=== PATIENT | female | born 1935 | race Caucasian/White ===

== ENCOUNTER 2018-05-08 10:27 | Emergency (ER) | payer MEDICARE ==
[2018-05-08] MEDS: oxyCODONE 5MG TAB PO (12:18)
== END 2018-05-08 14:09 | disposition home or self-care (01) ==
LOC: M ED 10:27
DX: G89.29 Other chronic pain (principal); M25.561 Pain in right knee; N18.3 Chronic kidney disease, stage 3 (moderate); I10 Essential (primary) hypertension; E78.5 Hyperlipidemia, unspecified; E66.9 Obesity, unspecified; E11.9 Type 2 diabetes mellitus without complications; Z86.718 Personal history of other venous thrombosis and embolism; Z79.82 Long term (current) use of aspirin; Z79.01 Long term (current) use of anticoagulants; Z79.899 Other long term (current) drug therapy; Z91.89 Other specified personal risk factors, not elsewhere classified; Z88.8 Allergy status to other drugs, medicaments and biological substances
CPT/HCPCS: 93971

== ENCOUNTER 2019-03-19 09:01 | Emergency (ER) | payer MEDICARE, OTHER ==
[~2019-03-19] VITALS: Ht 152.4 cm; Wt 90.0 kg
[~2019-03-19 09:01] MED LIST: /AUGM875TA OR; /LOR25TA OR; /LOR25TA PO; /RISE35TA; ALLO300T; ALLO300T OR; ASPI81TA26 PO; ASPI81TA3; ASPI81TA83 OR; AXID150C; CALCCHW12; CALCCHW12 OR; CALCTAB22 OR; CALCTAB41 PO; COLA100C2 OR; COUM1TAB14 PO; COUM1TAB19 PO; COUM6TAB PO; CYMB1CAP5 OR; CYMBALTA; DIABETIC MED PO; DULO1CAP6 PO; DURA75DI2 TD; ENAL10TA2; ENAL10TA2 OR; ENAL10TA2 PO; FENT10PA TD; FENT1DIS15 TD; FERR325T; FERR325T OR; FERR83TA OR; FERROUS SULFATE OR; FURO40TA2; FURO40TA2 OR; FURO80TA2 OR; HYDR-3716 PO; IMDU60TA; IMDU60TA OR; ISOS30BRAN OR; KLOR10TA; KLOR10TA OR; LACT10SO8 OR; LACT15SO PO; LEVA250T13 PO; LEVO25TA5 PO; LEVO25TABR; LEVO25TABR OR; LEVO500T PO; LIDO5DIS EX; LYRI75CA PO; METO-743 OR; METO-745; METO-745 OR; MILKSUS OR; MIRA3350 PO; MIRALEX PO; MOM30SS PO; MYCOSTATIN TOP; NATE120T4 PO; NATEGLINIDE PO; NEXI40CA PO; NITR0.4S; NITR4TASL SL; OMEP20TA7 OR; PENN1.5S2 TD; PLAV75TA2; POLY150C4 PO; POLY1POW4 PO; POLYIRON PO; POTA10CA2 OR; PRAV40TA; PRAV40TA OR; PRAV40TA2 PO; PRED10PA PO; PRED5TAB; PRED5TAB OR; PROT1TAB2; STARLIX; STARLIX PO; TOPR25TA PO; TORS100T PO; TYLE325T5 PO; VIC; VICO5TAB; VICO5TAB OR; VICO5TAB PO; VIT D 2000 PO; VITA-113 OR; VITA100018 PO; VITA100027; ZETI10TA; ZETI10TA OR; ZYLO300T6 PO; [UNRECOGNIZED DRUG - OTHER]; fentanyl EXT; nateglinide OR; nitroquick SL; vicodin PO
--- NOTE | 2019-03-19 10:04 | REP ---
REASON: Trauma. History of failed arthroplasty. AP and lateral views were obtained. There is a posterior tibiofibular dislocation with lucency seen subjacent to the femoral component of the arthroplasty. In addition, there is an abnormal lucency seen involving the distal femoral medial metaphysis. This limited two view examination cannot rule out additional abnormal lucencies. IMPRESSION: 1. Dislocated arthroplasty as described above. 2. Abnormal periprosthetic lucency suggesting loosening with possible medial fracture as described above and seen in a limited fashion on this two view exam. Electronically Signed by Sung Gore DO 03/19/2019 12:26 P
[2019-03-19] MEDS ORDERED: ACETAMINOPHEN TAB 650MG DOSE (2X325MG) PO ONE (10:45)
[2019-03-19] MEDS ORDERED: GLYC3350 PO (11:32)
[2019-03-19] MEDS ORDERED: IFERCAP PO (11:32)
[2019-03-19] MEDS ORDERED: DULC5TAB PO (11:32)
[2019-03-19 12:43] VITALS: BP 210/90
--- NOTE | 2019-03-25 06:40 | ED PDOC ---
Post-Departure Follow-Up DR DENNIS FAXED FORMAL REPORT OF KNEE FILM FOR FU Virgil Hull MD Mar 25, 2019 06:40
== END 2019-03-19 13:07 | disposition home or self-care (01) ==
LOC: M ED 09:01 → EDBD 09:01 → M ED 13:07
DX: S80.02XA Contusion of left knee, initial encounter (principal); T84.093A Other mechanical complication of internal left knee prosthesis, initial encounter; X50.9XXA Other and unspecified overexertion or strenuous movements or postures, initial encounter; Y92.89 Other specified places as the place of occurrence of the external cause; E11.9 Type 2 diabetes mellitus without complications; I10 Essential (primary) hypertension; E07.9 Disorder of thyroid, unspecified; E78.5 Hyperlipidemia, unspecified; K21.9 Gastro-esophageal reflux disease without esophagitis; Z79.899 Other long term (current) drug therapy; Z79.82 Long term (current) use of aspirin; Z88.8 Allergy status to other drugs, medicaments and biological substances; Z91.048 Other nonmedicinal substance allergy status

== ENCOUNTER → 2020-04-28 | Outpatient (CLI) | payer MEDICARE, OTHER ==
[~2020-04-28] MED LIST changes: -COUM1TAB14 PO; +COUM4TAB8 PO; -COUM6TAB PO; +COUM6TAB10 PO; +DULC5TAB PO; +ENAL-36 PO; -ENAL10TA2 PO; +GLYC3350 PO; +IFERCAP PO
--- NOTE | 2020-04-28 17:32 | REPVR ---
PROCEDURE INFORMATION: Exam: US Duplex Left Lower Extremity Veins, Limited Exam date and time: 04/28/2020 5:00 PM Age: 85 years old Clinical indication: Pain; Leg, lower; Left; Additional info: Pain lt lower leg, R/O dvt TECHNIQUE: Imaging protocol: Real-time Duplex ultrasound of the Left Lower Extremity with 2-D marks scale, color Doppler flow and spectral waveform analysis with image documentation. Limited exam focused on the left lower extremity veins. COMPARISON: US Duplex, Ext,LOWER veins,unilat 05/08/2018 11:16 AM FINDINGS: Left deep veins: Unremarkable. The common femoral, duplicated femoral, popliteal and posterior tibial veins are patent without thrombus. Normal Doppler waveforms. Normal compressibility and/or augmentation response. Left superficial veins: Unremarkable. Saphenofemoral junction is patent without thrombus. Soft tissues: Unremarkable. IMPRESSION: No evidence of deep vein thrombosis in the left lower extremity. Electronically signed by: Rodri Moreno On 04/28/2020 17:32:13 PM
== END ==
LOC: M RAD 16:22
PROVIDERS: ATTEND Physician Assistant Surgical
DX: M79.662 Pain in left lower leg (principal)

== ENCOUNTER 2021-05-07 02:38 | Inpatient (IN) | payer MEDICARE, OTHER ==
[2021-05-07] VITALS (7 sets, daily range): BP systolic 148–213; BP diastolic 80–100
[~2021-05-07] VITALS: Ht 162.6 cm; Wt 86.5 kg
[2021-05-07] MEDS ORDERED: METOCLOPRAMIDE INJ 10MG/2ML VIAL (J2765 PER 1) IV ONE (03:30)
[2021-05-07] MEDS: MORPHINE 2 MG/ML 1ML VIAL (J2270) IV PRN ×2 (03:36→04:00)
[2021-05-07 03:38] LABS: BASO # 0.1 10^3/uL (0.0-0.2); BASO % 0.5 % (0.0-1.0); HEMATOCRIT 45.8 % (36.0-47.0); HEMOGLOBIN 15.4 g/dl (12.0-15.5); LYMPH # 0.9 10^3/uL (1.5-5.0); LYMPH % 7.4 % (24.0-44.0); MEAN CORPUSCULAR HGB CONC 33.6 g/dl (32.0-36.5); MEAN CORPUSCULAR VOLUME 101.1 fl (80.0-96.0); MONO # 0.5 10^3/uL (0.0-0.8); MONO % 3.7 % (2.0-8.0); NEUTROPHILS # 10.9 10^3/uL (1.5-8.5); NEUTROPHILS % 87.9 % (36.0-66.0); PLATELET COUNT, AUTOMATED 314 10^3/uL (150-450); RED BLOOD COUNT 4.53 10^6/uL (4.00-5.40); WHITE BLOOD COUNT 12.4 10^3/uL (4.0-10.0)
[2021-05-07 03:59] LABS: ALBUMIN 4.2 GM/DL (3.2-5.2); BILIRUBIN,DIRECT 0.2 MG/DL (0.0-0.2); BILIRUBIN,TOTAL 0.5 MG/DL (0.2-1.0); CALCIUM LEVEL 9.8 MG/DL (8.8-10.2); CREATININE FOR GFR 0.99 MG/DL (0.55-1.30); GLOMERULAR FILTRATION RATE 56.4 (>32); POTASSIUM SERUM 3.7 MEQ/L (3.5-5.1); TOTAL PROTEIN 8.4 GM/DL (6.4-8.2)
[2021-05-07] MEDS: HYDROMORPHONE HCL 0.5 MG/ 0.5 ML SYRINGE (J1170 PER 1) IV PRN ×2 (05:13→06:26)
[2021-05-07] MEDS ORDERED: PROMETHAZINE INJ 25 MG/ML VIAL (J2550) IV ONE (05:15)
--- NOTE | 2021-05-07 05:38 | REPVR ---
PROCEDURE INFORMATION: Exam: CTA Chest With Contrast Exam date and time: 05/07/2021 4:42 AM Age: 86 years old Clinical indication: Pain; Other: Burning; Additional info: Abdominal pain, burning chest pain TECHNIQUE: Imaging protocol: Computed tomographic angiography of the chest with contrast. 3D rendering (Not supervised by radiologist): MIP and/or 3D reconstructed images were created by the technologist. Radiation optimization: All CT scans at this facility use at least one of these dose optimization techniques: automated exposure control; mA and/or kV adjustment per patient size (includes targeted exams where dose is matched to clinical indication); or iterative reconstruction. Contrast material: ISO; Contrast volume: 100 ml; Contrast route: INTRAVENOUS (IV); COMPARISON: CR Chest, 1 view 09/11/2015 5:03 PM FINDINGS: PULMONARY ARTERIES: The main pulmonary trunk measures 3.3 cm in diameter. This could be correlated for mild pulmonary arterial hypertension. Enhancement within the pulmonary arteries is preserved bilaterally through the distal segmental levels, without evidence of acute appearing occlusive pulmonary emboli. HEART AND AORTA: There is [id number] cardiac enlargement. There is compression of the heart between a large distended hiatal hernia discussed below and the sternum down to a nominal diameter of 3.1 cm. This may affect cardiac function. No pericardial effusion is seen. There is calcification at the mitral valve. Coronary arterial calcifications are noted. The thoracic aorta is not aneurysmal. There is thoracic aortic atherosclerosis and visualized upper abdominal atherosclerosis. No thoracic aortic dissection is seen. There is uncoiling of the aortic arch and tortuous appearance of the visualized proximal great vessels, findings which may be seen with longstanding systemic arterial hypertension. MEDIASTINUM: No mediastinal soft tissue gas. The visualized thyroid gland is within normal limits. No mediastinal hematoma is seen. Small amount of fluid noted within the pericardial recesses. The esophagus is distended with fluid and air-fluid level to 4.6 cm at the level of the parrish and 4.3 cm at the level of the aortic arch. This is consistent with distal obstruction but may also be seen with severe achalasia or reflux. This is likely a significant elevated risk for aspiration. There is a large fluid-filled distended herniation of the stomach into the chest measuring 20 cm transversely. This herniation involves nearly the entire stomach, however a portion of the fundus remains below the diaphragm however is distended up to 10 cm with fluid and is also likely obstructed, the antrum is located within the chest above the level of the fundus, consistent with gastric volvulus with narrowing of the pyloric segment as it crosses below the esophageal hiatus, likely site of obstruction. The gastroesophageal junction appears to be above the level of the esophageal hiatus. No conclusive gastric pneumatosis is seen. No obvious mediastinal lymphadenopathy by size criteria. LUNGS: Trace amount of pleural fluid is seen on the left. There is no pneumothorax. Confluent pulmonary opacities seen within the posterior lingula and the left lower lobe with air bronchograms which may be secondary to atelectasis, however aspiration/pneumonia cannot be excluded. There are mildly elevated ground-glass opacities bilaterally which may be secondary to volume loss/atelectasis, mild interstitial pneumonitis or edema. Clinical correlation and radiographic follow-up for these findings is advised. UPPER ABDOMEN: Please refer to same-day CT abdomen report for complete findings. MSK AND BODY WALL: The entire body wall is not included in the field of view. There is scoliosis extending above and below the level of imaging. Degenerative changes of the thoracic spine and bony thorax are noted. There is severe compression fracture deformity at T12 which was present on a prior abdominal CT of September 2015, consistent with a chronic injury. There is moderate central compression fracture deformity at T8 and mild central compression at T10 which are of indeterminate acuity. There is protrusio with deformity of the glenoid fossa bilaterally, the humeral heads protruding into the axillary regions bilaterally. This could be correlated for underlying bone abnormality such as rheumatoid arthritis or chronic dislocations. Multiple bilateral old rib fracture deformities are noted. IMPRESSION: No evidence for acute pulmonary embolus. There is a large fluid-filled distended hiatal hernia containing nearly the entire stomach. 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 The esophagus is dilated with fluid and air-fluid level over 4 cm in diameter. This would be elevated risk for aspiration. Cardiac enlargement. There is compression of the heart between the sternum and the distended herniated stomach, which likely impacts cardiac function. Pulmonary opacities noted which may be due to atelectasis, edema and/or pneumonia as discussed above. Other findings discussed above. Electronically signed by: Steve Ocampo On 05/07/2021 05:38:04 AM
--- NOTE | 2021-05-07 05:51 | REPVR ---
PROCEDURE INFORMATION: Exam: CT Abdomen With Contrast Exam date and time: 05/07/2021 4:42 AM Age: 86 years old Clinical indication: Abdominal pain; Generalized; Additional info: Abdominal pain, burning chest pain TECHNIQUE: Imaging protocol: Computed tomography images of the abdomen with intravenous contrast. Radiation optimization: All CT scans at this facility use at least one of these dose optimization techniques: automated exposure control; mA and/or kV adjustment per patient size (includes targeted exams where dose is matched to clinical indication); or iterative reconstruction. Contrast material: ISO; Contrast volume: 100 ml; Contrast route: INTRAVENOUS (IV); COMPARISON: CT ABD PELVIS WITH CONTRAST 09/11/2015 8:44 PM Study limitations: Diagnostic evaluation is slightly compromised by body habitus and positioning of the patient's arms alongside the body wall resulting in beam hardening artifacts. Diagnostic evaluation of viscera is slightly compromised as imaging is only obtained in arterial phase. FINDINGS: LUNG BASES: Please refer to same-day chest CT report for complete findings. 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 This is more dilated than on the prior study. No abdominoaortic dissection or retroperitoneal hematoma. There is aortoiliac and visceral arterial atherosclerosis seen. PERITONEAL : No free air or free fluid. GI: There is a large distended hiatal hernia. Please refer to same-day chest CT report for details. Nonspecific fluid containing small bowel loops are seen. No appearance of a small-bowel obstruction. No focal mesenteric inflammation is seen. Small nonspecific mesenteric lymph nodes are noted. Scattered fecal material and gas within portions of the colon and rectum. The rectum is distended to 7 cm with fecal material. There is perianal soft tissue thickening. Inflammation or mass cannot be excluded by this study. Correlation with clinical exam is advised. There is diverticulosis but no focal inflammation to suggest acute diverticulitis. Some portions of the colon appear slightly thick-walled. This could be artifactual secondary to insufficient distention. Mild colitis would be difficult to exclude. The appendix is not identified. HEPATOBILIARY, PANCREAS, SPLEEN: Hepatic length is 13.9 cm. Evaluation of the liver is slightly compromised by artifact and lack of homogeneous portal phase imaging. The gallbladder is hydropic, distended up to 13 cm in length by 5 cm transversely. There is slight prominence of the gallbladder wall for degree of distention. Mild cholecystitis cannot be excluded with this appearance. If indicated, consider ultrasound or HIDA scan for further evaluation. No calcified gallstones or biliary dilation seen. No pancreatic inflammation. Spleen not enlarged. ADRENALS, KIDNEYS, BLADDER, RETROPERITONEAL: Adrenals within normal limits. Symmetric renal enhancement.. Extrarenal pelves noted bilaterally. There is mild proximal pyelocaliectasis. This may be positional or related to distention of the urinary bladder. There are areas of renal cortical thinning. The urinary bladder is distended. No perivesical stranding is seen. No bladder wall thickening. PELVIC: No dominant cystic pelvic mass seen. The uterus is not identified. MUSCULOSKELETAL: Scoliosis and severe degenerative change of the spine. IMPRESSION: No free-air, free-fluid or focal mesenteric inflammation. Nonspecific gastrointestinal findings to be correlated clinically as discussed above. Hydropic distended gallbladder to be correlated for acute or chronic cholecystitis. Other nonemergent findings discussed above. Electronically signed by: Steve Ocampo On 05/07/2021 05:51:33 AM
[2021-05-07] MEDS ORDERED: NS 1,000 ML IV ONE (06:40)
[2021-05-07] MEDS ORDERED: PANTOPRAZOLE 40MG VIAL (C9113 PER 1) IV ONE (08:30)
--- NOTE | 2021-05-07 08:49 | REP ---
INDICATION: Low CXR to check NG placement. COMPARISON: 08/23/2015 the latest prior also portable TECHNIQUE: Portable FINDINGS: The technique utilized in obtaining the radiograph has magnified the cardiac silhouette and accentuated the interstitial markings. Since the last examination a nasogastric tube is been placed, however, it is doubled back upon itself inferior to the aortic knob. Without a lateral view its exact placement cannot be determined. It appears to be within the esophagus. There is global cardiomegaly status quo. There is chronic interstitial fibrotic change accentuated by technique status quo. No definite new abnormal lung opacities seem to have developed. There is no significant change in appearance of the osseous structures. IMPRESSION: Nasogastric tube as described above. It needs repositioning. Other findings as described above. <Electronically signed by Sung Gore > 05/07/21 [id number]
[2021-05-07] MEDS ORDERED: METOCLOPRAMIDE INJ 10MG/2ML VIAL (J2765 PER 1) IV PRN (08:55)
[2021-05-07] MEDS ORDERED: ONDANSETRON 4MG/2ML VIAL IV PRN ×2 (08:55→12:15)
[2021-05-07 09:34] LABS: BASO % 0.2 % (0.0-1.0); HEMATOCRIT 48.6 % (36.0-47.0); HEMOGLOBIN 15.9 g/dl (12.0-15.5); LYMPH # 0.8 10^3/uL (1.5-5.0); LYMPH % 6.5 % (24.0-44.0); MEAN CORPUSCULAR HEMOGLOBIN 33.1 pg (27.0-33.0); MEAN CORPUSCULAR HGB CONC 32.7 g/dl (32.0-36.5); MEAN CORPUSCULAR VOLUME 101.3 fl (80.0-96.0); MONO # 0.4 10^3/uL (0.0-0.8); NEUTROPHILS # 11.5 10^3/uL (1.5-8.5); NEUTROPHILS % 89.7 % (36.0-66.0); WHITE BLOOD COUNT 12.9 10^3/uL (4.0-10.0)
[2021-05-07 10:18] LABS: PLATELET COUNT, AUTOMATED 282 10^3/uL (150-450)
[2021-05-07 10:25] LABS: RSV AMPLIFICATION NEGATIVE (NEGATIVE)
[2021-05-07 10:32] LABS: INR 1.02; PROTHROMBIN TIME 13.8 SECONDS (12.7-14.5)
[2021-05-07] MEDS ORDERED: fentaNYL 100 MCG/2 ML INJECTION (J3010) As Ordered ONE (10:44)
[2021-05-07] MEDS ORDERED: ONDANSETRON 4MG/2ML VIAL As Ordered ONE (10:44)
[2021-05-07] MEDS ORDERED: LIDOCAINE 2% 100MG/5ML SDV (FOR ANES.) As Ordered ONE (10:44)
[2021-05-07] MEDS ORDERED: SUCCINYLCHOLINE 100 MG/5 ML SYRINGE (J0330) As Ordered ONE (10:44)
[2021-05-07] MEDS ORDERED: propofoL 200 MG/20 ML VIAL As Ordered ONE (10:44)
[2021-05-07] MEDS ORDERED: FENT75DI5 TD (10:44)
[2021-05-07] MEDS ORDERED: ESMOLOL INJ 100MG/10ML VIAL As Ordered ONE (10:44)
[2021-05-07] MEDS ORDERED: MIRT1TAB PO (10:45)
[2021-05-07] MEDS ORDERED: HOME MED LIST COMPLETE! XX SCH (10:50)
[2021-05-07] MEDS ORDERED: ROCURONIUM BROMIDE 50 MG/5 ML VIAL As Ordered ONE (10:59)
[2021-05-07] MEDS ORDERED: NS 500 ML IV ONE (12:00)
[2021-05-07] MEDS ORDERED: oxyCODONE 5MG TAB PO PRN (12:15)
[2021-05-07] MEDS ORDERED: fentaNYL 100 MCG/2 ML INJECTION (J3010) IV PRN (12:15)
[2021-05-07] MEDS ORDERED: LR 1,000 ML IV SCH (12:15)
--- NOTE | 2021-05-07 12:19 | REP ---
INDICATION: POST OP IN PACU. COMPARISON: Today at 8:41 a.m. TECHNIQUE: Portable FINDINGS: The technique utilized in obtaining the radiograph has magnified the cardiac silhouette and accentuated the interstitial markings. The nasogastric tube has been repositioned. The proximal port is at the level of the gastroesophageal junction. There is a large hiatal hernia, however. The cardiomediastinal silhouette is stable. There is no significant change in appearance of the lung jorge or imaged osseous structures. IMPRESSION: Repositioning of the nasogastric tube as described above. The examination is otherwise unchanged. <Electronically signed by Sung Gore > 05/07/21 [id number]
[2021-05-07] MEDS ORDERED: LABETALOL 100MG/20ML VIAL IV PRN (12:40)
[2021-05-07] MEDS: NS 1,000 ML IV SCH ×2 (12:41→17:54)
[2021-05-07] MEDS: hydrALAZINE 20MG/ML 1ML VIAL (J0360 PER 20MG) IV SCH ×2 (15:16→21:58)
[2021-05-07 15:37] LABS: THYROID STIMULATING HORMONE 2.17 uIU/ML (0.358-3.740)
[2021-05-07] MEDS: PANTOPRAZOLE 40MG VIAL (C9113 PER 1) IV SCH (17:54)
--- NOTE | 2021-05-07 19:04 | CR.PDOC ---
General Date of Consultation: May 07, 2021 Referring Provider: Lucio Young Primary Care Physician: Jr Smith Collins Attending Physician: BRANDI SERNA MD Consultation REASON FOR CONSULTATION/CHIEF COMPLAINT: Pre-operative medical management HISTORY OF PRESENT ILLNESS: Ms. Fermin is an 86-year-old female who presented to the ED due to dark/black diarrhea that woke her up from sleep last night. She denied bowel incontinence as she was able to use her bedpan for her diarrhea. She noted blood on the tissue paper, but no obvious blood in the stool. She also felt warm and had nausea, vomiting, and chest/abdominal pain along her bilateral anterior costal margins. She denied headache, fall, head injury, syncope, SOB, hemoptysis, hematemesis, urinary incontinence, dysuria, pyuria, and chills. In the ED, labs showed WBC 12.4 and lactic acid 2.9. CTA chest showed a large fluid-filled distended hiatal hernia containing nearly the entire stomach, gastr ic volvulus with obstruction of the pylorus at the level of the esophageal hiatus, and compression of the heart between the sternum and distended herniated stomach. She was taken to the OR this morning by general surgery for EGD decompression of the stomach with NG tube placement. After the procedure, the hospitalist service was consulted for pre-operative management of the patient's medical co-morbidities. Per general surgery, the patient is most likely a candidate for hiatal hernia repair. The patient was seen lying comfortably in the bed. NG tube was placed in right nostril. She reports improved pain but feels weak and fatigue. At the time of presentation, patient's blood pressure was measured as 210/100. She denies headache, chest pain, SOB, nausea, and diarrhea. ALLERGIES: Please see below. HOME MEDICATIONS: Please see below. 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 16-17 years ago - Denies history of stroke, seizures, or PE PAST SURGICAL HISTORY: - Appendectomy - Hysterectomy - Multiple abdominal hernia repairs - 1 cardiac stent placement - Bilateral knee replacement 25 years ago - Cataract extraction - Vertebral fracture surgery - Colonoscopy FAMILY HISTORY: Father: from [place] Mother: from [place] Siblings: 1 brother with h/o [place] Children: 5 children SOCIAL HISTORY: Marital status and/or living arrangements: Living with Tobacco use: Denies ETOH: Occasional on the weekends Illicit drug use: Denies IV drug use: Denies REVIEW OF SYSTEMS: CONSTITUTIONAL: Denies current fever, chills. HEENT: Dry throat, feels dehydrated. Denies headache, dysphagia. CARDIOVASCULAR: Denies current chest pain. RESPIRATORY: Denies current SOB. GENITOURINARY: Denies current urinary or bowel incontinence, dysuria, pyuria, hematuria, hematochezia. MUSCULOSKELETAL: Weakness and fatigue. Denies pain in extremities. GASTROINTESTINAL: Denies current nausea, vomiting, abdominal pain, diarrhea, constipation. NEUROLOGICAL: Denies syncope, LOC. PHYSICAL EXAMINATION: VITAL SIGNS: Please see below. GENERAL APPEARANCE: Patient is an elderly, obese female. She is lying comfortable in the bed in no acute distress. HEENT: NC, AT. EOMI. PERRLA. Dry mucus membranes. NG tube placed in right nostril. Neck circumference <41cm. Mallampati Class III. RESPIRATORY: Clear to auscultation bilaterally. No wheezing, rales, or rhonchi appreciated. CARDIOVASCULAR: RRR. No murmurs, rubs, or gallops appreciated. ABDOMEN: Soft, obese abdomen. Mild tenderness along bilateral anterior costal margins. Nontender to palpation in all 4 quadrants. Positive bowel sounds. EXTREMITIES: Bilateral radial, dorsalis pedis, and posterior tibialis appreciated. Non-pitting edema in bilateral LLE. Bilateral flat feet, arches are not present. Bilateral hallux valgus. Bilateral pedal deformities noted; severe out-toeing bilaterally. NEUROLOGICAL: A&O X3. No focal deficits noted. PSYCHIATRIC: Mood appears stable. LABORATORY DATA: Please see below. IMAGIN05/07/2021 CT Abdomen Findings: LUNG BASES: Please refer to same-day chest CT report for complete findings. 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 This is more dilated than on the prior study. No abdominoaortic dissection or retroperitoneal hematoma. There is aortoiliac and visceral arterial atherosclerosis seen. PERITONEAL: No free air or free fluid. GI: There is a large distended hiatal hernia. Please refer to same-day chest CT report for details. Nonspecific fluid containing small bowel loops are seen. No appearance of a small-bowel obstruction. No focal mesenteric inflammation is seen. Small nonspecific mesenteric lymph nodes are noted. Scattered fecal material and gas within portions of the colon and rectum. The rectum is dis tended to 7 cm with fecal material. There is perianal soft tissue thickening. Inflammation or mass cannot be excluded by this study. Correlation with clinical exam is advised. There is diverticulosis but no focal inflammation to suggest acute diverticulitis. Some portions of the colon appear slightly thick-walled. This could be artifactual secondary to insufficient distention. Mild colitis would be difficult to exclude. The appendix is not identified. HEPATOBILIARY, PANCREAS, SPLEEN: Hepatic length is 13.9 cm. Evaluation of the liver is slightly compromised by artifact and lack of homogeneous portal phase imaging. The gallbladder is hydropic, distended up to 13 cm in length by 5 cm transversely. There is slight prominence of the gallbladder wall for degree of distention. Mild cholecystitis cannot be excluded with this appearance. If indicated, consider ultrasound or HIDA scan for further evaluation. No calcified gallstones or biliary dilation seen. No pancreatic inflammation. Spleen not enlarged. ADRENALS, KIDNEYS, BLADDER, RETROPERITONEAL: Adrenals within normal limits. Symmetric renal enhancement. Extrarenal pelves noted bilaterally. There is mild proximal pyelocaliectasis. This may be positional or related to distention of the urinary bladder. There are areas of renal cortical thinning. The urinary bladder is distended. No perivesical stranding is seen. No bladder wall t hickening. PELVIC: No dominant cystic pelvic mass seen. The uterus is not identified. MUSCULOSKELETAL: Scoliosis and severe degenerative change of the spine." 05/07/2021 CTA Chest w/ Contrast Impression: "No evidence for acute pulmonary embolus. There is a large fluid-filled distended hiatal hernia containing nearly the entire stomach. 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 The esophagus is dilated with fluid and air-fluid level over 4 cm in diameter. This would be elevated risk for aspiration. Cardiac enlargement. There is compression of the heart between the sternum and the distended herniated stomach, which likely impacts cardiac function. Pulmonary opacities noted which may be due to atelectasis, edema and/or pneumonia as discussed above. Other findings discussed above." 05/07/2021 Chest X-ray Impression: "Nasogastric tube as described above. It needs repositioning. Other findings as described above." 05/07/2021 Chest X-ray Impression: "Repositioning of the nasogastric tube as described above. The examination is otherwise unchanged." ASSESSMENT/PLAN: Ms. Fermin is an 86-year-old female with a h/o HTN (managed w/o medication), hypercholesterolemia, CKD stage 3a, DM type II (managed w/o medication), alla yneuropathy 2/2 DM, DVT in 2014 (completed course of Coumadin), and gout who was admitted by general surgery and hospital service was consulted for pre-operative management of medical co-morbidities as well hypertensive urgency on presentation. 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 - S/p EGD decompression of the stomach with NG tube placement. - The hospitalist service was consulted for pre-operative management of medical co-morbidities. General surgery plans to likely perform a hiatal hernia repair due to gastric volvulus. - Records from patient's PCP (Dr. Charles Smith) were requested on 05/07/21. - Revised Cardiac Risk Index Score of 1 correlating w/ Class II Risk; 6% 30-day risk of , ND, or cardiac arrest. - Pro-BNP 4339; lactic acid 3.4 - Echocardiogram (to assess IVC/CVP in setting of elev BNP w/ current fluids while patient NPO); EKG ordered. - STOPBANG risk assessment for sleep apnea resulted in low risk - Mallampati score III; neck circumference <41cm. - Patient denies any previous issues with anesthesia. - Patient denies a history of stroke, PE, CHF; she is a non-smoker and no known respiratory conditions. - Patient is not on any anticoagulants or antiplatelets at home, has not recently taken any NSAIDs. - Rouse catheter in place. - Continue NPO. - Continue IV morphine 2mg Q4H as needed for pain. - Continue IV metoclopramide 10mg, IV ondansetron 4mg, IV pantoprazole 40mg as needed for nausea/vomiting. - Continue IV NS 150mls/hr for fluids until results of stat echo return - Will hold all PO home medications in preparation for surgical procedure. At this time, medical optimization for surgery is pending stat echocardiogram which was ordered in the setting of elevated BNP. Will plan to update general surgery service once results of echo are in. # Hypertensive urgency i/s/o HTN hx - Patient presented to the ED with BP 205/99. After the EGD, the patient's blood pressure remained elevated at 210/100. - The patient does report a history of hypertension but does not take any medications at home for control. Per PCP, the patient was hemodynamically stable at the time of previous visit and did not require medications. - Echocardiogram and EKG ordered. - IV hydralazine 10mg Q6H in the setting of significantly elevated pressure and borderline bradycardia; parameters are to hold if SBP <160. Repeat BP 156/88. - Patient currently NPO; when returning to oral meds, may consider addition of amlodipine in the setting of borderline bradycardia with HTN. - Will continue to monitor vitals. # CKD Stage 3a - Cr 0.99; baseline is approx. 0.8-0.9 DVT prophylaxis: TEDs and sequentials. Disposition: Pending hiatal hernia repair. Vital Signs/I&O Vital Signs Date Time Temp Pulse Resp B/P (MAP) Pulse Ox O2 Delivery O2 Flow Rate FiO2 05/07/21 15:16 213/93 05/07/21 14:27 67 05/07/21 14:01 98.1 16 95 Room Air 05/07/21 07:15 2.0 Laboratory Data Labs 24H Laboratory Tests 2 05/07/21 03:17: Immature Granulocyte % (Auto) 0.5, Neutrophils (%) (Auto) 87.9H, Lymphocytes (%) (Auto) 7.4L, Monocytes (%) (Auto) 3.7, Eosinophils (%) (Auto) 0.0, Basophils (%) (Auto) 0.5, Neutrophils # (Auto) 10.9H, Lymphocytes # (Auto) 0.9L, Monocytes # (Auto) 0.5, Eosinophils # (Auto) 0.0, Basophils # (Auto) 0.1, Nucleated Red Blood Cells % (auto) 0.0, Anion Gap 5L, Glomerular Filtration Rate 56.4, Lactic Acid Level 2.9*H, Calcium Level 9.8, Total Bilirubin 0.5, Direct Bilirubin 0.2, Aspartate Amino Transf (AST/SGOT) 34, Alanine Aminotransferase (ALT/SGPT) 22, Alkaline Phosphatase 102, Total Protein 8.4H, Albumin 4.2, Albumin/Globulin Ratio 1.0L, Lipase 188 05/07/21 09:12: Immature Granulocyte % (Auto) 0.6, Neutrophils (%) (Auto) 89.7H, Lymphocytes (%) (Auto) 6.5L, Monocytes (%) (Auto) 3.0, Eosinophils (%) (Auto) 0.0, Basophils (%) (Auto) 0.2, Neutrophils # (Auto) 11.5H, Lymphocytes # (Auto) 0.8L, Monocytes # (Auto) 0.4, Eosinophils # (Auto) 0.0, Basophils # (Auto) 0.0, Nucleated Red Blood Cells % (auto) 0.0, Coronavirus (COVID-19)(PCR) NEGATIVE, Influenza Type A (RT-PCR) NEGATIVE, Influenza Type B (RT-PCR) NEGATIVE, Respiratory Syncytial Virus (PCR) NEGATIVE 05/07/21 10:00: Thyroid Stimulating Hormone (TSH) 2.170 05/07/21 10:05: Prothrombin Time 13.8, Prothromb Time International Ratio 1.02, Activated Partial Thromboplast Time 21.0L 05/07/21 10:07: Lactic Acid Level 3.8*H 05/07/21 14:37: Lactic Acid Followup at 4 Hours 3.4*H CBC/BMP Laboratory Tests 05/07/21 03:17 05/07/21 09:12 Allergies Coded Allergies: TAPE (Verified Allergy, Intermediate, RASH, 05/21/10) meloxicam (Verified Adverse Reaction, Mild, "I think it made me sick", 03/19/19) pioglitazone (Verified Adverse Reaction, Mild, bruising, 03/19/19) pregabalin (Verified Adverse Reaction, Mild, affects vision, 03/19/19) Home Medications Scheduled Bisacodyl (Dulcolax) 5 Mg Tablet.dr, 10 MG PO ASDIRECTED for constipation, (Reported) Cyanocobalamin (Vitamin B-12) (Vitamin B-12) 1,000 Mcg Tab, 1,000 MCG PO DAILY, (Reported) Duloxetine Hcl (Duloxetine HCl) 60 Mg Cap, 60 MG PO DAILY, (Reported) Iron Ps Complex/B12/Folic Acid (Iferex 150 Forte Capsule) 1 Each Capsule, 1 CAP PO DAILY, (Reported) Levothyroxine Sodium (Levothyroxine Sodium) 25 Mcg Tab, 37.5 MCG PO DAILY, (Reported) Mirtazapine (Mirtazapine) 7.5 Mg Tablet, 7.5 MG PO QHS, (Reported) Pravastatin Sodium (Pravastatin Sodium) 40 Mg Tab, 40 MG PO QHS, (Reported) fentaNYL (fentaNYL) 75 Mcg Patch.td72, 75 MCG TD Q3D, (Reported) Scheduled PRN Hydrocodone/Acetaminophen (Hydrocodone-Acetamin 7.5-325) 1 Tab Tab, 1 TAB PO Q6H PRN for PAIN, (Reported) Nitroglycerin (Nitrostat) 0.4 Mg Subl, 0.4 MG SL Q5MP PRN for ANGINA, (Reported) GME ATTESTATION GME ATTESTATION My faculty preceptor for this patient encounter was physically present during the encounter and was fully available. All aspects of the patient interview, examination, medical decision making process, and medical care plan development were reviewed and approved by the faculty preceptor. The faculty preceptor is aware and concurs with the plan as stated in the body of this note and will attest to such by his/her cosignature. ATTENDING NOTE I personally examined the patient together with the resident and medical students and we obtained the presenting history together, discussed her findings, investigative results and I agree with the above noted findings, assessment and plan. Ms. Fermin has a large hietal hernia that will require repair and at this time, we will seek a TTE to complete medical assessment for optimization for surgery. She otherwise appears euvolemic, without evidence of acute cardiovascular vascular supply or pulmonary pathology thus far. She was however hypertensive and we are treating her with IV hydralazine. ROSEANNA TREVIZO OMS-3 May 07, 2021 19:03 BRANDI SERNA MD May 08, 2021 08:53
--- NOTE | 2021-05-07 20:58 | ECHO ---
ECHOCARDIOGRAM DATE OF PROCEDURE: 05/07/2021 Age: Gender: Female Height: 163 cm Weight: 86 kg REFERRING PHYSICIAN: Lucio Young M.D. INDICATION: Preoperative evaluation; elevated BNP. MEASUREMENTS: IVS 1.5 cm LV 2.6 cm LVPW 1.5 cm LA 3.1 cm Aorta 3.0 cm IVC 1.5 cm Mitral E wave velocity 60 A wave 139 E prime septal 3.7 E prime lateral 5.0 FINDINGS: This study is of good technical quality. Patient is in sinus rhythm. Left ventricle is normal size. Moderate left ventricular hypertrophy is noted. Overall hyperdynamic left ventricular (LV) systolic function with estimated left ventricular ejection fraction (LVEF) 70-75%. No segmental wall motion abnormalities noted. Normal right ventricular (RV) size and systolic function. Normal size of both atria. Sclerotic aortic valve with no significant restriction of mobility. Degenerative abnormality of mitral valve with mitral annular calcifications, but preserved motion of both leaflets. Tricuspid and pulmonic valves appear normal. No pericardial effusion is noted. Inferior vena cava is normal size. Aortic root is normal. Aortic arch and abdominal aorta were not well seen. Doppler interrogation reveals trace aortic insufficiency and trivial stenosis with mean gradient 8 mmHg. There is competent mitral valve. Mild tricuspid insufficiency. Calculated pulmonary artery pressure around 40 mmHg. Pulmonic valve is functionally competent. Mitral inflow pattern and tissue Doppler imaging of mitral annulus reveal grade 1 diastolic dysfunction. CONCLUSIONS: 1. Study is of acceptable technical quality. Underlying sinus rhythm. 2. Normal left ventricular (LV) size with moderate left ventricular hypertrophy (LVH), hyperdynamic LV systolic function. Estimated left ventricular ejection fraction (LVEF) 70-75%. Grade 1 diastolic dysfunction. 3. Normal right ventricular (RV) size and systolic function. 4. Aortic sclerosis with trace insufficiency and trivial stenosis. 5. Competent mitral valve. 6. Likely normal central venous pressure and approximately moderate pulmonary hypertension. MTDD
[2021-05-08] VITALS (8 sets, daily range): BP systolic 145–190; BP diastolic 65–95
[2021-05-08] MEDS: NS 1,000 ML IV SCH ×3 (00:30→18:17)
[2021-05-08] MEDS: hydrALAZINE 20MG/ML 1ML VIAL (J0360 PER 20MG) IV SCH ×4 (03:53→21:00)
[2021-05-08] MEDS: MORPHINE 2 MG/ML 1ML VIAL (J2270) IV PRN (05:29)
[2021-05-08 05:37] LABS: BASO # 0.1 10^3/uL (0.0-0.2); BASO % 0.5 % (0.0-1.0); EOS % 0.1 % (0.0-3.0); HEMATOCRIT 42.5 % (36.0-47.0); HEMOGLOBIN 14.1 g/dl (12.0-15.5); LYMPH # 1.6 10^3/uL (1.5-5.0); LYMPH % 13.4 % (24.0-44.0); MEAN CORPUSCULAR HEMOGLOBIN 34.1 pg (27.0-33.0); MEAN CORPUSCULAR HGB CONC 33.2 g/dl (32.0-36.5); MEAN CORPUSCULAR VOLUME 102.9 fl (80.0-96.0); MONO # 0.8 10^3/uL (0.0-0.8); MONO % 6.8 % (2.0-8.0); NEUTROPHILS # 9.4 10^3/uL (1.5-8.5); NEUTROPHILS % 78.7 % (36.0-66.0); PLATELET COUNT, AUTOMATED 251 10^3/uL (150-450); RED BLOOD COUNT 4.13 10^6/uL (4.00-5.40)
[2021-05-08] MEDS ORDERED: PANTOPRAZOLE 40MG VIAL (C9113 PER 1) IV SCH (09:00)
[2021-05-08] MEDS ORDERED: FLUBLOK(EGG FREE)(QUAD)INFLUENZA VACC 0.5ML SYRINGE 18YRS & OLDER IM ONE (09:00)
[2021-05-08 09:20] LABS: ALT/SGPT 19 U/L (12-78); BILIRUBIN,TOTAL 0.5 MG/DL (0.2-1.0); BLOOD UREA NITROGEN 18 MG/DL (7-18); CALCIUM LEVEL 9.1 MG/DL (8.8-10.2); CARBON DIOXIDE LEVEL 31 MEQ/L (21-32); CHLORIDE LEVEL 111 MEQ/L (98-107); CREATININE FOR GFR 0.83 MG/DL (0.55-1.30); GLOMERULAR FILTRATION RATE > 60.0 (>32); GLUCOSE, FASTING 113 MG/DL (70-100); MAGNESIUM LEVEL 2.1 MG/DL (1.8-2.4); POTASSIUM SERUM 3.9 MEQ/L (3.5-5.1); SODIUM LEVEL 146 MEQ/L (136-145); TOTAL PROTEIN 6.5 GM/DL (6.4-8.2)
--- NOTE | 2021-05-08 09:33 | IPNPDOC ---
Text Note Date of Service The patient was seen on 05/08/21. NOTE SUBJECTIVE: Ms. Fermin was seen by the hospitalist service this morning. She is lying comfortably in bed. She reports a slight headache, but no significant changes overnight. She did have 2 episodes of elevated SBP > 160 for which she was given hydralazine. She has not had a bowel movement since admission and denies any flatus. She notes being very dry, but the patient is NPO at this time for possible surgical intervention. She denies fever, chills, chest pain, palpitati ons, nausea, abdominal pain, vomiting, dysuria, pyuria, hematuria, pain/numbness/tingling in all 4 extremities. OBJECTIVE: PHYSICAL EXAMINATION: VITAL SIGNS: Please see below. GENERAL APPEARANCE: Patient is an elderly, obese female. She is lying comfortable in the bed in no acute distress. HEENT: NC, AT. EOMI. PERRLA. Sclera non-icteric. Dry mucus membranes. NG tube placed in right nostril (scant amount of drainage present < 100cc). Neck circumference <41cm. Mallampati Class III. NECK: No cervical adenopathy noted. RESPIRATORY: Clear to auscultation bilaterally. No wheezing, rales, or rhonchi appreciated. CARDIOVASCULAR: RRR. No murmurs, rubs, or gallops appreciated. ABDOMEN: Soft, obese abdomen. Nontender to palpation along costal margins and in all 4 quadrants. Positive bowel sounds. GENITOURINARY: Rouse catheter in place with approx 200cc of dark, yellow-colored urine. EXTREMITIES: Tenderness to palpation noted below left popliteal fossa. Bilateral radial, dorsalis pedis, and posterior tibialis appreciated. Non-pitting edema in bilateral LLE. Bilateral flat feet, arches are not present. Bilateral hallux valgus. Bilateral pedal deformities noted; severe out-toeing bilaterally. SKIN: Rash noted under pannus, worse on right than left. NEUROLOGICAL: A&O X3. No focal deficits noted. PSYCHIATRIC: Mood appears stable. IMAGIN05/07/2021 Echocardiogram Conclusions: "1. Study is of acceptable technical quality. Underlying sinus rhythm. 2. Normal left ventricular (LV) size with moderate left ventricular hypertrophy (LVH), hyperdynamic LV systolic function. Estimated left ventricular ejection fraction (LVEF) 70-75%. Grade 1 diastolic dysfunction. 3. Normal right ventricular (RV) size and systolic function. 4. Aortic sclerosis with trace insufficiency and trivial stenosis. 5. Competent mitral valve. 6. Likely normal central venous pressure and approximately moderate pulmonary hypertension." 05/07/2021 CT Abdomen Findings: LUNG BASES: Please refer to same-day chest CT report for complete findings. 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 This is more dilated than on the prior study. No abdominoaortic dissection or retroperitoneal hematoma. There is aortoiliac and visceral arterial atherosclerosis seen. PERITONEAL: No free air or free fluid. GI: There is a large distended hiatal hernia. Please refer to same-day chest CT report for details. Nonspecific fluid containing small bowel loops are seen. No appearance of a small-bowel obstruction. No focal mesenteric inflammation is seen. Small nonspecific mesenteric lymph nodes are noted. Scattered fecal material and gas within portions of the colon and rectum. The rectum is distended to 7 cm with fecal material. There is perianal soft tissue thickening. Inflammation or mass cannot be excluded by this study. Correlation with clinical exam is advised. There is diverticulosis but no focal inflammation to suggest acute diverticulitis. Some portions of the colon appear slightly thick-walled. This could be artifactual secondary to insufficient distention. Mild colitis would be difficult to exclude. The appendix is not identified. HEPATOBILIARY, PANCREAS, SPLEEN: Hepatic length is 13.9 cm. Evaluation of the liver is slightly compromised by artifact and lack of homogeneous portal phase imaging. The gallbladder is hydropic, distended up to 13 cm in length by 5 cm transversely. There is slight prominence of the gallbladder wall for degree of distention. Mild cholecystitis cannot be excluded with this appearance. If indicated, consider ultrasound or HIDA scan for further evaluation. No calcified gallstones or biliary dilation seen. No pancreatic inflammation. Spleen not enlarged. ADRENALS, KIDNEYS, BLADDER, RETROPERITONEAL: Adrenals within normal limits. Symmetric renal enhancement. Extrarenal pelves noted bilaterally. There is mild proximal pyelocaliectasis. This may be positional or related to distention of the urinary bladder. There are areas of renal cortical thinning. The urinary bladder is distended. No perivesical stranding is seen. No bladder wall thickening. PELVIC: No dominant cystic pelvic mass seen. The uterus is not identified. MUSCULOSKELETAL: Scoliosis and severe degenerative change of the spine." 05/07/2021 CTA Chest w/ Contrast Impression: "No evidence for acute pulmonary embolus. There is a large fluid-filled distended hiatal hernia containing nearly the entire stomach. 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 The esophagus is dilated with fluid and air-fluid level over 4 cm in diameter. This would be elevated risk for aspiration. Cardiac enlargement. There is compression of the heart between the sternum and the distended herniated stomach, which likely impacts cardiac function. Pulmonary opacities noted which may be due to atelectasis, edema and/or pneumonia as discussed above. Other findings discussed above." 05/07/2021 Chest X-ray Impression: "Nasogastric tube as described above. It needs repositioning. Other findings as described above." 05/07/2021 Chest X-ray Impression: "Repositioning of the nasogastric tube as described above. The examination is otherwise unchanged." ASSESSMENT/PLAN: Ms. 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 - S/p EGD decompression of the stomach with NG tube placement. - The hospitalist service was consulted for pre-operative management of medical co-morbidities. General surgery potentially will perform a laparoscopic hiatal hernia repair due to gastric volvulus. - Recent records from patient's PCP (Dr. Charles Smith) were requested and reviewed. - Revised Cardiac Risk Index Score of 1 correlating w/ Class II Risk; 6% 30-day risk of , [place], or cardiac arrest. - Pro-BNP 4339; lactic acid 3.4 - Echocardiogram shows normal LV size w/ moderate LVH; LVEF 70-75%, Grade 1 diastolic dysfunction; normal RV size and systolic function; moderate pulmonary hypertension (see report above). - EKG ordered. - STOPBAN risk assessment for sleep apnea resulted in low risk - Mallampati score III; neck circumference <41cm. - Patient denies any previous issues with anesthesia. - Patient denies a history of stroke, PE, CHF; she is a non-smoker and no known respiratory conditions. - Patient is not on any anticoagulants or antiplatelets at home, has not recently taken any NSAIDs. - Rouse catheter in place. - Continue IV morphine 2mg Q4H as needed for pain. - Continue IV metoclopramide 10mg, IV ondansetron 4mg, IV pantoprazole 40mg as needed for nausea/vomiting. - Continue IV NS 150mls/hr for fluids. - Per general surgery, the NG tube will be clamped and the patient will be given a very small amount of clear liquids. At this time, the patient is medically optimized for surgery. # Hypertensive urgency i/s/o HTN hx - Patient presented to the ED with BP 205/99. After the EGD, the patient's blood pressure remained elevated at 210/100. - The patient does report a history of hypertension but does not take any medications at home for control. Per PCP, the patient was hemodynamically stable at the time of previous visit and did not require medications. - Patient reports slight headache which may be due to hypertension or possible caffeine withdrawal (drinks 2 cups of coffee days). - IV hydralazine 10mg Q6H in the setting of significantly elevated pressure and borderline bradycardia; parameters are to hold if SBP <160. Repeat BP 156/88. - Patient will be introduced to a very small amount of clear liquids this morning; will defer PO medications and assess how she tolerates clear liquids. - Overnight, the patient was given 2 doses of IV hydralazine; SBP at 188 and 168. BP is now 148/80. - Will continue to monitor vitals. # CKD Stage 3a - Cr 0.99; baseline is approx. 0.8-0.9 DVT prophylaxis: TEDs and sequentials. Disposition: Patient is medically optimized for surgery. VS,Fishbone, I+O VS, Fishbone, I+O Laboratory Tests 05/07/21 09:12 05/08/21 05:28 Vital Signs Date Time Temp Pulse Resp B/P (MAP) Pulse Ox O2 Delivery O2 Flow Rate FiO2 05/08/21 05:39 18 Room Air 05/08/21 04:00 98.4 90 148/80 (102) 92 05/07/21 07:15 2.0 I&O- Last 24 Hours up to 6 AM 05/08/21 06:00 Intake Total 2700 ml Output Total 1000 ml Balance 1700 ml GME ATTESTATION GME ATTESTATION My faculty preceptor for this patient encounter was physically present during the encounter and was fully available. All aspects of the patient interview, examination, medical decision making process, and medical care plan development were reviewed and approved by the faculty preceptor. The faculty preceptor is aware and concurs with the plan as stated in the body of this note and will attest to such by his/her cosignature. ATTENDING NOTE I personally examined the patient with the medical student and perfomed the examination, obtained interim history and discussed the medical plan going forw jadyn, and I agree with the above assessment and plan. At this time as the medical team given her normal EF and normal CVP with euvolemic examination, she is medically optimized for surgery if indicated. We will continue to aggressively treat her hypertensive urgency. ROSEANNA TREVIZO OMS-3 May 08, 2021 09:33 BRANDI SERNA MD May 09, 2021 08:20
[2021-05-08] MEDS: ACETAMINOPHEN 325 MG/10.15 ML UDC GT PRN (13:01)
[2021-05-08] MEDS: PANTOPRAZOLE 40MG VIAL (C9113 PER 1) IV SCH (18:17)
[2021-05-08] MEDS ORDERED: LABETALOL 100MG/20ML VIAL IV STA (18:17)
[2021-05-08] MEDS ORDERED: LABETALOL 100MG/20ML VIAL IV ONE (18:35)
[2021-05-09] VITALS (17 sets, daily range): BP systolic 137–190; BP diastolic 63–77
[2021-05-09] MEDS: hydrALAZINE 20MG/ML 1ML VIAL (J0360 PER 20MG) IV SCH ×2 (05:07→08:30)
[2021-05-09] MEDS: MORPHINE 2 MG/ML 1ML VIAL (J2270) IV PRN ×2 (05:12→09:56)
[2021-05-09] MEDS: ACETAMINOPHEN 325 MG/10.15 ML UDC GT PRN (08:31)
--- NOTE | 2021-05-09 10:57 | ECGEPIP ---
[facility] Test Date: 2021-05-07 Pat Name: SHIRA ABEL Department: Room: [place] [address] Gender: Female Rv Detailer: SUYAPA : 1935 Requested By: BRANDI Hyde Order Number: [id number] Reading MD: Ajay Gooden Measurements Intervals [place] Rate: 67 P: -7 UT: 196 QRS: -24 QRSD: 98 T: 126 QT: 460 QTc: 486 Interpretive Statements Normal sinus rhythm Moderate voltage criteria for LEFT VENTRICULAR HYPERTROPHY (R aVL , [place]) Nonspecific T wave abnormality More pronounced repolarization abnormalities, Increased heart rate, and increased v voltages compared with 09/11/2015. Electronically Signed on 05-09-2021 10:57:03 EDT by Ajay Gooden
[2021-05-09] MEDS ORDERED: NITROGLYCERIN 0.4 MG SUBL TABLET SL PRN (11:25)
[2021-05-09] MEDS: DULoxetine 30MG CAPSULE (CYMBALTA) PO SCH (12:00)
--- NOTE | 2021-05-09 12:01 | IPN ---
PROGRESS NOTE DATE: 05/09/2021 Patient is status post upper endoscopy with esophagogastroduodenoscopy (EGD) and decompression of a gastric volvulus. She has a nasogastric (NG) tube in place, and the NG tube has been clamped, and she has been on a clear liquid diet. 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 She has numerous other complaints and problems, and she is a very frail lady at this time and is not complaining of any abdominal pain. Her abdomen is soft, nontender, nondistended. IMPRESSION AND PLAN: Patient had a gastric volvulus and unfortunately multiple issues are present, one of which is that she had some clear fluid in her NG tube residuals, and it implies that the stomach is really not emptying very well; thus, I would like to see if we can decompress her stomach over the weekend and then on Tuesday perform an upper gastrointestinal (GI), and we will see how her stomach empties at that time. If it does empty well, we will discontinue the NG tube, get her on a clear liquid diet, and advance her to mechanical soft/pureed diet. If, however, it does not empty, then obviously the discussion whether operative intervention is warranted. Unfortunately, she seems to be quite a poor operative candidate, and, more importantly, my concern at this time is not just the difficulty in reducing this longstanding huge hiatal hernia, it is more that she may not tolerate operative intervention and have a poor postoperative course leading to prolonged rehabilitation to her already marginal status. In any case, I do feel that for right now we will see how she does with the NG tube, nothing by mouth except some ice chips, and we will see how she does over the weekend.
[2021-05-09] MEDS: CYANOCOBALAMIN 500 MCG TAB PO SCH (12:26)
[2021-05-09] MEDS: NYSTATIN 100,000 UNITS/GM TOPICAL PWD 15 GM TOP PRN (12:43)
[2021-05-09 12:49] LABS: HEMATOCRIT 34.5 % (36.0-47.0); HEMOGLOBIN 11.2 g/dl (12.0-15.5); MEAN CORPUSCULAR HEMOGLOBIN 33.2 pg (27.0-33.0); MEAN CORPUSCULAR HGB CONC 32.5 g/dl (32.0-36.5); MEAN CORPUSCULAR VOLUME 102.4 fl (80.0-96.0); PLATELET COUNT, AUTOMATED 220 10^3/uL (150-450); RED BLOOD COUNT 3.37 10^6/uL (4.00-5.40); WHITE BLOOD COUNT 10.2 10^3/uL (4.0-10.0)
[2021-05-09 12:58] LABS: BLOOD UREA NITROGEN 16 MG/DL (7-18); CALCIUM LEVEL 8.5 MG/DL (8.8-10.2); CARBON DIOXIDE LEVEL 27 MEQ/L (21-32); CHLORIDE LEVEL 110 MEQ/L (98-107); CREATININE FOR GFR 0.67 MG/DL (0.55-1.30); GLOMERULAR FILTRATION RATE > 60.0 (>32); GLUCOSE, FASTING 93 MG/DL (70-100); POTASSIUM SERUM 3.4 MEQ/L (3.5-5.1); SODIUM LEVEL 144 MEQ/L (136-145)
[2021-05-09] MEDS: NS 1,000 ML IV SCH (13:26)
[2021-05-09] MEDS: fentaNYL 75 MCG/HR PATCH TD SCH (13:34)
--- NOTE | 2021-05-09 14:45 | IPNPDOC ---
Text Note Date of Service The patient was seen on 05/09/21. NOTE SUBJECTIVE: -has ongoing headache and knee pain -On clears -Continues to be hypertensive -Otherwise denies fever, chills, chest pain, palpitations, nausea, abdominal pain, vomiting, dysuria, pyuria, hematuria, pain/numbness/tingling in all 4 extremities. OBJECTIVE: VITAL SIGNS: Please see below. Hypertensive to SBP 170s GENERAL APPEARANCE: Elderly, obese, lying comfortable in the bed in no acute distress. HEENT: NC, AT. EOMI. PERRLA. Sclera non-icteric. MMM. NG tube placed in right nostril RESPIRATORY: Clear to auscultation bilaterally. No wheezing, rales, or rhonchi appreciated. breathing comfortably on room air CARDIOVASCULAR: RRR. No murmurs, rubs, or gallops appreciated. ABDOMEN: Soft, obese abdomen. Nontender to palpation along costal margins and in all 4 quadrants. Positive bowel sounds. GENITOURINARY: Rouse catheter in place with clear urine in drainage bag EXTREMITIES: Non-pitting edema in bilateral LLE. Bilateral flat feet, arches are not present. Bilateral hallux valgus. Bilateral pedal deformities noted; severe out-toeing bilaterally. SKIN: Intertriginous rash noted under pannus, worse on right than left. NEUROLOGICAL: A&O X3. No focal deficits noted. LABS: Reviewed, pending AM labs IMAGIN05/07/2021 Echocardiogram Conclusions: "1. Study is of acceptable technical quality. Underlying sinus rhythm. 2. Normal left ventricular (LV) size with moderate left ventricular hypertrophy (LVH), hyperdynamic LV systolic function. Estimated left ventricular ejection fraction (LVEF) 70-75%. Grade 1 diastolic dysfunction. 3. Normal right ventricular (RV) size and systolic function. 4. Aortic sclerosis with trace insufficiency and trivial stenosis. 5. Competent mitral valve. 6. Likely normal central venous pressure and approximately moderate pulmonary hypertension." 05/07/2021 CT Abdomen Findings: LUNG BASES: Please refer to same-day chest CT report for complete findings. 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 This is more dilated than on the prior study. No abdominoaortic dissection or retroperitoneal hematoma. There is aortoiliac and visceral arterial atherosclerosis seen. PERITONEAL: No free air or free fluid. GI: There is a large distended hiatal hernia. Please refer to same-day chest CT report for details. Nonspecific fluid containing small bowel loops are seen. No appearance of a small-bowel obstruction. No focal mesenteric inflammation is seen. Small nonspecific mesenteric lymph nodes are noted. Scattered fecal material and gas within portions of the colon and rectum. The rectum is distended to 7 cm with fecal material. There is perianal soft tissue thickening. Inflammation or mass cannot be excluded by this study. Correlation with clinical exam is advised. There is diverticulosis but no focal inflammation to suggest acute diverticulitis. Some portions of the colon appear slightly thick-walled. This could be artifactual secondary to insufficient distention. Mild colitis would be difficult to exclude. The appendix is not identified. HEPATOBILIARY, PANCREAS, SPLEEN: Hepatic length is 13.9 cm. Evaluation of the liver is slightly compromised by artifact and lack of homogeneous portal phase imaging. The gallbladder is hydropic, distended up to 13 cm in length by 5 cm transversely. There is slight prominence of the gallbladder wall for degree of distention. Mild cholecystitis cannot be excluded with this appearance. If indicated, consider ultrasound or HIDA scan for further evaluation. No calcified gallstones or biliary dilation seen. No pancreatic inflammation. Spleen not enlarged. ADRENALS, KIDNEYS, BLADDER, RETROPERITONEAL: Adrenals within normal limits. Symmetric renal enhancement. Extrarenal pelves noted bilaterally. There is mild proximal pyelocaliectasis. This may be positional or related to distention of the urinary bladder. There are areas of renal cortical thinning. The urinary bladder is distended. No perivesical stranding is seen. No bladder wall thickening. PELVIC: No dominant cystic pelvic mass seen. The uterus is not identified. MUSCULOSKELETAL: Scoliosis and severe degenerative change of the spine." 05/07/2021 CTA Chest w/ Contrast Impression: "No evidence for acute pulmonary embolus. There is a large fluid-filled distended hiatal hernia containing nearly the entire stomach. 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 The esophagus is dilated with fluid and air-fluid level over 4 cm in diameter. This would be elevated risk for aspiration. Cardiac enlargement. There is compression of the heart between the sternum and the distended herniated stomach, which likely impacts cardiac function. Pulmonary opacities noted which may be due to atelectasis, edema and/or pneumonia as discussed above. Other findings discussed above." 05/07/2021 Chest X-ray Impression: "Nasogastric tube as described above. It needs repositioning. Other findings as described above." 05/07/2021 Chest X-ray Impression: "Repositioning of the nasogastric tube as described above. The examination is otherwise unchanged." ASSESSMENT/PLAN: Ms. 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 - S/p EGD decompression of the stomach with NG tube placement by surgery - The hospitalist service was consulted for pre-operative management of medical co-morbidities / general surgery considering a laparoscopic hiatal hernia repair due to gastric volvulus. - Recent records from patient's PCP (Dr. Charles Smith) were requested and reviewed. - Revised Cardiac Risk Index Score of 1 correlating w/ Class II Risk; 6% 30-day risk of , [place], or cardiac arrest. - Pro-BNP 4339; lactic acid 3.4 - Echocardiogram shows normal LV size w/ moderate LVH; LVEF 70-75%, Grade 1 diastolic dysfunction; normal RV size and systolic function; moderate pulmonary hypertension (see report above). - EKG was stable from prior without ischemic signs - STOPBANG risk assessment for sleep apnea resulted in low risk - Mallampati score III; neck circumference <41cm. - Patient denies any previous issues with anesthesia. - Patient denies a history of stroke, PE, CHF; she is a non-smoker and no known respiratory conditions. - Patient is not on any anticoagulants or antiplatelets at home, has not recently taken any NSAIDs. - Rouse catheter in place. -At present surgery trying to medically manage her abdominal pathology, but from a medical perspective, she is medically optimized for surgery if it becomes indicated. - Continue IV metoclopramide 10mg, IV ondansetron 4mg, IV pantoprazole 40mg as needed for nausea/vomiting. - Continue IV NS 50mls/hr for fluids. - Per general surgery, s/p NGT, on clear liquids. # Hypertensive urgency i/s/o HTN hx - Patient presented to the ED with BP 205/99. After the EGD, the patient's blood pressure remained elevated at 210/100. - The patient does report a history of hypertension but does not take any medi cations at home for control. Per PCP, the patient was hemodynamically stable at the time of previous visit and did not require medications. - Patient reports slight headache which may be due to hypertension or possible caffeine withdrawal (drinks 2 cups of coffee days). - has been on IV hydralazine 10mg Q6H in the setting of significantly elevated pressure and borderline bradycardia. Will now start on amlodipine 10mg daily and adjust PO meds # CKD Stage 3a: stable - Cr 0.99; baseline is approx. 0.8-0.9 # Chronic pain - resume her home PRN norco DVT prophylaxis: TEDs and sequentials. VS,Fishbone, I+O VS, Fishbone, I+O Vital Signs Date Time Temp Pulse Resp B/P (MAP) Pulse Ox O2 Delivery O2 Flow Rate FiO2 05/09/21 10:06 18 Room Air 05/09/21 08:30 170/73 05/09/21 08:00 98.8 70 94 05/07/21 07:15 2.0 I&O- Last 24 Hours up to 6 AM 05/09/21 06:00 Intake Total 3100 ml Output Total 950 ml Balance 2150 ml BRANDI SERNA MD May 09, 2021 11:36
[2021-05-09] MEDS ORDERED: niCARdipine IV 40 MG in IV 1 EA IV SCH (16:15)
--- NOTE | 2021-05-09 16:21 | IPNPDOC ---
Text Note Date of Service The patient was seen on 05/09/21. NOTE PROGRESS NOTE: Due to Ms. Fermin having persistent severe HTN w/ urgency for days, c/b bradycardia on giving beta sanam therapy, and massive headaches from hydralazine, and NPO due to recent volvulus s/p decompression with NGT in place for large hiatal hernia, I have decided to transfer her to the ICU for a titratable nicardipine drip with a goal SBP of 150-160 in the next 12h. I will have to discuss with surgery what the plan is for the hernia as this will determine my choice of antihypertensive as she comes off the drip. VS,Fishbone, I+O VS, Fishbone, I+O Laboratory Tests 05/09/21 12:18 Vital Signs Date Time Temp Pulse Resp B/P (MAP) Pulse Ox O2 Delivery O2 Flow Rate FiO2 05/09/21 16:00 100.3 78 16 190/73 (112) 94 Room Air 05/07/21 07:15 2.0 I&O- Last 24 Hours up to 6 AM 05/09/21 05:59 Intake Total 3100 ml Output Total 1000 ml Balance 2100 ml BRANDI SERNA MD May 09, 2021 16:21
[2021-05-09] MEDS: PANTOPRAZOLE 40MG VIAL (C9113 PER 1) IV SCH (17:09)
[2021-05-09] MEDS ORDERED: FAT EMULSION IV 250 ML IV SCH (18:00)
[2021-05-09] MEDS: AMINO AC/ELECTROLYTE/DEX/CALC 1,000 ML IV SCH (18:05)
[2021-05-09] MEDS: MIRTAZAPINE 7.5MG PER 1/2 TABLET PO SCH (20:09)
[2021-05-09] MEDS: PRAVASTATIN 20 MG TAB PO SCH (20:10)
[2021-05-10] VITALS (33 sets, daily range): BP systolic 125–181; BP diastolic 61–118
[2021-05-10] MEDS: niCARdipine IV 40 MG in IV 1 EA IV SCH ×2 (00:31→06:16)
[2021-05-10] MEDS: ACETAMINOPHEN 325 MG/10.15 ML UDC GT PRN ×2 (02:35→17:00)
[2021-05-10 03:59] LABS: HEMATOCRIT 34.8 % (36.0-47.0); HEMOGLOBIN 11.6 g/dl (12.0-15.5); MEAN CORPUSCULAR HEMOGLOBIN 33.4 pg (27.0-33.0); MEAN CORPUSCULAR HGB CONC 33.3 g/dl (32.0-36.5); MEAN CORPUSCULAR VOLUME 100.3 fl (80.0-96.0); PLATELET COUNT, AUTOMATED 217 10^3/uL (150-450); RED BLOOD COUNT 3.47 10^6/uL (4.00-5.40); WHITE BLOOD COUNT 9.4 10^3/uL (4.0-10.0)
[2021-05-10 04:12] LABS: BLOOD UREA NITROGEN 14 MG/DL (7-18); CARBON DIOXIDE LEVEL 27 MEQ/L (21-32); CHLORIDE LEVEL 107 MEQ/L (98-107); CREATININE FOR GFR 0.62 MG/DL (0.55-1.30); GLOMERULAR FILTRATION RATE > 60.0 (>32); GLUCOSE, FASTING 151 MG/DL (70-100); POTASSIUM SERUM 2.9 MEQ/L (3.5-5.1); SODIUM LEVEL 141 MEQ/L (136-145)
[2021-05-10] MEDS ORDERED: POTASSIUM CHLORIDE 10MEQ SR TABLET PO ONE (04:20)
[2021-05-10] MEDS: LEVOTHYROXINE 37.5MCG PER 1/2TAB (0.0375MG) PO SCH (04:51)
[2021-05-10] MEDS: KCL 10MEQ/100ML SWI (KRUN) 10 MEQ in IV 1 EA IV SCH ×4 (04:51→08:34)
[2021-05-10] MEDS: AMINO AC/ELECTROLYTE/DEX/CALC 1,000 ML IV SCH ×2 (07:44→20:32)
[2021-05-10] MEDS: CYANOCOBALAMIN 500 MCG TAB PO SCH (08:32)
[2021-05-10] MEDS: DULoxetine 30MG CAPSULE (CYMBALTA) PO SCH (08:32)
[2021-05-10 12:45] LABS: BLOOD UREA NITROGEN 15 MG/DL (7-18); CALCIUM LEVEL 8.6 MG/DL (8.8-10.2); CARBON DIOXIDE LEVEL 27 MEQ/L (21-32); CHLORIDE LEVEL 105 MEQ/L (98-107); CREATININE FOR GFR 0.68 MG/DL (0.55-1.30); GLOMERULAR FILTRATION RATE > 60.0 (>32); GLUCOSE, FASTING 131 MG/DL (70-100); POTASSIUM SERUM 4.1 MEQ/L (3.5-5.1); SODIUM LEVEL 138 MEQ/L (136-145)
--- NOTE | 2021-05-10 13:38 | IPNPDOC ---
Text Note Date of Service The patient was seen on 05/10/21. NOTE SUBJECTIVE: -I transferred to the ICU for hypertensive urgency for a nicardipine gtt -Otherwise denies fever, chills, chest pain, palpitations, nausea, abdominal pain, vomiting, dysuria, pyuria, hematuria, pain/numbness/tingling in all 4 extremities. -headache has resolved OBJECTIVE: VITAL SIGNS: Please see below. GENERAL APPEARANCE: Elderly, obese, lying comfortable in the bed in no acute distress. HEENT: NC, AT. EOMI. PERRLA. Sclera non-icteric. MMM. NG tube placed in right nostril RESPIRATORY: Clear to auscultation bilaterally. No wheezing, rales, or rhonchi appreciated. breathing comfortably on room air CARDIOVASCULAR: RRR. No murmurs, rubs, or gallops appreciated. ABDOMEN: Soft, obese abdomen. Nontender to palpation along costal margins and in all 4 quadrants. Positive bowel sounds. GENITOURINARY: Rouse catheter in place with clear urine in drainage bag EXTREMITIES: Non-pitting edema in bilateral LLE. Bilateral flat feet, arches are not present. Bilateral hallux valgus. Bilateral pedal deformities noted; severe out-toeing bilaterally. SKIN: Intertriginous rash noted under pannus, worse on right than left. NEUROLOGICAL: A&O X3. No focal deficits noted. LABS: Reviewed: WBC 9.4 Hgb 11.6 Platelets 217 na 141 K 2.9 (repleted) Cr 0.62 IMAGIN05/07/2021 Echocardiogram Conclusions: "1. Study is of acceptable technical quality. Underlying sinus rhythm. 2. Normal left ventricular (LV) size with moderate left ventricular hypertrophy (LVH), hyperdynamic LV systolic function. Estimated left ventricular ejection fraction (LVEF) 70-75%. Grade 1 diastolic dysfunction. 3. Normal right ventricular (RV) size and systolic function. 4. Aortic sclerosis with trace insufficiency and trivial stenosis. 5. Competent mitral valve. 6. Likely normal central venous pressure and approximately moderate pulmonary hypertension." 05/07/2021 CT Abdomen Findings: LUNG BASES: Please refer to same-day chest CT report for complete findings. 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 This is more dilated than on the prior study. No abdominoaortic dissection or retroperitoneal hematoma. There is aortoiliac and visceral arterial atherosclerosis seen. PERITONEAL: No free air or free fluid. GI: There is a large distended hiatal hernia. Please refer to same-day chest CT report for details. Nonspecific fluid containing small bowel loops are seen. No appearance of a small-bowel obstruction. No focal mesenteric inflammation is seen. Small nonspecific mesenteric lymph nodes are noted. Scattered fecal material and gas within portions of the colon and rectum. The rectum is distended to 7 cm with fecal material. There is perianal soft tissue thickening. Inflammation or mass cannot be excluded by this study. Correlation with clinical exam is advised. There is diverticulosis but no focal inflammation to suggest acute diverticulitis. Some portions of the colon appear slightly thick-walled. This could be artifactual secondary to insufficient distention. Mild colitis would be difficult to exclude. The appendix is not identified. HEPATOBILIARY, PANCREAS, SPLEEN: Hepatic length is 13.9 cm. Evaluation of the liver is slightly compromised by artifact and lack of homogeneous portal phase imaging. The gallbladder is hydropic, distended up to 13 cm in length by 5 cm transversely. There is slight prominence of the gallbladder wall for degree of distention. Mild cholecystitis cannot be excluded with this appearance. If indicated, consider ultrasound or HIDA scan for further evaluation. No calcified gallstones or biliary dilation seen. No pancreatic inflammation. Spleen not enlarged. ADRENALS, KIDNEYS, BLADDER, RETROPERITONEAL: Adrenals within normal limits. Symmetric renal enhancement. Extrarenal pelves noted bilaterally. There is mild proximal pyelocaliectasis. This may be positional or related to distention of the urinary bladder. There are areas of renal cortical thinning. The urinary bladder is distended. No perivesical stranding is seen. No bladder wall thickening. PELVIC: No dominant cystic pelvic mass seen. The uterus is not identified. MUSCULOSKELETAL: Scoliosis and severe degenerative change of the spine." 05/07/2021 CTA Chest w/ Contrast Impression: "No evidence for acute pulmonary embolus. There is a large fluid-filled distended hiatal hernia containing nearly the entire stomach. 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 The esophagus is dilated with fluid and air-fluid level over 4 cm in diameter. This would be elevated risk for aspiration. Cardiac enlargement. There is compression of the heart between the sternum and the distended herniated stomach, which likely impacts cardiac function. Pulmonary opacities noted which may be due to atelectasis, edema and/or pneumonia as discussed above. Other findings discussed above." 05/07/2021 Chest X-ray Impression: "Nasogastric tube as described above. It needs repositioning. Other findings as described above." 05/07/2021 Chest X-ray Impression: "Repositioning of the nasogastric tube as described above. The examination is otherwise unchanged." ASSESSMENT/PLAN: Ms. 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 # Hypertensive urgency - Patient presented to the ED with BP 205/99. After the EGD, the patient's blood pressure remained elevated at 210/100. Unfortunately had bradycardia with BB therapy and had severe headaches when given hydralazine. She was NPO and thus i had to transfer her to the ICU for nicardipine gtt. She has done well on it and BP now 140s and given that she is being given PO meds with NGT clamping, will give amlodipine 10mg this AM with plan for daily and hold the nicardipine gtt. 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 - S/p EGD decompression of the stomach with NG tube placement by surgery - The hospitalist service was consulted for pre-operative management of medical co-morbidities / general surgery considering a laparoscopic hiatal hernia repair due to gastric volvulus. - Recent records from patient's PCP (Dr. Charles Smith) were requested and reviewed. - Revised Cardiac Risk Index Score of 1 correlating w/ Class II Risk; 6% 30-day risk of , [place], or cardiac arrest. - Pro-BNP 4339; lactic acid 3.4 - Echocardiogram shows normal LV size w/ moderate LVH; LVEF 70-75%, Grade 1 diastolic dysfunction; normal RV size and systolic function; moderate pulmonary hypertension (see report above). - EKG was stable from prior without ischemic signs - [facility] risk assessment for sleep apnea resulted in low risk - Mallampati score III; neck circumference <41cm. - Patient denies any previous issues with anesthesia. - Patient denies a history of stroke, PE, CHF; she is a non-smoker and no known respiratory conditions. - Patient is not on any anticoagulants or antiplatelets at home, has not recently taken any NSAIDs. - Rouse catheter in place. -At present surgery trying to medically manage her abdominal pathology, but from a medical perspective, she is medically optimized for surgery if it becomes indicated. - Continue IV metoclopramide 10mg, IV ondansetron 4mg, IV pantoprazole 40mg as needed for nausea/vomiting. - Continue IV NS 50mls/hr for fluids. - Per general surgery, s/p NGT, with surgery managing PO status # CKD Stage 3a: stable - Cr 0.99; baseline is approx. 0.8-0.9 # Chronic pain - resume her home PRN norco DVT prophylaxis: TEDs and sequentials. VS,Fishbone, I+O VS, Fishbone, I+O Laboratory Tests 05/09/21 12:18 05/10/21 03:32 Vital Signs Date Time Temp Pulse Resp B/P (MAP) Pulse Ox O2 Delivery O2 Flow Rate FiO2 05/10/21 06:00 61 153/70 (97) 95 Room Air 05/10/21 04:00 100.0 16 05/07/21 07:15 2.0 I&O- Last 24 Hours up to 6 AM 05/10/21 06:00 Intake Total 3710.7 ml Output Total 3125 ml Balance 585.7 ml BRANDI SERNA MD May 10, 2021 09:09
[2021-05-10] MEDS: NS 1,000 ML IV SCH (14:02)
[2021-05-10] MEDS: PANTOPRAZOLE 40MG VIAL (C9113 PER 1) IV SCH (16:59)
[2021-05-10] MEDS ORDERED: FAT EMULSION IV 250 ML IV SCH (18:00)
[2021-05-10] MEDS: MIRTAZAPINE 7.5MG PER 1/2 TABLET PO SCH (20:32)
[2021-05-10] MEDS: PRAVASTATIN 20 MG TAB PO SCH (20:32)
--- NOTE | 2021-05-10 22:40 | IPN ---
PROGRESS NOTE DATE: 05/10/2021 SUBJECTIVE: The patient is status post upper endoscopy with gastric decompression, NG tube placement, and at this point has had some issues with hypertension and was brought to the ICU for additional recommendations. She has an NG tube in place and she has been n.p.o. and overall the amount of NG tube output has been very minimal. No bilious output is appreciated. Her abdomen is soft, nontender, nondistended. IMPRESSION AND PLAN: The patient has evidence of a large paraesophageal hernia and unfortunately her options are relatively limited. I do feel that we can proceed with an upper GI via the NG tube tomorrow, and if this shows adequate drainage from her stomach, having her on a clear liquid/full liquid diet is reasonable. Obviously, if she can be improved for an overall medical standpoint, then the question is whether proceeding with some sort of robotic assisted laparoscopic paraesophageal hernia is possible with her. In general, I am very concerned that she would not fare well with any operative intervention, but at this point we will see what the next step is before making that leap to either operative intervention, etc. Obviously, if she had more stomach below the diaphragm, we could attempt to perform a gastropexy with a gastrostomy tube, however at this point that seems unlikely, given the duration of this hiatal hernia in the chest and the amount of stomach within the chest itself.
[2021-05-11] VITALS (10 sets, daily range): BP systolic 135–185; BP diastolic 62–80
[2021-05-11] MEDS: MORPHINE 2 MG/ML 1ML VIAL (J2270) IV PRN ×2 (04:48→19:41)
[2021-05-11 05:10] LABS: HEMATOCRIT 35.9 % (36.0-47.0); HEMOGLOBIN 11.9 g/dl (12.0-15.5); MEAN CORPUSCULAR HEMOGLOBIN 33.1 pg (27.0-33.0); MEAN CORPUSCULAR HGB CONC 33.1 g/dl (32.0-36.5); MEAN CORPUSCULAR VOLUME 99.7 fl (80.0-96.0); PLATELET COUNT, AUTOMATED 218 10^3/uL (150-450); WHITE BLOOD COUNT 8.1 10^3/uL (4.0-10.0)
[2021-05-11] MEDS: LEVOTHYROXINE 37.5MCG PER 1/2TAB (0.0375MG) PO SCH (05:20)
[2021-05-11 05:29] LABS: BLOOD UREA NITROGEN 15 MG/DL (7-18); CALCIUM LEVEL 8.6 MG/DL (8.8-10.2); CARBON DIOXIDE LEVEL 27 MEQ/L (21-32); CHLORIDE LEVEL 109 MEQ/L (98-107); GLOMERULAR FILTRATION RATE > 60.0 (>32); GLUCOSE, FASTING 133 MG/DL (70-100); POTASSIUM SERUM 3.5 MEQ/L (3.5-5.1); SODIUM LEVEL 142 MEQ/L (136-145)
[2021-05-11] MEDS ORDERED: lisinopriL 5 MG TAB PO SCH (09:00)
[2021-05-11] MEDS ORDERED: E-Z-PAQUE 96% w/w SUSP 176GM BTL As Ordered ONE (09:01)
[2021-05-11] MEDS: AMINO AC/ELECTROLYTE/DEX/CALC 1,000 ML IV SCH ×2 (09:59→23:35)
[2021-05-11] MEDS: CYANOCOBALAMIN 500 MCG TAB PO SCH (09:59)
[2021-05-11] MEDS: NS 1,000 ML IV SCH (09:59)
[2021-05-11] MEDS: DULoxetine 30MG CAPSULE (CYMBALTA) PO SCH (09:59)
--- NOTE | 2021-05-11 11:06 | REP ---
INDICATION: use ng tube, ? gastric emptying. COMPARISON: None. TECHNIQUE: The procedure was performed under the direct supervision of . The images were reviewed with Dr. Gonzalez. Liquid barium was administered in the right lateral recumbent position through the NG tube. 0.6 minutes of fluoro time was utilized for this procedure. FINDINGS: The stomach is grossly normal. The rugal folds are smooth and regular. There is no evidence of gastritis neoplasm or ulcer disease. .There is a hiatal hernia which encompasses the whole stomach. The stomach and GE junction are above the diaphragm. The stomach is horizontally rotated. There is free flow of contrast through the pylorus and through the duodenum. The duodenum is grossly normal. There is no evidence of duodenitis pancreatitis peptic ulcer disease or neoplasm IMPRESSION: There is a hiatal hernia which encompasses the whole stomach. The stomach and GE junction are above the diaphragm. The stomach is horizontally rotated. There is free flow of contrast through the pylorus and through the duodenum. The duodenum is grossly normal. There is no evidence of duodenitis pancreatitis peptic ulcer disease or neoplasm <Electronically signed by Ross Frausto > 05/11/21 1050 <Electronically signed by Andreas Gonzalez > 05/11/21 110
--- NOTE | 2021-05-11 13:42 | IPNPDOC ---
Text Note Date of Service The patient was seen on 05/11/21. NOTE General surgery. Dr Miranda. The patient is an 86-year-old female with history of longstanding large hiatal hernia, status post EGD with placement of NG tube, decompression of gastric volvulus. NG tube currently in place. Has had ice chips. This morning denies abdominal pain or flatus. Plan is for upper GI to further evaluate. Afebrile. Heart rate 64, respiratory rate 29, blood pressure 169/75, 93% room air. Awake and alert, resting in bed NG tube in place Abdomen is soft, nontender, nondistended. Upper GI this morning IMPRESSION: There is a hiatal hernia which encompasses the whole stomach. The stomach and GE junction are above the diaphragm. The stomach is horizontally rotated. There is free flow of contrast through the pylorus and through the duodenum. The duodenum is grossly normal. There is no evidence of duodenitis pancreatitis peptic ulcer disease or neoplasm Assessment/plan Status post EGD with placement of NG tube, decompression of gastric volvulus. The patient is reviewed and examined as per Dr Miranda. Upper GI indicating hiatal hernia encompassing the whole stomach with stomach and GE junction above the diaphragm. There was free flow of contrast through the pylorus and through the duodenum. Status post PICC line placement, TPN. Imaging is reviewed as per Dr Miranda, plan to discontinue NG tube and trial of clear liquids. Continue to closely monitor VS,Fishbone, I+O VS, Fishbone, I+O Laboratory Tests 05/11/21 04:44 Vital Signs Date Time Temp Pulse Resp B/P (MAP) Pulse Ox O2 Delivery O2 Flow Rate FiO2 05/11/21 10:03 165/71 05/11/21 10:03 56 05/11/21 04:58 28 05/11/21 04:48 93 05/11/21 04:00 98.8 Room Air 05/07/21 07:15 2.0 I&O- Last 24 Hours up to 6 AM 05/11/21 06:00 Intake Total 1975 ml Output Total 4500 ml Balance -2525 ml Sil Duff May 11, 2021 13:41
--- NOTE | 2021-05-11 15:12 | IPNPDOC ---
Text Note Date of Service The patient was seen on 05/11/21. NOTE SUBJECTIVE: Ms. Fermin, is an 86-year-old female who was seen by the hospitalist service in the ICU this morning. The patient had just returned from UGI series. The patient was tired and complained of a mild headache with diffuse abdominal heaviness. The patient's IV nicardipine drip was discontinued. She is currently on IV clinimix and IV liposyn. The patient denies fever, chills, chest pain, palpitations, nausea, vomiting, and diarrhea. This afternoon, the patient's NG tube was removed and she was placed on a clear liquid diet per general surgery. OBJECTIVE: PHYSICAL EXAMINATION: VITAL SIGNS: Please see below. GENERAL APPEARANCE: Patient is an elderly, obese female. She had just returned from UGI series and appeared fatigued. HEENT: NC, AT. Sclera non-icteric. Mucus membranes moist. RESPIRATORY: Clear to auscultation bilaterally. No wheezing, rales, or rhonchi appreciated. CARDIOVASCULAR: RRR. No murmurs, rubs, or gallops appreciated. ABDOMEN: Soft, obese abdomen. Nontender to palpation in all 4 quadrants. Positive bowel sounds. GENITOURINARY: Rouse catheter in place with clear, yellow-colored urine. EXTREMITIES: Bilateral radial, dorsalis pedis, and posterior tibialis appreciated. Non-pitting edema in bilateral LLE. Bilateral flat feet, arches are not present. Bilateral hallux valgus. Bilateral pedal deformities noted; severe out-toeing bilaterally. PSYCHIATRIC: Mood appears stable. IMAGIN05/11/2021 UGI w/o KUB Impression: "There is a hiatal hernia which encompasses the whole stomach. The stomach and GE junction are above the diaphragm. The stomach is horizontally rotated. There is free flow of contrast through the pylorus and through the duodenum. The duodenum is grossly normal. There is no evidence of duodenitis pancreatitis peptic ulcer disease or neoplasm." 05/07/2021 Echocardiogram Conclusions: "1. Study is of acceptable technical quality. Underlying sinus rhythm. 2. Normal left ventricular (LV) size with moderate left ventricular hypertrophy (LVH), hyperdynamic LV systolic function. Estimated left ventricular ejection fraction (LVEF) 70-75%. Grade 1 diastolic dysfunction. 3. Normal right ventricular (RV) size and systolic function. 4. Aortic sclerosis with trace insufficiency and trivial stenosis. 5. Competent mitral valve. 6. Likely normal central venous pressure and approximately moderate pulmonary hypertension." 05/07/2021 CT Abdomen Findings: LUNG BASES: Please refer to same-day chest CT report for complete findings. 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 This is more dilated than on the prior study. No abdominoaortic dissection or retroperitoneal hematoma. There is aortoiliac and visceral arterial atherosclerosis seen. PERITONEAL: No free air or free fluid. GI: There is a large distended hiatal hernia. Please refer to same-day chest CT report for details. Nonspecific fluid containing small bowel loops are seen. No appearance of a small-bowel obstruction. No focal mesenteric inflammation is seen. Small nonspecific mesenteric lymph nodes are noted. Scattered fecal material and gas within portions of the colon and rectum. The rectum is distended to 7 cm with fecal material. There is perianal soft tissue thickening. Inflammation or mass cannot be excluded by this study. Correlation with clinical exam is advised. There is diverticulosis but no focal inflammation to suggest acute diverticulitis. Some portions of the colon appear slightly thick-walled. This could be artifactual secondary to insufficient distention. Mild colitis would be difficult to exclude. The appendix is not identified. HEPATOBILIARY, PANCREAS, SPLEEN: Hepatic length is 13.9 cm. Evaluation of the liver is slightly compromised by artifact and lack of homogeneous portal phase imaging. The gallbladder is hydropic, distended up to 13 cm in length by 5 cm transversely. There is slight prominence of the gallbladder wall for degree of distention. Mild cholecystitis cannot be excluded with this appearance. If indicated, consider ultrasound or HIDA scan for further evaluation. No calcified gallstones or biliary dilation seen. No pancreatic inflammation. Spleen not enlarged. ADRENALS, KIDNEYS, BLADDER, RETROPERITONEAL: Adrenals within normal limits. Symmetric renal enhancement. Extrarenal pelves noted bilaterally. There is mild proximal pyelocaliectasis. This may be positional or related to distention of the urinary bladder. There are areas of renal cortical thinning. The urinary bladder is distended. No perivesical stranding is seen. No bladder wall thickening. PELVIC: No dominant cystic pelvic mass seen. The uterus is not identified. MUSCULOSKELETAL: Scoliosis and severe degenerative change of the spine." 05/07/2021 CTA Chest w/ Contrast Impression: "No evidence for acute pulmonary embolus. There is a large fluid-filled distended hiatal hernia containing nearly the entire stomach. 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 The esophagus is dilated with fluid and air-fluid level over 4 cm in diameter. This would be elevated risk for aspiration. Cardiac enlargement. There is compression of the heart between the sternum and the distended herniated stomach, which likely impacts cardiac function. Pulmonary opacities noted which may be due to atelectasis, edema and/or pneumonia as discussed above. Other findings discussed above." 05/07/2021 Chest X-ray Impression: "Nasogastric tube as described above. It needs repositioning. Other findings as described above." 05/07/2021 Chest X-ray Impression: "Repositioning of the nasogastric tube as described above. The examination is otherwise unchanged." ASSESSMENT/PLAN: Ms. 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 # Hypertensive urgency i/s/o HTN hx; improving - Patient presented to the ED with BP 205/99. After the EGD, the patient's blood pressure remained elevated at 210/100. - The patient does report a history of hypertension but does not take any medications at home for control. Per PCP, the patient was hemodynamically stable at the time of previous visit and did not require medications. - Hydralazine discontinued because it gave the patient headaches. - Patient was placed on IV nicardipine ggt due to persistent elevated BPs; currently held. - BP 169/74, HR78; given amlodipine 10mg PO daily and lisinopril 10mg PO daily for hypertension control. - Cr 0.60 - Transferred to PCU as hypertensive urgency is improving. - Will continue to monitor with repeat vitals and BMP. # Fever; resolving - Patient reached a peak fever of 101.2F overnight; patient does not complain of fever, chills, or pain. - Blood cultures X2 ordered. 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 - S/p EGD decompression of the stomach - The hospitalist service was consulted for pre-operative management of medical co-morbidities - Recent records from patient's PCP (Dr. Charles Smith) were requested and reviewed. - Revised Cardiac Risk Index Score of 1 correlating w/ Class II Risk; 6% 30-day risk of , MS, or cardiac arrest. - 05/07/21 Pro-BNP 4339; lactic acid 3.4 - Echo showed normal LV size w/ moderate LVH; LVEF 70-75%, Grade 1 diastolic dysfunction; normal RV size and systolic function; moderate pulmonary hypertension (see report above). - EKG showed normal sinus rhythm. - STOPBANG risk assessment for sleep apnea resulted in low risk. - Mallampati score III; neck circumference <41cm. - Patient denies any previous issues with anesthesia. - Patient denies a history of stroke, PE, CHF; she is a non-smoker and no known respiratory conditions. - Patient is not on any anticoagulants or antiplatelets at home, has not recently taken any NSAIDs. - Rouse catheter in place. - IV NS discontinued. - Continue IV morphine 2mg Q4H as needed for pain. - Continue IV metoclopramide 10mg, IV ondansetron 4mg, IV pantoprazole 40mg as needed for nausea/vomiting. - Per general surgery, IV clinimix and IV liposyn given, NG tube removed, clear liquid diet. At this time, the patient is medically optimized for surgery. # CKD Stage 3a - Cr 0.60; baseline is approx. 0.8-0.9 # Chronic pain - Continue home norco. DVT prophylaxis: TEDs and sequentials. Disposition: Patient is medically optimized for surgery. VS,Fishbone, I+O VS, Fishbone, I+O Laboratory Tests 05/11/21 04:44 Vital Signs Date Time Temp Pulse Resp B/P (MAP) Pulse Ox O2 Delivery O2 Flow Rate FiO2 05/11/21 10:03 165/71 05/11/21 10:03 56 05/11/21 04:58 28 05/11/21 04:48 93 05/11/21 04:00 98.8 Room Air 05/07/21 07:15 2.0 I&O- Last 24 Hours up to 6 AM 05/11/21 06:00 Intake Total 1975 ml Output Total 4500 ml Balance -2525 ml GME ATTESTATION GME ATTESTATION My faculty preceptor for this patient encounter was physically present during t he encounter and was fully available. All aspects of the patient interview, examination, medical decision making process, and medical care plan development were reviewed and approved by the faculty preceptor. The faculty preceptor is aware and concurs with the plan as stated in the body of this note and will attest to such by his/her cosignature. ATTENDING NOTE I personally examined the patient with the medical student and resident team, and discussed the interim improvement in her BP and discussed the medical plan going forward, and I agree with the above assessment and plan. In brief, Ms. 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 We had to briefly transfer her to the ICU for hypertensive urgency that improved after placing her on a nicardipine gtt and she has now been transitioned to amlodipine 10 and lisinopril 10 thus far. ROSEANNA TREVIZO OMS-3 May 11, 2021 15:12 BRANDI SERNA MD May 11, 2021 18:28
[2021-05-11] MEDS: PANTOPRAZOLE 40MG VIAL (C9113 PER 1) IV SCH (16:32)
[2021-05-11] MEDS ORDERED: lisinopriL 5 MG TAB PO ONE (17:00)
[2021-05-11] MEDS ORDERED: AMINO AC/ELECTROLYTE/DEX/CALC 1,000 ML IV SCH (18:00)
[2021-05-11] MEDS ORDERED: FAT EMULSION IV 250 ML IV SCH (18:00)
[2021-05-11] MEDS: ANEXSIA, NORCO 7.5MG/325MG TABLET(HYDROCODONE/APAP) PO PRN (18:49)
[2021-05-11] MEDS: MIRTAZAPINE 7.5MG PER 1/2 TABLET PO SCH (20:20)
[2021-05-11] MEDS: PRAVASTATIN 20 MG TAB PO SCH (20:20)
[2021-05-12] VITALS: BP 163/72
[2021-05-12] MEDS: MORPHINE 2 MG/ML 1ML VIAL (J2270) IV PRN (00:04)
[2021-05-12] MEDS ORDERED: LIDOCAINE 5% (LIDODERM) PATCH TD ONE (02:05)
[2021-05-12 04:00] VITALS: BP 134/62
[2021-05-12] MEDS: ACETAMINOPHEN TAB 650MG DOSE (2X325MG) PO PRN (04:04)
[2021-05-12 05:40] LABS: HEMATOCRIT 34.9 % (36.0-47.0); HEMOGLOBIN 11.8 g/dl (12.0-15.5); MEAN CORPUSCULAR HEMOGLOBIN 33.3 pg (27.0-33.0); MEAN CORPUSCULAR HGB CONC 33.8 g/dl (32.0-36.5); MEAN CORPUSCULAR VOLUME 98.6 fl (80.0-96.0); PLATELET COUNT, AUTOMATED 211 10^3/uL (150-450); RED BLOOD COUNT 3.54 10^6/uL (4.00-5.40); WHITE BLOOD COUNT 11.3 10^3/uL (4.0-10.0)
[2021-05-12 06:15] LABS: BLOOD UREA NITROGEN 14 MG/DL (7-18); CALCIUM LEVEL 8.2 MG/DL (8.8-10.2); CARBON DIOXIDE LEVEL 23 MEQ/L (21-32); CHLORIDE LEVEL 103 MEQ/L (98-107); CREATININE FOR GFR 0.54 MG/DL (0.55-1.30); GLOMERULAR FILTRATION RATE > 60.0 (>32); GLUCOSE, FASTING 139 MG/DL (70-100); SODIUM LEVEL 134 MEQ/L (136-145)
[2021-05-12] MEDS: LEVOTHYROXINE 37.5MCG PER 1/2TAB (0.0375MG) PO SCH (06:28)
[2021-05-12 08:00] VITALS: BP 159/67
[2021-05-12] MEDS ORDERED: LIDOCAINE 1% MDV 20ML VIAL As Ordered ONE (08:22)
--- NOTE | 2021-05-12 08:38 | IPNPDOC ---
Text Note Date of Service The patient was seen on 05/12/21. NOTE General surgery. Dr Miranda. The patient is an 86-year-old female with history of longstanding large hiatal hernia, status post EGD with placement of NG tube, decompression of gastric volvulus. This morning, the patient denies abdominal pain. States she is tolerating clear liquids. Denies nausea or vomiting. Reports a small amount of flatus. T-max 100.5, 100.1 at 4 AM this morning. Awake and alert, resting in bed MMM Lungs are clear to auscultation S1-S2 regular rate rhythm. Abdomen is soft, nontender, nondistended. Upper GI 05/11/2021 IMPRESSION: There is a hiatal hernia which encompasses the whole stomach. The stomach and GE junction are above the diaphragm. The stomach is horizontally rotated. There is free flow of contrast through the pylorus and through the duodenum. The duodenum is grossly normal. There is no evidence of duodenitis pancreatitis peptic ulcer disease or neoplasm Assessment/plan Status post EGD with placement of NG tube, decompression of gastric volvulus. The patient is reviewed as per Dr Miranda. Upper GI indicating hiatal hernia encompassing the whole stomach with stomach and GE junction above the diaphragm. There was free flow of contrast through the pylorus and through the duodenum. The patient is currently tolerating clear liquids. Denies nausea or vomiting. Reports a small amount of flatus, no BM Continue to closely monitor VS,Fishbone, I+O VS, Fishbone, I+O Laboratory Tests 05/12/21 05:25 Vital Signs Date Time Temp Pulse Resp B/P (MAP) Pulse Ox O2 Delivery O2 Flow Rate FiO2 05/12/21 04:00 100.1 62 22 134/62 (86) 92 Room Air 05/07/21 07:15 2.0 I&O- Last 24 Hours up to 6 AM 05/12/21 06:00 Intake Total 1790 ml Output Total 1150 ml Balance 640 ml Sil Duff May 12, 2021 08:38
[2021-05-12] MEDS ORDERED: ISOVUE-300 61% 50ML VIAL As Ordered ONE (09:16)
--- NOTE | 2021-05-12 09:21 | IPNPDOC ---
Text Note Date of Service The patient was seen on 05/12/21. NOTE SUBJECTIVE: Ms. Fermin is an 86-year-old female who was seen by the hospitalist service this morning. She reports right foot pain that began overnight, for which a lidocaine patch is placed over her right medial malleolus and ankle. She also reports mild lower abdominal tenderness and mild burning with urination. She denies fevers, chills, headache, chest pain, palpitations, nausea, vomiting, diarrhea, dysuria, and hematuria. OBJECTIVE: PHYSICAL EXAMINATION: VITAL SIGNS: Please see below. GENERAL APPEARANCE: Patient is a pleasant, elderly, obese female who appears you nger than stated age in no acute distress. HEENT: NC, AT. PERRLA, EOMI; pupils are constricted. Sclera non-icteric. Mucus membranes moist. RESPIRATORY: Clear to auscultation bilaterally. No wheezing, rales, or rhonchi appreciated. Breathing comfortably on room air. CARDIOVASCULAR: RRR. No murmurs, rubs, or gallops appreciated. ABDOMEN: Soft, obese abdomen. Tenderness to palpation in bilateral lower quadrants. Hyperactive bowel sounds, most prominent in RLQ. GENITOURINARY: Urinary catheter removed. EXTREMITIES: Tenderness to palpation over right ankle; lidocaine patch placed over right medial malleolus and ankle. Bilateral radial and dorsalis pedis, and left posterior tibialis pulses appreciated; unable to palpation right posterior tibialis due to pain. Non-pitting edema in bilateral LE. Bilateral flat feet, arches are not present. Bilateral hallux valgus. Bilateral pedal deformities noted; severe out-toeing bilaterally. PSYCHIATRIC: Mood appears stable. IMAGIN05/11/2021 UGI w/o KUB Impression: "There is a hiatal hernia which encompasses the whole stomach. The stomach and GE junction are above the diaphragm. The stomach is horizontally rotated. There is free flow of contrast through the pylorus and through the duodenum. The duodenum is grossly normal. There is no evidence of duodenitis pancreatitis peptic ulcer disease or neoplasm." 05/07/2021 Echocardiogram Conclusions: "1. Study is of acceptable technical quality. Underlying sinus rhythm. 2. Normal left ventricular (LV) size with moderate left ventricular hypertrophy (LVH), hyperdynamic LV systolic function. Estimated left ventricular ejection fraction (LVEF) 70-75%. Grade 1 diastolic dysfunction. 3. Normal right ventricular (RV) size and systolic function. 4. Aortic sclerosis with trace insufficiency and trivial stenosis. 5. Competent mitral valve. 6. Likely normal central venous pressure and approximately moderate pulmonary hypertension." 05/07/2021 CT Abdomen Findings: LUNG BASES: Please refer to same-day chest CT report for complete findings. 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 This is more dilated than on the prior study. No abdominoaortic dissection or retroperitoneal hematoma. There is aortoiliac and visceral arterial atherosclerosis seen. PERITONEAL: No free air or free fluid. GI: There is a large distended hiatal hernia. Please refer to same-day chest CT report for details. Nonspecific fluid containing small bowel loops are seen. No appearance of a small-bowel obstruction. No focal mesenteric inflammation is se en. Small nonspecific mesenteric lymph nodes are noted. Scattered fecal material and gas within portions of the colon and rectum. The rectum is distended to 7 cm with fecal material. There is perianal soft tissue thickening. Inflammation or mass cannot be excluded by this study. Correlation with clinical exam is advised. There is diverticulosis but no focal inflammation to suggest acute diverticulitis. Some portions of the colon appear slightly thick-walled. This could be artifactual secondary to insufficient distention. Mild colitis would be difficult to exclude. The appendix is not identified. HEPATOBILIARY, PANCREAS, SPLEEN: Hepatic length is 13.9 cm. Evaluation of the liver is slightly compromised by artifact and lack of homogeneous portal phase imaging. The gallbladder is hydropic, distended up to 13 cm in length by 5 cm transversely. There is slight prominence of the gallbladder wall for degree of distention. Mild cholecystitis cannot be excluded with this appearance. If indicated, consider ultrasound or HIDA scan for further evaluation. No calcified gallstones or biliary dilation seen. No pancreatic inflammation. Spleen not enlarged. ADRENALS, KIDNEYS, BLADDER, RETROPERITONEAL: Adrenals within normal limits. Symmetric renal enhancement. Extrarenal pelves noted bilaterally. There is mild proximal pyelocaliectasis. This may be positional or related to distention of the urinary bladder. There are areas of renal cortical thinning. The urinary bladder is distended. No perivesical stranding is seen. No bladder wall thickening. PELVIC: No dominant cystic pelvic mass seen. The uterus is not identified. MUSCULOSKELETAL: Scoliosis and severe degenerative change of the spine." 05/07/2021 CTA Chest w/ Contrast Impression: "No evidence for acute pulmonary embolus. There is a large fluid-filled distended hiatal hernia containing nearly the entire stomach. 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 The esophagus is dilated with fluid and air-fluid level over 4 cm in diameter. This would be elevated risk for aspiration. Cardiac enlargement. There is compression of the heart between the sternum and the distended herniated stomach, which likely impacts cardiac function. Pulmonary opacities noted which may be due to atelectasis, edema and/or pneumonia as discussed above. Other findings discussed above." 05/07/2021 Chest X-ray Impression: "Nasogastric tube as described above. It needs repositioning. Other findings as described above." 05/07/2021 Chest X-ray Impression: "Repositioning of the nasogastric tube as described above. The examination is otherwise unchanged." ASSESSMENT/PLAN: Ms. 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 # Hypertensive urgency i/s/o HTN hx; improving - Patient presented to the ED with BP 205/99. After the EGD, the patient's blood pressure remained elevated at 210/100. Patient reported a history of HTN but did not take medications at home. Per PCP, the patient was hemodynamically stable at the time of previous visit and did not require medications. - Today, BP 136/62, P 64 - Continue amlodipine 10mg PO daily and lisinopril 10mg PO daily for hypertension control - Cr. 0.54. - Will continue to monitor with repeat vitals and BMP. # Fever; asymptomatic - Patient had another recorded fever of 100.1 overnight, but the patient does not complain of fever, chills, or pain. She does note some burning with urination. - WBC 11.3; baseline around 8. - Blood cultures negative. - Lactic acid 1.5. - UA negative. - Will continue to monitor vitals and repeat CBC, BMP. # Right foot pain - Patient complains of right foot pain overnight. - Patient has a history of not walking on her feet for the past couple of years and uses a wheelchair for ambulation. She has severe pedal deformities. - Lidocaine patch placed over right medial malleolus and ankle. 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 - S/p EGD decompression of the stomach - c/w Morphine, Reglan, Zofran, Protonix - PICC line and TPN as per surgery - Per general surgery, IV clinimix and clear liquid diet. - Management as per primary surgical team # CKD Stage 3a - Cr 0.54; baseline is approx. 0.8-0.9 # Chronic pain - Continue home norco. DVT prophylaxis: TEDs and sequentials. Disposition: Patient is medically optimized for surgery; pending general surgery recommendations. VS,Fishbone, I+O VS, Fishbone, I+O Laboratory Tests 05/12/21 05:25 Vital Signs Date Time Temp Pulse Resp B/P (MAP) Pulse Ox O2 Delivery O2 Flow Rate FiO2 05/12/21 08:36 98.0 63 18 92 Room Air 05/12/21 04:00 134/62 (86) 05/07/21 07:15 2.0 I&O- Last 24 Hours up to 6 AM0 05/12/21 06:00 Intake Total 1790 ml Output Total 1150 ml Balance 640 ml GME ATTESTATION GME ATTESTATION My faculty preceptor for this patient encounter was physically present during the encounter and was fully available. All aspects of the patient interview, examination, medical decision making process, and medical care plan development were reviewed and approved by the faculty preceptor. The faculty preceptor is aware and concurs with the plan as stated in the body of this note and will attest to such by his/her cosignature. ATTENDING NOTE I, Laron Shirley, have independently examined this patient and performed my own physical exam, as well as reviewed the documentation and edited where necessary with the resident. For medical students we have performed the physical exam together and discussed medical decision making and I have verified the history. I have discussed in detail with the resident / student the findings and plan of treatment as documented by the resident / student and edited their note. I agree with their findings and treatment plan and have edited their documentation. I will continue to follow the patient during this hospital stay. ROSEANNA TREVIZO OMS-3 May 12, 2021 09:21 LARON SHIRLEY MD May 12, 2021 14:52
[2021-05-12] MEDS: CYANOCOBALAMIN 500 MCG TAB PO SCH (10:39)
[2021-05-12] MEDS: DULoxetine 30MG CAPSULE (CYMBALTA) PO SCH (10:40)
[2021-05-12 12:00] VITALS: BP 154/67
[2021-05-12] MEDS: AMINO AC/ELECTROLYTE/DEX/CALC 1,000 ML IV SCH (12:56)
--- NOTE | 2021-05-12 13:49 | REP ---
PROCEDURE NAME: PICC LINE INSERTION W/SITERITE CLINICAL INFORMATION: TPN access. COMPARISON: None. PROCEDURE DESCRIPTION: The procedure was performed by CESARIO Ku, under the direct supervision of Dr. Gonzalez. The risks and benefits of the procedure were explained to the patient and an informed consent was obtained both verbally and written. Directly prior to the start of the procedure a formal time-out was completed in the procedure room. The right basilic vein was localized using ultrasound guidance. The skin was prepped and draped in sterile fashion. Four mL of 1% lidocaine 10 mg/mL was used as a local anesthetic. Using ultrasound guidance the right basilic vein was cannulated, and a 0.018 guidewire was inserted and advanced to the level of SVC using fluoroscopic guidance. The needle was removed and a 5.5 Bhutanese dilator and peel-away sheath was inserted over the guidewire. A 5.5 [place] dual lumen catheter was cut to a length of 40 cm. The dilator was removed and the catheter was inserted over the guidewire when trying to reinsert the PICC line it was unable to reach the SVC. 5 mL of contrast was injected to evaluate for stenosis, no stenosis was seen but the PICC line was still unable to reach the SVC. The PICC line was removed and cut down to 25 cm in length ending in the distal subclavian vein. The peel-away sheath was removed and the catheter was flushed with heparinized saline as per hospital protocol. The catheter was affixed to the skin and a sterile dressing was applied. The patient tolerated the procedure well and there were no immediate complications. CONCLUSION: PICC line insertion into the right basilic vein. 1.6 minutes of fluoroscopy time was utilized for this procedure. Some fluoroscopic images are performed with last image hold technology. These images require no additional radiation. <Electronically signed by Zulema Guy > 05/12/21 [id number] <Electronically signed by Andreas Gonzalez > 05/12/21 [id number]
[2021-05-12] MEDS ORDERED: **NOTE PATIENT COMMENT** MISC XX ONE (14:04)
[2021-05-12 16:00] VITALS: BP 137/63
[2021-05-12] MEDS: PANTOPRAZOLE 40MG VIAL (C9113 PER 1) IV SCH (17:36)
[2021-05-12] MEDS: fentaNYL 75 MCG/HR PATCH TD SCH (17:37)
[2021-05-12] MEDS: SODIUM CHLORIDE 0.9% INJ 10 ML SYR IV SCH (17:38)
[2021-05-12] MEDS ORDERED: FAT EMULSION IV 250 ML IV SCH (18:00)
[2021-05-12] MEDS ORDERED: AMINO AC/ELECTROLYTE/DEX/CALC 2,000 ML IV SCH (18:00)
[2021-05-12 20:00] VITALS: BP 134/62
[2021-05-12] MEDS: MIRTAZAPINE 7.5MG PER 1/2 TABLET PO SCH (20:31)
[2021-05-12] MEDS: PRAVASTATIN 20 MG TAB PO SCH (20:31)
[2021-05-13] VITALS: BP 146/67
[2021-05-13 04:22] VITALS: BP 128/62
[2021-05-13] MEDS: SODIUM CHLORIDE 0.9% INJ 10 ML SYR IV SCH ×2 (06:01→18:15)
[2021-05-13] MEDS: LEVOTHYROXINE 37.5MCG PER 1/2TAB (0.0375MG) PO SCH (06:01)
[2021-05-13 06:40] LABS: BLOOD UREA NITROGEN 17 MG/DL (7-18); CALCIUM LEVEL 8.4 MG/DL (8.8-10.2); CARBON DIOXIDE LEVEL 23 MEQ/L (21-32); CHLORIDE LEVEL 107 MEQ/L (98-107); GLOMERULAR FILTRATION RATE > 60.0 (>32); GLUCOSE, FASTING 125 MG/DL (70-100); POTASSIUM SERUM 4.4 MEQ/L (3.5-5.1); SODIUM LEVEL 134 MEQ/L (136-145)
[2021-05-13 07:44] LABS: HEMATOCRIT 32.6 % (36.0-47.0); HEMOGLOBIN 10.9 g/dl (12.0-15.5); MEAN CORPUSCULAR HEMOGLOBIN 33.5 pg (27.0-33.0); MEAN CORPUSCULAR HGB CONC 33.4 g/dl (32.0-36.5); MEAN CORPUSCULAR VOLUME 100.3 fl (80.0-96.0); PLATELET COUNT, AUTOMATED 228 10^3/uL (150-450); RED BLOOD COUNT 3.25 10^6/uL (4.00-5.40); WHITE BLOOD COUNT 9.3 10^3/uL (4.0-10.0)
[2021-05-13 08:00] VITALS: BP 104/58
[2021-05-13] MEDS: DULoxetine 30MG CAPSULE (CYMBALTA) PO SCH (08:48)
[2021-05-13] MEDS: CYANOCOBALAMIN 500 MCG TAB PO SCH (08:48)
[2021-05-13] MEDS: ACETAMINOPHEN TAB 650MG DOSE (2X325MG) PO PRN ×2 (09:04→15:21)
--- NOTE | 2021-05-13 09:05 | IPNPDOC ---
Text Note Date of Service The patient was seen on 05/13/21. NOTE General surgery. Dr Miranda. The patient is an 86-year-old female with history of longstanding large hiatal hernia, status post EGD with placement of NG tube, decompression of gastric volvulus. This morning, the patient denies abdominal pain. States she is tolerating clear liquids. Denies nausea or vomiting. No BM yet. Afebrile VSS Awake and alert, resting in bed MMM Lungs are clear to auscultation S1-S2 regular rate rhythm. Abdomen is soft, nontender, nondistended. Upper GI 05/11/2021 IMPRESSION: There is a hiatal hernia which encompasses the whole stomach. The stomach and GE junction are above the diaphragm. The stomach is horizontally rotated. There is free flow of contrast through the pylorus and through the duodenum. The duodenum is grossly normal. There is no evidence of duodenitis pancreatitis peptic ulcer disease or neoplasm Assessment/plan Status post EGD with placement of NG tube, decompression of gastric volvulus. The patient is reviewed as per Dr Miranda. Upper GI indicating hiatal hernia encompassing the whole stomach with stomach and GE junction above the diaphragm. There was free flow of contrast through the pylorus and through the duodenum. The patient is currently tolerating clear liquids, will advance to full liquid. Denies nausea or vomiting. Currently PICC/TPN Reports a small amount of flatus, no BM yet. PT/OT/ARU consult VS,Sony, I+O VS, Sony, I+O Laboratory Tests 05/13/21 05:57 05/13/21 07:25 Vital Signs Date Time Temp Pulse Resp B/P (MAP) Pulse Ox O2 Delivery O2 Flow Rate FiO2 05/13/21 08:48 70 158/67 05/13/21 04:22 98.9 16 92 Room Air 05/07/21 07:15 2.0 I&O- Last 24 Hours up to 6 AM 05/13/21 05:59 Intake Total 2295 ml Output Total 650 ml Balance 1645 ml Sil Duff May 13, 2021 09:05
--- NOTE | 2021-05-13 10:59 | IPNPDOC ---
Text Note Date of Service The patient was seen on 05/13/21. NOTE SUBJECTIVE: Ms. Fermin is an 86-year-old female who was seen by the hospitalist service this morning. She denies any acute changes overnight. She has left knee pain but she does have a h/o bilateral knee replacement and chronic bilateral knee pain. She has not had a bowel movement since admission, but had some flatulence. She denies fever, chills, headaches, cough, palpitations, CP, SOB, N/V/D, abdominal pain, dysuria, or pyuria. OBJECTIVE: PHYSICAL EXAMINATION: VITAL SIGNS: Please see below. GENERAL APPEARANCE: Patient is a pleasant, elderly, obese female who appears younger than stated age in no acute distress. HEENT: NC, AT. PERRLA, EOMI; pupils are constricted. Sclera non-icteric. Mucus membranes moist. Mallampati class IV. RESPIRATORY: Clear to auscultation bilaterally. No wheezing, rales, or rhonchi appreciated. Breathing comfortably on room air. CARDIOVASCULAR: RRR. No murmurs, rubs, or gallops appreciated. ABDOMEN: Soft, obese abdomen. Nontender to palpation. Positive bowel sounds. EXTREMITIES: Bilateral radial, dorsalis pedis, and posterior tibialis pulses appreciated. Tender to palpation around left knee. Non-pitting edema in bilateral LE. Bilateral flat feet, arches are not present. Bilateral hallux valgus. Bilateral pedal deformities noted; severe out-toeing bilaterally. PSYCHIATRIC: Mood appears stable. IMAGIN05/11/2021 UGI w/o KUB Impression: "There is a hiatal hernia which encompasses the whole stomach. The stomach and GE junction are above the diaphragm. The stomach is horizontally rotated. There is free flow of contrast through the pylorus and through the duodenum. The duodenum is grossly normal. There is no evidence of duodenitis pancreatitis peptic ulcer disease or neoplasm." 05/07/2021 Echocardiogram Conclusions: "1. Study is of acceptable technical quality. Underlying sinus rhythm. 2. Normal left ventricular (LV) size with moderate left ventricular hypertrophy (LVH), hyperdynamic LV systolic function. Estimated left ventricular ejection fraction (LVEF) 70-75%. Grade 1 diastolic dysfunction. 3. Normal right ventricular (RV) size and systolic function. 4. Aortic sclerosis with trace insufficiency and trivial stenosis. 5. Competent mitral valve. 6. Likely normal central venous pressure and approximately moderate pulmonary hypertension." 05/07/2021 CT Abdomen Findings: LUNG BASES: Please refer to same-day chest CT report for complete findings. 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 This is more dilated than on the prior study. No ab dominoaortic dissection or retroperitoneal hematoma. There is aortoiliac and visceral arterial atherosclerosis seen. PERITONEAL: No free air or free fluid. GI: There is a large distended hiatal hernia. Please refer to same-day chest CT report for details. Nonspecific fluid containing small bowel loops are seen. No appearance of a small-bowel obstruction. No focal mesenteric inflammation is seen. Small nonspecific mesenteric lymph nodes are noted. Scattered fecal material and gas within portions of the colon and rectum. The rectum is distended to 7 cm with fecal material. There is perianal soft tissue thickening. Inflammation or mass cannot be excluded by this study. Correlation with clinical exam is advised. There is diverticulosis but no focal inflammation to suggest acute diverticulitis. Some portions of the colon appear slightly thick-walled. This could be artifactual secondary to insufficient distention. Mild colitis would be difficult to exclude. The appendix is not identified. HEPATOBILIARY, PANCREAS, SPLEEN: Hepatic length is 13.9 cm. Evaluation of the liver is slightly compromised by artifact and lack of homogeneous portal phase imaging. The gallbladder is hydropic, distended up to 13 cm in length by 5 cm transversely. There is slight prominence of the gallbladder wall for degree of distention. Mild cholecystitis cannot be excluded with this appearance. If indicated, consider ultrasound or HIDA scan for further evaluation. No calcified gallstones or biliary dilation seen. No pancreatic inflammation. Spleen not enlarged. ADRENALS, KIDNEYS, BLADDER, RETROPERITONEAL: Adrenals within normal limits. Symmetric renal enhancement. Extrarenal pelves noted bilaterally. There is mild proximal pyelocaliectasis. This may be positional or related to distention of the urinary bladder. There are areas of renal cortical thinning. The urinary bladder is distended. No perivesical stranding is seen. No bladder wall thickening. PELVIC: No dominant cystic pelvic mass seen. The uterus is not identified. MUSCULOSKELETAL: Scoliosis and severe degenerative change of the spine." 05/07/2021 CTA Chest w/ Contrast Impression: "No evidence for acute pulmonary embolus. There is a large fluid-filled distended hiatal hernia containing nearly the entire stomach. 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 The esophagus is dilated with fluid and air-fluid level over 4 cm in diameter. This would be elevated risk for aspiration. Cardiac enlargement. There is compression of the heart between the sternum and the distended herniated stomach, which likely impacts cardiac function. Pulmonary opacities noted which may be due to atelectasis, edema and/or pneumonia as discussed above. Other findings discussed above." 05/07/2021 Chest X-ray Impression: "Nasogastric tube as described above. It needs repositioning. Other findings as described above." 05/07/2021 Chest X-ray Impression: "Repositioning of the nasogastric tube as described above. The examination is otherwise unchanged." ASSESSMENT/PLAN: Ms. 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 # Hypertensive urgency i/s/o HTN hx; improving - Patient presented to the ED with BP 205/99. After the EGD, the patient's blood pressure remained elevated at 210/100. Patient reported a history of HTN but did not take medications at home. Per PCP, the patient was hemodynamically stable at the time of previous visit and did not require medications. - Today, BP 158/67, P 70; stabilizing - Continue amlodipine 10mg PO daily and lisinopril 10mg PO daily for hypertension control - Will continue to monitor with repeat vitals and BMP. # Chronic LE pain - Right foot pain has resolved; lidocaine patch removed. - She reports mild left knee pain; h/o bilateral knee replacement - Left knee elevated w/ pillow and given acetaminophen for pain. # Fever; asymptomatic; resolved - Patient did not have a recorded fever overnight, and patient does not c/o fever, chills, or pain. - WBC 9.3; returning to baseline; blood cultures negative; UA negative; lactic acid 1.5. - Will continue to monitor vitals and repeat CBC, BMP. 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 - S/p EGD decompression of the stomach - C/w Morphine, Reglan, Zofran, Protonix - PICC line, TPN, full liquid diet as per surgery - PT/OT/ARU consulted and management as per primary surgical team # CKD Stage 3a - Cr 0.50; baseline is approx. 0.8-0.9 # Chronic pain - Continue home norco. DVT prophylaxis: Heparin flushes Disposition: - Patient is medically optimized by hospitalist service; ARU status per general surgery recommendations. - Hospitalist service will sign off VS,[place], I+O VS, Fishbone, I+O Laboratory Tests 05/13/21 05:57 05/13/21 07:25 Vital Signs Date Time Temp Pulse Resp B/P (MAP) Pulse Ox O2 Delivery O2 Flow Rate FiO2 05/13/21 08:48 70 158/67 05/13/21 04:22 98.9 16 92 Room Air 05/07/21 07:15 2.0 I&O- Last 24 Hours up to 6 AM 05/13/21 05:59 Intake Total 2295 ml Output Total 650 ml Balance 1645 ml GME ATTESTATION GME ATTESTATION My faculty preceptor for this patient encounter was physically present during the encounter and was fully available. All aspects of the patient interview, examination, medical decision making process, and medical care plan development were reviewed and approved by the faculty preceptor. The faculty preceptor is aware and concurs with the plan as stated in the body of this note and will attest to such by his/her cosignature. ATTENDING NOTE I, Laron Shirley, have independently examined this patient and performed my own physical exam, as well as reviewed the documentation and edited where necessary with the resident. For medical students we have performed the physical exam together and discussed medical decision making and I have verified the history. I have discussed in detail with the resident / student the findings and plan of treatment as documented by the resident / student and edited their note. I agree with their findings and treatment plan and have edited their documentation. I will continue to follow the patient during this hospital stay. Hospitalist service will now sign off; please re-consult as needed ROSEANNA TREVIZO OMS-3 May 13, 2021 10:59 LARON SHIRLEY MD May 13, 2021 13:22
[2021-05-13 12:00] VITALS: BP 128/60
--- NOTE | 2021-05-13 14:57 | REP ---
INDICATION: swollen wrist w/o trauma COMPARISON: None. TECHNIQUE: Burkett scale and color Doppler evaluation using linear high frequency transducer. FINDINGS: Evaluation is limited due to body habitus and underlying bandage material limiting the distal brachial and basilic veins. Ultrasound examination of the right upper extremity demonstrates no obvious deep venous thrombosis. PICC line is identified within the basilic vein. IMPRESSION: No evidence for deep venous thrombosis. <Electronically signed by Prosper Perdue > 05/13/21 [id number]
[2021-05-13 16:00] VITALS: BP 128/60
[2021-05-13] MEDS: PANTOPRAZOLE 40MG VIAL (C9113 PER 1) IV SCH (18:14)
[2021-05-13 20:00] VITALS: BP 119/58
[2021-05-13] MEDS: PRAVASTATIN 20 MG TAB PO SCH (20:04)
[2021-05-13] MEDS: MIRTAZAPINE 7.5MG PER 1/2 TABLET PO SCH (20:04)
[2021-05-13] MEDS: ANEXSIA, NORCO 7.5MG/325MG TABLET(HYDROCODONE/APAP) PO PRN (23:59)
[2021-05-14] VITALS: BP 127/58
[2021-05-14 04:00] VITALS: BP 122/57
[2021-05-14] MEDS: LEVOTHYROXINE 37.5MCG PER 1/2TAB (0.0375MG) PO SCH (05:07)
[2021-05-14] MEDS: SODIUM CHLORIDE 0.9% INJ 10 ML SYR IV SCH ×2 (05:07→17:21)
[2021-05-14 06:30] LABS: HEMATOCRIT 33.4 % (36.0-47.0); HEMOGLOBIN 11.1 g/dl (12.0-15.5); MEAN CORPUSCULAR HEMOGLOBIN 33.6 pg (27.0-33.0); MEAN CORPUSCULAR HGB CONC 33.2 g/dl (32.0-36.5); MEAN CORPUSCULAR VOLUME 101.2 fl (80.0-96.0); PLATELET COUNT, AUTOMATED 240 10^3/uL (150-450); WHITE BLOOD COUNT 8.1 10^3/uL (4.0-10.0)
[2021-05-14 06:50] LABS: BLOOD UREA NITROGEN 20 MG/DL (7-18); CALCIUM LEVEL 8.8 MG/DL (8.8-10.2); CARBON DIOXIDE LEVEL 27 MEQ/L (21-32); CHLORIDE LEVEL 103 MEQ/L (98-107); CREATININE FOR GFR 0.56 MG/DL (0.55-1.30); GLOMERULAR FILTRATION RATE > 60.0 (>32); GLUCOSE, FASTING 100 MG/DL (70-100); POTASSIUM SERUM 4.4 MEQ/L (3.5-5.1); SODIUM LEVEL 134 MEQ/L (136-145)
[2021-05-14 08:01] VITALS: BP 120/51
[2021-05-14] MEDS: ANEXSIA, NORCO 7.5MG/325MG TABLET(HYDROCODONE/APAP) PO PRN ×2 (09:29→17:22)
[2021-05-14] MEDS: DULoxetine 30MG CAPSULE (CYMBALTA) PO SCH (09:31)
[2021-05-14] MEDS: CYANOCOBALAMIN 500 MCG TAB PO SCH (09:31)
--- NOTE | 2021-05-14 09:48 | IPNPDOC ---
Text Note Date of Service The patient was seen on 05/14/21. NOTE General surgery. Dr Miranda. The patient is an 86-year-old female with history of longstanding large hiatal hernia, status post EGD with placement of NG tube, decompression of gastric volvulus. This morning, the patient denies abdominal pain. States she is tolerating full liquids. Denies nausea or vomiting. No BM yet. States a small amount of flatus. Afebrile VSS Awake and alert, resting in bed MMM Lungs are clear to auscultation S1-S2 regular rate rhythm. Abdomen is soft, nontender, nondistended. Upper GI 05/11/2021 IMPRESSION: There is a hiatal hernia which encompasses the whole stomach. The stomach and GE junction are above the diaphragm. The stomach is horizontally rotated. There is free flow of contrast through the pylorus and through the duodenum. The duodenum is grossly normal. There is no evidence of duodenitis pancreatitis peptic ulcer disease or neoplasm Assessment/plan Status post EGD with placement of NG tube, decompression of gastric volvulus. The patient is reviewed as per Dr Miranda. Upper GI indicating hiatal hernia encompassing the whole stomach with stomach and GE junction above the diaphragm. There was free flow of contrast through the pylorus and through the duodenum. The patient is currently tolerating full liquids. Denies nausea or vomiting. Reports a small amount of flatus, no BM yet. PT/OT/ ARU consult pending VS,Fishbone, I+O VS, Fishbone, I+O Laboratory Tests 05/14/21 05:59 Vital Signs Date Time Temp Pulse Resp B/P (MAP) Pulse Ox O2 Delivery O2 Flow Rate FiO2 05/14/21 08:01 97.7 58 18 120/51 (74) 97 Room Air I&O- Last 24 Hours up to 6 AM 05/14/21 05:59 Intake Total 4010 ml Output Total 900 ml Balance 3110 ml Sil Duff May 14, 2021 09:48
--- NOTE | 2021-05-14 10:00 | IPNPDOC ---
Subjective General Date/Time Seen The patient was seen on 05/14/21 at 09:47. Subject Chief Complaint/History The patient is a 86-year-old female admitted with a reason for visit of Gastric Volvulus. Today, she tells me she is doing well and has tolerated full liquids diet this AM. Denies n/v, abd pain, BM. Reports flatus, adequate urine output. She tells me she has not been OOB with PT. Denies chest pain, SOB. She tells me she is having significant right wrist/hand pain and swelling. Pain is located on dorsal hand/wrist and radiates across without extending to palm or fingers. Describes pain as sharp, constant, 6/10. Pain is worse with light pressure and movement of digits. She tells me she has hx arthritis, however, current wrist pain is worse than her baseline arthritic pain. Denies recent trauma to site. Current Medications Current Medications Current Medications Medications (Trade) Dose Ordered Sig/Alice Route PRN Reason Start Time Stop Time Status Last Admin Dose Admin Acetaminophen (Tylenol Suspension) 650 mg Q6HP PRN GT MILD PAIN or TEMP > 101 05/08/21 10:25 05/12/21 03:58 DC 05/10/21 17:00 Acetaminophen (Tylenol Tab) 650 mg Q6HP PRN PO MILD PAIN or TEMP > 101 05/12/21 04:00 05/13/21 15:21 Acetaminophen/ Hydrocodone Bitart (Anexsia, [place] 7.5mg/325mg) 1 tab Q6H PRN PO MODERATE PAIN (PS 5-7) 05/09/21 11:25 05/14/21 09:29 Amino Ac/Electrol/ Dextrose/Calcium 1,000 ml @ 75 mls/hr [id number] IV 05/09/21 18:00 05/12/21 17:01 DC 05/12/21 12:56 Amino Ac/Electrol/ Dextrose/Calcium 1,000 ml @ 75 mls/hr [id number] IV 05/11/21 18:00 Cancel Amino Ac/Electrol/ Dextrose/Calcium 2,000 ml @ 60 mls/hr ONCE@1800 IV 05/12/21 18:00 05/13/21 17:59 DC 05/12/21 18:27 Amlodipine Besylate (Norvasc) 10 mg DAILY PO 05/09/21 12:00 05/09/21 16:24 DC 05/09/21 12:27 Amlodipine Besylate (Norvasc) 10 mg DAILY PO 05/10/21 09:00 05/14/21 09:31 Cyanocobalamin (Vitamin B12) 1,000 mcg DAILY PO 05/09/21 12:00 05/14/21 09:31 Duloxetine HCl (Cymbalta) 60 mg DAILY PO 05/09/21 12:00 05/14/21 09:31 Fat Emulsion Intravenous 250 ml @ 20 mls/hr ONCE@1800 IV 05/09/21 18:00 05/10/21 06:29 DC 05/09/21 18:05 Fat Emulsion Intravenous 250 ml @ 20 mls/hr ONCE@1800 IV 05/10/21 18:00 05/11/21 06:29 DC 05/10/21 17:09 Fat Emulsion Intravenous 250 ml @ 20 mls/hr ONCE@1800 IV 05/11/21 18:00 05/12/21 06:29 DC 05/11/21 17:54 Fat Emulsion Intravenous 250 ml @ 20 mls/hr ONCE@1800 IV 05/12/21 18:00 05/13/21 06:29 DC 05/12/21 18:26 Fentanyl (Duragesic) 75 mcg Q3D TD 05/09/21 12:00 05/12/21 17:37 Fentanyl Citrate (Sublimaze) 25 mcg Q5MP PRN IV PAIN LEVEL 8-10 05/07/21 12:15 05/07/21 14:15 DC Heparin Sodium (Heparin (Flush)) 200 units ASDIRECTED PRN IV SEE LABEL COMMENTS 05/12/21 10:20 Heparin Sodium (Heparin (Flush)) 200 units PICC IV 05/12/21 18:00 05/14/21 05:07 Home Med (Home Med List Complete!) ASDIRECTED XX 05/07/21 10:50 05/07/21 10:55 DC Hydralazine HCl (Apresoline) 10 mg Q6H IV 05/07/21 15:00 05/09/21 11:23 DC 05/09/21 08:30 Hydromorphone HCl (Dilaudid) 0.5 mg Q30M PRN IV MODERATE PAIN (PS 5-7) 05/07/21 04:05 05/07/21 06:27 DC 05/07/21 06:26 Labetalol HCl (Normodyne, Trandate) 5 mg Q5MP PRN IV SEE LABEL COMMENTS 05/07/21 12:40 05/07/21 14:40 DC 05/07/21 12:37 Labetalol HCl (Normodyne, Trandate) 20 mg STAT STAT IV 05/08/21 18:17 05/08/21 18:34 DC Lactated Ringer's 1,000 ml @ 100 mls/hr Q10H IV 05/07/21 12:15 05/07/21 14:15 DC Levothyroxine Sodium (Synthroid) 37.5 mcg DAILY@0600 PO 05/10/21 06:00 05/14/21 05:07 Lisinopril (Prinivil) 5 mg DAILY PO 05/11/21 09:00 05/11/21 16:14 DC 05/11/21 10:03 Lisinopril (Prinivil) 10 mg DAILY PO 05/12/21 09:00 05/14/21 09:31 Metoclopramide HCl (REGLAN INJection) 10 mg Q6HP PRN IV NAUSEA OR VOMITING 05/07/21 08:55 Mirtazapine (Remeron) 7.5 mg QHS PO 05/09/21 21:00 05/13/21 20:04 Morphine Sulfate (Morphine Sulfate Inj) 2 mg Q30M PRN IV MODERATE PAIN (PS 5-7) 05/07/21 03:30 05/07/21 04:07 DC 05/07/21 04:00 Morphine Sulfate (Morphine Sulfate Inj) 2 mg Q4H PRN IV SEVERE PAIN (PS 8-10) 05/07/21 08:55 05/12/21 00:04 Nicardipine HCl 40 mg/IV Miscellaneous Supplies 200 ml @ 25 mls/hr Q8H IV 05/09/21 16:15 05/09/21 18:48 DC 05/09/21 17:09 Nicardipine HCl 40 mg/IV Miscellaneous Supplies 200 ml @ 25 mls/hr Q8H IV 05/09/21 18:46 05/11/21 17:53 DC 05/10/21 06:16 Nitroglycerin (Nitrostat (1/ 150)) 0.4 mg Q5MP PRN SL ANGINA 05/09/21 11:25 Non-Formulary Medication ( See Comment Field Below ) SEE COMMENTS SECTION ASDIRECTED XX 05/09/21 12:00 Nystatin (Mycostatin Powder, Nystop) Please apply to redde... BIDP PRN TOP RASH 05/08/21 10:00 05/09/21 12:43 Ondansetron HCl (ZOFRAN INJection) 4 mg Q4HP PRN IV NAUSEA OR VOMITING 05/07/21 12:15 05/07/21 14:15 DC Ondansetron HCl (ZOFRAN INJection) 4 mg Q6HP PRN IV NAUSEA OR VOMITING 05/07/21 08:55 Oxycodone HCl (Roxicodone, Oxyir) 5 mg ASDIRECTED PRN PO PAIN LEVEL 1-4 05/07/21 12:15 05/07/21 14:15 DC Pantoprazole Sodium (Protonix) 40 mg DAILY IV 05/08/21 09:00 05/07/21 16:18 DC Pantoprazole Sodium (Protonix) 40 mg DAILY@1700 IV 05/07/21 17:00 05/13/21 18:14 Potassium Chloride 10 meq/ IV Miscellaneous Supplies 100 ml @ 100 mls/hr 0500,0600,0700,0800 IV 05/10/21 05:00 05/10/21 12:00 DC 05/10/21 08:34 Pravastatin Sodium (Pravachol) 40 mg QHS PO 05/09/21 21:00 05/13/21 20:04 Sodium Chloride 1,000 ml @ 50 mls/hr Q20H IV 05/07/21 08:55 05/11/21 12:49 DC 05/11/21 09:59 Sodium Chloride (Saline Lock Flush) 10 ml ASDIRECTED PRN IV SEE LABEL COMMENTS 05/12/21 10:20 Sodium Chloride (Saline Lock Flush) 10 ml PICC IV 05/12/21 18:00 05/14/21 05:07 Allergies Coded Allergies: TAPE (Verified Allergy, Intermediate, RASH, 05/21/10) meloxicam (Verified Adverse Reaction, Mild, "I think it made me sick", 03/19/19) pioglitazone (Verified Adverse Reaction, Mild, bruising, 03/19/19) pregabalin (Verified Adverse Reaction, Mild, affects vision, 03/19/19) Objective Physical Examination Examination GENERAL APPEARANCE:Patient seen, laying in bed eating breakfast, awake, alert, and oriented. Comfortable, in no acute distress SKIN: Warm and moist, mild erythema overlying dorsum of right hand/wrist HEENT: Normocephalic, atraumatic. [place] palpebral conjunctiva, anicteric sclerae. Lips and mucosa appear moist. No dentition. NECK: Supple, no thyromegaly. LUNGS: Clear to auscultation bilaterally. Diminished breath sounds on left. HEART: No chest wall abnormalities. Regular rate and rhythm with no murmurs appreciated ABDOMEN: Abdomen is nontender, soft, nondistended. No noticeable rebound or guarding. No grimacing with palpation. No rebound tenderness. No masses appreciated. EXTREMITIES: Significant out-toeing b/l feet. 4+ pittin edema LE. Swelling right wrist/hand. Arthritic changes of b/l fingers. Vital Signs Vital Signs Date Time Temp Pulse Resp B/P (MAP) Pulse Ox O2 Delivery O2 Flow Rate FiO2 05/14/21 09:31 137/67 05/14/21 09:29 18 Room Air 05/14/21 08:01 97.7 58 97 I&Os I&O- Last 24 Hours up to 6 AM 05/14/21 06:00 Intake Total 4010 ml Output Total 900 ml Balance 3110 ml Laboratory Data Labs 24H Laboratory Tests 2 05/14/21 05:59: Nucleated Red Blood Cells % (auto) 0.0, Anion Gap 4L, Glomerular Filtration Rate > 60.0, Calcium Level 8.8 CBC/BMP Laboratory Tests 05/14/21 05:59 Microbiology Microbiology 05/11/21 Blood Culture - Preliminary, Resulted No Growth after 72 hours. All specime... 05/11/21 Blood Culture - Preliminary, Resulted No Growth after 72 hours. All specime... Impression 86F with gastric volvulus found to have significant hiatal hernia on EGD, with improved bowel function and new onset right wrist/hand pain. Continue full liquids diet. Monitor I&Os Transfer Med/Surg Right wrist/hand u/s 05/13 neg for DVT. Order Uric acid to w/u possible acute gout flare Encourage OOB. Continue PT/OT. ARU Screening for rehab upon d/c Plan / VTE VTE Prophylaxis Ordered?: Yes Angie Snider DO May 14, 2021 09:59
[2021-05-14 11:20] LABS: URIC ACID 1.9 MG/DL (2.6-6.0)
[2021-05-14 11:46] VITALS: BP 112/58
[2021-05-14 13:38] VITALS: BP 120/62
[2021-05-14] MEDS: PANTOPRAZOLE 40MG VIAL (C9113 PER 1) IV SCH (17:21)
[2021-05-14 22:00] VITALS: BP 113/54
[2021-05-14] MEDS: PRAVASTATIN 20 MG TAB PO SCH (22:52)
[2021-05-14] MEDS: MIRTAZAPINE 7.5MG PER 1/2 TABLET PO SCH (22:52)
[2021-05-15 02:20] VITALS: BP 137/60
[2021-05-15] MEDS: LEVOTHYROXINE 37.5MCG PER 1/2TAB (0.0375MG) PO SCH (05:22)
[2021-05-15] MEDS: SODIUM CHLORIDE 0.9% INJ 10 ML SYR IV SCH ×2 (05:23→17:04)
[2021-05-15 06:00] VITALS: BP 116/57
--- NOTE | 2021-05-15 09:02 | IPNPDOC ---
Text Note Date of Service The patient was seen on 05/15/21. NOTE S: Pt seen and evaluated this AM. She tells me she is doing well and denies acute complaints. Pt on full liquids diet and denies n/v, abd pain. She has not had any BM since admission. Reports flatus, adequate urine output. She has been working with PT, who recommends rehab upon d/c. ARU screening pending. Pt continues to complain of right wrist/hand pain which has not improved or worsen ed. PT notes patient's difficulty with use of b/l LE and right UE secondary to pain. Denies chest pain, SOB. O: GEN:laying in bed eating breakfast, awake, alert, and oriented. Comfortable, in no acute distress SKIN: Warm and moist, mild erythema overlying dorsum of right hand/wrist unchanged from 05/14 HEENT: Normocephalic, atraumatic. Sausal palpebral conjunctiva, anicteric sclerae . Lips and mucosa appear moist. No dentition. LUNGS: Clear to auscultation bilaterally. Diminished breath sounds on left. HEART: No chest wall abnormalities. Regular rate and rhythm with no murmurs appreciated ABD: Abdomen is nontender, soft, nondistended. No noticeable rebound or guarding. No grimacing with palpation. No masses appreciated. EXTREMITIES: Significant out-toeing b/l feet. 4+ pitting edema LE. Swelling right wrist/hand unchanged from 05/14. Arthritic changes of b/l fingers. A/P: 86F w/ gastric volvulus found to have chronic large hiatal hernia s/p EGD and decompression, with improved bowel function pending BM. #Chronic hiatal hernia s/p EGD and decompression gastric volvulus Patient is not good surgical candidate for intervention Currently tolerating full liquids diet From general surgery standpoint, patient is optimized D/c pending ARU consult #Constipation Patient has not yet had any BM since admission (05/07) Denies abd pain, n/v. Reports flatus. Colace 200mg BID Senna 2tab BID Monitor I&Os #Right wrist/hand pain, unlikely secondary to gout flare or active infection Right wrist/hand u/s neg DVT (05/13) No leukocytosis Uric acid level 1.98 (05/14) Ca2+ 8.8 (05/15) Encourage continued work with PT Heparin for DVT Prophylaxis DIET: Full liquids ACTIVITY: OOB to chair DISPO: Rehab, possible subacute pending further recommendations VS,Fishbone, I+O VS, Fishbone, I+O Vital Signs Date Time Temp Pulse Resp B/P (MAP) Pulse Ox O2 Delivery O2 Flow Rate FiO2 05/15/21 06:00 98.9 48 15 116/57 (76) 93 Room Air I&O- Last 24 Hours up to 6 AM 05/15/21 06:00 Intake Total 1080 ml Output Total 1100 ml Balance -20 ml Angie Snider DO May 15, 2021 09:02
[2021-05-15] MEDS: DOCUSATE SODIUM 100MG CAPSULE PO SCH ×2 (09:10→20:47)
[2021-05-15] MEDS: CYANOCOBALAMIN 500 MCG TAB PO SCH (09:10)
[2021-05-15] MEDS: SENNA 8.6 MG TAB (SENOKOT) PO SCH ×2 (09:10→20:48)
[2021-05-15] MEDS: DULoxetine 30MG CAPSULE (CYMBALTA) PO SCH (09:10)
[2021-05-15 14:00] VITALS: BP 125/51
[2021-05-15] MEDS: fentaNYL 75 MCG/HR PATCH TD SCH (15:13)
[2021-05-15] MEDS: FENTANYL REMOVAL DOCUMENTATION MISC XX SCH (15:15)
[2021-05-15] MEDS: PANTOPRAZOLE 40MG VIAL (C9113 PER 1) IV SCH (17:04)
[2021-05-15] MEDS: MIRTAZAPINE 7.5MG PER 1/2 TABLET PO SCH (20:48)
[2021-05-15] MEDS: PRAVASTATIN 20 MG TAB PO SCH (20:48)
[2021-05-15] MEDS: ANEXSIA, NORCO 7.5MG/325MG TABLET(HYDROCODONE/APAP) PO PRN (21:04)
[2021-05-15 22:00] VITALS: BP 114/57
[2021-05-16 02:00] VITALS: BP 130/60
[2021-05-16] MEDS: SODIUM CHLORIDE 0.9% INJ 10 ML SYR IV SCH ×2 (05:55→17:29)
[2021-05-16] MEDS: LEVOTHYROXINE 37.5MCG PER 1/2TAB (0.0375MG) PO SCH (05:55)
[2021-05-16 06:00] VITALS: BP 114/59
[2021-05-16] MEDS: MORPHINE 2 MG/ML 1ML VIAL (J2270) IV PRN (09:19)
[2021-05-16] MEDS: SODIUM CHLORIDE 0.9% INJ 10 ML SYR IV PRN ×2 (09:19→17:29)
[2021-05-16] MEDS: CYANOCOBALAMIN 500 MCG TAB PO SCH (09:20)
[2021-05-16] MEDS: DULoxetine 30MG CAPSULE (CYMBALTA) PO SCH (09:20)
[2021-05-16] MEDS: DOCUSATE SODIUM 100MG CAPSULE PO SCH ×2 (09:20→23:19)
[2021-05-16] MEDS: SENNA 8.6 MG TAB (SENOKOT) PO SCH ×2 (09:29→23:18)
[2021-05-16 10:00] VITALS: BP 125/62
[2021-05-16] MEDS ORDERED: MOM 30ML SUSPENSION UDC PO ONE (11:40)
--- NOTE | 2021-05-16 11:42 | IPNPDOC ---
Text Note Date of Service The patient was seen on 05/16/21. NOTE Patient has been in the hospital more than a week ago for acute gastric volvulus secondary to longstanding large paraesophageal hernia status post EGD and decompression of the stomach. She appears to be tolerating full liquids, reporting some mild hunger. Still has not had any documented bowel movements since admission. Otherwise she is working with physical therapy and ARU screen still pending. Vital signs stable Examination Frail-appearing but otherwise comfortable Clear breath sounds auscultation bilaterally Abdomen soft, nondistended no tenderness Impression and plan Large paraesophageal hernia with associated gastric volvulus status post decompression/detorsion of the stomach We will advance to soft diet Continue with PT, await ARU screen, possible rehab placement VS,Fishbone, I+O VS, Fishbone, I+O Vital Signs Date Time Temp Pulse Resp B/P (MAP) Pulse Ox O2 Delivery O2 Flow Rate FiO2 05/16/21 10:00 98.4 73 17 125/62 (83) 92 Room Air I&O- Last 24 Hours up to 6 AM 05/16/21 06:00 Intake Total 1530 ml Output Total 425 ml Balance 1105 ml ELLEN CAMARGO MD May 16, 2021 11:42
[2021-05-16 14:00] VITALS: BP 125/62
[2021-05-16] MEDS: PANTOPRAZOLE 40MG VIAL (C9113 PER 1) IV SCH (17:28)
[2021-05-16 22:00] VITALS: BP 122/68
[2021-05-16] MEDS: MIRTAZAPINE 7.5MG PER 1/2 TABLET PO SCH (23:18)
[2021-05-16] MEDS: PRAVASTATIN 20 MG TAB PO SCH (23:19)
[2021-05-17 02:00] VITALS: BP 118/62
[2021-05-17 06:00] VITALS: BP 130/60
[2021-05-17] MEDS: SODIUM CHLORIDE 0.9% INJ 10 ML SYR IV SCH ×2 (06:08→18:03)
[2021-05-17] MEDS: LEVOTHYROXINE 37.5MCG PER 1/2TAB (0.0375MG) PO SCH (06:08)
[2021-05-17] MEDS: SENNA 8.6 MG TAB (SENOKOT) PO SCH ×2 (10:04→20:19)
[2021-05-17] MEDS: CYANOCOBALAMIN 500 MCG TAB PO SCH (10:04)
[2021-05-17] MEDS: SODIUM CHLORIDE 0.9% INJ 10 ML SYR IV PRN (10:04)
[2021-05-17] MEDS: DULoxetine 30MG CAPSULE (CYMBALTA) PO SCH (10:04)
[2021-05-17] MEDS: DOCUSATE SODIUM 100MG CAPSULE PO SCH ×2 (10:05→20:19)
[2021-05-17] MEDS: NYSTATIN 100,000 UNITS/GM TOPICAL PWD 15 GM TOP PRN (10:05)
[2021-05-17] MEDS ORDERED: MAGNESIUM CITRATE 300 ML BTL PO ONE ×2 (10:15→10:30)
--- NOTE | 2021-05-17 13:31 | IPNPDOC ---
Text Note Date of Service The patient was seen on 05/17/21. NOTE Patient seems to be tolerating a soft diet and I started her yesterday. She denies any nausea though she has had some more burping. Denies any abdominal discomfort. Vital signs stable, afebrile Exam Patient reclined on the bed looks very comfortable. She is awake alert and oriented. Lung sounds are clear bilaterally Abdomen is obese, soft and nontender Moderate lower extremity edema chronic Impression and plan Giant paraesophageal hernia with acute gastric volvulus status post EGD decompression Doing well. We will keep her on the soft diet for now. She has not had a bowel movement for 11 days now despite the milk of magnesia yesterday. I will give her half a bottle of mag citrate and see if this helps. She was ordered for AR U screen midweek last week and they still do not see any notes from rehab. We will have to inquire about her status when the regular people comes back tomorrow. She apparently has Covid exposure (while in the hospital) so this may affect discharge planning specially if she is going summer outside of the institution. VS,Fishbone, I+O VS, Fishbone, I+O Vital Signs Date Time Temp Pulse Resp B/P (MAP) Pulse Ox O2 Delivery O2 Flow Rate FiO2 05/17/21 10:11 60 108/53 05/17/21 06:00 97.6 18 94 Room Air I&O- Last 24 Hours up to 6 AM 05/17/21 06:00 Intake Total 1250 ml Output Total 2350 ml Balance -1100 ml ELLEN CAMARGO MD May 17, 2021 13:31
[2021-05-17 14:00] VITALS: BP 145/72
[2021-05-17 18:00] VITALS: BP 128/70
[2021-05-17] MEDS: PANTOPRAZOLE 40MG VIAL (C9113 PER 1) IV SCH (18:03)
[2021-05-17] MEDS: PRAVASTATIN 20 MG TAB PO SCH (20:19)
[2021-05-17] MEDS: MIRTAZAPINE 7.5MG PER 1/2 TABLET PO SCH (20:19)
[2021-05-17 20:50] VITALS: BP 117/54
[2021-05-18 02:00] VITALS: BP 140/65
[2021-05-18] MEDS: ANEXSIA, NORCO 7.5MG/325MG TABLET(HYDROCODONE/APAP) PO PRN (02:08)
[2021-05-18] MEDS: LEVOTHYROXINE 37.5MCG PER 1/2TAB (0.0375MG) PO SCH (05:20)
[2021-05-18] MEDS: SODIUM CHLORIDE 0.9% INJ 10 ML SYR IV SCH ×2 (05:21→17:01)
[2021-05-18 06:00] VITALS: BP 109/57
[2021-05-18] MEDS: CYANOCOBALAMIN 500 MCG TAB PO SCH (08:10)
[2021-05-18] MEDS: SENNA 8.6 MG TAB (SENOKOT) PO SCH ×2 (08:10→20:15)
[2021-05-18] MEDS: DULoxetine 30MG CAPSULE (CYMBALTA) PO SCH (08:10)
[2021-05-18] MEDS: DOCUSATE SODIUM 100MG CAPSULE PO SCH ×2 (08:10→20:14)
[2021-05-18 10:00] VITALS: BP 114/58
[2021-05-18] MEDS: fentaNYL 75 MCG/HR PATCH TD SCH (11:40)
[2021-05-18] MEDS: FENTANYL REMOVAL DOCUMENTATION MISC XX SCH (11:41)
[2021-05-18 14:00] VITALS: BP 120/59
[2021-05-18] MEDS: PANTOPRAZOLE 40MG VIAL (C9113 PER 1) IV SCH (17:00)
[2021-05-18] MEDS: PRAVASTATIN 20 MG TAB PO SCH (20:14)
--- NOTE | 2021-05-18 20:16 | IPN ---
PROGRESS NOTE DATE: 05/18/2021 HISTORY: The patient was admitted back on the 07 of May. She had presented with severe chest and epigastric discomfort with multiple episodes of vomiting. She was found to have a gastric volvulus of a very large herniation of most of her stomach into the lower chest. An EGD was performed with removal of 1,500 mL of fluid and partially digested food and a nasogastric tube was passed under endoscopic guidance into the stomach. She was kept with the NG tube in place initially, but her diet has been gradually advanced. She had an upper GI series on the 11 of May that showed a large hiatal hernia which was described as encompassing the whole stomach. There was free flow of contrast through the pylorus and duodenum. She was gradually advanced on a diet and is currently on a soft diet which she has been tolerating well. She is a very high risk for any sort of surgery to repair her huge hiatal hernia and no surgery is planned. Apparently she was exposed to a staff member who tested positive for COVID, so is currently on quarantine. Vital signs show that she has been afebrile over the past 24 hours. Her pulse is in the 60's and 70's. Blood pressure is excellent with normal room air pulse oximetry. INTAKE AND OUTPUT: Yesterday's intake and output show 1,400 in with 2,200 recorded out. OBJECTIVE: PHYSICAL EXAMINATION: GENERAL APPEARANCE: The patient is lying quietly on the hospital bed. She was watching TV when I entered. She appears alert and oriented and is appropriately responsive to me. SKIN: Warm and dry. HEART: Regular rhythm. LUNGS: Clear. ABDOMEN: Soft and without any significant tenderness. LABORATORY STUDIES: No new labs since the 14 of May. IMPRESSION: The patient appears to be tolerating her diet well. The initial plan had been for her to be considered for acute inpatient rehabilitation to prepare her for discharge home. We have not yet heard whether she is a candidate for rehab. PLAN: 1. We will pursue the idea of rehab. 2. We will continue with physical therapy in the interim. 3. We will monitor her dietary intake. 4. Hopefully we will be able to effect transfer to rehab or have her adequately strengthened for discharge home in the near future. [facility]
[2021-05-18] MEDS: MIRTAZAPINE 7.5MG PER 1/2 TABLET PO SCH (20:17)
[2021-05-18 22:00] VITALS: BP 116/58
[2021-05-19] MEDS: ANEXSIA, NORCO 7.5MG/325MG TABLET(HYDROCODONE/APAP) PO PRN (00:09)
[2021-05-19 02:00] VITALS: BP 113/56
[2021-05-19] MEDS: SODIUM CHLORIDE 0.9% INJ 10 ML SYR IV SCH (05:49)
[2021-05-19] MEDS: LEVOTHYROXINE 37.5MCG PER 1/2TAB (0.0375MG) PO SCH (05:49)
[2021-05-19 06:00] VITALS: BP 142/67
[2021-05-19] MEDS: SENNA 8.6 MG TAB (SENOKOT) PO SCH (08:17)
[2021-05-19] MEDS: DOCUSATE SODIUM 100MG CAPSULE PO SCH (08:17)
[2021-05-19 08:18] VITALS: BP 136/70
[2021-05-19] MEDS: CYANOCOBALAMIN 500 MCG TAB PO SCH (08:18)
[2021-05-19] MEDS: DULoxetine 30MG CAPSULE (CYMBALTA) PO SCH (08:18)
[2021-05-19 10:00] VITALS: BP 100/70
[2021-05-19] MEDS ORDERED: PROTPAK PO (10:27)
[2021-05-19] MEDS ORDERED: SENN18TA PO (10:27)
[2021-05-19] MEDS ORDERED: METOCLOPRAMIDE INJection IV (10:27)
[2021-05-19] MEDS ORDERED: LISI10TA22 PO (10:27)
[2021-05-19] MEDS ORDERED: HEPA100I9 IV ×2 (10:27)
[2021-05-19] MEDS ORDERED: AMLO1TAB25 PO (10:27)
[2021-05-19] MEDS ORDERED: NYST10006 TOP (10:27)
[2021-05-19] MEDS ORDERED: DOCU100C16 PO (10:27)
--- NOTE | 2021-05-19 15:15 | DS.PDOC ---
Discharge Summary General Date of Admission May 07, 2021 at 08:53 Date of Discharge 05/19/2021 Discharge Summary General surgery. Dr. Young PROCEDURES PERFORMED DURING STAY: EGD with NG tube placement 05/07/2021, Dr. Young. PICC line placement 05/12/2020 ADMITTING DIAGNOSES: Gastric volvulus Hypertension/hypertensive urgency Chronic kidney disease stage III DM 2 Polyneuropathy Hypothyroidism GERD Polymyalgia rheumatica Spinal stenosis/degenerative disc disease DISCHARGE DIAGNOSES: Gastric volvulus status post EGD and decompression Hypertension/hypertensive urgency Chronic kidney disease stage III DM 2 Polyneuropathy Hypothyroidism GERD Polymyalgia rheumatica Spinal stenosis/degenerative disc disease HISTORY OF PRESENT ILLNESS: The patient is an 86-year-old female who presented to the emergency department by EMS complaining of 10/ epigastric pain, sudden onset of nausea, vomiting and mid thoracic pain. The patient's blood pressure was also noted to be elevated. Imaging in the emergency department indicated large fluid-filled distended hiatal hernia containing nearly the entire stomach, gastric volvulus with obstruction of the pylorus at the level of the esophageal hiatus, dilated esophagus. General surgery was consulted, admission was arranged. HOSPITAL COURSE: The patient is known to have history of longstanding large hiatal hernia, status post EGD with placement of NG tube, decompression of gastric volvulus. Admission was arranged as per Dr. Young and the patient was taken for EGD and NG tube placement for decompression. Hospitalist service was consulted for medical management and further treatment of hypertensive urgency. The patient was initially placed on IV hydralazine for blood pressure control but has been transitioned to lisinopril 10 mg daily and Norvasc 10 mg daily. NG tube was left in place until 05/11/2021. The patient was tried on clear liquids. Upper GI was requested with imaging indicated free flow of contrast through the pylorus and through to the duodenum. As previously noted the patient has a very large hiatal hernia which was described as encompassing the whole stomach, the patient is very high risk for any type of surgery to repair her very large hiatal hernia and no surgery is planned at this time. The patient was tried on full liquids 05/13/2021 which she tolerated and the patient was subsequently advanced to soft diet on 05/16/2021. PT/OT evaluations were requested, ARU screening was requested. The patient was also apparently exposed to a staff member who subsequently tested positive for Covid so the patient is currently on quarantine. The patient was discharged to acute rehab on 05/19/2021. DISCHARGE MEDICATIONS: Please see below. ALLERGIES: Please see below. PHYSICAL EXAMINATION ON DISCHARGE: VITAL SIGNS: Please see below. GENERAL: No acute distress, eating breakfast HEENT: MMM CARDIOVASCULAR EXAMINATION: S1-S2 regular rate rhythm RESPIRATORY EXAMINATION: Clear to auscultation ABDOMINAL EXAMINATION: Soft, nontender, nondistended LABORATORY DATA: Please see below. IMAGING: CT abdomen/pelvis IMPRESSION: No free-air, free-fluid or focal mesenteric inflammation. Nonspecific gastrointestinal findings to be correlated clinically as discussed above. Hydropic distended gallbladder to be correlated for acute or chronic cholecystitis. Other nonemergent findings discussed above. Electronically signed by: Steve Ocampo On 05/07/2021 05:51:33 AM CTA chest IMPRESSION: No evidence for acute pulmonary embolus. There is a large fluid-filled distended hiatal hernia containing nearly the entire stomach. 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 The esophagus is dilated with fluid and air-fluid level over 4 cm in diameter. This would be elevated risk for aspiration. Electronically signed by: Steve Ocampo On 05/07/2021 05:38:04 AM UGI IMPRESSION: There is a hiatal hernia which encompasses the whole stomach. The stomach and GE junction are above the diaphragm. The stomach is horizontally rotated. There is free flow of contrast through the pylorus and through the duodenum. The duodenum is grossly normal. There is no evidence of duodenitis pancreatitis peptic ulcer disease or neoplasm <Electronically signed by Ross Frausto > 05/11/21 1050 <Electronically signed by Andreas Gonzalez > 05/11/21 1103 DISCHARGE PLAN: Discharge to ARU Activity as tolerated Continue with soft diet DISCHARGE CONDITION: Stable. TIME SPENT ON DISCHARGE: Greater than 30 minutes. Vital Signs/I&Os Vital Signs Date Time Temp Pulse Resp B/P (MAP) Pulse Ox O2 Delivery O2 Flow Rate FiO2 05/19/21 10:00 98.2 92 16 100/70 (80) 92 Room Air 05/18/21 12:10 18.0 I&O- Last 24 Hours up to 6 AM 05/19/21 06:00 Intake Total 550 ml Output Total 1750 ml Balance -1200 ml Microbiology Microbiology 05/11/21 Blood Culture - Final, Complete NO GROWTH AFTER 5 DAYS 05/11/21 Blood Culture - Final, Complete NO GROWTH AFTER 5 DAYS Discharge Medications Scheduled Amlodipine Besylate (Amlodipine Besylate) 10 Mg Tablet, 10 MG PO DAILY Cyanocobalamin (Vitamin B-12) (Vitamin B-12) 1,000 Mcg Tab, 1,000 MCG PO DAILY, (Reported) Docusate Sodium (Docusate Sodium) 100 Mg Capsule, 200 MG PO BID Duloxetine Hcl (Duloxetine HCl) 60 Mg Cap, 60 MG PO DAILY, (Reported) Heparin Sodium,Porcine/Pf (Heparin 300 Unit/3 ml (100/ml)) 300 Unit/3 Ml Syringe, 200 UNITS IV PICC Levothyroxine Sodium (Levothyroxine Sodium) 25 Mcg Tab, 37.5 MCG PO DAILY, (Reported) Lisinopril (Lisinopril) 10 Mg Tablet, 10 MG PO DAILY Mirtazapine (Mirtazapine) 7.5 Mg Tablet, 7.5 MG PO QHS, (Reported) Pantoprazole Sodium (Protonix) 40 Mg Granpkt.dr, 40 MG PO DAILY Pravastatin Sodium (Pravastatin Sodium) 40 Mg Tab, 40 MG PO QHS, (Reported) Senna (Senna Lax) 8.6 Mg Tablet, 2 TAB PO BID fentaNYL (fentaNYL) 75 Mcg Patch.td72, 75 MCG TD Q3D, (Reported) Scheduled PRN Heparin Sodium,Porcine/Pf (Heparin 300 Unit/3 ml (100/ml)) 300 Unit/3 Ml Syringe, 200 UNITS IV ASDIRECTED PRN for SEE LABEL COMMENTS Hydrocodone/Acetaminophen (Hydrocodone-Acetamin 7.5-325) 1 Tab Tab, 1 TAB PO Q6H PRN for PAIN, (Reported) Nitroglycerin (Nitrostat) 0.4 Mg Subl, 0.4 MG SL Q5MP PRN for ANGINA, (Reported) Nystatin (Nystop) 60 Gm Powder, 0 DOSE TOP BIDP PRN for RASH [METOCLOPRAMIDE INJection] 10 MG/2 ML SOLN, 10 MG IV Q6HP PRN for NAUSEA OR VOMITING Allergies Coded Allergies: TAPE (Verified Allergy, Intermediate, RASH, 05/21/10) meloxicam (Verified Adverse Reaction, Mild, "I think it made me sick", 03/19/19) pioglitazone (Verified Adverse Reaction, Mild, bruising, 03/19/19) pregabalin (Verified Adverse Reaction, Mild, affects vision, 03/19/19) Attending Note Attending Note I agree with summary by DARRYL Duff. Patient has had her large hiatal hernia for at least 5 years. Has had no symptoms until presenting with this episode. Patient is a high risk for post op complications if surgery undertaken. We have discussed this option and decided for now not to pursue repair of her hernia and see how things go. If patient develops recurring problems we will have to re-discuss possible surgery. Sil Duff May 19, 2021 15:15 Lucio Young May 21, 2021 20:20
--- NOTE | 2021-06-15 10:46 | RO ---
OPERATIVE NOTE DATE OF OPERATION: 05/07/2021 PREOPERATIVE DIAGNOSIS: Gastric volvulus. POSTOPERATIVE DIAGNOSIS: Gastric volvulus. PROCEDURE PERFORMED: Esophagogastroduodenoscopy with decompression of the stomach and endoscopic-guided placement of nasogastric tube. SURGEON: Lucio Young MD DIALYSIS EQUIPMENT TECHNICIAN: ANESTHESIA: General. INDICATIONS FOR THE PROCEDURE: The patient is an 86-year-old woman who presented to the emergency department with nausea, vomiting and epigastric pain. She has a known large hiatal hernia which contains most if not all of her stomach. The stomach was noted to be markedly distended. It was impossible to advance a nasogastric tube and she is now for upper endoscopy with decompression of the stomach and placement of a nasogastric tube. DESCRIPTION OF PROCEDURE: The patient was brought to the operating room and placed on the table in the supine position. She was placed under general endotracheal anesthesia. The upper endoscope was inserted into the mouth and advanced down the esophagus. There was a small amount of fluid noted within the distal esophagus. There was some angulation in the area of the esophagogastric junction and it was then possible to advance the endoscope into the stomach. The stomach was filled with a large amount of air and food debris. The stomach was decompressed of a large amount of air and then a large quantity approximately 1500 mL of liquid and partially digested food was suctioned from the stomach. It was surprising actually that the endoscope did not clog with the amount of material that was withdrawn but the material was apparently adequately liquified to be suction from the stomach. Once the stomach was completely cleared of fluid an examination showed no evidence of any necrosis or gangrenous patches of the gastric wall. I was not able to advance the scope through the pylorus because of the marked distention of the stomach. I was able to see the area of the pylorus. With the endoscope still in place a nasogastric tube was advanced alongside the endoscope down into the stomach and positioned into the midbody of the stomach. The endoscope was then slowly withdrawn. There was no significant narrowing at the GE junction. The esophagus was without significant abnormality. The endoscope was removed completely with care not to dislodge the NG tube. The NG was taped securely in place. The patient was awakened in the operating room, extubated and moved to the recovery room in stable condition.
== END 2021-05-19 16:12 | disposition other institution (70) | DRG 327 ==
LOC: M ED 02:38 → M ED INP 08:53 → M PCU 13:07 → M ICU 05-09 16:55 → M PCU 05-11 18:07 → M MSPAV 05-14 11:41 → M PM&R 05-19 14:30 → M MSPAV 05-19 14:30
PROVIDERS: ADMIT Surgery; ATTEND Surgery
PROC: 0D968ZZ Drainage of Stomach, Via Natural or Artificial Opening Endoscopic (ICD-10-PCS; 2021-05-07)
PROC: 05HB33Z Insertion of Infusion Device into Right Basilic Vein, Percutaneous Approach (ICD-10-PCS; principal; 2021-05-12 11:00)
DX: K31.89 Other diseases of stomach and duodenum (principal); K44.0 Diaphragmatic hernia with obstruction, without gangrene; E11.42 Type 2 diabetes mellitus with diabetic polyneuropathy; I12.9 Hypertensive chronic kidney disease with stage 1 through stage 4 chronic kidney disease, or unspecified chronic kidney disease; I16.0 Hypertensive urgency; N18.31 Chronic kidney disease, stage 3a; E11.22 Type 2 diabetes mellitus with diabetic chronic kidney disease; E03.9 Hypothyroidism, unspecified; K21.9 Gastro-esophageal reflux disease without esophagitis; M35.3 Polymyalgia rheumatica; M48.00 Spinal stenosis, site unspecified; E78.00 Pure hypercholesterolemia, unspecified; Z86.718 Personal history of other venous thrombosis and embolism; M10.9 Gout, unspecified; D63.1 Anemia in chronic kidney disease; I25.2 Old myocardial infarction; Z90.49 Acquired absence of other specified parts of digestive tract; Z90.79 Acquired absence of other genital organ(s); Z95.5 Presence of coronary angioplasty implant and graft; Z96.653 Presence of artificial knee joint, bilateral; Z98.49 Cataract extraction status, unspecified eye; Z20.822 Contact with and (suspected) exposure to COVID-19; Z91.040 Latex allergy status; Z88.8 Allergy status to other drugs, medicaments and biological substances; Z79.899 Other long term (current) drug therapy

== ENCOUNTER 2021-05-19 11:44 | Inpatient (IN) | payer MEDICARE, OTHER ==
[~2021-05-19] VITALS: Ht 152.4 cm; Wt 84.1 kg
[~2021-05-19 11:44] MED LIST changes: +AMLO1TAB25 PO; +DOCU100C16 PO; +FENT75DI5 TD; +HEPA100I9 IV; +LISI10TA22 PO; +METOCLOPRAMIDE INJection IV; +MIRT1TAB PO; +NYST10006 TOP; +PROTPAK PO; +SENN18TA PO
[2021-05-19] MEDS ORDERED: ANEXSIA, NORCO 7.5MG/325MG TABLET(HYDROCODONE/APAP) PO PRN (11:50)
[2021-05-19] MEDS ORDERED: NITROGLYCERIN 0.4 MG SUBL TABLET SL PRN (11:50)
[2021-05-19] MEDS ORDERED: NALOXONE INJ 0.4MG/1ML VIAL (J2310 PER 1MG) IV PRN (11:50)
[2021-05-19 14:45] VITALS: BP 141/85
[2021-05-19] MEDS ORDERED: HOME MED LIST COMPLETE! XX SCH (15:45)
[2021-05-19] MEDS: SIMETHICONE 80MG CHEW TAB PO SCH ×2 (16:00→21:41)
[2021-05-19] MEDS: PANTOPRAZOLE 40MG TAB (PROTONIX) PO SCH (16:45)
[2021-05-19] MEDS: ONDANSETRON 4 MG ORAL DISINTEGRATING TAB PO PRN (16:45)
[2021-05-19] MEDS: REMEDY PHYTOPLEX Z-GUARD PASTE 113GM TUBE (FROM STOREROOM PRODUCT) TOP SCH ×2 (17:26→21:06)
[2021-05-19 19:43] VITALS: BP 132/48
[2021-05-19] MEDS: SENNA 8.6 MG TAB (SENOKOT) PO SCH (20:59)
[2021-05-19] MEDS ORDERED: MIRTAZAPINE 7.5MG PER 1/2 TABLET PO SCH (21:00)
[2021-05-19] MEDS ORDERED: PRAVASTATIN 20 MG TAB PO SCH (21:00)
[2021-05-19] MEDS: HEPARIN SOD (PORCINE) 5000UNITS/ML 1ML VIAL/SYRINGE SC SCH (21:01)
[2021-05-19] MEDS: DOCUSATE SODIUM 100MG CAPSULE PO SCH (21:41)
[2021-05-20] MEDS ORDERED: LEVOTHYROXINE 37.5MCG PER 1/2TAB (0.0375MG) PO SCH (06:00)
[2021-05-20 06:31] VITALS: BP 142/60
[2021-05-20] MEDS: ONDANSETRON 4 MG ORAL DISINTEGRATING TAB PO PRN (06:33)
[2021-05-20] MEDS: SODIUM CHLORIDE 0.9% INJ 10 ML SYR IV SCH ×2 (06:34→17:22)
[2021-05-20] MEDS: SIMETHICONE 80MG CHEW TAB PO SCH ×2 (07:59→15:39)
[2021-05-20] MEDS: SENNA 8.6 MG TAB (SENOKOT) PO SCH (07:59)
[2021-05-20] MEDS: HEPARIN SOD (PORCINE) 5000UNITS/ML 1ML VIAL/SYRINGE SC SCH ×2 (07:59→20:53)
[2021-05-20] MEDS: PANTOPRAZOLE 40MG TAB (PROTONIX) PO SCH (08:00)
[2021-05-20] MEDS: DOCUSATE SODIUM 100MG CAPSULE PO SCH (08:00)
[2021-05-20] MEDS: REMEDY PHYTOPLEX Z-GUARD PASTE 113GM TUBE (FROM STOREROOM PRODUCT) TOP SCH ×3 (08:01→20:54)
[2021-05-20 08:33] LABS: BASO % 0.2 % (0.0-1.0); HEMATOCRIT 41.8 % (36.0-47.0); HEMOGLOBIN 13.8 g/dl (12.0-15.5); LYMPH # 0.8 10^3/uL (1.5-5.0); LYMPH % 6.3 % (24.0-44.0); MEAN CORPUSCULAR HEMOGLOBIN 32.7 pg (27.0-33.0); MEAN CORPUSCULAR VOLUME 99.1 fl (80.0-96.0); MONO # 0.2 10^3/uL (0.0-0.8); MONO % 1.8 % (2.0-8.0); PLATELET COUNT, AUTOMATED 557 10^3/uL (150-450); RED BLOOD COUNT 4.22 10^6/uL (4.00-5.40); WHITE BLOOD COUNT 13.2 10^3/uL (4.0-10.0)
[2021-05-20] MEDS ORDERED: DULoxetine 30MG CAPSULE (CYMBALTA) PO SCH (09:00)
[2021-05-20] MEDS ORDERED: CYANOCOBALAMIN 500 MCG TAB PO SCH (09:00)
[2021-05-20 09:03] LABS: ALBUMIN 2.3 GM/DL (3.2-5.2); ALT/SGPT 21 U/L (12-78); BILIRUBIN,TOTAL 0.3 MG/DL (0.2-1.0); BLOOD UREA NITROGEN 24 MG/DL (7-18); CALCIUM LEVEL 9.6 MG/DL (8.8-10.2); CARBON DIOXIDE LEVEL 29 MEQ/L (21-32); CHLORIDE LEVEL 98 MEQ/L (98-107); CREATININE FOR GFR 0.84 MG/DL (0.55-1.30); GLOMERULAR FILTRATION RATE > 60.0 (>32); GLUCOSE, FASTING 173 MG/DL (70-100); POTASSIUM SERUM 4.8 MEQ/L (3.5-5.1); SODIUM LEVEL 136 MEQ/L (136-145); TOTAL PROTEIN 6.9 GM/DL (6.4-8.2)
[2021-05-20] MEDS ORDERED: ONDANSETRON 4 MG ORAL DISINTEGRATING TAB PO ONE (09:45)
[2021-05-20] MEDS ORDERED: ONDANSETRON 4 MG ORAL DISINTEGRATING TAB SL PRN (10:00)
--- NOTE | 2021-05-20 10:17 | REP ---
INDICATION: r/o volvulus COMPARISON: None. TECHNIQUE: Supine view of the abdomen and pelvis. FINDINGS: Contrast material is identified within the large bowel extending to the rectum and outlines multiple sigmoid diverticula. There is no obvious evidence for bowel obstruction. Prominent gastric bubble is nonspecific. Skeletal structures demonstrate age-related osteopenia and degenerative changes along with chronic compression deformities of the visualized thoracolumbar spine. IMPRESSION: No evidence for bowel obstruction. <Electronically signed by Prosper Perdue > 05/20/21 1016
--- NOTE | 2021-05-20 11:04 | HPEPDOC ---
[employer] Developer Note DATE OF ADMISSION: 05-19-21 DATE OF SERVICE: 05-20-21 TIME OF ADMISSION: Please refer to physician's admission order. SOURCE OF ADMISSION INFORMATION: [facility] records and patient CHIEF COMPLAINT: weakness in setting of recent gastric volvulus with decompression HISTORY OF PRESENT ILLNESS: 86F pmh DM with peripheral polyneuropathy, HLD, CKD, DVT s/p course of Coumadin, gout, polymyalgia rheumatic, spinal stenosis, GERD who presented to [facility] ED on 05-07-21 with nausea, vomiting, and diarrhea diagnosed with a large hiatal hernia with gastric volvulus for which she underwent an EGD decompression in the OR. Following this procedure she was continued on NPO with NGT in placed, then transferred to the ICU for hypertensive urgency and fever on 05-11-21 following an Upper GI series. Infectious work-up was negative, her blood pressures improved, her diet was advanced gradually, and she was found to have significant deconditioning with mobility and ADL impairments, deemed medically appropriate for discharge to ARU on 05-19-21. On initial eval patient was noted to be vomiting up brown liquid and complaining of abdominal pain. She reports she is having flatus and bowel movements. REVIEW OF SYSTEMS: The following is a completed review of systems and has been reviewed. Review of systems otherwise unremarkable. PAIN: Patient self reports abdominal pain EYES: No recent vision changes EARS, NOSE, & THROAT: No throat pain, or dysphagia, or rhinorrhea CARDIOVASCULAR: Denies chest pain or palpitations PULMONARY: Denies shortness of breath GASTROINTESTINAL: +nausea/vomiting GENITOURINARY: denies dysuria MUSCULOSKELETAL: generalized weakness NEUROLOGICAL:+peripheral polyneuropathy HEMATOLOGICAL: denies easy bruising SKIN: denies rash PSYCHIATRIC: +depressed All other review of systems found to be negative. PAST MEDICAL HISTORY: as per HPI PAST SURGICAL HISTORY: Appendectomy, hysterectomy, multiple hernia repairs, 1 cardiac stent, bilat TKR, vertebral fracture surgery, colonoscopy ALLERGIES: Please see below. MEDICATIONS: Please see below. FAMILY HISTORY: cardiac SOCIAL HISTORY: No etoh/illicit drugs/smoking DIET: soft diet PHYSICAL EXAMINATION: VITAL SIGNS: Please see below. GENERAL: Pleasant and cooperative. No acute distress. HEENT: PERRL. Extraocular movements intact. Clear conjunctiva. +dentures CARDIOVASCULAR: Regular rate and rhythm. No murmurs, rubs, or gallops LUNGS: Clear to auscultation bilaterally. No wheezes. No rhonchi ABDOMEN: Soft, nontender, nondistended, no guarding, no rebound tenderness. Positive bowel sounds. NEUROLOGICAL: Alert and oriented to self and place, Cranial nerves II through XII grossly intact. Sensation diminished to light touch bilat LE in stocking pattern EXTREMITIES: 4\\5 strength bilateral upper extremities. 3+\\5 strength right lower extremity. 3+/5 strength in left lower extremity. bilat ankle deformity LABORATORY DATA: Please see below. IMAGING: Imaging documentation personally reviewed by record FUNCTIONAL STATUS: Premorbid: Mod-Independent with all activities of daily life as well as mobility from wheelchair level On Admission: mod-max assist for bed mobility, functional transfers, toileting, dressing GOALS: Mod-I for bed mobility, functional transfers, toileting, dressing from wheelchair level ASSESSMENT:86-year-old F with past medical history of DM with peripheral polyneuropathy and large hiatal hernia who presents status post gastric volvulus s/p EGD decompression PLAN: 1. Rehab- PT/OT advance mobility and ADLS, strengthen/stretch/maintain ROM all 4limbs 2. Neuro- hx of diabetic peripheral polyneuropathy contributing to overall mobility impairments 3. GI- patient with large hiatal hernia with recent volvulus and EGD decompression on 05-07-21, not deemed to be surgical candidate- her diet was recently advanced, however on today's exam she has recurrent emesis (FOBT negative) with KUB revealed large gastric bubble with no bowel obstruction- discussed case with Dr. Young who recommends trial of NGT and make patient NPO -medical hold placed today -protonix, simethicone, senna and colace 4. CArdiac- cont BP meds, adjust as needed -HLD cont statin -medicine consulted to assist in overall management 5. Resp- monitor for infection- patient denies cough 6. Pain- cont fentanyl and norco 7. Psych- cont cymbalta and remeron for depression- patient did express a desire not to live today, however denies suicidal ideation and states she would like to be home with her and is willing to try to get through therapy in order to return home 8. DVT ppx- heparin 9. Endo- hx of DM with peripheral polyneuropathy managed with diet alone -hypothyroidism cont Synthroid 10. Dispo- TBD POST ADMISSION PHYSICIAN EVALUATION: Medical and functional status: Description of medical status, medical assessment: As above. Rehabilitation diagnosis and current and prior cold morbid medical conditions as above. Risk of complications and plans to mitigate them as above. Description of functional status current status is as above. Prior status as above. Status compared to preadmission: There are no clinically significant differences between the patient's current status and the information described on the preadmission screening document. Treatment plan anticipated: Treatment plan is as described above. Required disciplines including physical therapy, occupational therapy, others as noted above Intensity of services: 3 hours a day, 6 days a week. Special considerations: There are no specific special or safety considerations that would likely preclude immediate implementation of an intensive rehabilitation program or subsequently influence the plan of care. ATTESTATION: Considering all the information above, it is my best judgment that this patient requires intensive rehabilitation therapy as described above and an inpatient hospital environment due to the complexity of nursing, medical, and rehabilitation needs required by the patient. Furthermore, this patient can reasonably be expected to participate in an benefit from an inpatient rehabilitation stay with an interdisciplinary team approach to the delivery of rehabilitation care under the direction and supervision of rehabilitation physician. PROGNOSIS: good ESTIMATED LENGTH OF STAY: 10-12 days. PROJECTED DISCHARGE DESTINATION: Home with family support and any durable medical equipment required to increase functional safety and mobility. TIME SPENT COUNSELING AND COORDINATING INITIAL CARE: Greater than 70 minutes. Vital Signs Vital Sign - Last 24 Hours 05/19/21 05/19/21 05/19/21 05/19/21 14:45 19:43 21:01 21:41 Temp 98.2 98.7 Pulse 75 Resp 20 18 18 B/P (MAP) 141/85 (103) 132/48 (76) Pulse Ox 93 O2 Delivery Room Air Room Air 05/20/21 05/20/21 05/20/21 06:31 08:00 08:00 Temp 96.8 Pulse 79 79 Resp 18 B/P (MAP) 142/60 (87) 142/60 140/60 Pulse Ox 93 O2 Delivery Room Air Laboratory Data CBC/BMP Laboratory Tests 05/20/21 07:48 Labs 24H Laboratory Tests 2 05/20/21 07:48: Immature Granulocyte % (Auto) 0.7, Neutrophils (%) (Auto) 91.0H, Lymphocytes (%) (Auto) 6.3L, Monocytes (%) (Auto) 1.8L, Eosinophils (%) (Auto) 0.0, Basophils (%) (Auto) 0.2, Neutrophils # (Auto) 12.0H, Lymphocytes # (Auto) 0.8L, Monocytes # (Auto) 0.2, Eosinophils # (Auto) 0.0, Basophils # (Auto) 0.0, Nucleated Red Blood Cells % (auto) 0.0, Anion Gap 9, Glomerular Filtration Rate > 60.0, Calcium Level 9.6, Total Bilirubin 0.3, Aspartate Amino Transf (AST/SGOT) 20, Alanine Aminotransferase (ALT/SGPT) 21, Alkaline Phosphatase 124H, Total Protein 6.9, Albumin 2.3L, Albumin/Globulin Ratio 0.5L Microbiology Microbiology 05/20/21 Occult Blood - Final, Complete Home Medications Scheduled Amlodipine Besylate (Amlodipine Besylate) 10 Mg Tablet, 10 MG PO DAILY Cyanocobalamin (Vitamin B-12) (Vitamin B-12) 1,000 Mcg Tab, 1,000 MCG PO DAILY, (Reported) Docusate Sodium (Docusate Sodium) 100 Mg Capsule, 200 MG PO BID Duloxetine Hcl (Duloxetine HCl) 60 Mg Cap, 60 MG PO DAILY, (Reported) Heparin Sodium,Porcine/Pf (Heparin 300 Unit/3 ml (100/ml)) 300 Unit/3 Ml Syringe, 200 UNITS IV PICC Levothyroxine Sodium (Levothyroxine Sodium) 25 Mcg Tab, 37.5 MCG PO DAILY, (Reported) Lisinopril (Lisinopril) 10 Mg Tablet, 10 MG PO DAILY Mirtazapine (Mirtazapine) 7.5 Mg Tablet, 7.5 MG PO QHS, (Reported) Pantoprazole Sodium (Protonix) 40 Mg Granpkt.dr, 40 MG PO DAILY Pravastatin Sodium (Pravastatin Sodium) 40 Mg Tab, 40 MG PO QHS, (Reported) Senna (Senna Lax) 8.6 Mg Tablet, 2 TAB PO BID fentaNYL (fentaNYL) 75 Mcg Patch.td72, 75 MCG TD Q3D, (Reported) Scheduled PRN Heparin Sodium,Porcine/Pf (Heparin 300 Unit/3 ml (100/ml)) 300 Unit/3 Ml Syringe, 200 UNITS IV ASDIRECTED PRN for SEE LABEL COMMENTS Hydrocodone/Acetaminophen (Hydrocodone-Acetamin 7.5-325) 1 Tab Tab, 1 TAB PO Q6H PRN for PAIN, (Reported) Nitroglycerin (Nitrostat) 0.4 Mg Subl, 0.4 MG SL Q5MP PRN for ANGINA, (Reported) Nystatin (Nystop) 60 Gm Powder, 0 DOSE TOP BIDP PRN for RASH [METOCLOPRAMIDE INJection] 10 MG/2 ML SOLN, 10 MG IV Q6HP PRN for NAUSEA OR VOMITING Allergies Coded Allergies: TAPE (Verified Allergy, Intermediate, RASH, 05/21/10) meloxicam (Verified Adverse Reaction, Mild, "I think it made me sick", 03/19/19) pioglitazone (Verified Adverse Reaction, Mild, bruising, 03/19/19) pregabalin (Verified Adverse Reaction, Mild, affects vision, 03/19/19) A-FIB/CHADSVASC A-FIB History Current/History of A-Fib/PAF?: No Current PO Anticoag Therapy: No OLGA BARRIENTOS MD May 20, 2021 11:04
[2021-05-20] MEDS: D5W/0.9% SODIUM CHLORIDE 1,000 ML IV SCH (11:29)
[2021-05-20] MEDS ORDERED: SODIUM CHLORIDE 0.9% INJ 10 ML SYR IV PRN (13:50)
[2021-05-20 14:00] VITALS: BP 169/85
--- NOTE | 2021-05-20 15:20 | REP ---
INDICATION: confirm NGT placement COMPARISON: 05/07/2021 TECHNIQUE: Portable AP view of the chest FINDINGS: The lung jorge demonstrate cardiomegaly with significant lower lobe opacities and suspected pleural effusions increased from prior examination. No pneumothorax. The nasogastric tube is identified coiled above the level of diaphragm likely within very large hiatal hernia. Skeletal structures demonstrate age-related degenerative changes primarily involving thoracic spine and bilateral shoulders. IMPRESSION: 1. Nasogastric tube is identified above the level of diaphragm likely within a very large hiatal hernia. 2. Cardiomegaly with bilateral lower lobe consolidations and pleural effusions represent relatively new findings. <Electronically signed by Prosper Perdue > 05/20/21 [id number]
[2021-05-20] MEDS ORDERED: ANEXSIA, NORCO 7.5MG/325MG TABLET(HYDROCODONE/APAP) NG PRN (16:00)
[2021-05-20] MEDS: SIMETHICONE 80MG CHEW TAB NG SCH ×2 (17:20→20:53)
[2021-05-20] MEDS ORDERED: SODIUM CHLORIDE 0.9% INJ 10 ML SYR IV SCH (18:00)
[2021-05-20 20:46] VITALS: BP 131/63
[2021-05-20] MEDS: MIRTAZAPINE 7.5MG PER 1/2 TABLET NG SCH (20:53)
[2021-05-20] MEDS: PRAVASTATIN 20 MG TAB NG SCH (20:54)
[2021-05-20] MEDS ORDERED: SENNA 8.6 MG TAB (SENOKOT) NG PRN (21:00)
[2021-05-20] MEDS ORDERED: SENNA 8.6 MG TAB (SENOKOT) PO PRN (21:00)
[2021-05-21] MEDS: D5W/0.9% SODIUM CHLORIDE 1,000 ML IV SCH ×2 (02:48→20:40)
[2021-05-21] MEDS: SODIUM CHLORIDE 0.9% INJ 10 ML SYR IV SCH ×2 (05:21→17:48)
[2021-05-21] MEDS: LEVOTHYROXINE 37.5MCG PER 1/2TAB (0.0375MG) NG SCH (05:21)
[2021-05-21 06:00] VITALS: BP 124/59
[2021-05-21] MEDS: HEPARIN SOD (PORCINE) 5000UNITS/ML 1ML VIAL/SYRINGE SC SCH ×2 (09:45→20:41)
[2021-05-21] MEDS: CYANOCOBALAMIN 500 MCG TAB NG SCH (09:45)
[2021-05-21] MEDS: PANTOPRAZOLE 40MG VIAL (C9113 PER 1) IV SCH (09:46)
[2021-05-21] MEDS: REMEDY PHYTOPLEX Z-GUARD PASTE 113GM TUBE (FROM STOREROOM PRODUCT) TOP SCH ×3 (09:48→20:41)
[2021-05-21] MEDS: SIMETHICONE 80MG CHEW TAB NG SCH ×3 (09:49→20:40)
[2021-05-21] MEDS: fentaNYL 75 MCG/HR PATCH TOP SCH (09:56)
--- NOTE | 2021-05-21 10:06 | IPNPDOC ---
Text Note Date of Service The patient was seen on 05/21/21. NOTE General surgery. Dr. Young The patient is an 86-year-old female with history of longstanding, large hiatal hernia, status post admission to [facility] 05/07/2021 to 05/19/2021 with gastric volvulus. Transferred to ARU 05/19/21. On 05/20/2021 the patient had nausea and vomiting, NG tube was replaced. The patient is currently n.p.o. This morning the patient states she is not having abdominal pain. No further nausea. NG tube in place. She is participating with physical therapy. Afebrile VSS NG tube in place. 500 mL documented output yesterday, 250 mL so far today. Lungs with good air entry, no wheezing S1-S2 regular rate rhythm Abdomen is soft, nontender, nondistended No new lab Assessment/plan History of large hiatal hernia, gastric volvulus. The patient is reviewed as per Dr. Young The patient had recurrent nausea and vomiting yesterday, NG tube was placed. 500 mL output yesterday, 250 mL so far today. This morning, the patient states she is feeling better. She denies nausea. Currently n.p.o. Protonix IV VS,Fishbone, I+O VS, Fishbone, I+O Vital Signs Date Time Temp Pulse Resp B/P (MAP) Pulse Ox O2 Delivery O2 Flow Rate FiO2 05/21/21 06:00 97.6 55 18 124/59 (80) 91 Room Air I&O- Last 24 Hours up to 6 AM 05/21/21 06:00 Intake Total 1082 ml Output Total 1075 ml Balance 7 ml Attending Note Attending Note I agree with note by DARRYL Duff. Patient with recurrent obstruction of gastric emptying yesterday. NG successfully placed and stomach decompressed. Abd benign now. I discussed with patient that we should consider surgery to prevent continuing/recurring problems. She asked me to speak with her and I will call him tomorrow. Sil Duff May 21, 2021 09:57 Lucio Young May 21, 2021 20:24
--- NOTE | 2021-05-21 11:19 | IPNPDOC ---
PM&R Progress Note DATE OF SERVICE: May 21, 2021 [employer] Inspector Progress Note Subjective: Patient reporting her stomach feels better today. She denies any cough or difficulty breathing, no chest pain. She reports she does not want to get out of bed, but understands she will need to participate with therapy in order to go home. REVIEW OF SYSTEMS: The following is a completed review of systems and has been reviewed. Review of systems otherwise unremarkable. PAIN: Patient self reports abdominal pain EYES: No recent vision changes EARS, NOSE, & THROAT: No throat pain, or dysphagia, or rhinorrhea CARDIOVASCULAR: Denies chest pain or palpitations PULMONARY: Denies shortness of breath GASTROINTESTINAL: +NGT GENITOURINARY: denies dysuria MUSCULOSKELETAL: generalized weakness NEUROLOGICAL:+peripheral polyneuropathy HEMATOLOGICAL: denies easy bruising SKIN: denies rash PSYCHIATRIC: +depressed All other review of systems found to be negative. PHYSICAL EXAMINATION: VITAL SIGNS: Please see below. GENERAL: Pleasant and cooperative. No acute distress. HEENT: PERRL. Extraocular movements intact. Clear conjunctiva. +dentures CARDIOVASCULAR: Regular rate and rhythm. No murmurs, rubs, or gallops LUNGS: Clear to auscultation bilaterally. No wheezes. No rhonchi ABDOMEN: Soft, nontender, nondistended, no guarding, no rebound tenderness. Positive bowel sounds. NEUROLOGICAL: Alert and oriented to self and place, Cranial nerves II through XII grossly intact. Sensation diminished to light touch bilat LE in stocking pattern EXTREMITIES: 4\\5 strength bilateral upper extremities. 3+\\5 strength right lower extremity. 3+/5 strength in left lower extremity. bilat ankle deformity ASSESSMENT:86-year-old F with past medical history of DM with peripheral polyneuropathy and large hiatal hernia who presents status post gastric volvulus s/p EGD decompression PLAN: 1. Rehab- PT/OT advance mobility and ADLS, strengthen/stretch/maintain ROM all 4limbs 2. Neuro- hx of diabetic peripheral polyneuropathy contributing to overall mobility impairments 3. GI- patient with large hiatal hernia with recent volvulus and EGD decompression on 05-07-21, not deemed to be surgical candidate- her diet was recently advanced, however on 05-20-21 exam she has recurrent emesis (FOBT negative) with KUB revealing large gastric bubble with no bowel obstruction- discussed case with Dr. Young who recommended trial of NGT and make patient NPO- patient currently tolerating the NGT and reports less abdominal discomfort -medical hold placed today -protonix, simethicone, senna and colace 4. CArdiac- cont BP meds, adjust as needed -HLD cont statin -medicine consulted to assist in overall management 5. Resp- monitor for infection- patient denies cough -recent Covid exposure, Resp panel ordered as patient with low grade temp on 05-20-21 which as negative 6. Pain- cont fentanyl and norco 7. Psych- cont cymbalta (on hold while receiving meds via NGT) and remeron for depression- patient's mood improved today and participating in therapy 8. DVT ppx- heparin 9. Endo- hx of DM with peripheral polyneuropathy managed with diet alone- FS ordered q6h while receiving D5NS -hypothyroidism cont Synthroid 10. Dispo- TBD Allergies Coded Allergies: TAPE (Verified Allergy, Intermediate, RASH, 05/21/10) meloxicam (Verified Adverse Reaction, Mild, "I think it made me sick", 03/19/19) pioglitazone (Verified Adverse Reaction, Mild, bruising, 03/19/19) pregabalin (Verified Adverse Reaction, Mild, affects vision, 03/19/19) Vital Signs Vital Signs Date Time Temp Pulse Resp B/P (MAP) Pulse Ox O2 Delivery O2 Flow Rate FiO2 05/21/21 09:56 16 05/21/21 09:53 129/60 05/21/21 09:53 79 05/21/21 06:00 97.6 91 Room Air Laboratory Data Labs 24H Laboratory Tests 2 05/20/21 21:48: Urine Color YELLOW, Urine Appearance HAZY, Urine pH 5.0, Urine Specific [place] 1.016, Urine Protein NEGATIVE, Urine Glucose (UA) NEGATIVE, Urine Ketones NEGATIVE, Urine Blood NEGATIVE, Urine Nitrite NEGATIVE, Urine Bilirubin NEGATIVE, Urine Urobilinogen 0.2, Urine Leukocyte Esterase NEGATIVE, Urine WBC (Auto) 1, Urine RBC (Auto) 3, Urine Hyaline Casts (Auto) 3, Urine Bacteria (Auto) NEGATIVE, Urine Squamous Epithelial Cells 1, Urine Mucus (Auto) SMALL, Urine Sperm (Auto) Microbiology Microbiology 05/20/21 Respiratory Virus Panel (PCR) (WILY) - Final, Complete 05/20/21 Occult Blood - Final, Complete Current Medications Current Medications Current Medications Medications (Trade) Dose Ordered Sig/Alice Route PRN Reason Start Time Stop Time Status Last Admin Dose Admin Acetaminophen/ Hydrocodone Bitart (Anexsia, Kennedy 7.5mg/325mg) 1 tab Q4HP PRN NG MILD PAIN (PS 1-4) 05/20/21 16:00 Acetaminophen/ Hydrocodone Bitart (Anexsia, Kennedy 7.5mg/325mg) 1 tab Q4HP PRN PO MILD PAIN (PS 1-4) 05/19/21 11:50 05/20/21 16:11 DC 05/19/21 21:01 Amlodipine Besylate (Norvasc) 10 mg DAILY NG 05/21/21 09:00 05/21/21 09:53 Amlodipine Besylate (Norvasc) 10 mg DAILY PO 05/20/21 09:00 05/20/21 16:11 DC 05/20/21 08:00 Cyanocobalamin (Vitamin B12) 1,000 mcg DAILY NG 05/21/21 09:00 05/21/21 09:45 Cyanocobalamin (Vitamin B12) 1,000 mcg DAILY PO 05/20/21 09:00 05/20/21 16:11 DC 05/20/21 08:00 Dextrose/Sodium Chloride 1,000 ml @ 60 mls/hr [id number] IV 05/20/21 10:55 05/21/21 02:48 Docusate Sodium (Colace) 200 mg BID PO 05/19/21 21:00 Hold 05/20/21 08:00 Duloxetine HCl (Cymbalta) 60 mg DAILY PO 05/20/21 09:00 Hold 05/20/21 08:00 Fentanyl (Duragesic) 75 mcg Q72H TOP 05/21/21 09:00 05/21/21 09:56 Heparin Sodium (Heparin (Flush)) 200 units ASDIRECTED PRN IV SEE LABEL COMMENTS 05/19/21 22:30 Heparin Sodium (Heparin (Flush)) 200 units ASDIRECTED PRN IV SEE LABEL COMMENTS 05/20/21 13:50 Cancel Heparin Sodium (Heparin (Flush)) 200 units PICC IV 05/20/21 06:00 05/21/21 05:21 Heparin Sodium (Heparin (Flush)) 200 units PICC IV 05/20/21 18:00 Cancel Heparin Sodium (Porcine) (Heparin) 5,000 units Q12H SC 05/19/21 21:00 05/21/21 09:45 Home Med (Home Med List Complete!) ASDIRECTED XX 05/19/21 15:45 05/19/21 15:50 DC Levothyroxine Sodium (Synthroid) 37.5 mcg DAILY@06 NG 05/21/21 06:00 05/21/21 05:21 Levothyroxine Sodium (Synthroid) 37.5 mcg DAILY@06 PO 05/20/21 06:00 05/20/21 16:11 DC 05/20/21 06:52 Lisinopril (Prinivil) 10 mg DAILY NG 05/21/21 09:00 05/21/21 09:53 Lisinopril (Prinivil) 10 mg DAILY PO 05/20/21 09:00 05/20/21 16:11 DC 05/20/21 08:00 Mirtazapine (Remeron) 7.5 mg QHS NG 05/20/21 21:00 05/20/21 20:53 Mirtazapine (Remeron) 7.5 mg QHS PO 05/19/21 21:00 05/20/21 16:11 DC 05/19/21 21:41 Naloxone HCl (Narcan) 0.1 mg Q5MP PRN IV RESP. RATE < 10 05/19/21 11:50 Nitroglycerin (Nitrostat (1/ 150)) 0.4 mg Q5MP PRN SL CHEST PAIN 05/19/21 11:50 Non-Formulary Medication ( See Comment Field Below ) SEE COMMENTS SECTION ASDIRECTED XX 05/21/21 09:00 Ondansetron HCl (Zofran Odt) 4 mg Q6HP PRN PO NAUSEA OR VOMITING 05/19/21 16:00 05/20/21 09:46 DC 05/20/21 06:33 Ondansetron HCl (Zofran Odt) 4 mg Q6HP PRN SL NAUSEA OR VOMITING 05/20/21 10:00 Pantoprazole Sodium (Protonix) 40 mg DAILY IV 05/21/21 09:00 05/21/21 09:46 Pantoprazole Sodium (Protonix) 40 mg DAILY PO 05/19/21 09:00 05/20/21 16:11 DC 05/20/21 08:00 Pravastatin Sodium (Pravachol) 40 mg QHS NG 05/20/21 21:00 05/20/21 20:54 Pravastatin Sodium (Pravachol) 40 mg QHS PO 05/19/21 21:00 05/20/21 16:11 DC 05/19/21 21:00 Senna (Senokot) 1 tab QHS PRN NG constipation 05/20/21 21:00 Senna (Senokot) 1 tab QHS PRN PO constipation 05/20/21 21:00 05/20/21 16:11 DC Senna (Senokot) 2 tab BID PO 05/19/21 21:00 05/20/21 10:49 DC 05/20/21 07:59 Simethicone (Mylicon) 80 mg TID NG 05/20/21 16:00 05/21/21 09:49 Simethicone (Mylicon) 80 mg TID PO 05/19/21 16:00 05/20/21 16:11 DC 05/20/21 07:59 Sodium Chloride (Saline Lock Flush) 10 ml ASDIRECTED PRN IV SEE LABEL COMMENTS 05/19/21 22:30 Sodium Chloride (Saline Lock Flush) 10 ml ASDIRECTED PRN IV SEE LABEL COMMENTS 05/20/21 13:50 Cancel Sodium Chloride (Saline Lock Flush) 10 ml PICC IV 05/20/21 06:00 05/21/21 05:21 Sodium Chloride (Saline Lock Flush) 10 ml PICC IV 05/20/21 18:00 OLGA Trotter MD May 21, 2021 11:19
[2021-05-21 13:54] LABS: BASO # 0.1 10^3/uL (0.0-0.2); BASO % 0.5 % (0.0-1.0); EOS # 0.1 10^3/uL (0.0-0.5); EOS % 0.7 % (0.0-3.0); HEMATOCRIT 34.8 % (36.0-47.0); HEMOGLOBIN 11.2 g/dl (12.0-15.5); LYMPH % 19.8 % (24.0-44.0); MEAN CORPUSCULAR HEMOGLOBIN 33.1 pg (27.0-33.0); MEAN CORPUSCULAR HGB CONC 32.2 g/dl (32.0-36.5); MONO # 0.6 10^3/uL (0.0-0.8); MONO % 5.4 % (2.0-8.0); NEUTROPHILS # 7.4 10^3/uL (1.5-8.5); NEUTROPHILS % 72.9 % (36.0-66.0); PLATELET COUNT, AUTOMATED 383 10^3/uL (150-450); RED BLOOD COUNT 3.38 10^6/uL (4.00-5.40); WHITE BLOOD COUNT 10.2 10^3/uL (4.0-10.0)
[2021-05-21 14:00] VITALS: BP 126/58
[2021-05-21 14:21] LABS: BLOOD UREA NITROGEN 30 MG/DL (7-18); CALCIUM LEVEL 8.9 MG/DL (8.8-10.2); CARBON DIOXIDE LEVEL 34 MEQ/L (21-32); CHLORIDE LEVEL 102 MEQ/L (98-107); CREATININE FOR GFR 0.93 MG/DL (0.55-1.30); GLOMERULAR FILTRATION RATE > 60.0 (>32); GLUCOSE, FASTING 94 MG/DL (70-100); POTASSIUM SERUM 4.5 MEQ/L (3.5-5.1); SODIUM LEVEL 140 MEQ/L (136-145)
--- NOTE | 2021-05-21 18:52 | CR ---
CONSULTATION DATE: 05/21/2021 REASON FOR CONSULTATION: Medical management of chronic medical problems. CHIEF COMPLAINT: Nausea, vomiting, history of gastric volvulus and large hiatal hernia, nonsurgical. HISTORY OF PRESENT ILLNESS: This is an 86-year-old female with history of a large gastric volvulus secondary to a large hiatal hernia, nonsurgical, seen and managed by general surgery and discharged to the inpatient mental health unit, complains of intractable nausea and vomiting this morning. A nasogastric tube had been placed to low intermittent suctioning. The patient denies any fever, chills or shortness of breath, no abdominal pain, denies any urgency or frequency, passing gas, no coffee emesis or hematemesis noted. Patient otherwise denies any chest pain, pressure, tightness, lightheadedness or dizziness. All other 10-point review of systems is otherwise negative. PAST MEDICAL HISTORY: 1. Hiatal hernia. 2. Gastric volvulus. 3. Hypertension. 4. Hypercholesterolemia. 5. Chronic kidney disease stage 3. 6. Type 2 diabetes. 7. 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 8. DVT. 9. Gout. 10. Hypothyroidism. 11. GERD. 12. Anemia of chronic disease. 13. Polymyalgia rheumatica. 14. Peripheral venous insufficiency. 15. Spinal stenosis. 16. Degenerative joint disease. 17. CAD. 18. [place]. PAST SURGICAL HISTORY: 1. Colonoscopy. 2. Vertebral fracture surgery. 3. Cataract extraction. 4. Appendectomy. 5. Hysterectomy. 6. Multiple abdominal hernia repairs. 7. Cardiac stent placement. 8. Bilateral knee replacement. FAMILY HISTORY: Mother and father from [place], [place]. One brother with history of [place] and [place]. SOCIAL HISTORY: Denies tobacco, recreational drug use or alcohol abuse. Lives with her . HOSPITAL MEDICATIONS: 1. Protonix 40 mg IV daily. 2. Lisinopril 10 daily. 3. Vitamin B12 1000 mcg daily. 4. Norvasc 10 mg daily. 5. Fentanyl patch 75 mcg q.72 hours. 6. Synthroid 37.5 mcg daily. 7. Senokot one tab nasogastric as needed for constipation. 8. Pravachol 40 mg daily. 9. Mirtazapine 7.5 q.h.s. 10. Simethicone 80 mg t.i.d. 11. [place] 7.5/325 one tab q.4 as needed. 12. D5 normal saline 60 mL per hour. 13. Zofran 4 mg q.6 as needed. 14. Heparin 200 units via PICC line, saline flush. 15. Heparin subcu per protocol. 16. Narcan as needed 0.1 mg q.5 for respiratory less than 10. 17. Nitroglycerin 0.4 q.5 minutes as needed for chest pain. REVIEW OF SYSTEMS: Per HPI, 10-point system otherwise negative. PHYSICAL EXAMINATION: VITAL SIGNS: Temperature 97.5, pulse 57, sinus bradycardia, respiratory 16, blood pressure 126/58, 91% on room air. GENERAL: The patient is awake, alert and oriented to herself, slightly irritable, nasogastric tube noted in the nares with brown debris being suctioned. No JVD, thyromegaly, dry mucous membranes. LUNGS: Clear to auscultation, no wheezing or rales. HEART: S1, S2, sinus bradycardia. ABDOMEN: Soft, nontender and nondistended. EXTREMITIES: No cyanosis or clubbing. Laboratory data, microbiology and imaging studies have been reviewed. ASSESSMENT AND PLAN: This is an 86-year-old female recently admitted to the surgical service with gastric volvulus and nonsurgical due to large hiatal hernia, resolved and subsequently transferred to the acute rehab unit. ACTIVE ISSUES: 1. Gastric volvulus, nonsurgical. 2. Large hiatal hernia. 3. Recurrent emesis, fecal occult blood being negative. 4. Hypertension. 5. Chronic kidney disease, stage 3. 6. Dyslipidemia. 7. Type 2 diabetes. 8. History of DVT. 9. Gout. 10. Hypothyroidism. 11. Reflux. 12. Anemia of chronic disease. 13. History of spinal stenosis and neuropathy. 14. History of [place], [place]. PLAN: Patient is current being treated with conservative management with nasogastric tube to low intermittent suctioning. Surgery has been consulted and helping manage patient's acute issues. If she continues to have nasogastric tube, may need to change medications to IV and transfer back to medical-surgical floor. At this time, oral medications are being given by the nasogastric tube. She is not a surgical candidate for her large hiatal hernia due to comorbid conditions. Continue with supportive care with hypoglycemic protocol, fingersticks and half normal saline, NPO status for now.
[2021-05-21 20:00] VITALS: BP 135/62
[2021-05-21] MEDS: MIRTAZAPINE 7.5MG PER 1/2 TABLET NG SCH (20:40)
[2021-05-21] MEDS: PRAVASTATIN 20 MG TAB NG SCH (20:41)
[2021-05-22] MEDS: LEVOTHYROXINE 37.5MCG PER 1/2TAB (0.0375MG) NG SCH (05:49)
[2021-05-22] MEDS: SODIUM CHLORIDE 0.9% INJ 10 ML SYR IV SCH ×2 (05:50→18:30)
[2021-05-22 06:00] VITALS: BP 151/67
--- NOTE | 2021-05-22 09:11 | IPNPDOC ---
Text Note Date of Service The patient was seen on 05/22/21. NOTE General surgery. Dr. Young The patient is an 86-year-old female with history of longstanding, large hiatal hernia, status post admission to [facility] 05/07/2021 to 05/19/2021 with gastric volvulus. Transferred to ARU 05/19/21. On 05/20/2021 the patient had nausea and vomiting, NG tube was replaced. The patient is currently n.p.o. This morning, the patient is sitting on the side of the bed and participating with therapy. She denies abdominal pain or nausea. NG tube in place. Afebrile VSS NG tube in place. 450 mL documented output yesterday.. Lungs with good air entry, no wheezing S1-S2 regular rate rhythm Abdomen is soft, nontender, nondistended WBC yesterday 10.2, 13.2 on 05/20/2021. No new labs today. Assessment/plan History of large hiatal hernia, gastric volvulus. The patient is reviewed as per Dr. Young Denies abdominal pain or nausea. NGT, 450 mL output yesterday. NPO Protonix IV Continue to monitor. VS,Fishbone, I+O VS, Fishbone, I+O Laboratory Tests 05/21/21 13:28 Vital Signs Date Time Temp Pulse Resp B/P (MAP) Pulse Ox O2 Delivery O2 Flow Rate FiO2 05/22/21 06:00 97.6 57 18 151/67 (95) 93 Room Air I&O- Last 24 Hours up to 6 AM 05/22/21 06:00 Intake Total 30 ml Output Total 200 ml Balance -170 ml Attending Note Attending Note I agree with note by DARRYL Duff. Patient had recurrent obstructive symptoms but doing well with NG. Plan: Will try clamping NG and beginning some po clears. I think patient will need repair of hiatal hernia but risk of problems is high. Sil Duff May 22, 2021 09:11 Lucio Young May 27, 2021 08:58
--- NOTE | 2021-05-22 09:38 | IPNPDOC ---
PM&R Progress Note DATE OF SERVICE: May 22, 2021 Engineer First Assistant Progress Note Subjective: Patient seen sitting up on edge of her bed in therapy, stating seh felt tired, but denied abdominal pain or difficulty breathing. She was able to stand with assistance using the michele-steady. REVIEW OF SYSTEMS: The following is a completed review of systems and has been reviewed. Review of systems otherwise unremarkable. PAIN: Patient self reports abdominal pain EYES: No recent vision changes EARS, NOSE, & THROAT: No throat pain, or dysphagia, or rhinorrhea CARDIOVASCULAR: Denies chest pain or palpitations PULMONARY: Denies shortness of breath GASTROINTESTINAL: +NGT GENITOURINARY: denies dysuria MUSCULOSKELETAL: generalized weakness NEUROLOGICAL:+peripheral polyneuropathy HEMATOLOGICAL: denies easy bruising SKIN: denies rash PSYCHIATRIC: +depressed All other review of systems found to be negative. PHYSICAL EXAMINATION: VITAL SIGNS: Please see below. GENERAL: Pleasant and cooperative. No acute distress. HEENT: PERRL. Extraocular movements intact. Clear conjunctiva. +dentures CARDIOVASCULAR: Regular rate and rhythm. No murmurs, rubs, or gallops LUNGS: Clear to auscultation bilaterally. No wheezes. No rhonchi ABDOMEN: Soft, nontender, nondistended, no guarding, no rebound tenderness. Positive bowel sounds. NEUROLOGICAL: Alert and oriented to self and place, Cranial nerves II through XII grossly intact. Sensation diminished to light touch bilat LE in stocking pattern EXTREMITIES: 4\\5 strength bilateral upper extremities. 3+\\5 strength right lower extremity. 3+/5 strength in left lower extremity. bilat ankle deformity ASSESSMENT:86-year-old F with past medical history of DM with peripheral polyneuropathy and large hiatal hernia who presents status post gastric volvulus s/p EGD decompression PLAN: 1. Rehab- PT/OT advance mobility and ADLS, strengthen/stretch/maintain ROM all 4limbs- working on [id number] 2. Neuro- hx of diabetic peripheral polyneuropathy contributing to overall mobility impairments 3. GI- patient with large hiatal hernia with recent volvulus and EGD decompression on 05-07-21, not deemed to be surgical candidate- her diet was recently advanced, however on 05-20-21 exam she has recurrent emesis (FOBT negative) with KUB revealing large gastric bubble with no bowel obstruction- discussed case with Dr. Young who recommended trial of NGT and make patient NPO- patient currently tolerating the NGT and reports less abdominal discomfort- will defer to surgery as to when to d/c NGT and do trial of po -protonix, simethicone, senna and colace 4. CArdiac- cont BP meds, adjust as needed -HLD cont statin -medicine consulted to assist in overall management 5. Resp- monitor for infection- patient denies cough -recent Covid exposure, Resp panel ordered as patient with low grade temp on 05-20-21 which as negative 6. Pain- cont fentanyl and norco 7. Psych- cymbalta on hold while receiving meds via NGT, cont remeron for depression- patient's mood improved today and participating in therapy 8. DVT ppx- heparin 9. Endo- hx of DM with peripheral polyneuropathy managed with diet alone- FS o rdered q6h while receiving D5NS -hypothyroidism cont Synthroid 10. Dispo- TBD Allergies Coded Allergies: TAPE (Verified Allergy, Intermediate, RASH, 05/21/10) meloxicam (Verified Adverse Reaction, Mild, "I think it made me sick", 03/19/19) pioglitazone (Verified Adverse Reaction, Mild, bruising, 03/19/19) pregabalin (Verified Adverse Reaction, Mild, affects vision, 03/19/19) Vital Signs Vital Signs Date Time Temp Pulse Resp B/P (MAP) Pulse Ox O2 Delivery O2 Flow Rate FiO2 05/22/21 06:00 97.6 57 18 151/67 (95) 93 Room Air Laboratory Data CBC/BMP Laboratory Tests 05/21/21 13:28 Labs 24H Laboratory Tests 2 05/21/21 11:49: Bedside Glucose (Misc Panel) 93 05/21/21 13:28: Immature Granulocyte % (Auto) 0.7, Neutrophils (%) (Auto) 72.9H, Lymphocytes (%) (Auto) 19.8L, Monocytes (%) (Auto) 5.4, Eosinophils (%) (Auto) 0.7, Basophils (%) (Auto) 0.5, Neutrophils # (Auto) 7.4, Lymphocytes # (Auto) 2.0, Monocytes # (Auto) 0.6, Eosinophils # (Auto) 0.1, Basophils # (Auto) 0.1, Nucleated Red Blood Cells % (auto) 0.0, Anion Gap 4L, Glomerular Filtration Rate > 60.0, Calcium Level 8.9 05/21/21 18:19: Bedside Glucose (Misc Panel) 97 05/22/21 06:02: Bedside Glucose (Misc Panel) 92 Microbiology Microbiology 05/20/21 Respiratory Virus Panel (PCR) (WILY) - Final, Complete 05/20/21 Occult Blood - Final, Complete Current Medications Current Medications Current Medications Medications (Trade) Dose Ordered Sig/Alice Route PRN Reason Start Time Stop Time Status Last Admin Dose Admin Acetaminophen/ Hydrocodone Bitart (Anexsia, [place] 7.5mg/325mg) 1 tab Q4HP PRN NG MILD PAIN (PS 1-4) 05/20/21 16:00 Acetaminophen/ Hydrocodone Bitart (Anexsia, [place] 7.5mg/325mg) 1 tab Q4HP PRN PO MILD PAIN (PS 1-4) 05/19/21 11:50 05/20/21 16:11 DC 05/19/21 21:01 Amlodipine Besylate (Norvasc) 10 mg DAILY NG 05/21/21 09:00 05/21/21 09:53 Amlodipine Besylate (Norvasc) 10 mg DAILY PO 05/20/21 09:00 05/20/21 16:11 DC 05/20/21 08:00 Cyanocobalamin (Vitamin B12) 1,000 mcg DAILY NG 05/21/21 09:00 05/21/21 09:45 Cyanocobalamin (Vitamin B12) 1,000 mcg DAILY PO 05/20/21 09:00 05/20/21 16:11 DC 05/20/21 08:00 Dextrose/Sodium Chloride 1,000 ml @ 60 mls/hr [id number] IV 05/20/21 10:55 05/21/21 20:40 Docusate Sodium (Colace) 200 mg BID PO 05/19/21 21:00 Hold 05/20/21 08:00 Duloxetine HCl (Cymbalta) 60 mg DAILY PO 05/20/21 09:00 Hold 05/20/21 08:00 Fentanyl (Duragesic) 75 mcg Q72H TOP 05/21/21 09:00 05/21/21 09:56 Heparin Sodium (Heparin (Flush)) 200 units ASDIRECTED PRN IV SEE LABEL COMMENTS 05/19/21 22:30 Heparin Sodium (Heparin (Flush)) 200 units ASDIRECTED PRN IV SEE LABEL COMMENTS 05/20/21 13:50 Cancel Heparin Sodium (Heparin (Flush)) 200 units PICC IV 05/20/21 06:00 05/22/21 05:50 Heparin Sodium (Heparin (Flush)) 200 units PICC IV 05/20/21 18:00 Cancel Heparin Sodium (Porcine) (Heparin) 5,000 units Q12H SC 05/19/21 21:00 05/21/21 20:41 Home Med (Home Med List Complete!) ASDIRECTED XX 05/19/21 15:45 05/19/21 15:50 DC Levothyroxine Sodium (Synthroid) 37.5 mcg DAILY@06 NG 05/21/21 06:00 05/22/21 05:49 Levothyroxine Sodium (Synthroid) 37.5 mcg DAILY@06 PO 05/20/21 06:00 05/20/21 16:11 DC 05/20/21 06:52 Lisinopril (Prinivil) 10 mg DAILY NG 05/21/21 09:00 05/21/21 09:53 Lisinopril (Prinivil) 10 mg DAILY PO 05/20/21 09:00 05/20/21 16:11 DC 05/20/21 08:00 Mirtazapine (Remeron) 7.5 mg QHS NG 05/20/21 21:00 05/21/21 20:40 Mirtazapine (Remeron) 7.5 mg QHS PO 05/19/21 21:00 05/20/21 16:11 DC 05/19/21 21:41 Naloxone HCl (Narcan) 0.1 mg Q5MP PRN IV RESP. RATE < 10 05/19/21 11:50 Nitroglycerin (Nitrostat (1/ 150)) 0.4 mg Q5MP PRN SL CHEST PAIN 05/19/21 11:50 Non-Formulary Medication ( See Comment Field Below ) SEE COMMENTS SECTION ASDIRECTED XX 05/21/21 09:00 Ondansetron HCl (Zofran Odt) 4 mg Q6HP PRN PO NAUSEA OR VOMITING 05/19/21 16:00 05/20/21 09:46 DC 05/20/21 06:33 Ondansetron HCl (Zofran Odt) 4 mg Q6HP PRN SL NAUSEA OR VOMITING 05/20/21 10:00 Pantoprazole Sodium (Protonix) 40 mg DAILY IV 05/21/21 09:00 05/21/21 09:46 Pantoprazole Sodium (Protonix) 40 mg DAILY PO 05/19/21 09:00 05/20/21 16:11 DC 05/20/21 08:00 Pravastatin Sodium (Pravachol) 40 mg QHS NG 05/20/21 21:00 05/21/21 20:41 Pravastatin Sodium (Pravachol) 40 mg QHS PO 05/19/21 21:00 05/20/21 16:11 DC 05/19/21 21:00 Senna (Senokot) 1 tab QHS PRN NG constipation 05/20/21 21:00 Senna (Senokot) 1 tab QHS PRN PO constipation 05/20/21 21:00 05/20/21 16:11 DC Senna (Senokot) 2 tab BID PO 05/19/21 21:00 05/20/21 10:49 DC 05/20/21 07:59 Simethicone (Mylicon) 80 mg TID NG 05/20/21 16:00 05/21/21 20:40 Simethicone (Mylicon) 80 mg TID PO 05/19/21 16:00 05/20/21 16:11 DC 05/20/21 07:59 Sodium Chloride ([place] Flush) 10 ml ASDIRECTED PRN IV SEE LABEL COMMENTS 05/19/21 22:30 Sodium Chloride ([place] Flush) 10 ml ASDIRECTED PRN IV SEE LABEL COMMENTS 05/20/21 13:50 Cancel Sodium Chloride ([place] Flush) 10 ml PICC IV 05/20/21 06:00 05/22/21 05:50 Sodium Chloride ([place] Flush) 10 ml PICC IV 05/20/21 18:00 OLGA Trotter MD May 22, 2021 09:38
[2021-05-22 09:50] LABS: BASO # 0.1 10^3/uL (0.0-0.2); BASO % 0.6 % (0.0-1.0); EOS # 0.1 10^3/uL (0.0-0.5); EOS % 0.8 % (0.0-3.0); HEMATOCRIT 31.5 % (36.0-47.0); HEMOGLOBIN 10.1 g/dl (12.0-15.5); LYMPH # 1.2 10^3/uL (1.5-5.0); LYMPH % 13.9 % (24.0-44.0); MEAN CORPUSCULAR HEMOGLOBIN 33.6 pg (27.0-33.0); MEAN CORPUSCULAR HGB CONC 32.1 g/dl (32.0-36.5); MEAN CORPUSCULAR VOLUME 104.7 fl (80.0-96.0); MONO # 0.5 10^3/uL (0.0-0.8); MONO % 5.9 % (2.0-8.0); NEUTROPHILS # 6.9 10^3/uL (1.5-8.5); NEUTROPHILS % 78.3 % (36.0-66.0); PLATELET COUNT, AUTOMATED 439 10^3/uL (150-450); RED BLOOD COUNT 3.01 10^6/uL (4.00-5.40); WHITE BLOOD COUNT 8.8 10^3/uL (4.0-10.0)
[2021-05-22] MEDS: HEPARIN SOD (PORCINE) 5000UNITS/ML 1ML VIAL/SYRINGE SC SCH ×2 (10:06→21:37)
[2021-05-22] MEDS: CYANOCOBALAMIN 500 MCG TAB NG SCH (10:06)
[2021-05-22] MEDS: SIMETHICONE 80MG CHEW TAB NG SCH ×4 (10:06→21:37)
[2021-05-22] MEDS: PANTOPRAZOLE 40MG VIAL (C9113 PER 1) IV SCH (10:06)
[2021-05-22] MEDS: REMEDY PHYTOPLEX Z-GUARD PASTE 113GM TUBE (FROM STOREROOM PRODUCT) TOP SCH ×3 (10:07→21:38)
[2021-05-22 10:10] LABS: BLOOD UREA NITROGEN 22 MG/DL (7-18); CALCIUM LEVEL 8.6 MG/DL (8.8-10.2); CARBON DIOXIDE LEVEL 32 MEQ/L (21-32); CHLORIDE LEVEL 106 MEQ/L (98-107); CREATININE FOR GFR 0.84 MG/DL (0.55-1.30); GLOMERULAR FILTRATION RATE > 60.0 (>32); GLUCOSE, FASTING 98 MG/DL (70-100); SODIUM LEVEL 141 MEQ/L (136-145)
[2021-05-22] MEDS: D5W/0.9% SODIUM CHLORIDE 1,000 ML IV SCH (12:52)
[2021-05-22 14:00] VITALS: BP 166/71
[2021-05-22 20:03] VITALS: BP 178/75
[2021-05-22 21:35] VITALS: BP 162/72
[2021-05-22] MEDS: MIRTAZAPINE 7.5MG PER 1/2 TABLET NG SCH (21:37)
[2021-05-22] MEDS: PRAVASTATIN 20 MG TAB NG SCH (21:37)
[2021-05-23 04:47] VITALS: BP 152/78
[2021-05-23] MEDS: D5W/0.9% SODIUM CHLORIDE 1,000 ML IV SCH ×2 (05:06→21:51)
[2021-05-23] MEDS: LEVOTHYROXINE 37.5MCG PER 1/2TAB (0.0375MG) NG SCH (06:24)
[2021-05-23] MEDS: SODIUM CHLORIDE 0.9% INJ 10 ML SYR IV SCH ×2 (06:24→18:00)
[2021-05-23 07:49] LABS: BASO % 0.5 % (0.0-1.0); EOS % 0.3 % (0.0-3.0); HEMATOCRIT 36.6 % (36.0-47.0); LYMPH # 1.1 10^3/uL (1.5-5.0); LYMPH % 13.2 % (24.0-44.0); MEAN CORPUSCULAR HEMOGLOBIN 33.1 pg (27.0-33.0); MEAN CORPUSCULAR HGB CONC 32.8 g/dl (32.0-36.5); MEAN CORPUSCULAR VOLUME 100.8 fl (80.0-96.0); MONO # 0.6 10^3/uL (0.0-0.8); MONO % 6.6 % (2.0-8.0); NEUTROPHILS # 6.8 10^3/uL (1.5-8.5); NEUTROPHILS % 78.9 % (36.0-66.0); RED BLOOD COUNT 3.63 10^6/uL (4.00-5.40); WHITE BLOOD COUNT 8.7 10^3/uL (4.0-10.0)
[2021-05-23] MEDS: PANTOPRAZOLE 40MG VIAL (C9113 PER 1) IV SCH (08:14)
[2021-05-23] MEDS: SIMETHICONE 80MG CHEW TAB NG SCH ×3 (08:14→21:28)
[2021-05-23] MEDS: HEPARIN SOD (PORCINE) 5000UNITS/ML 1ML VIAL/SYRINGE SC SCH ×2 (08:14→21:28)
[2021-05-23] MEDS: CYANOCOBALAMIN 500 MCG TAB NG SCH (08:14)
[2021-05-23] MEDS: REMEDY PHYTOPLEX Z-GUARD PASTE 113GM TUBE (FROM STOREROOM PRODUCT) TOP SCH ×3 (08:15→21:28)
[2021-05-23 08:16] LABS: BLOOD UREA NITROGEN 13 MG/DL (7-18); CALCIUM LEVEL 8.1 MG/DL (8.8-10.2); CARBON DIOXIDE LEVEL 24 MEQ/L (21-32); CHLORIDE LEVEL 107 MEQ/L (98-107); CREATININE FOR GFR 0.74 MG/DL (0.55-1.30); GLOMERULAR FILTRATION RATE > 60.0 (>32); GLUCOSE, FASTING 114 MG/DL (70-100); POTASSIUM SERUM 3.3 MEQ/L (3.5-5.1); SODIUM LEVEL 138 MEQ/L (136-145)
[2021-05-23] MEDS ORDERED: POTASSIUM CHLORIDE 10MEQ SR TABLET PO ONE (11:00)
[2021-05-23] MEDS ORDERED: POTASSIUM CHLORIDE 10% LIQ 20 MEQ/15 ML UDC PO ONE (12:45)
[2021-05-23 14:13] VITALS: BP 149/69
[2021-05-23 19:20] VITALS: BP 124/60
[2021-05-23] MEDS: PRAVASTATIN 20 MG TAB NG SCH (21:27)
[2021-05-23] MEDS: MIRTAZAPINE 7.5MG PER 1/2 TABLET NG SCH (21:28)
[2021-05-24] MEDS: LEVOTHYROXINE 37.5MCG PER 1/2TAB (0.0375MG) NG SCH (06:06)
[2021-05-24] MEDS: SODIUM CHLORIDE 0.9% INJ 10 ML SYR IV SCH ×2 (06:07→16:53)
[2021-05-24 06:17] VITALS: BP 162/64
[2021-05-24 06:41] LABS: BLOOD UREA NITROGEN 10 MG/DL (7-18); CALCIUM LEVEL 8.5 MG/DL (8.8-10.2); CARBON DIOXIDE LEVEL 29 MEQ/L (21-32); CHLORIDE LEVEL 111 MEQ/L (98-107); CREATININE FOR GFR 0.63 MG/DL (0.55-1.30); GLOMERULAR FILTRATION RATE > 60.0 (>32); GLUCOSE, FASTING 102 MG/DL (70-100); POTASSIUM SERUM 4.2 MEQ/L (3.5-5.1); SODIUM LEVEL 143 MEQ/L (136-145)
[2021-05-24] MEDS: CYANOCOBALAMIN 500 MCG TAB NG SCH (09:38)
[2021-05-24] MEDS: SIMETHICONE 80MG CHEW TAB NG SCH ×3 (09:38→20:51)
[2021-05-24] MEDS: PANTOPRAZOLE 40MG VIAL (C9113 PER 1) IV SCH (09:39)
[2021-05-24] MEDS: HEPARIN SOD (PORCINE) 5000UNITS/ML 1ML VIAL/SYRINGE SC SCH ×2 (09:40→20:51)
[2021-05-24] MEDS: fentaNYL 75 MCG/HR PATCH TOP SCH (09:41)
[2021-05-24] MEDS: REMEDY PHYTOPLEX Z-GUARD PASTE 113GM TUBE (FROM STOREROOM PRODUCT) TOP SCH ×3 (09:41→20:52)
[2021-05-24 14:00] VITALS: BP 138/66
--- NOTE | 2021-05-24 16:22 | IPN ---
PROGRESS NOTE DATE: 05/24/2021 SUBJECTIVE: The patient was admitted over two weeks ago with a gastric volvulus within a very large hiatal hernia. She underwent endoscopic decompression with placement of an NG tube with resolution of her symptoms. Her diet was gradually advanced through clear liquids to a soft diet and she was then transferred to the acute rehabilitation unit. Unfortunately, she developed recurrence of her symptoms and her NG tube was replaced several days ago. She was started on clear liquids the day before yesterday. She has not been taking much. The NG tube remains in place but clamped. OBJECTIVE: Vital signs show that she has had a T-max of 99.8 early this morning. Her pulse is in the 50s to low 70s. Blood pressure is in the 130s to 160s systolic. Room air oxygen saturation is normal. Intake and output yesterday showed 1,500 in with 4 incontinent voids and several other voids. PHYSICAL EXAMINATION: The patient is lying quietly in the hospital bed. She is alert and oriented. She appears quite comfortable. The NG tube is clamped. Heart and lung examinations are unchanged. The abdomen remains obese, but soft and nontender. LABORATORY STUDIES: Today she had a medical profile, which showed a sodium of 143, potassium 4.2, chloride 111, Co2 of 29, BUN of 10, creatinine 0.6 and a glucose of 102. IMPRESSION: The patient has tolerated some clear liquids, though she is not drinking much it would seem. She denies any abdominal pain. PLAN: I will advance her to a full liquid diet and continue with the NG tube in place and clamped. I have encouraged her also to take some Ensure, which I will order. I will try to keep her nutrition at acceptable levels while we look for time in the OR schedule to add her in for a robotic assisted laparoscopic hiatal hernia repair. PABLO
[2021-05-24] MEDS: SODIUM CHLORIDE 0.9% INJ 10 ML SYR IV PRN (16:54)
[2021-05-24 20:47] VITALS: BP 140/60
[2021-05-24] MEDS: PRAVASTATIN 20 MG TAB NG SCH (20:51)
[2021-05-24] MEDS: MIRTAZAPINE 7.5MG PER 1/2 TABLET NG SCH (20:52)
[2021-05-25] MEDS: SODIUM CHLORIDE 0.9% INJ 10 ML SYR IV SCH ×2 (05:37→17:44)
[2021-05-25] MEDS: SODIUM CHLORIDE 0.9% INJ 10 ML SYR IV PRN (05:37)
[2021-05-25] MEDS: LEVOTHYROXINE 37.5MCG PER 1/2TAB (0.0375MG) NG SCH (05:38)
[2021-05-25 05:54] VITALS: BP 162/68
[2021-05-25] MEDS: CYANOCOBALAMIN 500 MCG TAB NG SCH (08:53)
[2021-05-25] MEDS: SIMETHICONE 80MG CHEW TAB NG SCH ×3 (08:54→20:39)
--- NOTE | 2021-05-25 08:55 | IPNPDOC ---
Text Note Date of Service The patient was seen on 05/25/21. NOTE General surgery. Dr. Young The patient is an 86-year-old female with history of longstanding, large hiatal hernia, status post admission to [facility] 05/07/2021 to 05/19/2021 with gastric volvulus. Transferred to ARU 05/19/21. On 05/20/2021 the patient had nausea and vomiting, NG tube was replaced. NG tube is currently clamped and the patient has been advanced to full liquids 05/24/2021 which she is currently tolerating. Also supplementing with Ensure for additional nutrition. This morning, the patient is participating with therapy. She denies abdominal pain, nausea or vomiting. She had full liquids for breakfast. Afebrile T-max 99.[address], clamped. Lungs with good air entry, no wheezing S1-S2 regular rate rhythm Abdomen is soft, nontender, nondistended No new labs Assessment/plan History of large hiatal hernia, gastric volvulus. The patient is reviewed as per Dr. Young Denies abdominal pain or nausea. NG tube is currently clamped Tolerating full liquids currently. Protonix IV Plan is to proceed with robotic assisted laparoscopic hiatal hernia repair as per Dr. Young. Continue to monitor. VS,Fishbone, I+O VS, Fishbone, I+O Vital Signs Date Time Temp Pulse Resp B/P (MAP) Pulse Ox O2 Delivery O2 Flow Rate FiO2 05/25/21 05:54 99.5 60 18 162/68 (99) 92 Room Air I&O- Last 24 Hours up to 6 AM 05/25/21 06:00 Intake Total 780 ml Balance 780 ml Attending Note Attending Note Agree with note by DARRYL Duff. I am hoping patient can be made ready for surgery to repair her hiatal hernia late in the week. I am concerned about her nutrition at this point. Sil Duff May 25, 2021 08:55 Lucio Young Jun 06, 2021 14:12
[2021-05-25] MEDS: HEPARIN SOD (PORCINE) 5000UNITS/ML 1ML VIAL/SYRINGE SC SCH ×2 (08:56→20:40)
[2021-05-25] MEDS: PANTOPRAZOLE 40MG VIAL (C9113 PER 1) IV SCH (09:03)
[2021-05-25] MEDS: REMEDY PHYTOPLEX Z-GUARD PASTE 113GM TUBE (FROM STOREROOM PRODUCT) TOP SCH ×3 (09:04→20:40)
[2021-05-25 11:45] LABS: BASO % 0.5 % (0.0-1.0); EOS # 0.1 10^3/uL (0.0-0.5); HEMATOCRIT 32.6 % (36.0-47.0); HEMOGLOBIN 10.5 g/dl (12.0-15.5); LYMPH # 1.1 10^3/uL (1.5-5.0); LYMPH % 14.4 % (24.0-44.0); MEAN CORPUSCULAR HEMOGLOBIN 32.5 pg (27.0-33.0); MEAN CORPUSCULAR HGB CONC 32.2 g/dl (32.0-36.5); MEAN CORPUSCULAR VOLUME 100.9 fl (80.0-96.0); MONO # 0.6 10^3/uL (0.0-0.8); MONO % 7.4 % (2.0-8.0); NEUTROPHILS % 76.1 % (36.0-66.0); PLATELET COUNT, AUTOMATED 360 10^3/uL (150-450); RED BLOOD COUNT 3.23 10^6/uL (4.00-5.40); WHITE BLOOD COUNT 7.9 10^3/uL (4.0-10.0)
[2021-05-25 12:16] LABS: BLOOD UREA NITROGEN 9 MG/DL (7-18); CALCIUM LEVEL 8.6 MG/DL (8.8-10.2); CARBON DIOXIDE LEVEL 29 MEQ/L (21-32); CHLORIDE LEVEL 105 MEQ/L (98-107); CREATININE FOR GFR 0.74 MG/DL (0.55-1.30); GLOMERULAR FILTRATION RATE > 60.0 (>32); GLUCOSE, FASTING 101 MG/DL (70-100); POTASSIUM SERUM 3.7 MEQ/L (3.5-5.1); SODIUM LEVEL 138 MEQ/L (136-145)
--- NOTE | 2021-05-25 12:16 | IPNPDOC ---
PM&R Progress Note DATE OF SERVICE: May 25, 2021 [employer] Progress Note Subjective: Patient seen in her room stating she does not feel up to living, but does not want to hurt herself. She also states she wants to go through with surgery and her goal is to get home. She was encouraged to participate more in therapy. She denies abdominal pain. REVIEW OF SYSTEMS: The following is a completed review of systems and has been reviewed. Review of systems otherwise unremarkable. PAIN: Patient self reports abdominal pain EYES: No recent vision changes EARS, NOSE, & THROAT: No throat pain, or dysphagia, or rhinorrhea CARDIOVASCULAR: Denies chest pain or palpitations PULMONARY: Denies shortness of breath GASTROINTESTINAL: +NGT (clamped) GENITOURINARY: denies dysuria MUSCULOSKELETAL: generalized weakness NEUROLOGICAL:+peripheral polyneuropathy HEMATOLOGICAL: denies easy bruising SKIN: denies rash PSYCHIATRIC: +depressed All other review of systems found to be negative. PHYSICAL EXAMINATION: VITAL SIGNS: Please see below. GENERAL: Pleasant and cooperative. No acute distress. HEENT: PERRL. Extraocular movements intact. Clear conjunctiva. +dentures CARDIOVASCULAR: Regular rate and rhythm. No murmurs, rubs, or gallops LUNGS: Clear to auscultation bilaterally. No wheezes. No rhonchi ABDOMEN: Soft, nontender, nondistended, no guarding, no rebound tenderness. Positive bowel sounds. NEUROLOGICAL: Alert and oriented to self and place, Cranial nerves II through XII grossly intact. Sensation diminished to light touch bilat LE in stocking pattern EXTREMITIES: 4\\5 strength bilateral upper extremities. 3+\\5 strength right lower extremity. 3+/5 strength in left lower extremity. bilat ankle deformity ASSESSMENT:86-year-old F with past medical history of DM with peripheral polyneuropathy and large hiatal hernia who presents status post gastric volvulus s/p EGD decompression PLAN: 1. Rehab- PT/OT advance mobility and ADLS, strengthen/stretch/maintain ROM all 4limbs- working on [id number] 2. Neuro- hx of diabetic peripheral polyneuropathy contributing to overall mobility impairments 3. GI- patient with large hiatal hernia with recent volvulus and EGD decompression on 05-07-21, not deemed to be surgical candidate- her diet was recently advanced, however on 05-20-21 exam she has recurrent emesis (FOBT negative) with KUB revealing large gastric bubble with no bowel obstruction- discussed case with Dr. Young who recommended trial of NGT which has been clamped and patient tolerating clear liquid diet, plan for robot-assisted lap surgery for hiatal hernia repair pending OR availability 4. CArdiac- cont BP meds, adjust as needed -HLD cont statin -medicine consulted to assist in overall management 5. Resp- monitor for infection- patient denies cough -recent Covid exposure, Resp panel negative 6. Pain- cont fentanyl and norco 7. Psych- cymbalta on hold while receiving meds via NGT, cont Remeron for dep ression 8. DVT ppx- heparin 9. Endo- hx of DM with peripheral polyneuropathy managed with diet alone -hypothyroidism cont Synthroid 10. - patient with ongoing low grade temps and worsening generalized weakness, UA with Ucx ordered 11. Dispo- TBD Allergies Coded Allergies: TAPE (Verified Allergy, Intermediate, RASH, 05/21/10) meloxicam (Verified Adverse Reaction, Mild, "I think it made me sick", 03/19/19) pioglitazone (Verified Adverse Reaction, Mild, bruising, 03/19/19) pregabalin (Verified Adverse Reaction, Mild, affects vision, 03/19/19) Vital Signs Vital Signs Date Time Temp Pulse Resp B/P (MAP) Pulse Ox O2 Delivery O2 Flow Rate FiO2 05/25/21 10:45 20 Room Air 05/25/21 08:55 162/68 05/25/21 08:54 68 05/25/21 05:54 99.5 92 Laboratory Data CBC/BMP Laboratory Tests 05/25/21 11:34 Labs 24H Laboratory Tests 2 05/24/21 17:47: Bedside Glucose (Misc Panel) 144H 05/25/21 00:31: Bedside Glucose (Misc Panel) 98 05/25/21 05:34: Bedside Glucose (Misc Panel) 91 05/25/21 11:34: Immature Granulocyte % (Auto) 0.6, Neutrophils (%) (Auto) 76.1H, Lymphocytes (%) (Auto) 14.4L, Monocytes (%) (Auto) 7.4, Eosinophils (%) (Auto) 1.0, Basophils (%) (Auto) 0.5, Neutrophils # (Auto) 6.0, Lymphocytes # (Auto) 1.1L, Monocytes # (Auto) 0.6, Eosinophils # (Auto) 0.1, Basophils # (Auto) 0.0, Nucleated Red Blood Cells % (auto) 0.0 05/25/21 11:57: Bedside Glucose (Misc Panel) 88 Microbiology Microbiology 05/20/21 Respiratory Virus Panel (PCR) (WILY) - Final, Complete 05/20/21 Occult Blood - Final, Complete Current Medications Current Medications Current Medications Medications (Trade) Dose Ordered Sig/Alice Route PRN Reason Start Time Stop Time Status Last Admin Dose Admin Acetaminophen/ Hydrocodone Bitart (Anexsia, [place] 7.5mg/325mg) 1 tab Q4HP PRN NG MILD PAIN (PS 1-4) 05/20/21 16:00 05/25/21 10:45 Acetaminophen/ Hydrocodone Bitart (Anexsia, [place] 7.5mg/325mg) 1 tab Q4HP PRN PO MILD PAIN (PS 1-4) 05/19/21 11:50 05/20/21 16:11 DC 05/19/21 21:01 Amlodipine Besylate (Norvasc) 10 mg DAILY NG 05/21/21 09:00 05/25/21 08:54 Amlodipine Besylate (Norvasc) 10 mg DAILY PO 05/20/21 09:00 05/20/21 16:11 DC 05/20/21 08:00 Cyanocobalamin (Vitamin B12) 1,000 mcg DAILY NG 05/21/21 09:00 05/25/21 08:53 Cyanocobalamin (Vitamin B12) 1,000 mcg DAILY PO 05/20/21 09:00 05/20/21 16:11 DC 05/20/21 08:00 Dextrose/Sodium Chloride 1,000 ml @ 60 mls/hr [id number] IV 05/20/21 10:55 05/24/21 13:39 DC 05/23/21 21:51 Docusate Sodium (Colace) 200 mg BID PO 05/19/21 21:00 Hold 05/20/21 08:00 Duloxetine HCl (Cymbalta) 60 mg DAILY PO 05/20/21 09:00 Hold 05/20/21 08:00 Fentanyl (Duragesic) 75 mcg Q72H TOP 05/21/21 09:00 05/24/21 09:41 Heparin Sodium (Heparin (Flush)) 200 units ASDIRECTED PRN IV SEE LABEL COMMENTS 05/19/21 22:30 05/25/21 05:37 Heparin Sodium (Heparin (Flush)) 200 units ASDIRECTED PRN IV SEE LABEL COMMENTS 05/20/21 13:50 Cancel Heparin Sodium (Heparin (Flush)) 200 units PICC IV 05/20/21 06:00 05/25/21 05:37 Heparin Sodium (Heparin (Flush)) 200 units PICC IV 05/20/21 18:00 Cancel Heparin Sodium (Porcine) (Heparin) 5,000 units Q12H SC 05/19/21 21:00 05/25/21 08:56 Home Med (Home Med List Complete!) ASDIRECTED XX 05/19/21 15:45 05/19/21 15:50 DC Levothyroxine Sodium (Synthroid) 37.5 mcg DAILY@06 NG 05/21/21 06:00 05/25/21 05:38 Levothyroxine Sodium (Synthroid) 37.5 mcg DAILY@06 PO 05/20/21 06:00 05/20/21 16:11 DC 05/20/21 06:52 Lisinopril (Prinivil) 10 mg DAILY NG 05/21/21 09:00 05/25/21 08:55 Lisinopril (Prinivil) 10 mg DAILY PO 05/20/21 09:00 05/20/21 16:11 DC 05/20/21 08:00 Mirtazapine (Remeron) 7.5 mg QHS NG 05/20/21 21:00 05/24/21 20:52 Mirtazapine (Remeron) 7.5 mg QHS PO 05/19/21 21:00 05/20/21 16:11 DC 05/19/21 21:41 Naloxone HCl (Narcan) 0.1 mg Q5MP PRN IV RESP. RATE < 10 05/19/21 11:50 Nitroglycerin (Nitrostat (1/ 150)) 0.4 mg Q5MP PRN SL CHEST PAIN 05/19/21 11:50 Non-Formulary Medication ( See Comment Field Below ) SEE COMMENTS SECTION ASDIRECTED XX 05/21/21 09:00 Ondansetron HCl (Zofran Odt) 4 mg Q6HP PRN PO NAUSEA OR VOMITING 05/19/21 16:00 05/20/21 09:46 DC 05/20/21 06:33 Ondansetron HCl (Zofran Odt) 4 mg Q6HP PRN SL NAUSEA OR VOMITING 05/20/21 10:00 Pantoprazole Sodium (Protonix) 40 mg DAILY IV 05/21/21 09:00 05/25/21 09:03 Pantoprazole Sodium (Protonix) 40 mg DAILY PO 05/19/21 09:00 05/20/21 16:11 DC 05/20/21 08:00 Pravastatin Sodium (Pravachol) 40 mg QHS NG 05/20/21 21:00 05/24/21 20:51 Pravastatin Sodium (Pravachol) 40 mg QHS PO 05/19/21 21:00 05/20/21 16:11 DC 05/19/21 21:00 Senna (Senokot) 1 tab QHS PRN NG constipation 05/20/21 21:00 Senna (Senokot) 1 tab QHS PRN PO constipation 05/20/21 21:00 05/20/21 16:11 DC Senna (Senokot) 2 tab BID PO 05/19/21 21:00 05/20/21 10:49 DC 05/20/21 07:59 Simethicone (Mylicon) 80 mg TID NG 05/20/21 16:00 05/25/21 08:54 Simethicone (Mylicon) 80 mg TID PO 05/19/21 16:00 05/20/21 16:11 DC 05/20/21 07:59 Sodium Chloride (Saline Lock Flush) 10 ml ASDIRECTED PRN IV SEE LABEL COMMENTS 05/19/21 22:30 05/25/21 05:37 Sodium Chloride (Saline Lock Flush) 10 ml ASDIRECTED PRN IV SEE LABEL COMMENTS 05/20/21 13:50 Cancel Sodium Chloride (Saline Lock Flush) 10 ml PICC IV 05/20/21 06:00 05/25/21 05:37 Sodium Chloride (Saline Lock Flush) 10 ml PICC IV 05/20/21 18:00 OLGA Trotter MD May 25, 2021 12:16
[2021-05-25 14:00] VITALS: BP 131/60
[2021-05-25 20:00] VITALS: BP 152/69
[2021-05-25] MEDS: MIRTAZAPINE 7.5MG PER 1/2 TABLET NG SCH (20:39)
[2021-05-25] MEDS: PRAVASTATIN 20 MG TAB NG SCH (20:39)
[2021-05-26 06:00] VITALS: BP 162/82
[2021-05-26] MEDS: SODIUM CHLORIDE 0.9% INJ 10 ML SYR IV SCH ×2 (06:11→17:18)
[2021-05-26] MEDS: LEVOTHYROXINE 37.5MCG PER 1/2TAB (0.0375MG) NG SCH (06:11)
[2021-05-26 06:57] VITALS: BP 148/74
--- NOTE | 2021-05-26 08:38 | IPNPDOC ---
Text Note Date of Service The patient was seen on 05/26/21. NOTE General surgery. Dr. Young The patient is an 86-year-old female with history of longstanding, large hiatal hernia, status post admission to [facility] 05/07/2021 to 05/19/2021 with gastric volvulus. Transferred to ARU 05/19/21. On 05/20/2021 the patient had nausea and vomiting, NG tube was replaced. NG tube is currently clamped and the patient has been advanced to full liquids 05/24/2021 which she is currently tolerating. Also supplementing with Ensure for additional nutrition. This morning, the patient is participating with therapy. She denies abdominal pain, nausea or vomiting. She had full liquids for breakfast. Afebrile T-max 99.8 Heart rate 58, respiratory rate 19, blood pressure 148/74, 98% room air NG tube in place, clamped. Lungs with good air entry, no wheezing S1-S2 regular rate rhythm Abdomen is soft, nontender, nondistended No new labs this morning. Assessment/plan History of large hiatal hernia, gastric volvulus. The patient is reviewed as per Dr. Young Denies abdominal pain or nausea. NG tube is currently clamped Tolerating full liquids currently. Oral intake was recorded as 540 mL yesterday. Ensure is ordered for supplementation as well. Protonix IV Tentative plan is to proceed with robotic assisted laparoscopic hiatal hernia repair as per Dr. Young pending OR availability. Continue to monitor. VS,Fishbone, I+O VS, Fishbone, I+O Laboratory Tests 05/25/21 11:34 Vital Signs Date Time Temp Pulse Resp B/P (MAP) Pulse Ox O2 Delivery O2 Flow Rate FiO2 05/26/21 06:57 148/74 (98) 05/26/21 06:00 99.1 58 19 98 Room Air I&O- Last 24 Hours up to 6 AM 05/26/21 06:00 Intake Total 540 ml Output Total 100 ml Balance 440 ml Attending Note Attending Note Agree with note by DARRYL Duff. Patient still with limited recorded oral intake. I am looking for OR time late in week, probably Tuesday. Pt encouraged to continue PT and to take ensure. Sil Duff May 26, 2021 08:38 Lucio Young Jun 06, 2021 14:23
[2021-05-26] MEDS: HEPARIN SOD (PORCINE) 5000UNITS/ML 1ML VIAL/SYRINGE SC SCH ×2 (09:16→21:43)
[2021-05-26] MEDS: SODIUM CHLORIDE 0.9% INJ 10 ML SYR IV PRN (09:16)
[2021-05-26] MEDS: PANTOPRAZOLE 40MG VIAL (C9113 PER 1) IV SCH (09:16)
[2021-05-26] MEDS: CYANOCOBALAMIN 500 MCG TAB NG SCH (09:17)
[2021-05-26] MEDS: SIMETHICONE 80MG CHEW TAB NG SCH ×3 (09:17→21:42)
[2021-05-26] MEDS: REMEDY PHYTOPLEX Z-GUARD PASTE 113GM TUBE (FROM STOREROOM PRODUCT) TOP SCH ×3 (09:18→21:43)
[2021-05-26] MEDS ORDERED: LevoFLOXacin 250 MG TABLET PO SCH (12:05)
[2021-05-26 14:00] VITALS: BP 144/67
--- NOTE | 2021-05-26 15:10 | IPNPDOC ---
PM&R Progress Note DATE OF SERVICE: May 26, 2021 Rn Corrections Progress Note Subjective: Patient seen in her room stating she wants to get home with her and is happy he will come in for training tomorrow. She states she has additional help at home. She reports she is developing a cough REVIEW OF SYSTEMS: The following is a completed review of systems and has been reviewed. Review of systems otherwise unremarkable. PAIN: Patient self reports abdominal pain EYES: No recent vision changes EARS, NOSE, & THROAT: No throat pain, or dysphagia, or rhinorrhea CARDIOVASCULAR: Denies chest pain or palpitations PULMONARY: Denies shortness of breath, +cough GASTROINTESTINAL: +NGT (clamped) GENITOURINARY: denies dysuria MUSCULOSKELETAL: generalized weakness NEUROLOGICAL:+peripheral polyneuropathy HEMATOLOGICAL: denies easy bruising SKIN: denies rash PSYCHIATRIC: +depressed All other review of systems found to be negative. PHYSICAL EXAMINATION: VITAL SIGNS: Please see below. GENERAL: Pleasant and cooperative. No acute distress. HEENT: PERRL. Extraocular movements intact. Clear conjunctiva. +dentures CARDIOVASCULAR: Regular rate and rhythm. No murmurs, rubs, or gallops LUNGS: Clear to auscultation bilaterally. No wheezes. No rhonchi ABDOMEN: Soft, nontender, nondistended, no guarding, no rebound tenderness. Positive bowel sounds. NEUROLOGICAL: Alert and oriented to self and place, Cranial nerves II through XII grossly intact. Sensation diminished to light touch bilat LE in stocking pattern EXTREMITIES: 4\\5 strength bilateral upper extremities. 3+\\5 strength right lower extremity. 3+/5 strength in left lower extremity. bilat ankle deformity ASSESSMENT:86-year-old F with past medical history of DM with peripheral polyneuropathy and large hiatal hernia who presents status post gastric volvulus s/p EGD decompression PLAN: 1. Rehab- PT/OT advance mobility and ADLS, strengthen/stretch/maintain ROM all 4limbs- working on [id number] 2. Neuro- hx of diabetic peripheral polyneuropathy contributing to overall mobility impairments 3. GI- patient with large hiatal hernia with recent volvulus and EGD decompression on 05-07-21, not deemed to be surgical candidate- her diet was recently advanced, however on 05-20-21 exam she has recurrent emesis (FOBT negative) with KUB revealing large gastric bubble with no bowel obstruction- discussed case with Dr. Young who recommended trial of NGT which has been clamped and patient tolerating clear liquid diet, plan for robot-assisted lap surgery for hiatal hernia repair pending OR availability 4. CArdiac- cont BP meds, adjust as needed -HLD cont statin -medicine consulted to assist in overall management 5. Resp- monitor for infection- patient developing a cough will order CT chest to look for infiltrate, will start Combivent and guaifenesin in meantime, HOB >30 -recent Covid exposure, Resp panel negative 6. Pain- cont fentanyl and norco 7. Psych- cymbalta on hold while receiving meds via NGT, cont Remeron for depression 8. DVT ppx- heparin 9. Endo- hx of DM with peripheral polyneuropathy managed with diet alone -hypothyroidism cont Synthroid 10. - UA strongly suggestive of UTI, started on Levaquin, f/u Ucx 11. Dispo- TBD Allergies Coded Allergies: TAPE (Verified Allergy, Intermediate, RASH, 05/21/10) meloxicam (Verified Adverse Reaction, Mild, "I think it made me sick", 03/19/19) pioglitazone (Verified Adverse Reaction, Mild, bruising, 03/19/19) pregabalin (Verified Adverse Reaction, Mild, affects vision, 03/19/19) Vital Signs Vital Signs Date Time Temp Pulse Resp B/P (MAP) Pulse Ox O2 Delivery O2 Flow Rate FiO2 05/26/21 09:17 148/74 05/26/21 09:17 58 05/26/21 06:00 99.1 19 98 Room Air Laboratory Data Labs 24H Laboratory Tests 2 05/26/21 11:05: Urine Color YELLOW, Urine Appearance CLOUDYH, Urine pH 8.0, Urine Specific [place] 1.010, Urine Protein 3+H, Urine Glucose (UA) NEGATIVE, Urine Ketones NEGATIVE, Urine Blood 2+H, Urine Nitrite POSITIVEH, Urine Bilirubin NEGATIVE, Urine Urobilinogen 0.2, Urine Leukocyte Esterase 2+H, Urine WBC (Auto) 122H, Urine RBC (Auto) 84H, Urine Hyaline Casts (Auto) 0, Urine Bacteria (Auto) 2+H, Urine Squamous Epithelial Cells 6, Urine Mucus (Auto) SMALL, Urine Sperm (Auto) Microbiology Microbiology 05/26/21 Urine Culture, Received Pending 05/20/21 Respiratory Virus Panel (PCR) (WILY) - Final, Complete 05/20/21 Occult Blood - Final, Complete Current Medications Current Medications Current Medications Medications (Trade) Dose Ordered Sig/Alice Route PRN Reason Start Time Stop Time Status Last Admin Dose Admin Acetaminophen/ Hydrocodone Bitart (Anexsia, [place] 7.5mg/325mg) 1 tab Q4HP PRN NG MILD PAIN (PS 1-4) 05/20/21 16:00 05/25/21 10:45 Acetaminophen/ Hydrocodone Bitart (Anexsia, [place] 7.5mg/325mg) 1 tab Q4HP PRN PO MILD PAIN (PS 1-4) 05/19/21 11:50 05/20/21 16:11 DC 05/19/21 21:01 Amlodipine Besylate (Norvasc) 10 mg DAILY NG 05/21/21 09:00 05/26/21 09:17 Amlodipine Besylate (Norvasc) 10 mg DAILY PO 05/20/21 09:00 05/20/21 16:11 DC 05/20/21 08:00 Cyanocobalamin (Vitamin B12) 1,000 mcg DAILY NG 05/21/21 09:00 05/26/21 09:17 Cyanocobalamin (Vitamin B12) 1,000 mcg DAILY PO 05/20/21 09:00 05/20/21 16:11 DC 05/20/21 08:00 Dextrose/Sodium Chloride 1,000 ml @ 60 mls/hr [id number] IV 05/20/21 10:55 05/24/21 13:39 DC 05/23/21 21:51 Docusate Sodium (Colace) 200 mg BID PO 05/19/21 21:00 Hold 05/20/21 08:00 Duloxetine HCl (Cymbalta) 60 mg DAILY PO 05/20/21 09:00 Hold 05/20/21 08:00 Fentanyl (Duragesic) 75 mcg Q72H TOP 05/21/21 09:00 05/24/21 09:41 Heparin Sodium (Heparin (Flush)) 200 units ASDIRECTED PRN IV SEE LABEL COMMENTS 05/19/21 22:30 05/26/21 09:16 Heparin Sodium (Heparin (Flush)) 200 units ASDIRECTED PRN IV SEE LABEL COMMENTS 05/20/21 13:50 Cancel Heparin Sodium (Heparin (Flush)) 200 units PICC IV 05/20/21 06:00 05/26/21 06:11 Heparin Sodium (Heparin (Flush)) 200 units PICC IV 05/20/21 18:00 Cancel Heparin Sodium (Porcine) (Heparin) 5,000 units Q12H SC 05/19/21 21:00 05/26/21 09:16 Home Med (Home Med List Complete!) ASDIRECTED XX 05/19/21 15:45 05/19/21 15:50 DC Levofloxacin (Levaquin) 250 mg DAILY@06 PO 05/26/21 12:05 05/28/21 06:01 Levothyroxine Sodium (Synthroid) 37.5 mcg DAILY@06 NG 05/21/21 06:00 05/26/21 06:11 Levothyroxine Sodium (Synthroid) 37.5 mcg DAILY@06 PO 05/20/21 06:00 05/20/21 16:11 DC 05/20/21 06:52 Lisinopril (Prinivil) 10 mg DAILY NG 05/21/21 09:00 05/26/21 09:17 Lisinopril (Prinivil) 10 mg DAILY PO 05/20/21 09:00 05/20/21 16:11 DC 05/20/21 08:00 Mirtazapine (Remeron) 7.5 mg QHS NG 05/20/21 21:00 05/25/21 20:39 Mirtazapine (Remeron) 7.5 mg QHS PO 05/19/21 21:00 05/20/21 16:11 DC 05/19/21 21:41 Naloxone HCl (Narcan) 0.1 mg Q5MP PRN IV RESP. RATE < 10 05/19/21 11:50 Nitroglycerin (Nitrostat (1/ 150)) 0.4 mg Q5MP PRN SL CHEST PAIN 05/19/21 11:50 Non-Formulary Medication ( See Comment Field Below ) SEE COMMENTS SECTION ASDIRECTED XX 05/21/21 09:00 Ondansetron HCl (Zofran Odt) 4 mg Q6HP PRN PO NAUSEA OR VOMITING 05/19/21 16:00 05/20/21 09:46 DC 05/20/21 06:33 Ondansetron HCl (Zofran Odt) 4 mg Q6HP PRN SL NAUSEA OR VOMITING 05/20/21 10:00 Pantoprazole Sodium (Protonix) 40 mg DAILY IV 05/21/21 09:00 05/26/21 09:16 Pantoprazole Sodium (Protonix) 40 mg DAILY PO 05/19/21 09:00 05/20/21 16:11 DC 05/20/21 08:00 Pravastatin Sodium (Pravachol) 40 mg QHS NG 05/20/21 21:00 05/25/21 20:39 Pravastatin Sodium (Pravachol) 40 mg QHS PO 05/19/21 21:00 05/20/21 16:11 DC 05/19/21 21:00 Senna (Senokot) 1 tab QHS PRN NG constipation 05/20/21 21:00 Senna (Senokot) 1 tab QHS PRN PO constipation 05/20/21 21:00 05/20/21 16:11 DC Senna (Senokot) 2 tab BID PO 05/19/21 21:00 05/20/21 10:49 DC 05/20/21 07:59 Simethicone (Mylicon) 80 mg TID NG 05/20/21 16:00 05/26/21 09:17 Simethicone (Mylicon) 80 mg TID PO 05/19/21 16:00 05/20/21 16:11 DC 05/20/21 07:59 Sodium Chloride (Saline Lock Flush) 10 ml ASDIRECTED PRN IV SEE LABEL COMMENTS 05/19/21 22:30 05/26/21 09:16 Sodium Chloride (Saline Lock Flush) 10 ml ASDIRECTED PRN IV SEE LABEL COMMENTS 05/20/21 13:50 Cancel Sodium Chloride (Saline Lock Flush) 10 ml PICC IV 05/20/21 06:00 05/26/21 06:11 Sodium Chloride (Saline Lock Flush) 10 ml PICC IV 05/20/21 18:00 OLGA Trotter MD May 26, 2021 15:10
[2021-05-26] MEDS: NYSTATIN 100,000 UNITS/GM TOPICAL PWD 15 GM TOP SCH ×2 (16:00→21:43)
[2021-05-26] MEDS: guaiFENesin 200 MG TAB PO SCH ×2 (16:32→21:42)
--- NOTE | 2021-05-26 16:56 | REP ---
INDICATION: r/o infiltrate COMPARISON: 05/07/2021 TECHNIQUE: Standard helical technique without intravenous contrast FINDINGS: There is no significant change in appearance of the mediastinum or pulmonary maribel. There is a massive hiatal hernia status quo. A nasogastric tube is seen coiled within the hiatal hernia. There is no significant change in the imaged upper abdomen or imaged osseous structures. There are multiple vertebral body compression fractures with vertebral plana of T12 status quo. A small right pleural effusion has developed since the last exam. Evaluation of the lung jorge shows bilateral lower lung field opacities with air bronchograms left greater than right but having a stable appearance on the left compared to the prior exam and newly developed on the right compared to the prior exam. There are no other significant lung field changes. IMPRESSION: 1. New small right pleural effusion. 2. New right lower lobe patchy opacities likely subsegmental atelectatic changes. Developing pneumonia cannot be ruled out. 3. Unchanged left lower lobe opacities. 4. Hiatal hernia as described above. 5. Osseous structures as described above. 6. Other findings as described above. <Electronically signed by Sung Gore > 05/26/21 [id number]
[2021-05-26 20:00] VITALS: BP 132/63
[2021-05-26] MEDS: COMBIVENT RESPIMAT 100-20MCG INHALER 4GM INH SCH (20:00)
[2021-05-26] MEDS: MIRTAZAPINE 7.5MG PER 1/2 TABLET NG SCH (21:42)
[2021-05-26] MEDS: PRAVASTATIN 20 MG TAB NG SCH (21:42)
[2021-05-26] MEDS: PIPERACILLIN/TAZOBACTAM SOD 3.375 GM in D5W MINI-BAG PLUS 50 ML IV SCH (22:03)
[2021-05-27] MEDS: PIPERACILLIN/TAZOBACTAM SOD 3.375 GM in D5W MINI-BAG PLUS 50 ML IV SCH ×4 (02:13→19:34)
[2021-05-27] MEDS: LEVOTHYROXINE 37.5MCG PER 1/2TAB (0.0375MG) NG SCH (05:31)
[2021-05-27] MEDS: SODIUM CHLORIDE 0.9% INJ 10 ML SYR IV SCH ×2 (05:32→17:09)
[2021-05-27 06:00] VITALS: BP 161/69
[2021-05-27 06:16] LABS: BASO # 0.1 10^3/uL (0.0-0.2); BASO % 1.3 % (0.0-1.0); EOS # 0.1 10^3/uL (0.0-0.5); EOS % 1.8 % (0.0-3.0); HEMATOCRIT 31.4 % (36.0-47.0); HEMOGLOBIN 10.2 g/dl (12.0-15.5); LYMPH # 1.8 10^3/uL (1.5-5.0); LYMPH % 32.5 % (24.0-44.0); MEAN CORPUSCULAR HEMOGLOBIN 32.8 pg (27.0-33.0); MEAN CORPUSCULAR HGB CONC 32.5 g/dl (32.0-36.5); MONO # 0.7 10^3/uL (0.0-0.8); MONO % 12.3 % (2.0-8.0); NEUTROPHILS # 2.8 10^3/uL (1.5-8.5); NEUTROPHILS % 50.6 % (36.0-66.0); PLATELET COUNT, AUTOMATED 343 10^3/uL (150-450); RED BLOOD COUNT 3.11 10^6/uL (4.00-5.40); WHITE BLOOD COUNT 5.5 10^3/uL (4.0-10.0)
[2021-05-27 06:38] LABS: BLOOD UREA NITROGEN 8 MG/DL (7-18); CALCIUM LEVEL 8.5 MG/DL (8.8-10.2); CARBON DIOXIDE LEVEL 28 MEQ/L (21-32); CHLORIDE LEVEL 106 MEQ/L (98-107); CREATININE FOR GFR 0.79 MG/DL (0.55-1.30); GLOMERULAR FILTRATION RATE > 60.0 (>32); GLUCOSE, FASTING 95 MG/DL (70-100); POTASSIUM SERUM 3.8 MEQ/L (3.5-5.1); SODIUM LEVEL 140 MEQ/L (136-145)
[2021-05-27 06:51] VITALS: BP 138/58
[2021-05-27] MEDS: COMBIVENT RESPIMAT 100-20MCG INHALER 4GM INH SCH ×3 (08:38→21:03)
[2021-05-27] MEDS: PANTOPRAZOLE 40MG VIAL (C9113 PER 1) IV SCH (08:43)
[2021-05-27] MEDS: HEPARIN SOD (PORCINE) 5000UNITS/ML 1ML VIAL/SYRINGE SC SCH ×2 (08:44→21:43)
[2021-05-27] MEDS: CYANOCOBALAMIN 500 MCG TAB NG SCH (08:44)
[2021-05-27] MEDS: SIMETHICONE 80MG CHEW TAB NG SCH (08:44)
[2021-05-27] MEDS: guaiFENesin 200 MG TAB PO SCH ×3 (08:44→21:40)
[2021-05-27] MEDS: fentaNYL 75 MCG/HR PATCH TOP SCH (08:45)
[2021-05-27] MEDS: NYSTATIN 100,000 UNITS/GM TOPICAL PWD 15 GM TOP SCH ×3 (08:46→21:43)
[2021-05-27] MEDS: REMEDY PHYTOPLEX Z-GUARD PASTE 113GM TUBE (FROM STOREROOM PRODUCT) TOP SCH ×3 (08:46→21:45)
[2021-05-27] MEDS: SODIUM CHLORIDE 0.9% INJ 10 ML SYR IV PRN (08:55)
--- NOTE | 2021-05-27 10:47 | IPNPDOC ---
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 She denies any further na usea/vomiting. Her cough is better. REVIEW OF SYSTEMS: The following is a completed review of systems and has been reviewed. Review of systems otherwise unremarkable. PAIN: Patient self reports abdominal pain EYES: No recent vision changes EARS, NOSE, & THROAT: No throat pain, or dysphagia, or rhinorrhea CARDIOVASCULAR: Denies chest pain or palpitations PULMONARY: Denies shortness of breath, +cough (improving) GASTROINTESTINAL: +NGT (clamped) GENITOURINARY: denies dysuria MUSCULOSKELETAL: generalized weakness NEUROLOGICAL:+peripheral polyneuropathy HEMATOLOGICAL: denies easy bruising SKIN: denies rash PSYCHIATRIC: +depressed All other review of systems found to be negative. PHYSICAL EXAMINATION: VITAL SIGNS: Please see below. GENERAL: Pleasant and cooperative. No acute distress. HEENT: PERRL. Extraocular movements intact. Clear conjunctiva. +dentures CARDIOVASCULAR: Regular rate and rhythm. No murmurs, rubs, or gallops LUNGS: Clear to auscultation bilaterally. No wheezes. No rhonchi ABDOMEN: Soft, nontender, nondistended, no guarding, no rebound tenderness. Positive bowel sounds. NEUROLOGICAL: Alert and oriented to self and place, Cranial nerves II through XII grossly intact. Sensation diminished to light touch bilat LE in stocking pattern EXTREMITIES: 4\\5 strength bilateral upper extremities. 3+\\5 strength right lower extremity. 3+/5 strength in left lower extremity. RUE +edema bilat ankle deformity ASSESSMENT:86-year-old F with past medical history of DM with peripheral polyneuropathy and large hiatal hernia who presents status post gastric volvulus s/p EGD decompression PLAN: 1. Rehab- PT/OT advance mobility and ADLS, strengthen/stretch/maintain ROM all 4limbs- working on [id number] 2. Neuro- hx of diabetic peripheral polyneuropathy contributing to overall mobility impairments 3. GI- patient with large hiatal hernia with recent volvulus and EGD decompression on 05-07-21, not deemed to be surgical candidate- her diet was recently advanced, however on 05-20-21 exam she has recurrent emesis (FOBT negative) with KUB revealing large gastric bubble with no bowel obstruction- discussed case with Dr. Young who recommended trial of NGT which has been clamped and patient tolerating full liquid diet, plan for robot-assisted lap surgery for hiatal hernia repair pending OR availability- discussed removing NGT with Dr. Young who says ok 4. CArdiac- cont BP meds, adjust as needed -HLD cont statin -medicine consulted to assist in overall management 5. Resp- monitor for infection- patient developing a cough with CT Chest on 05-26-21 showing, "New right lower lobe patchy opacities likely subsegmental atelectatic changes. Developing pneumonia cannot be ruled out" started on Iv Zosyn for possible aspiration PNA given recent emesis and new cough which is now improving, cont Combivent and guaifenesin, HOB >30 -recent Covid exposure, Resp panel negative 6. Pain- cont fentanyl and norco 7. Psych- cymbalta on hold while receiving meds via NGT, cont Remeron for depression 8. DVT ppx- heparin -RUE swelling with PiCC will order US 9. Endo- hx of DM with peripheral polyneuropathy managed with diet alone -hypothyroidism cont Synthroid 10. - UA strongly suggestive of UTI, started on Levaquin but switched to Zosyn for aspiration PNA, f/u Ucx 11. Dispo- TBD Allergies Coded Allergies: TAPE (Verified Allergy, Intermediate, RASH, 05/21/10) meloxicam (Verified Adverse Reaction, Mild, "I think it made me sick", 03/19/19) pioglitazone (Verified Adverse Reaction, Mild, bruising, 03/19/19) pregabalin (Verified Adverse Reaction, Mild, affects vision, 03/19/19) Vital Signs Vital Signs Date Time Temp Pulse Resp B/P (MAP) Pulse Ox O2 Delivery O2 Flow Rate FiO2 05/27/21 09:15 16 05/27/21 08:44 138/58 05/27/21 08:44 50 05/27/21 06:00 98.1 93 Room Air Laboratory Data CBC/BMP Laboratory Tests 05/27/21 05:54 Labs 24H Laboratory Tests 2 05/26/21 11:05: Urine Color YELLOW, Urine Appearance CLOUDYH, Urine pH 8.0, Urine Specific [place] 1.010, Urine Protein 3+H, Urine Glucose (UA) NEGATIVE, Urine Ketones NEGATIVE, Urine Blood 2+H, Urine Nitrite POSITIVEH, Urine Bilirubin NEGATIVE, Urine Urobilinogen 0.2, Urine Leukocyte Esterase 2+H, Urine WBC (Auto) 122H, Urine RBC (Auto) 84H, Urine Hyaline Casts (Auto) 0, Urine Bacteria (Auto) 2+H, Urine Squamous Epithelial Cells 6, Urine Mucus (Auto) SMALL, Urine Sperm (Auto) 05/27/21 05:54: Immature Granulocyte % (Auto) 1.5, Neutrophils (%) (Auto) 50.6, Lymphocytes (%) (Auto) 32.5, Monocytes (%) (Auto) 12.3H, Eosinophils (%) (Auto) 1.8, Basophils (%) (Auto) 1.3H, Neutrophils # (Auto) 2.8, Lymphocytes # (Auto) 1.8, Monocytes # (Auto) 0.7, Eosinophils # (Auto) 0.1, Basophils # (Auto) 0.1, Nucleated Red Blood Cells % (auto) 0.0, Anion Gap 6L, Glomerular Filtration Rate > 60.0, Calcium Level 8.5L Microbiology Microbiology 05/26/21 Urine Culture, Received Pending 05/20/21 Respiratory Virus Panel (PCR) ([facility]) - Final, Complete 05/20/21 Occult Blood - Final, Complete Current Medications Current Medications Current Medications Medications (Trade) Dose Ordered Sig/Alice Route PRN Reason Start Time Stop Time Status Last Admin Dose Admin Acetaminophen/ Hydrocodone Bitart (Anexsia, [place] 7.5mg/325mg) 1 tab Q4HP PRN NG MILD PAIN (PS 1-4) 05/20/21 16:00 05/25/21 10:45 Acetaminophen/ Hydrocodone Bitart (Anexsia, [place] 7.5mg/325mg) 1 tab Q4HP PRN PO MILD PAIN (PS 1-4) 05/19/21 11:50 05/20/21 16:11 DC 05/19/21 21:01 Albuterol/ Ipratropium (Combivent Respimat 100-20mcg) 1 puff RTID INH 05/26/21 20:00 05/27/21 08:38 Amlodipine Besylate (Norvasc) 10 mg DAILY NG 05/21/21 09:00 05/27/21 08:44 Amlodipine Besylate (Norvasc) 10 mg DAILY PO 05/20/21 09:00 05/20/21 16:11 DC 05/20/21 08:00 Cyanocobalamin (Vitamin B12) 1,000 mcg DAILY NG 05/21/21 09:00 05/27/21 08:44 Cyanocobalamin (Vitamin B12) 1,000 mcg DAILY PO 05/20/21 09:00 05/20/21 16:11 DC 05/20/21 08:00 Dextrose/Sodium Chloride 1,000 ml @ 60 mls/hr [id number] IV 05/20/21 10:55 05/24/21 13:39 DC 05/23/21 21:51 Docusate Sodium (Colace) 200 mg BID PO 05/19/21 21:00 Hold 05/20/21 08:00 Duloxetine HCl (Cymbalta) 60 mg DAILY PO 05/20/21 09:00 Hold 05/20/21 08:00 Fentanyl (Duragesic) 75 mcg Q72H TOP 05/21/21 09:00 05/27/21 08:45 Guaifenesin (Robitussin Tab) 400 mg TID PO 05/26/21 16:00 05/27/21 08:44 Heparin Sodium (Heparin (Flush)) 200 units ASDIRECTED PRN IV SEE LABEL COMMENTS 05/19/21 22:30 05/27/21 08:55 Heparin Sodium (Heparin (Flush)) 200 units ASDIRECTED PRN IV SEE LABEL COMMENTS 05/20/21 13:50 Cancel Heparin Sodium (Heparin (Flush)) 200 units PICC IV 05/20/21 06:00 05/27/21 05:32 Heparin Sodium (Heparin (Flush)) 200 units PICC IV 05/20/21 18:00 Cancel Heparin Sodium (Porcine) (Heparin) 5,000 units Q12H SC 05/19/21 21:00 05/27/21 08:44 Home Med (Home Med List Complete!) ASDIRECTED XX 05/19/21 15:45 05/19/21 15:50 DC Levofloxacin (Levaquin) 250 mg DAILY@06 PO 05/26/21 12:05 05/26/21 19:03 DC 05/26/21 15:04 Levothyroxine Sodium (Synthroid) 37.5 mcg DAILY@06 NG 05/21/21 06:00 05/27/21 05:31 Levothyroxine Sodium (Synthroid) 37.5 mcg DAILY@06 PO 05/20/21 06:00 05/20/21 16:11 DC 05/20/21 06:52 Lisinopril (Prinivil) 10 mg DAILY NG 05/21/21 09:00 05/27/21 08:44 Lisinopril (Prinivil) 10 mg DAILY PO 05/20/21 09:00 05/20/21 16:11 DC 05/20/21 08:00 Mirtazapine (Remeron) 7.5 mg QHS NG 05/20/21 21:00 05/26/21 21:42 Mirtazapine (Remeron) 7.5 mg QHS PO 05/19/21 21:00 05/20/21 16:11 DC 05/19/21 21:41 Naloxone HCl (Narcan) 0.1 mg Q5MP PRN IV RESP. RATE < 10 05/19/21 11:50 Nitroglycerin (Nitrostat (1/ 150)) 0.4 mg Q5MP PRN SL CHEST PAIN 05/19/21 11:50 Non-Formulary Medication ( See Comment Field Below ) SEE COMMENTS SECTION ASDIRECTED XX 05/21/21 09:00 Nystatin (Mycostatin Powder, Nystop) abdominal folds and un... TID TOP 05/26/21 16:00 05/27/21 08:46 Ondansetron HCl (Zofran Odt) 4 mg Q6HP PRN PO NAUSEA OR VOMITING 05/19/21 16:00 05/20/21 09:46 DC 05/20/21 06:33 Ondansetron HCl (Zofran Odt) 4 mg Q6HP PRN SL NAUSEA OR VOMITING 05/20/21 10:00 Pantoprazole Sodium (Protonix) 40 mg DAILY IV 05/21/21 09:00 05/27/21 08:43 Pantoprazole Sodium (Protonix) 40 mg DAILY PO 05/19/21 09:00 05/20/21 16:11 DC 05/20/21 08:00 Piperacillin Sod/ Tazobactam Sod 3.375 gm/Dextrose 50 ml @ 50 mls/hr Q6H IV 05/26/21 20:00 05/27/21 08:43 Pravastatin Sodium (Pravachol) 40 mg QHS NG 05/20/21 21:00 05/26/21 21:42 Pravastatin Sodium (Pravachol) 40 mg QHS PO 05/19/21 21:00 05/20/21 16:11 DC 05/19/21 21:00 Senna (Senokot) 1 tab QHS PRN NG constipation 05/20/21 21:00 Senna (Senokot) 1 tab QHS PRN PO constipation 05/20/21 21:00 05/20/21 16:11 DC Senna (Senokot) 2 tab BID PO 05/19/21 21:00 05/20/21 10:49 DC 05/20/21 07:59 Simethicone (Mylicon) 80 mg TID NG 05/20/21 16:00 05/27/21 08:44 Simethicone (Mylicon) 80 mg TID PO 05/19/21 16:00 05/20/21 16:11 DC 05/20/21 07:59 Sodium Chloride (Saline Lock Flush) 10 ml ASDIRECTED PRN IV SEE LABEL COMMENTS 05/19/21 22:30 05/27/21 08:55 Sodium Chloride (Saline Lock Flush) 10 ml ASDIRECTED PRN IV SEE LABEL COMMENTS 05/20/21 13:50 Cancel Sodium Chloride (Saline Lock Flush) 10 ml PICC IV 05/20/21 06:00 05/27/21 05:32 Sodium Chloride (Saline Lock Flush) 10 ml PICC IV 05/20/21 18:00 Cancel OLGA BARRIENTOS MD May 27, 2021 10:47
[2021-05-27] MEDS ORDERED: SENNA 8.6 MG TAB (SENOKOT) PO PRN (13:25)
[2021-05-27 14:31] VITALS: BP 145/70
[2021-05-27] MEDS: SIMETHICONE 80MG CHEW TAB PO SCH ×2 (15:48→21:40)
[2021-05-27] MEDS: DULoxetine 30MG CAPSULE (CYMBALTA) PO SCH (15:48)
[2021-05-27] MEDS: LIDOCAINE 5% (LIDODERM) PATCH TD SCH (15:49)
--- NOTE | 2021-05-27 16:42 | REP ---
INDICATION: swelling. COMPARISON: None. TECHNIQUE: Multiple ultrasonographic images of the deep venous structures of the right upper extremity were obtained to rule out deep venous thrombosis. The contralateral subclavian vein was also interrogated in a limited fashion for comparison. FINDINGS: There is abnormal echogenic material seen in the distal cephalic vein in a nonocclusive fashion. There is echogenic material seen in the brachial vein from proximal to distal in an occlusive type fashion. This is seen in a limited view due to overlying bandage. A PICC line catheter is noted in the basilic vein IMPRESSION: Abnormal clot formation as described above. <Electronically signed by Sung Gore > 05/27/21 [id number]
[2021-05-27] MEDS: CHLORASEPTIC SPRAY MT SCH ×2 (17:09→21:43)
--- NOTE | 2021-05-27 20:17 | IPNPDOC ---
Text Note Date of Service Significant event NOTE Pt with leaking PICC. Zosyn nonadmin. Monitor for any worsening s/s infection- pt had gotten 4 doses zosyn and had recently been on levaquin prior- will give omicef x 1 tonight. site care to PICC and PICC to remain for emergent use if needed tonight. ACCESS team in AM to evaluate/ replace accordingly per attending recc. VS,Fishbone, I+O VS, Fishbone, I+O Laboratory Tests 05/27/21 05:54 Vital Signs Date Time Temp Pulse Resp B/P (MAP) Pulse Ox O2 Delivery O2 Flow Rate FiO2 05/27/21 14:31 98.4 68 18 145/70 (95) 92 Room Air I&O- Last 24 Hours up to 6 AM 05/27/21 06:00 Intake Total 730 ml Output Total 0 ml Balance 730 ml GUILLERMO LESTER NP May 27, 2021 20:17
[2021-05-27 20:30] VITALS: BP 104/54
[2021-05-27] MEDS ORDERED: CEFDINIR 300 MG CAP (OMNICEF) PO ONE (20:39)
[2021-05-27] MEDS: PRAVASTATIN 20 MG TAB PO SCH (21:40)
[2021-05-27] MEDS: DOCUSATE SODIUM 100MG CAPSULE PO SCH (21:41)
[2021-05-27] MEDS: ANEXSIA, NORCO 7.5MG/325MG TABLET(HYDROCODONE/APAP) PO PRN (21:41)
[2021-05-27] MEDS: **NOTE PATIENT COMMENT** MISC XX SCH (21:44)
[2021-05-27] MEDS: MIRTAZAPINE 7.5MG PER 1/2 TABLET PO SCH (22:11)
[2021-05-28] MEDS: PIPERACILLIN/TAZOBACTAM SOD 3.375 GM in D5W MINI-BAG PLUS 50 ML IV SCH ×2 (02:00→08:00)
[2021-05-28] MEDS: SODIUM CHLORIDE 0.9% INJ 10 ML SYR IV SCH (05:47)
[2021-05-28] MEDS: LEVOTHYROXINE 37.5MCG PER 1/2TAB (0.0375MG) PO SCH (05:57)
[2021-05-28 06:00] VITALS: BP 122/52
[2021-05-28] MEDS: COMBIVENT RESPIMAT 100-20MCG INHALER 4GM INH SCH ×3 (06:31→19:43)
[2021-05-28] MEDS: LIDOCAINE 5% (LIDODERM) PATCH TD SCH (08:30)
[2021-05-28] MEDS: NYSTATIN 100,000 UNITS/GM TOPICAL PWD 15 GM TOP SCH ×3 (08:31→21:52)
[2021-05-28] MEDS: DOCUSATE SODIUM 100MG CAPSULE PO SCH ×2 (08:32→21:50)
[2021-05-28] MEDS: DULoxetine 30MG CAPSULE (CYMBALTA) PO SCH (08:32)
[2021-05-28] MEDS: PANTOPRAZOLE 40MG TAB (PROTONIX) PO SCH (08:32)
[2021-05-28] MEDS: guaiFENesin 200 MG TAB PO SCH ×3 (08:32→21:50)
[2021-05-28] MEDS: SIMETHICONE 80MG CHEW TAB PO SCH ×3 (08:33→21:50)
[2021-05-28] MEDS: CYANOCOBALAMIN 500 MCG TAB PO SCH (08:33)
[2021-05-28] MEDS: CHLORASEPTIC SPRAY MT SCH ×4 (08:34→21:58)
[2021-05-28] MEDS: REMEDY PHYTOPLEX Z-GUARD PASTE 113GM TUBE (FROM STOREROOM PRODUCT) TOP SCH ×3 (08:34→21:52)
[2021-05-28] MEDS: HEPARIN SOD (PORCINE) 5000UNITS/ML 1ML VIAL/SYRINGE SC SCH ×2 (09:00→21:51)
--- NOTE | 2021-05-28 12:11 | IPNPDOC ---
PM&R Progress Note DATE OF SERVICE: May 28, 2021 Manager Of Medical Progress Note Subjective: Patient seen in the room sttaing her cough is resolved, but that her left knee is painful to put weight through. REVIEW OF SYSTEMS: The following is a completed review of systems and has been reviewed. Review of systems otherwise unremarkable. PAIN: Patient self reports abdominal pain EYES: No recent vision changes EARS, NOSE, & THROAT: No throat pain, or dysphagia, or rhinorrhea CARDIOVASCULAR: Denies chest pain or palpitations PULMONARY: Denies shortness of breath, +cough (improving) GASTROINTESTINAL: +NGT (clamped) GENITOURINARY: denies dysuria MUSCULOSKELETAL: generalized weakness NEUROLOGICAL:+peripheral polyneuropathy HEMATOLOGICAL: denies easy bruising SKIN: denies rash PSYCHIATRIC: +depressed All other review of systems found to be negative. PHYSICAL EXAMINATION: VITAL SIGNS: Please see below. GENERAL: Pleasant and cooperative. No acute distress. HEENT: PERRL. Extraocular movements intact. Clear conjunctiva. +dentures CARDIOVASCULAR: Regular rate and rhythm. No murmurs, rubs, or gallops LUNGS: Clear to auscultation bilaterally. No wheezes. No rhonchi ABDOMEN: Soft, nontender, nondistended, no guarding, no rebound tenderness. Positive bowel sounds. NEUROLOGICAL: Alert and oriented to self and place, Cranial nerves II through X II grossly intact. Sensation diminished to light touch bilat LE in stocking pattern EXTREMITIES: 4\\5 strength bilateral upper extremities. 3+\\5 strength right lower extremity. 3+/5 strength in left lower extremity. RUE +edema (improving) left knee- medial joint line TTP with effusion bilat ankle deformity ASSESSMENT:86-year-old F with past medical history of DM with peripheral polyneuropathy and large hiatal hernia who presents status post gastric volvulus s/p EGD decompression PLAN: 1. Rehab- PT/OT advance mobility and ADLS, strengthen/stretch/maintain ROM all 4limbs- working on [id number] 2. Neuro- hx of diabetic peripheral polyneuropathy contributing to overall mobility impairments 3. GI- patient with large hiatal hernia with recent volvulus and EGD decompression on 05-07-21, not deemed to be surgical candidate- her diet was recently advanced, however on 05-20-21 exam she has recurrent emesis (FOBT negative) with KUB revealing large gastric bubble with no bowel obstruction- discussed case with Dr. Young who recommended trial of NGT which has been clamped and patient tolerating full liquid diet, plan for robot-assisted lap surgery for hiatal hernia repair pending OR availability- discussed removing NGT with Dr. Young who says ok- NGT d/c'd 05-27, patient comfortable 4. Cardiac- cont BP meds, adjust as needed -HLD cont statin -medicine consulted to assist in overall management 5. Resp- monitor for infection- patient developing a cough with CT Chest on 05-26-21 showing, "New right lower lobe patchy opacities likely subsegmental atelectatic changes. Developing pneumonia cannot be ruled out" started on Iv Zosyn for possible aspiration PNA given recent emesis, cough resolved, will cont on Cefdinir since one time dose given overnight bc PICC not accessible- Dc PICC -cont Combivent and guaifenesin, HOB >30 -recent Covid exposure, Resp panel negative 6. Pain- cont fentanyl and norco -lidoderm patch to left knee 7. Psych- cymbalta and Remeron for depression 8. DVT ppx- heparin -RUE swelling with US + for superficial thrombosis cont warm compress 9. Endo- hx of DM with peripheral polyneuropathy managed with diet alone -hypothyroidism cont Synthroid 10. - Ucx + for E. coli and proteus Mirabilis, PICC line leaking, will switch to oral cefdinir since one dose was given overnight by hospitalist 11. Dispo- TBD Allergies Coded Allergies: TAPE (Verified Allergy, Intermediate, RASH, 05/21/10) meloxicam (Verified Adverse Reaction, Mild, "I think it made me sick", 03/19/19) pioglitazone (Verified Adverse Reaction, Mild, bruising, 03/19/19) pregabalin (Verified Adverse Reaction, Mild, affects vision, 03/19/19) Vital Signs Vital Signs Date Time Temp Pulse Resp B/P (MAP) Pulse Ox O2 Delivery O2 Flow Rate FiO2 05/28/21 10:00 20 Room Air 05/28/21 08:33 60 122/52 05/28/21 06:00 97.6 94 Microbiology Microbiology 05/26/21 Urine Culture - Final, Complete Escherichia Coli Proteus Mirabilis 05/20/21 Respiratory Virus Panel (PCR) ([facility]) - Final, Complete 05/20/21 Occult Blood - Final, Complete Current Medications Current Medications Current Medications Medications (Trade) Dose Ordered Sig/Alice Route PRN Reason Start Time Stop Time Status Last Admin Dose Admin Acetaminophen/ Hydrocodone Bitart (Anexsia, [place] 7.5mg/325mg) 1 tab Q4HP PRN NG MILD PAIN (PS 1-4) 05/20/21 16:00 05/27/21 13:28 DC 05/25/21 10:45 Acetaminophen/ Hydrocodone Bitart (Anexsia, [place] 7.5mg/325mg) 1 tab Q4HP PRN PO MILD PAIN (PS 1-4) 05/19/21 11:50 05/20/21 16:11 DC 05/19/21 21:01 Acetaminophen/ Hydrocodone Bitart (Anexsia, [place] 7.5mg/325mg) 1 tab Q4HP PRN PO MILD PAIN (PS 1-4) 05/27/21 13:25 05/27/21 21:41 Albuterol/ Ipratropium (Combivent Respimat 100-20mcg) 1 puff RTID INH 05/26/21 20:00 05/28/21 06:31 Amlodipine Besylate (Norvasc) 10 mg DAILY NG 05/21/21 09:00 05/27/21 13:28 DC 05/27/21 08:44 Amlodipine Besylate (Norvasc) 10 mg DAILY PO 05/20/21 09:00 05/20/21 16:11 DC 05/20/21 08:00 Amlodipine Besylate (Norvasc) 10 mg DAILY PO 05/28/21 09:00 05/28/21 08:33 Cyanocobalamin (Vitamin B12) 1,000 mcg DAILY NG 05/21/21 09:00 05/27/21 13:28 DC 05/27/21 08:44 Cyanocobalamin (Vitamin B12) 1,000 mcg DAILY PO 05/20/21 09:00 05/20/21 16:11 DC 05/20/21 08:00 Cyanocobalamin (Vitamin B12) 1,000 mcg DAILY PO 05/28/21 09:00 05/28/21 08:33 Dextrose/Sodium Chloride 1,000 ml @ 60 mls/hr [id number] IV 05/20/21 10:55 05/24/21 13:39 DC 05/23/21 21:51 Docusate Sodium (Colace) 200 mg BID PO 05/19/21 21:00 05/27/21 13:30 DC 05/20/21 08:00 Docusate Sodium (Colace) 200 mg BID PO 05/27/21 21:00 05/28/21 08:32 Duloxetine HCl (Cymbalta) 60 mg DAILY PO 05/20/21 09:00 05/27/21 13:31 DC 05/20/21 08:00 Duloxetine HCl (Cymbalta) 60 mg DAILY PO 05/27/21 13:30 05/28/21 08:32 Fentanyl (Duragesic) 75 mcg Q72H TOP 05/21/21 09:00 05/27/21 08:45 Guaifenesin (Robitussin Tab) 400 mg TID PO 05/26/21 16:00 05/28/21 08:32 Heparin Sodium (Heparin (Flush)) 200 units ASDIRECTED PRN IV SEE LABEL COMMENTS 05/19/21 22:30 05/27/21 08:55 Heparin Sodium (Heparin (Flush)) 200 units ASDIRECTED PRN IV SEE LABEL COMMENTS 05/20/21 13:50 Cancel Heparin Sodium (Heparin (Flush)) 200 units PICC IV 05/20/21 06:00 05/27/21 17:09 Heparin Sodium (Heparin (Flush)) 200 units PICC IV 05/20/21 18:00 Cancel Heparin Sodium (Porcine) (Heparin) 5,000 units Q12H SC 05/19/21 21:00 Hold 05/27/21 21:43 Home Med (Home Med List Complete!) ASDIRECTED XX 05/19/21 15:45 05/19/21 15:50 DC Levofloxacin (Levaquin) 250 mg DAILY@06 PO 05/26/21 12:05 05/26/21 19:03 DC 05/26/21 15:04 Levothyroxine Sodium (Synthroid) 37.5 mcg DAILY@06 NG 05/21/21 06:00 05/27/21 13:28 DC 05/27/21 05:31 Levothyroxine Sodium (Synthroid) 37.5 mcg DAILY@06 PO 05/20/21 06:00 05/20/21 16:11 DC 05/20/21 06:52 Levothyroxine Sodium (Synthroid) 37.5 mcg DAILY@06 PO 05/28/21 06:00 05/28/21 05:57 Lidocaine (Lidoderm Patch) 2 patch DAILY TD 05/27/21 09:00 05/28/21 08:30 Lisinopril (Prinivil) 10 mg DAILY NG 05/21/21 09:00 05/27/21 13:28 DC 05/27/21 08:44 Lisinopril (Prinivil) 10 mg DAILY PO 05/20/21 09:00 05/20/21 16:11 DC 05/20/21 08:00 Lisinopril (Prinivil) 10 mg DAILY PO 05/28/21 09:00 05/28/21 08:33 Mirtazapine (Remeron) 7.5 mg QHS NG 05/20/21 21:00 05/27/21 13:28 DC 05/26/21 21:42 Mirtazapine (Remeron) 7.5 mg QHS PO 05/19/21 21:00 05/20/21 16:11 DC 05/19/21 21:41 Mirtazapine (Remeron) 7.5 mg QHS PO 05/27/21 21:00 05/27/21 22:11 Naloxone HCl (Narcan) 0.1 mg Q5MP PRN IV RESP. RATE < 10 05/19/21 11:50 Nitroglycerin (Nitrostat (1/ 150)) 0.4 mg Q5MP PRN SL CHEST PAIN 05/19/21 11:50 Non-Formulary Medication ( See Comment Field Below ) REMOVE LIDODERM PATCH DAILY@21 XX 05/27/21 21:00 05/27/21 21:44 Non-Formulary Medication ( See Comment Field Below ) SEE COMMENTS SECTION ASDIRECTED XX 05/21/21 09:00 Nystatin (Mycostatin Powder, Nystop) abdominal folds and un... TID TOP 05/26/21 16:00 05/28/21 08:31 Ondansetron HCl (Zofran Odt) 4 mg Q6HP PRN PO NAUSEA OR VOMITING 05/19/21 16:00 05/20/21 09:46 DC 05/20/21 06:33 Ondansetron HCl (Zofran Odt) 4 mg Q6HP PRN SL NAUSEA OR VOMITING 05/20/21 10:00 Pantoprazole Sodium (Protonix) 40 mg DAILY IV 05/21/21 09:00 05/27/21 13:29 DC 05/27/21 08:43 Pantoprazole Sodium (Protonix) 40 mg DAILY PO 05/19/21 09:00 05/20/21 16:11 DC 05/20/21 08:00 Pantoprazole Sodium (Protonix) 40 mg DAILY PO 05/28/21 09:00 05/28/21 08:32 Phenol (Chloraseptic [place]) 2 SPRAYS QID MT 05/27/21 17:00 05/28/21 08:34 Piperacillin Sod/ Tazobactam Sod 3.375 gm/Dextrose 50 ml @ 50 mls/hr Q6H IV 05/26/21 20:00 05/27/21 14:03 Pravastatin Sodium (Pravachol) 40 mg QHS NG 05/20/21 21:00 05/27/21 13:28 DC 05/26/21 21:42 Pravastatin Sodium (Pravachol) 40 mg QHS PO 05/19/21 21:00 05/20/21 16:11 DC 05/19/21 21:00 Pravastatin Sodium (Pravachol) 40 mg QHS PO 05/27/21 21:00 05/27/21 21:40 Senna (Senokot) 1 tab QHS PRN NG constipation 05/20/21 21:00 05/27/21 13:28 DC Senna (Senokot) 1 tab QHS PRN PO constipation 05/20/21 21:00 05/20/21 16:11 DC Senna (Senokot) 1 tab QHS PRN PO CONSTIPATION 05/27/21 13:25 Senna (Senokot) 2 tab BID PO 05/19/21 21:00 05/20/21 10:49 DC 05/20/21 07:59 Simethicone (Mylicon) 80 mg TID NG 05/20/21 16:00 05/27/21 13:28 DC 05/27/21 08:44 Simethicone (Mylicon) 80 mg TID PO 05/19/21 16:00 05/20/21 16:11 DC 05/20/21 07:59 Simethicone (Mylicon) 80 mg TID PO 05/27/21 16:00 05/28/21 08:33 Sodium Chloride (Saline Lock Flush) 10 ml ASDIRECTED PRN IV SEE LABEL COMMENTS 05/19/21 22:30 05/27/21 08:55 Sodium Chloride (Saline Lock Flush) 10 ml ASDIRECTED PRN IV SEE LABEL COMMENTS 05/20/21 13:50 Cancel Sodium Chloride (Saline Lock Flush) 10 ml PICC IV 05/20/21 06:00 05/27/21 17:09 Sodium Chloride (Saline Lock Flush) 10 ml PICC IV 05/20/21 18:00 Cancel OLGA BARRIENTOS MD May 28, 2021 12:11
[2021-05-28] MEDS: CEFDINIR 300 MG CAP (OMNICEF) PO SCH ×2 (13:51→21:50)
[2021-05-28 14:24] VITALS: BP 109/57
[2021-05-28 20:00] VITALS: BP 116/56
[2021-05-28] MEDS: MIRTAZAPINE 7.5MG PER 1/2 TABLET PO SCH (21:51)
[2021-05-28] MEDS: PRAVASTATIN 20 MG TAB PO SCH (21:51)
[2021-05-28] MEDS: **NOTE PATIENT COMMENT** MISC XX SCH (21:52)
[2021-05-29] MEDS: LEVOTHYROXINE 37.5MCG PER 1/2TAB (0.0375MG) PO SCH (05:34)
[2021-05-29 06:00] VITALS: BP 162/70
[2021-05-29] MEDS: SIMETHICONE 80MG CHEW TAB PO SCH ×3 (07:34→21:01)
[2021-05-29] MEDS: guaiFENesin 200 MG TAB PO SCH ×3 (07:35→21:01)
[2021-05-29] MEDS: DOCUSATE SODIUM 100MG CAPSULE PO SCH (07:35)
[2021-05-29] MEDS: DULoxetine 30MG CAPSULE (CYMBALTA) PO SCH (07:35)
[2021-05-29] MEDS: CEFDINIR 300 MG CAP (OMNICEF) PO SCH ×2 (07:35→21:01)
[2021-05-29] MEDS: ANEXSIA, NORCO 7.5MG/325MG TABLET(HYDROCODONE/APAP) PO PRN (07:37)
[2021-05-29] MEDS: CYANOCOBALAMIN 500 MCG TAB PO SCH (07:37)
[2021-05-29] MEDS: PANTOPRAZOLE 40MG TAB (PROTONIX) PO SCH (07:38)
[2021-05-29] MEDS: HEPARIN SOD (PORCINE) 5000UNITS/ML 1ML VIAL/SYRINGE SC SCH ×2 (07:38→21:01)
[2021-05-29] MEDS: REMEDY PHYTOPLEX Z-GUARD PASTE 113GM TUBE (FROM STOREROOM PRODUCT) TOP SCH ×3 (07:39→21:02)
[2021-05-29] MEDS: LIDOCAINE 5% (LIDODERM) PATCH TD SCH (07:39)
[2021-05-29] MEDS: NYSTATIN 100,000 UNITS/GM TOPICAL PWD 15 GM TOP SCH ×3 (07:39→21:02)
[2021-05-29] MEDS: COMBIVENT RESPIMAT 100-20MCG INHALER 4GM INH SCH ×2 (07:53→19:57)
[2021-05-29] MEDS: CHLORASEPTIC SPRAY MT SCH ×4 (09:00→21:03)
[2021-05-29 09:44] LABS: BASO % 0.6 % (0.0-1.0); EOS # 0.1 10^3/uL (0.0-0.5); EOS % 1.7 % (0.0-3.0); HEMATOCRIT 31.8 % (36.0-47.0); HEMOGLOBIN 10.1 g/dl (12.0-15.5); LYMPH # 1.5 10^3/uL (1.5-5.0); LYMPH % 21.3 % (24.0-44.0); MEAN CORPUSCULAR HEMOGLOBIN 32.4 pg (27.0-33.0); MEAN CORPUSCULAR HGB CONC 31.8 g/dl (32.0-36.5); MEAN CORPUSCULAR VOLUME 101.9 fl (80.0-96.0); MONO # 0.6 10^3/uL (0.0-0.8); MONO % 8.1 % (2.0-8.0); NEUTROPHILS # 4.7 10^3/uL (1.5-8.5); NEUTROPHILS % 67.4 % (36.0-66.0); PLATELET COUNT, AUTOMATED 336 10^3/uL (150-450); RED BLOOD COUNT 3.12 10^6/uL (4.00-5.40); WHITE BLOOD COUNT 6.9 10^3/uL (4.0-10.0)
--- NOTE | 2021-05-29 09:54 | IPNPDOC ---
PM&R Progress Note DATE OF SERVICE: May 29, 2021 [employer] Progress Note Subjective: Patient seen in her room stating she is comfrotbale going home on a full liquid diet, but would like her to learn how to cook for her since he is the primary cook in the house. She requests to stay Full code. She denies nausea, cough, fever, chills. REVIEW OF SYSTEMS: The following is a completed review of systems and has been reviewed. Review of systems otherwise unremarkable. PAIN: Patient self reports abdominal pain EYES: No recent vision changes EARS, NOSE, & THROAT: No throat pain, or dysphagia, or rhinorrhea CARDIOVASCULAR: Denies chest pain or palpitations PULMONARY: Denies shortness of breath, denies cough GASTROINTESTINAL: denies nasuea/vomiting/diarrhea GENITOURINARY: denies dysuria MUSCULOSKELETAL: generalized weakness NEUROLOGICAL:+peripheral polyneuropathy HEMATOLOGICAL: denies easy bruising SKIN: denies rash PSYCHIATRIC: +depressed All other review of systems found to be negative. PHYSICAL EXAMINATION: VITAL SIGNS: Please see below. GENERAL: Pleasant and cooperative. No acute distress. HEENT: PERRL. Extraocular movements intact. Clear conjunctiva. +dentures CARDIOVASCULAR: Regular rate and rhythm. No murmurs, rubs, or gallops LUNGS: Clear to auscultation bilaterally. No wheezes. No rhonchi ABDOMEN: Soft, nontender, nondistended, no guarding, no rebound tenderness. Positive bowel sounds. NEUROLOGICAL: Alert and oriented to self and place, Cranial nerves II through XII grossly intact. Sensation diminished to light touch bilat LE in stocking pattern EXTREMITIES: 4\\5 strength bilateral upper extremities. 3+\\5 strength right lower extremity. 3+/5 strength in left lower extremity. RUE +edema (improving) left knee- medial joint line TTP with effusion bilat ankle deformity ASSESSMENT:86-year-old F with past medical history of DM with peripheral polyneuropathy and large hiatal hernia who presents status post gastric volvulus s/p EGD decompression PLAN: 1. Rehab- PT/OT advance mobility and ADLS, strengthen/stretch/maintain ROM all 4limbs- working on [id number] 2. Neuro- hx of diabetic peripheral polyneuropathy contributing to overall mobility impairments 3. GI- patient with large hiatal hernia with recent volvulus and EGD decompression on 05-07-21, not deemed to be surgical candidate- her diet was recently advanced, however on 05-20-21 exam she has recurrent emesis (FOBT nega tive) with KUB revealing large gastric bubble with no bowel obstruction- discussed case with Dr. Young who recommended trial of NGT which was clamped with patient tolerating full liquid diet- discussed removing NGT with Dr. Young who said ok- NGT d/c'd 05-27, patient comfortable and will go home on full liquid diet 4. Cardiac- cont BP meds, adjust as needed -HLD cont statin -medicine consulted to assist in overall management 5. Resp- monitor for infection- patient developing a cough with CT Chest on 05-26-21 showing, "New right lower lobe patchy opacities likely subsegmental ate lectatic changes. Developing pneumonia cannot be ruled out" started on Iv Zosyn for possible aspiration PNA given recent emesis, cough resolved, will cont on Cefdinir- symptoms resolved -cont Combivent and guaifenesin, HOB >30 -recent Covid exposure, Resp panel negative 6. Pain- cont fentanyl and norco -lidoderm patch to left knee 7. Psych- cymbalta and Remeron for depression 8. DVT ppx- heparin -RUE swelling with US + for superficial thrombosis cont warm compress 9. Endo- hx of DM with peripheral polyneuropathy managed with diet alone -hypothyroidism cont Synthroid 10. - Ucx + for E. coli and proteus Mirabilis, PICC line leaking, cont oral cefdinir 11. Dispo- 06-03-21 to home with family and caregiver support DME Patient will benefit from a hospital bed. She has significant lower extremity edema, peripheral polyneuropathy, and is high risk for aspiration PNA given her known large hiatal hernia with recent volvulus requiring gastric decompression. She will need the HOB elevated to prevent aspiration PNA. a hospital bed will help caretakers to reposition her given she has decreased sensation in her limbs, poor po intake, with high risk of developing pressure ulcers. Allergies Coded Allergies: TAPE (Verified Allergy, Intermediate, RASH, 05/21/10) meloxicam (Verified Adverse Reaction, Mild, "I think it made me sick", 03/19/19) pioglitazone (Verified Adverse Reaction, Mild, bruising, 03/19/19) pregabalin (Verified Adverse Reaction, Mild, affects vision, 03/19/19) Vital Signs Vital Signs Date Time Temp Pulse Resp B/P (MAP) Pulse Ox O2 Delivery O2 Flow Rate FiO2 05/29/21 07:37 54 162/70 05/29/21 07:37 18 05/29/21 06:00 97.9 94 Room Air Laboratory Data CBC/BMP Laboratory Tests 05/29/21 09:34 Labs 24H Laboratory Tests 2 05/29/21 09:34: Immature Granulocyte % (Auto) 0.9, Neutrophils (%) (Auto) 67.4H, Lymphocytes (%) (Auto) 21.3L, Monocytes (%) (Auto) 8.1H, Eosinophils (%) (Auto) 1.7, Basophils (%) (Auto) 0.6, Neutrophils # (Auto) 4.7, Lymphocytes # (Auto) 1.5, Monocytes # (Auto) 0.6, Eosinophils # (Auto) 0.1, Basophils # (Auto) 0.0, Nucleated Red Blood Cells % (auto) 0.0 Microbiology Microbiology 05/26/21 Urine Culture - Final, Complete Escherichia Coli Proteus Mirabilis 05/20/21 Respiratory Virus Panel (PCR) (WILY) - Final, Complete 05/20/21 Occult Blood - Final, Complete Current Medications Current Medications Current Medications Medications (Trade) Dose Ordered Sig/Alice Route PRN Reason Start Time Stop Time Status Last Admin Dose Admin Acetaminophen/ Hydrocodone Bitart (Anexsia, [place] 7.5mg/325mg) 1 tab Q4HP PRN NG MILD PAIN (PS 1-4) 05/20/21 16:00 05/27/21 13:28 DC 05/25/21 10:45 Acetaminophen/ Hydrocodone Bitart (Anexsia, [place] 7.5mg/325mg) 1 tab Q4HP PRN PO MILD PAIN (PS 1-4) 05/19/21 11:50 05/20/21 16:11 DC 05/19/21 21:01 Acetaminophen/ Hydrocodone Bitart (Anexsia, [place] 7.5mg/325mg) 1 tab Q4HP PRN PO MILD PAIN (PS 1-4) 05/27/21 13:25 05/29/21 07:37 Albuterol/ Ipratropium (Combivent Respimat 100-20mcg) 1 puff RTID INH 10/19/21 20:00 05/29/21 07:53 Amlodipine Besylate (Norvasc) 10 mg DAILY NG 05/21/21 09:00 05/27/21 13:28 DC 05/27/21 08:44 Amlodipine Besylate (Norvasc) 10 mg DAILY PO 05/20/21 09:00 05/20/21 16:11 DC 05/20/21 08:00 Amlodipine Besylate (Norvasc) 10 mg DAILY PO 05/28/21 09:00 05/29/21 07:37 Cefdinir (Omnicef) 300 mg BID PO 05/28/21 11:30 06/01/21 22:00 05/29/21 07:35 Cyanocobalamin (Vitamin B12) 1,000 mcg DAILY NG 05/21/21 09:00 05/27/21 13:28 DC 05/27/21 08:44 Cyanocobalamin (Vitamin B12) 1,000 mcg DAILY PO 05/20/21 09:00 05/20/21 16:11 DC 05/20/21 08:00 Cyanocobalamin (Vitamin B12) 1,000 mcg DAILY PO 05/28/21 09:00 05/29/21 07:37 Dextrose/Sodium Chloride 1,000 ml @ 60 mls/hr [id number] IV 05/20/21 10:55 05/24/21 13:39 DC 05/23/21 21:51 Docusate Sodium (Colace) 200 mg BID PO 05/19/21 21:00 05/27/21 13:30 DC 05/20/21 08:00 Docusate Sodium (Colace) 200 mg BID PO 05/27/21 21:00 05/29/21 07:35 Duloxetine HCl (Cymbalta) 60 mg DAILY PO 05/20/21 09:00 05/27/21 13:31 DC 05/20/21 08:00 Duloxetine HCl (Cymbalta) 60 mg DAILY PO 05/27/21 13:30 05/29/21 07:35 Fentanyl (Duragesic) 75 mcg Q72H TOP 05/21/21 09:00 05/27/21 08:45 Guaifenesin (Robitussin Tab) 400 mg TID PO 05/26/21 16:00 05/29/21 07:35 Heparin Sodium (Heparin (Flush)) 200 units ASDIRECTED PRN IV SEE LABEL COMMENTS 05/19/21 22:30 05/28/21 16:28 DC 05/27/21 08:55 Heparin Sodium (Heparin (Flush)) 200 units ASDIRECTED PRN IV SEE LABEL COMMENTS 05/20/21 13:50 Cancel Heparin Sodium (Heparin (Flush)) 200 units PICC IV 05/20/21 06:00 05/28/21 16:28 DC 05/27/21 17:09 Heparin Sodium (Heparin (Flush)) 200 units PICC IV 05/20/21 18:00 Cancel Heparin Sodium (Porcine) (Heparin) 5,000 units Q12H SC 05/19/21 21:00 05/29/21 07:38 Home Med (Home Med List Complete!) ASDIRECTED XX 05/19/21 15:45 05/19/21 15:50 DC Levofloxacin (Levaquin) 250 mg DAILY@06 PO 05/26/21 12:05 05/26/21 19:03 DC 05/26/21 15:04 Levothyroxine Sodium (Synthroid) 37.5 mcg DAILY@06 NG 05/21/21 06:00 05/27/21 13:28 DC 05/27/21 05:31 Levothyroxine Sodium (Synthroid) 37.5 mcg DAILY@06 PO 05/20/21 06:00 05/20/21 16:11 DC 05/20/21 06:52 Levothyroxine Sodium (Synthroid) 37.5 mcg DAILY@06 PO 05/28/21 06:00 05/29/21 05:34 Lidocaine (Lidoderm Patch) 2 patch DAILY TD 05/27/21 09:00 05/29/21 07:39 Lisinopril (Prinivil) 10 mg DAILY NG 05/21/21 09:00 05/27/21 13:28 DC 05/27/21 08:44 Lisinopril (Prinivil) 10 mg DAILY PO 05/20/21 09:00 05/20/21 16:11 DC 05/20/21 08:00 Lisinopril (Prinivil) 10 mg DAILY PO 05/28/21 09:00 05/29/21 07:35 Mirtazapine (Remeron) 7.5 mg QHS NG 05/20/21 21:00 05/27/21 13:28 DC 05/26/21 21:42 Mirtazapine (Remeron) 7.5 mg QHS PO 05/19/21 21:00 05/20/21 16:11 DC 05/19/21 21:41 Mirtazapine (Remeron) 7.5 mg QHS PO 05/27/21 21:00 05/28/21 21:51 Naloxone HCl (Narcan) 0.1 mg Q5MP PRN IV RESP. RATE < 10 05/19/21 11:50 Nitroglycerin (Nitrostat (1/ 150)) 0.4 mg Q5MP PRN SL CHEST PAIN 05/19/21 11:50 Non-Formulary Medication ( See Comment Field Below ) REMOVE LIDODERM PATCH DAILY@21 XX 05/27/21 21:00 05/28/21 21:52 Non-Formulary Medication ( See Comment Field Below ) SEE COMMENTS SECTION ASDIRECTED XX 05/21/21 09:00 Nystatin (Mycostatin Powder, Nystop) abdominal folds and un... TID TOP 05/26/21 16:00 05/29/21 07:39 Ondansetron HCl (Zofran Odt) 4 mg Q6HP PRN PO NAUSEA OR VOMITING 05/19/21 16:00 05/20/21 09:46 DC 05/20/21 06:33 Ondansetron HCl (Zofran Odt) 4 mg Q6HP PRN SL NAUSEA OR VOMITING 05/20/21 10:00 Pantoprazole Sodium (Protonix) 40 mg DAILY IV 05/21/21 09:00 05/27/21 13:29 DC 05/27/21 08:43 Pantoprazole Sodium (Protonix) 40 mg DAILY PO 05/19/21 09:00 05/20/21 16:11 DC 05/20/21 08:00 Pantoprazole Sodium (Protonix) 40 mg DAILY PO 05/28/21 09:00 05/29/21 07:38 Phenol (Chloraseptic [place]) 2 SPRAYS QID MT 05/27/21 17:00 05/28/21 21:58 Piperacillin Sod/ Tazobactam Sod 3.375 gm/Dextrose 50 ml @ 50 mls/hr Q6H IV 05/26/21 20:00 05/28/21 11:33 DC 05/27/21 14:03 Pravastatin Sodium (Pravachol) 40 mg QHS NG 05/20/21 21:00 05/27/21 13:28 DC 05/26/21 21:42 Pravastatin Sodium (Pravachol) 40 mg QHS PO 05/19/21 21:00 05/20/21 16:11 DC 05/19/21 21:00 Pravastatin Sodium (Pravachol) 40 mg QHS PO 05/27/21 21:00 05/28/21 21:51 Senna (Senokot) 1 tab QHS PRN NG constipation 05/20/21 21:00 05/27/21 13:28 DC Senna (Senokot) 1 tab QHS PRN PO constipation 05/20/21 21:00 05/20/21 16:11 DC Senna (Senokot) 1 tab QHS PRN PO CONSTIPATION 05/27/21 13:25 Senna (Senokot) 2 tab BID PO 05/19/21 21:00 05/20/21 10:49 DC 05/20/21 07:59 Simethicone (Mylicon) 80 mg TID NG 05/20/21 16:00 05/27/21 13:28 DC 05/27/21 08:44 Simethicone (Mylicon) 80 mg TID PO 05/19/21 16:00 05/20/21 16:11 DC 05/20/21 07:59 Simethicone (Mylicon) 80 mg TID PO 05/27/21 16:00 05/29/21 07:34 Sodium Chloride ([place] Flush) 10 ml ASDIRECTED PRN IV SEE LABEL COMMENTS 05/19/21 22:30 05/28/21 16:28 DC 05/27/21 08:55 Sodium Chloride (Sal[place] Flush) 10 ml ASDIRECTED PRN IV SEE LABEL COMMENTS 05/20/21 13:50 Cancel Sodium Chloride (Sal[place] Flush) 10 ml PICC IV 05/20/21 06:00 05/28/21 16:28 DC 05/27/21 17:09 Sodium Chloride (Saline Lock Flush) 10 ml PICC IV 05/20/21 18:00 OLGA Trotter MD May 29, 2021 09:54
[2021-05-29 10:16] LABS: ALBUMIN 1.9 GM/DL (3.2-5.2); ALT/SGPT 15 U/L (12-78); BILIRUBIN,TOTAL 0.2 MG/DL (0.2-1.0); BLOOD UREA NITROGEN 11 MG/DL (7-18); CALCIUM LEVEL 8.6 MG/DL (8.8-10.2); CARBON DIOXIDE LEVEL 28 MEQ/L (21-32); CHLORIDE LEVEL 106 MEQ/L (98-107); CREATININE FOR GFR 0.75 MG/DL (0.55-1.30); GLOMERULAR FILTRATION RATE > 60.0 (>32); GLUCOSE, FASTING 145 MG/DL (70-100); POTASSIUM SERUM 4.2 MEQ/L (3.5-5.1); SODIUM LEVEL 139 MEQ/L (136-145); TOTAL PROTEIN 5.3 GM/DL (6.4-8.2)
[2021-05-29 14:00] VITALS: BP 109/53
--- NOTE | 2021-05-29 18:08 | IPN ---
PROGRESS NOTE DATE: 05/27/2021 HISTORY: Patient is an 86-year-old woman currently on acute rehabilitation following admission for an incarcerated large hiatal hernia. She was initially admitted to an acute care bed where she underwent endoscopy with the placement of a nasogastric (NG) tube. After decompression, the tube was removed. She was not felt to be a candidate for extensive hiatal hernia surgery at that point. She was started on some liquids and advanced to full liquids, which she appeared to tolerate. She subsequently was transferred to rehabilitation for strengthening and possible discharge home. She was advanced to a soft diet, which led to a recurrence of her obstructive symptoms and an NG tube was utilized again for several days. She was taking liquids poorly around the NG tube and so the NG tube was removed earlier today. Vital signs show that the patient has remained afebrile over the past 24 hours. Her pulse has been in the 50s and 60s. Blood pressure is acceptable and her room air oxygen saturation is in the low 90s. PHYSICAL EXAMINATION: GENERAL: Patient appears quite frail and elderly. She is somewhat pale in appearance. She is alert and appropriately responsive. SKIN: Warm and dry. HEART: Unremarkable. LUNGS: Unremarkable. ABDOMEN: Nondistended and soft. EXTREMITIES: She does appear to have some mild edema in her lower extremities. LABORATORY STUDIES: From this morning showed a white count of 6, hemoglobin 10, hematocrit 31 and a platelet count of 343,000. Her differential count is basically normal. Chemistries show normal electrolytes with a BUN of 8, creatinine 0.8 and a glucose of 95. Patient had a CT scan of the chest on the afternoon of May 26, 2021, which was interpreted by radiology as showing a new small right pleural effusion and some new right lower lobe patchy opacities, likely atelectasis versus developing pneumonia. She had some unchanged left lower lobe opacities. IMPRESSION: The patient is currently on acute rehabilitation and we had been thinking that she might be able to be strengthened to a point for laparoscopic surgery for her hiatal hernia, to try to prevent recurrent obstruction. Unfortunately, her appetite has been poor and I suspect that her nutritional parameters are poor. She had new pleural effusion noted on a CT scan done yesterday. She appears to have some peripheral edema. Overall, she appears quite frail. RECOMMENDATIONS: Though I had been looking towards Tuesday, May 29, 2021 as a possible date for surgery, I think this would be unwise. She recently had, as of yesterday, a urine culture that reveals Escherichia (E) coli and Proteus. She now has a CT scan showing some increased density in the right lower lobe with a new effusion worrisome for possible early pneumonia. I suspect that her albumin is quite low. At this point, I will cancel any thoughts of surgery at this point. Her NG tube was removed earlier and I believe we should try a diet initially of clear liquids or full liquids and see if she can tolerate these. We should encourage her to take nutritional supplements like Ensure or Boost. If she is able to tolerate this nutritional support, then I would let her continue this for now while we see how she does with physical therapy to try to improve her stamina. If her nutritional parameters improve, then surgery at some point may be appropriate. Unfortunately, if she shows evidence of recurrent obstruction, it may be necessary to consider surgery under less than ideal circumstances unless the patient wishes to pursue palliative care only. PABLO
[2021-05-29 20:00] VITALS: BP 119/67
--- NOTE | 2021-05-29 20:35 | IPN ---
PROGRESS NOTE DATE: 05/29/2021 HISTORY: The patient is on the Acute Rehab Unit trying to gain strength following an admission for a gastric volvulus within a large hiatal hernia. She was treated non-operatively with NG decompression. An NG tube was removed 2 days ago and she was placed back on some full liquids. She seems to have been tolerating her diet a little better with the NG tube out. She still seems quite frail. Vital signs show that she has been afebrile over the past 24 hours. Pulse is in the 50's to 70 and her blood pressure is good. Room air oxygen saturations are fine. Intake and output shows 1,680 in yesterday. OBJECTIVE: PHYSICAL EXAMINATION: GENERAL APPEARANCE: She appears quire frail. She is alert and responsive to questions appropriately. SKIN: Slightly pale but warm and dry. HEENT: Sclerae are anicteric. HEART: Regular rhythm. ABDOMEN: Obese but soft and nontender. LABORATORY STUDIES: Today white count of 7, hemoglobin 10, hematocrit 32 and a platelet count of 336,000. Differential count shows 67% neutrophils, 21% lymphocytes and 8% monocytes. Chemistry profile shows normal electrolytes with a BUN of 11 and creatinine 0.75 and a glucose of 145. Total protein is 5.3 with an albumin of 1.9. IMPRESSION: The patient is continuing with acute rehabilitation. She appears to have been tolerating the liquids better now that her NG tube has been removed. She still has very limited activity. The abdomen remains benign, and she has had no nausea or vomiting. RECOMMENDATIONS: At this point I think it would be reasonable to try advancing her diet slightly with the addition perhaps of some pureed foods. She may benefit from a diet of multiple small meals as opposed to larger meals. Any thoughts of surgery are on hold at this point until we can see if she is able to be strengthened further to make her a better candidate for surgery. Unfortunately, if she re-obstructs, then it would be necessary to consider re-insertion of the NG tube and some sort of more limited laparoscopic procedure, just to try to alleviate her obstruction versus considering palliative care. PABLO
[2021-05-29] MEDS: MIRTAZAPINE 7.5MG PER 1/2 TABLET PO SCH (21:01)
[2021-05-29] MEDS: PRAVASTATIN 20 MG TAB PO SCH (21:01)
[2021-05-29] MEDS: **NOTE PATIENT COMMENT** MISC XX SCH (21:02)
[2021-05-30] MEDS: LEVOTHYROXINE 37.5MCG PER 1/2TAB (0.0375MG) PO SCH (05:19)
[2021-05-30 06:00] VITALS: BP 142/65
[2021-05-30] MEDS: COMBIVENT RESPIMAT 100-20MCG INHALER 4GM INH SCH ×3 (07:40→18:09)
[2021-05-30] MEDS: LIDOCAINE 5% (LIDODERM) PATCH TD SCH (09:08)
[2021-05-30] MEDS: HEPARIN SOD (PORCINE) 5000UNITS/ML 1ML VIAL/SYRINGE SC SCH ×2 (09:09→20:14)
[2021-05-30] MEDS: guaiFENesin 200 MG TAB PO SCH ×3 (09:09→20:13)
[2021-05-30] MEDS: DULoxetine 30MG CAPSULE (CYMBALTA) PO SCH (09:09)
[2021-05-30] MEDS: PANTOPRAZOLE 40MG TAB (PROTONIX) PO SCH (09:09)
[2021-05-30] MEDS: fentaNYL 75 MCG/HR PATCH TOP SCH (09:09)
[2021-05-30] MEDS: SIMETHICONE 80MG CHEW TAB PO SCH ×3 (09:10→20:13)
[2021-05-30] MEDS: CYANOCOBALAMIN 500 MCG TAB PO SCH (09:10)
[2021-05-30] MEDS: CEFDINIR 300 MG CAP (OMNICEF) PO SCH ×2 (09:10→20:13)
[2021-05-30] MEDS: NYSTATIN 100,000 UNITS/GM TOPICAL PWD 15 GM TOP SCH ×3 (09:12→20:14)
[2021-05-30] MEDS: REMEDY PHYTOPLEX Z-GUARD PASTE 113GM TUBE (FROM STOREROOM PRODUCT) TOP SCH ×3 (09:12→20:14)
[2021-05-30] MEDS: CHLORASEPTIC SPRAY MT SCH ×4 (09:16→20:14)
[2021-05-30 14:00] VITALS: BP 114/57
[2021-05-30 20:00] VITALS: BP 141/65
[2021-05-30] MEDS: PRAVASTATIN 20 MG TAB PO SCH (20:13)
[2021-05-30] MEDS: MIRTAZAPINE 7.5MG PER 1/2 TABLET PO SCH (20:13)
[2021-05-30] MEDS: **NOTE PATIENT COMMENT** MISC XX SCH (20:14)
[2021-05-31] MEDS: LEVOTHYROXINE 37.5MCG PER 1/2TAB (0.0375MG) PO SCH (05:40)
[2021-05-31 06:00] VITALS: BP 132/65
[2021-05-31] MEDS: COMBIVENT RESPIMAT 100-20MCG INHALER 4GM INH SCH ×3 (07:30→20:44)
[2021-05-31] MEDS: HEPARIN SOD (PORCINE) 5000UNITS/ML 1ML VIAL/SYRINGE SC SCH ×2 (08:21→21:48)
[2021-05-31] MEDS: CEFDINIR 300 MG CAP (OMNICEF) PO SCH ×2 (08:22→21:49)
[2021-05-31] MEDS: SIMETHICONE 80MG CHEW TAB PO SCH ×3 (08:22→21:48)
[2021-05-31] MEDS: guaiFENesin 200 MG TAB PO SCH ×3 (08:22→21:49)
[2021-05-31] MEDS: DULoxetine 30MG CAPSULE (CYMBALTA) PO SCH (08:22)
[2021-05-31] MEDS: CYANOCOBALAMIN 500 MCG TAB PO SCH (08:22)
[2021-05-31] MEDS: PANTOPRAZOLE 40MG TAB (PROTONIX) PO SCH (08:22)
[2021-05-31] MEDS: LIDOCAINE 5% (LIDODERM) PATCH TD SCH (08:23)
[2021-05-31] MEDS: CHLORASEPTIC SPRAY MT SCH ×4 (08:27→21:48)
[2021-05-31] MEDS: REMEDY PHYTOPLEX Z-GUARD PASTE 113GM TUBE (FROM STOREROOM PRODUCT) TOP SCH ×3 (08:28→21:51)
[2021-05-31] MEDS: NYSTATIN 100,000 UNITS/GM TOPICAL PWD 15 GM TOP SCH ×3 (08:28→21:49)
[2021-05-31] MEDS: ANEXSIA, NORCO 7.5MG/325MG TABLET(HYDROCODONE/APAP) PO PRN (08:37)
[2021-05-31 13:55] VITALS: BP 109/52
--- NOTE | 2021-05-31 18:11 | IPNPDOC ---
Subjective Date Seen The patient was seen on 05/31/21. Subjective Chief Complaint/HPI Mrs. Fermin is a 86-year-old female who is in the acute rehab unit with nonsurgical gastric volvulus. Hospitalist team is following along for medical management of chronic medical problems. Patient was seen this afternoon. Nurses told me that she has done well with her liquid diet. Yesterday, she had 2.8 L liquid oral intake. When I saw her in her room, she is eating pudding. She denies any chest pain or dyspnea. She denies any abdominal pain or nausea. She feels that she is doing well with her liquid diet. Objective Physical Examination General Exam: Positive: Alert, Cooperative, No Acute Distress Eye Exam: Negative: Sclera icteric ENT Exam: Positive: Atraumatic Neck Exam: Positive: Supple Chest Exam: Positive: Clear to auscultation; Negative: Rales, Rhonchi, Wheezing Heart Exam: Positive: Rate Normal, Regular Rhythm Abdomen Exam: Positive: Normal bowel sounds Extremity Exam: Positive: Other (Legs appear large but nonpitting) Neuro Exam: Positive: Normal Speech Psych Exam: Positive: Mental status NL, Mood NL Assessment /Plan Plan/VTE VTE Prophylaxis Ordered?: Yes Plan 1. Nonsurgical gastric volvulus Management per general surgery Patient is tolerating her liquid diet 2. UTI with E. coli and Proteus Agree with current antimicrobial regimen Continue with cefdinir 3. Hypertension Continue amlodipine and lisinopril 4. Hypothyroidism Continue levothyroxine 5. Anxiety/depression Continue duloxetine and mirtazapine 6. CAD status post stent placement Stable, no active chest pain Continue pravastatin, lisinopril, and as needed sublingual nitro 7. GERD Continue pantoprazole 8. DVT prophylaxis Heparin Disposition: Per ARU VS, I&O, 24H, [facility] Vital Signs/I&O Vital Signs Date Time Temp Pulse Resp B/P (MAP) Pulse Ox O2 Delivery O2 Flow Rate FiO2 05/31/21 13:55 99.1 62 18 109/52 (71) 94 Room Air I&O- Last 24 Hours up to 6 AM 05/31/21 06:00 Intake Total 2640 ml Balance 2640 ml Laboratory Data Microbiology Microbiology 05/26/21 Urine Culture - Final, Complete Escherichia Coli Proteus Mirabilis RYAN DEVINE DO May 31, 2021 18:11
[2021-05-31] MEDS: MIRTAZAPINE 7.5MG PER 1/2 TABLET PO SCH (21:48)
[2021-05-31] MEDS: **NOTE PATIENT COMMENT** MISC XX SCH (21:51)
[2021-05-31] MEDS: PRAVASTATIN 20 MG TAB PO SCH (21:52)
[2021-05-31 23:19] VITALS: BP 110/54
[2021-06-01] MEDS: LEVOTHYROXINE 37.5MCG PER 1/2TAB (0.0375MG) PO SCH (05:35)
[2021-06-01 06:12] VITALS: BP 138/63
[2021-06-01] MEDS: COMBIVENT RESPIMAT 100-20MCG INHALER 4GM INH SCH ×3 (07:52→20:00)
[2021-06-01] MEDS: guaiFENesin 200 MG TAB PO SCH ×3 (08:19→21:12)
[2021-06-01] MEDS: PANTOPRAZOLE 40MG TAB (PROTONIX) PO SCH (08:20)
[2021-06-01] MEDS: DULoxetine 30MG CAPSULE (CYMBALTA) PO SCH (08:20)
[2021-06-01] MEDS: CEFDINIR 300 MG CAP (OMNICEF) PO SCH ×2 (08:20→21:12)
[2021-06-01] MEDS: SIMETHICONE 80MG CHEW TAB PO SCH ×3 (08:20→21:12)
[2021-06-01] MEDS: CYANOCOBALAMIN 500 MCG TAB PO SCH (08:20)
[2021-06-01] MEDS: HEPARIN SOD (PORCINE) 5000UNITS/ML 1ML VIAL/SYRINGE SC SCH ×2 (08:21→21:12)
[2021-06-01] MEDS: LIDOCAINE 5% (LIDODERM) PATCH TD SCH (08:21)
[2021-06-01] MEDS: NYSTATIN 100,000 UNITS/GM TOPICAL PWD 15 GM TOP SCH ×3 (08:21→21:13)
[2021-06-01] MEDS: CHLORASEPTIC SPRAY MT SCH ×4 (08:22→21:12)
[2021-06-01] MEDS: REMEDY PHYTOPLEX Z-GUARD PASTE 113GM TUBE (FROM STOREROOM PRODUCT) TOP SCH ×3 (08:22→21:13)
[2021-06-01 08:41] LABS: BASO # 0.1 10^3/uL (0.0-0.2); BASO % 0.6 % (0.0-1.0); EOS # 0.2 10^3/uL (0.0-0.5); EOS % 1.9 % (0.0-3.0); HEMATOCRIT 34.2 % (36.0-47.0); HEMOGLOBIN 10.7 g/dl (12.0-15.5); LYMPH # 1.6 10^3/uL (1.5-5.0); LYMPH % 18.3 % (24.0-44.0); MEAN CORPUSCULAR HEMOGLOBIN 32.3 pg (27.0-33.0); MEAN CORPUSCULAR HGB CONC 31.3 g/dl (32.0-36.5); MEAN CORPUSCULAR VOLUME 103.3 fl (80.0-96.0); MONO # 0.5 10^3/uL (0.0-0.8); NEUTROPHILS # 6.3 10^3/uL (1.5-8.5); NEUTROPHILS % 72.3 % (36.0-66.0); PLATELET COUNT, AUTOMATED 378 10^3/uL (150-450); RED BLOOD COUNT 3.31 10^6/uL (4.00-5.40); WHITE BLOOD COUNT 8.8 10^3/uL (4.0-10.0)
[2021-06-01 09:06] LABS: BLOOD UREA NITROGEN 11 MG/DL (7-18); CALCIUM LEVEL 9.4 MG/DL (8.8-10.2); CARBON DIOXIDE LEVEL 32 MEQ/L (21-32); CHLORIDE LEVEL 102 MEQ/L (98-107); CREATININE FOR GFR 0.81 MG/DL (0.55-1.30); GLOMERULAR FILTRATION RATE > 60.0 (>32); GLUCOSE, FASTING 140 MG/DL (70-100); POTASSIUM SERUM 4.5 MEQ/L (3.5-5.1); SODIUM LEVEL 140 MEQ/L (136-145)
[2021-06-01 14:00] VITALS: BP 133/61
[2021-06-01] MEDS: ANEXSIA, NORCO 7.5MG/325MG TABLET(HYDROCODONE/APAP) PO PRN (17:35)
--- NOTE | 2021-06-01 18:27 | IPNPDOC ---
PM&R Progress Note DATE OF SERVICE: Jun 01, 2021 [employer] Supervisor Progress Note DATE OF ADMISSION: May 19, 2021 at 14:30 INPATIENT REHABILITATION ADMISSION DAY: #13 Chief Complaint: Generalized deconditioning and weakness. Abdominal pain, improving. Subjective: This is an 86F with pmh DM with peripheral polyneuropathy, HLD, CKD, DVT s/p course of Coumadin, gout, polymyalgia rheumatic, spinal stenosis, GERD who presented to [facility] ED on 05-07-21 with nausea, vomiting, and diarrhea diagnosed with a large hiatal hernia with gastric volvulus for which she underwent an EGD decompression in the OR. Following this procedure she was continued on NPO with NGT , then transferred to the ICU for hypertensive urgency and fever on 05-11-21 following an Upper GI series. Infectious work-up was negative, her blood pressures improved, her diet was advanced gradually, and she was found to have significant deconditioning with mobility and ADL impairments, deemed medically appropriate for discharge to ARU on 05-19-21. Dr. Young felt continued slow progression of diet be trialed, with low threshold to return to using the NG tube and possible consideration of laparoscopic exploration should she appear to re- obstruct. Patient feels that she is making progress is having regular bowel movements. REVIEW OF SYSTEMS: The following is a completed review of systems and has been reviewed. Review of systems otherwise unremarkable. PAIN: Patient self reports abdominal pain EYES: No recent vision changes EARS, NOSE, & THROAT: No throat pain, or dysphagia, or rhinorrhea CARDIOVASCULAR: Denies chest pain or palpitations PULMONARY: Denies shortness of breath, denies cough GASTROINTESTINAL: denies nasuea/vomiting/diarrhea GENITOURINARY: denies dysuria MUSCULOSKELETAL: generalized weakness NEUROLOGICAL:+peripheral polyneuropathy HEMATOLOGICAL: denies easy bruising SKIN: denies rash PSYCHIATRIC: +depressed All other review of systems found to be negative. PHYSICAL EXAMINATION: VITAL SIGNS: Please see below. GENERAL: Pleasant and cooperative. No acute distress. HEENT: PERRL. Extraocular movements intact. Clear conjunctiva. +dentures CARDIOVASCULAR: Regular rate and rhythm. II/ SM LUNGS: Clear to auscultation bilaterally. No wheezes. No rhonchi ABDOMEN: Soft, nontender, nondistended, no guarding, no rebound tenderness or ma sses. Positive bowel sounds. NEUROLOGICAL: Alert and oriented to self and place, Cranial nerves II through XII grossly intact. Sensation diminished to light touch bilat LE in stocking pattern EXTREMITIES: 4\\5 strength bilateral upper extremities. 3+\\5 strength right lower extremity. 3+/5 strength in left lower extremity. Unable to elevate upper extremities above 80 degrees. RUE +edema. bilat ankle pes valgus deformity ASSESSMENT: Status post nonsurgical decompression of volvulus. Diabetes. Probable gastroparesis. Peripheral polyneuropathy. Hiatal hernia. Pneumonia. Right upper extremity swelling and superficial venous thrombosis. Depression. Hypothyroidism. UTI. 86-year-old F with past medical history of DM with peripheral polyneuropathy and large hiatal hernia who presents status post gastric volvulus s/p EGD decompression, tolerating progressive feeding, having regular BM and minimal discomfort, able to participate in the therapy reconditioning program. PLAN: 1. Rehab- PT/OT advance mobility and ADLS, strengthen/stretch/maintain ROM all 4limbs- working on [id number] 2. Neuro- hx of diabetic peripheral polyneuropathy contributing to overall mobility impairments 3. GI- patient with large hiatal hernia with recent volvulus and EGD decompression on 05-07-21, not deemed to be surgical candidate- her diet was advanced, however on 05-20-21 exam she had recurrent emesis (FOBT negative) with KUB revealing large gastric bubble with no bowel obstruction- discussed case with Dr. Young who recommended trial of NGT which was clamped with patient tolerating full liquid diet- NGT d/c'd 05-27, patient comfortable and will progress as tolerated or go home on full liquid diet 4. Cardiac- cont BP meds, adjust as needed -HLD cont statin -medicine consulted to assist in overall management 5. Resp- monitor for infection- patient developing a cough with CT Chest on 05-26-21 showing, "New right lower lobe patchy opacities likely subsegmental atelectatic changes. Developing pneumonia cannot be ruled out" started on Iv Zosyn for possible aspiration PNA given recent emesis, cough resolved, last day of Cefdinir- symptoms resolved, clinically cleared -cont Combivent and guaifenesin, HOB >30 -recent Covid exposure, Resp panel negative 6. Pain- cont fentanyl and norco -lidoderm patch to left knee 7. Psych- cymbalta and Remeron for depression 8. DVT ppx- heparin -RUE swelling with US + for superficial thrombosis cont warm compress 9. Endo- hx of DM with peripheral polyneuropathy managed with diet alone -hypothyroidism cont Synthroid 10. - Ucx + for E. coli and proteus Mirabilis, PICC line leaking, cont oral cefdinir 11. Dispo- 06-03-21 to home with family and caregiver support DISPOSITION Home with TIME SPENT: Chart Review, examination and documentation 35 minutes. Allergies Coded Allergies: TAPE (Verified Allergy, Intermediate, RASH, 05/21/10) meloxicam (Verified Adverse Reaction, Mild, "I think it made me sick", 03/19/19) pioglitazone (Verified Adverse Reaction, Mild, bruising, 03/19/19) pregabalin (Verified Adverse Reaction, Mild, affects vision, 03/19/19) Vital Signs Vital Signs Date Time Temp Pulse Resp B/P (MAP) Pulse Ox O2 Delivery O2 Flow Rate FiO2 06/01/21 18:05 18 06/01/21 14:00 98.1 68 133/61 (85) 94 Room Air Laboratory Data CBC/BMP Laboratory Tests 06/01/21 08:12 Labs 24H Laboratory Tests 2 06/01/21 08:12: Immature Granulocyte % (Auto) 0.9, Neutrophils (%) (Auto) 72.3H, Lymphocytes (%) (Auto) 18.3L, Monocytes (%) (Auto) 6.0, Eosinophils (%) (Auto) 1.9, Basophils (%) (Auto) 0.6, Neutrophils # (Auto) 6.3, Lymphocytes # (Auto) 1.6, Monocytes # (Auto) 0.5, Eosinophils # (Auto) 0.2, Basophils # (Auto) 0.1, Nucleated Red Blood Cells % (auto) 0.0, Anion Gap 6L, Glomerular Filtration Rate > 60.0, Calcium Level 9.4 Microbiology Microbiology 05/26/21 Urine Culture - Final, Complete Escherichia Coli Proteus Mirabilis Current Medications Current Medications Current Medications Medications (Trade) Dose Ordered Sig/Alice Route PRN Reason Start Time Stop Time Status Last Admin Dose Admin Acetaminophen/ Hydrocodone Bitart (Anexsia, Lamont 7.5mg/325mg) 1 tab Q4HP PRN NG MILD PAIN (PS 1-4) 05/20/21 16:00 05/27/21 13:28 DC 05/25/21 10:45 Acetaminophen/ Hydrocodone Bitart (Anexsia, Lamont 7.5mg/325mg) 1 tab Q4HP PRN PO MILD PAIN (PS 1-4) 05/19/21 11:50 05/20/21 16:11 DC 05/19/21 21:01 Acetaminophen/ Hydrocodone Bitart (Anexsia, Lamont 7.5mg/325mg) 1 tab Q4HP PRN PO MILD PAIN (PS 1-4) 05/27/21 13:25 06/01/21 17:35 Albuterol/ Ipratropium (Combivent Respimat 100-20mcg) 1 puff RTID INH 05/26/21 20:00 06/01/21 07:52 Amlodipine Besylate (Norvasc) 10 mg DAILY NG 05/21/21 09:00 05/27/21 13:28 DC 05/27/21 08:44 Amlodipine Besylate (Norvasc) 10 mg DAILY PO 05/20/21 09:00 05/20/21 16:11 DC 05/20/21 08:00 Amlodipine Besylate (Norvasc) 10 mg DAILY PO 05/28/21 09:00 06/01/21 08:20 Cefdinir (Omnicef) 300 mg BID PO 05/28/21 11:30 06/01/21 22:00 06/01/21 08:20 Cyanocobalamin (Vitamin B12) 1,000 mcg DAILY NG 05/21/21 09:00 05/27/21 13:28 DC 05/27/21 08:44 Cyanocobalamin (Vitamin B12) 1,000 mcg DAILY PO 05/20/21 09:00 05/20/21 16:11 DC 05/20/21 08:00 Cyanocobalamin (Vitamin B12) 1,000 mcg DAILY PO 05/28/21 09:00 06/01/21 08:20 Dextrose/Sodium Chloride 1,000 ml @ 60 mls/hr [id number] IV 05/20/21 10:55 05/24/21 13:39 DC 05/23/21 21:51 Docusate Sodium (Colace) 200 mg BID PO 05/19/21 21:00 05/27/21 13:30 DC 05/20/21 08:00 Docusate Sodium (Colace) 200 mg BID PO 05/27/21 21:00 05/29/21 11:07 DC 05/29/21 07:35 Duloxetine HCl (Cymbalta) 60 mg DAILY PO 05/20/21 09:00 05/27/21 13:31 DC 05/20/21 08:00 Duloxetine HCl (Cymbalta) 60 mg DAILY PO 05/27/21 13:30 06/01/21 08:20 Fentanyl (Duragesic) 75 mcg Q72H [facility] 05/21/21 09:00 05/30/21 09:09 Guaifenesin (Robitussin Tab) 400 mg TID PO 05/26/21 16:00 06/01/21 17:35 Heparin Sodium (Heparin (Flush)) 200 units ASDIRECTED PRN IV SEE LABEL COMMENTS 05/19/21 22:30 05/28/21 16:28 DC 05/27/21 08:55 Heparin Sodium (Heparin (Flush)) 200 units ASDIRECTED PRN IV SEE LABEL COMMENTS 05/20/21 13:50 Cancel Heparin Sodium (Heparin (Flush)) 200 units PICC IV 05/20/21 06:00 05/28/21 16:28 DC 05/27/21 17:09 Heparin Sodium (Heparin (Flush)) 200 units PICC IV 05/20/21 18:00 Cancel Heparin Sodium (Porcine) (Heparin) 5,000 units Q12H SC 05/19/21 21:00 06/01/21 08:21 Home Med (Home Med List Complete!) ASDIRECTED XX 05/19/21 15:45 05/19/21 15:50 DC Levofloxacin (Levaquin) 250 mg DAILY@06 PO 05/26/21 12:05 05/26/21 19:03 DC 05/26/21 15:04 Levothyroxine Sodium (Synthroid) 37.5 mcg DAILY@06 NG 05/21/21 06:00 05/27/21 13:28 DC 05/27/21 05:31 Levothyroxine Sodium (Synthroid) 37.5 mcg DAILY@06 PO 05/20/21 06:00 05/20/21 16:11 DC 05/20/21 06:52 Levothyroxine Sodium (Synthroid) 37.5 mcg DAILY@06 PO 05/28/21 06:00 06/01/21 05:35 Lidocaine (Lidoderm Patch) 2 patch DAILY TD 05/27/21 09:00 06/01/21 08:21 Lisinopril (Prinivil) 10 mg DAILY NG 05/21/21 09:00 05/27/21 13:28 DC 05/27/21 08:44 Lisinopril (Prinivil) 10 mg DAILY PO 05/20/21 09:00 05/20/21 16:11 DC 05/20/21 08:00 Lisinopril (Prinivil) 10 mg DAILY PO 05/28/21 09:00 06/01/21 08:20 Mirtazapine (Remeron) 7.5 mg QHS NG 05/20/21 21:00 05/27/21 13:28 DC 05/26/21 21:42 Mirtazapine (Remeron) 7.5 mg QHS PO 05/19/21 21:00 05/20/21 16:11 DC 05/19/21 21:41 Mirtazapine (Remeron) 7.5 mg QHS PO 05/27/21 21:00 05/31/21 21:48 Naloxone HCl (Narcan) 0.1 mg Q5MP PRN IV RESP. RATE < 10 05/19/21 11:50 Nitroglycerin (Nitrostat (1/ 150)) 0.4 mg Q5MP PRN SL CHEST PAIN 05/19/21 11:50 Non-Formulary Medication ( See Comment Field Below ) REMOVE LIDODERM PATCH DAILY@21 XX 05/27/21 21:00 05/31/21 21:51 Non-Formulary Medication ( See Comment Field Below ) SEE COMMENTS SECTION ASDIRECTED XX 05/21/21 09:00 Nystatin (Mycostatin Powder, Nystop) abdominal folds and un... TID TOP 05/26/21 16:00 06/01/21 17:36 Ondansetron HCl (Zofran Odt) 4 mg Q6HP PRN PO NAUSEA OR VOMITING 05/19/21 16:00 05/20/21 09:46 DC 05/20/21 06:33 Ondansetron HCl (Zofran Odt) 4 mg Q6HP PRN SL NAUSEA OR VOMITING 05/20/21 10:00 Pantoprazole Sodium (Protonix) 40 mg DAILY IV 05/21/21 09:00 05/27/21 13:29 DC 05/27/21 08:43 Pantoprazole Sodium (Protonix) 40 mg DAILY PO 05/19/21 09:00 05/20/21 16:11 DC 05/20/21 08:00 Pantoprazole Sodium (Protonix) 40 mg DAILY PO 05/28/21 09:00 06/01/21 08:20 Phenol (Chloraseptic Ransom) 2 SPRAYS QID MT 05/27/21 17:00 06/01/21 17:36 Piperacillin Sod/ Tazobactam Sod 3.375 gm/Dextrose 50 ml @ 50 mls/hr Q6H IV 05/26/21 20:00 05/28/21 11:33 DC 05/27/21 14:03 Pravastatin Sodium (Pravachol) 40 mg QHS NG 05/20/21 21:00 05/27/21 13:28 DC 05/26/21 21:42 Pravastatin Sodium (Pravachol) 40 mg QHS PO 05/19/21 21:00 05/20/21 16:11 DC 05/19/21 21:00 Pravastatin Sodium (Pravachol) 40 mg QHS PO 05/27/21 21:00 05/31/21 21:52 Senna (Senokot) 1 tab QHS PRN NG constipation 05/20/21 21:00 05/27/21 13:28 DC Senna (Senokot) 1 tab QHS PRN PO constipation 05/20/21 21:00 05/20/21 16:11 DC Senna (Senokot) 1 tab QHS PRN PO CONSTIPATION 05/27/21 13:25 Senna (Senokot) 2 tab BID PO 05/19/21 21:00 05/20/21 10:49 DC 05/20/21 07:59 Simethicone (Mylicon) 80 mg TID NG 05/20/21 16:00 05/27/21 13:28 DC 05/27/21 08:44 Simethicone (Mylicon) 80 mg TID PO 05/19/21 16:00 05/20/21 16:11 DC 05/20/21 07:59 Simethicone (Mylicon) 80 mg TID PO 05/27/21 16:00 06/01/21 17:35 Sodium Chloride (Saline Lock Flush) 10 ml ASDIRECTED PRN IV SEE LABEL COMMENTS 05/19/21 22:30 05/28/21 16:28 DC 05/27/21 08:55 Sodium Chloride (Saline Lock Flush) 10 ml ASDIRECTED PRN IV SEE LABEL COMMENTS 05/20/21 13:50 Cancel Sodium Chloride (Saline Lock Flush) 10 ml PICC IV 05/20/21 06:00 05/28/21 16:28 DC 05/27/21 17:09 Sodium Chloride (Saline Lock Flush) 10 ml PICC IV 05/20/21 18:00 Cancel SHARON RIVERA MD Jun 01, 2021 18:27
[2021-06-01] MEDS: PRAVASTATIN 20 MG TAB PO SCH (21:12)
[2021-06-01] MEDS: MIRTAZAPINE 7.5MG PER 1/2 TABLET PO SCH (21:12)
[2021-06-01] MEDS: **NOTE PATIENT COMMENT** MISC XX SCH (21:13)
[2021-06-01 22:43] VITALS: BP 122/57
[2021-06-02] MEDS: LEVOTHYROXINE 37.5MCG PER 1/2TAB (0.0375MG) PO SCH (06:04)
[2021-06-02 06:37] VITALS: BP 147/65
[2021-06-02] MEDS: guaiFENesin 200 MG TAB PO SCH ×3 (08:28→20:25)
[2021-06-02] MEDS: PANTOPRAZOLE 40MG TAB (PROTONIX) PO SCH (08:28)
[2021-06-02] MEDS: DULoxetine 30MG CAPSULE (CYMBALTA) PO SCH (08:29)
[2021-06-02] MEDS: HEPARIN SOD (PORCINE) 5000UNITS/ML 1ML VIAL/SYRINGE SC SCH ×2 (08:30→20:26)
[2021-06-02] MEDS: CYANOCOBALAMIN 500 MCG TAB PO SCH (08:30)
[2021-06-02] MEDS: ANEXSIA, NORCO 7.5MG/325MG TABLET(HYDROCODONE/APAP) PO PRN (08:30)
[2021-06-02] MEDS: SIMETHICONE 80MG CHEW TAB PO SCH ×3 (08:30→20:26)
[2021-06-02] MEDS: LIDOCAINE 5% (LIDODERM) PATCH TD SCH (08:31)
[2021-06-02] MEDS: fentaNYL 75 MCG/HR PATCH TOP SCH (08:31)
[2021-06-02] MEDS: CHLORASEPTIC SPRAY MT SCH ×4 (09:00→20:29)
--- NOTE | 2021-06-02 09:55 | IPNPDOC ---
PM&R Progress Note DATE OF SERVICE: Jun 02, 2021 Clinical Trial Assistant Progress Note DATE OF ADMISSION: May 19, 2021 at 14:30 INPATIENT REHABILITATION ADMISSION DAY: #14 Chief Complaint: Generalized deconditioning and weakness. Abdominal pain, improving. Tolerating full liquid diet and regular BM. Subjective: This is an 86F with pmh DM with peripheral polyneuropathy, HLD, CKD, DVT s/p course of Coumadin, gout, polymyalgia rheumatic, spinal stenosis, GERD who presented to [facility] ED on 05-07-21 with nausea, vomiting, and diarrhea diagnosed with a large hiatal hernia with gastric volvulus for which she underwent an EGD decompression in the OR. Following this procedure she was continued on NPO with NGT , then transferred to the ICU for hypertensive urgency and fever on 05-11-21 following an Upper GI series. Infectious work-up was negative, her blood pressures improved, her diet was advanced gradually, and she was found to have significant deconditioning with mobility and ADL impairments, deemed medically appropriate for discharge to ARU on 05-19-21. Dr. Young felt continued slow progression of diet be trialed, with low threshold to return to using the NG tube and possible consideration of laparoscopic exploration should she appear to re- obstruct. 06.01.2021 Patient feels that she is making progress is having regular bowel movements. 06.02.2021 Patient seen with PT, working on AROM, challenged with swelling and pain left knee more than right, agreed to try wrapping up over knees and Voltaren gel. Patient discussed later today in Team Conference, apparently despondent over possibility she is not regaining sufficent capacity to transfer and mobility to return home with her of 60 years. 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 REVIEW OF SYSTEMS: The following is a completed review of systems and has been reviewed. Review of systems otherwise unremarkable. PAIN: Patient self reports abdominal pain EYES: No recent vision changes EARS, NOSE, & THROAT: No throat pain, or dysphagia, or rhinorrhea CARDIOVASCULAR: Denies chest pain or palpitations PULMONARY: Denies shortness of breath, denies cough GASTROINTESTINAL: denies nasuea/vomiting/diarrhea GENITOURINARY: denies dysuria MUSCULOSKELETAL: generalized weakness NEUROLOGICAL:+peripheral polyneuropathy HEMATOLOGICAL: denies easy bruising SKIN: denies rash PSYCHIATRIC: +depressed All other review of systems found to be negative. PHYSICAL EXAMINATION: VITAL SIGNS: Please see below. GENERAL: Pleasant and cooperative. No acute distress. HEENT: PERRL. Extraocular movements intact. Clear conjunctiva. +dentures CARDIOVASCULAR: Regular rate and rhythm. II/ SM LUNGS: Clear to auscultation bilaterally. No wheezes. No rhonchi. Sternal protrusion noted. ABDOMEN: Soft, nontender, nondistended, no guarding, no rebound tenderness or masses. Positive bowel sounds. NEUROLOGICAL: Alert and oriented to self and place, Cranial nerves II through XII grossly intact. Sensation diminished to light touch bilat LE in stocking pattern EXTREMITIES: 4\\5 strength bilateral upper extremities. 3+\\5 strength right lower extremity. 3+/5 strength in left lower extremity. Unable to elevate upper extremities above 80 degrees. RUE +edema. Hypertrophic edematous bilateral lower extremities, bilat ankle pes valgus deformity ASSESSMENT: Status post nonsurgical decompression of volvulus. Diabetes. Probable gastroparesis. Peripheral polyneuropathy. 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 Pneumonia. Right upper extremity swelling and superficial venous thrombosis. Depression. Hypothyroidism. UTI. 86-year-old F with past medical history of DM with peripheral polyneuropathy and large hiatal hernia who presents status post gastric volvulus s/p EGD decompression, tolerating progressive feeding to full liquids, having regular BM and minimal discomfort, able to participate in the therapy reconditioning program. PLAN: 1. Rehab- PT/OT advance mobility and ADLS, strengthen/stretch/maintain ROM all 4limbs- working on [id number] 2. Neuro- hx of diabetic peripheral polyneuropathy contributing to overall mobility impairments 3. GI- patient with large hiatal hernia with recent volvulus and EGD decompression on 05-07-21, not deemed to be surgical candidate- her diet was advanced, however on 05-20-21 exam she had recurrent emesis (FOBT negative) with KUB revealing large gastric bubble with no bowel obstruction- discussed case with Dr. Young who recommended trial of NGT which was clamped with patient tolerating full liquid diet- NGT d/c'd 05-27, patient comfortable and will progress as tolerated or go home on full liquid diet . Requested dietary reassess 1 choices a lot of her depressed mood to see if smoothies or varied soups might perk her up. 4. Cardiac- cont BP meds, adjust as needed -HLD cont statin -medicine consulted to assist in overall management 5. Resp- monitor for infection- patient developing a cough with CT Chest on 05-26-21 showing, "New right lower lobe patchy opacities likely subsegmental atelectatic changes. Developing pneumonia cannot be ruled out" started on Iv Zosyn for possible aspiration PNA given recent emesis, cough resolved, last day of Cefdinir- symptoms resolved, clinically cleared -cont Combivent and guaifenesin, HOB >30 -recent Covid exposure, Resp panel negative 6. Pain- cont fentanyl and norco -lidoderm patch to left knee 7. Psych- cymbalta and Remeron for depression 8. DVT ppx- heparin -RUE swelling with US + for superficial thrombosis cont warm compress 9. Endo- hx of DM with peripheral polyneuropathy managed with diet alone -hypothyroidism cont Synthroid 10. - Ucx + for E. coli and proteus Mirabilis, PICC line leaking, cont oral cefdinir 11. Dispo- 06-03-21 to home with family and caregiver support DISPOSITION Home with TIME SPENT: Chart Review, examination and documentation 35 minutes. Allergies Coded Allergies: TAPE (Verified Allergy, Intermediate, RASH, 05/21/10) meloxicam (Verified Adverse Reaction, Mild, "I think it made me sick", 03/19/19) pioglitazone (Verified Adverse Reaction, Mild, bruising, 03/19/19) pregabalin (Verified Adverse Reaction, Mild, affects vision, 03/19/19) Vital Signs Vital Signs Date Time Temp Pulse Resp B/P (MAP) Pulse Ox O2 Delivery O2 Flow Rate FiO2 06/02/21 08:31 18 Room Air 06/02/21 08:30 56 147/65 06/02/21 06:37 97.3 95 Microbiology Microbiology 05/26/21 Urine Culture - Final, Complete Escherichia Coli Proteus Mirabilis Current Medications Current Medications Current Medications Medications (Trade) Dose Ordered Sig/Alice Route PRN Reason Start Time Stop Time Status Last Admin Dose Admin Acetaminophen/ Hydrocodone Bitart (Anexsia, [place] 7.5mg/325mg) 1 tab Q4HP PRN NG MILD PAIN (PS 1-4) 05/20/21 16:00 05/27/21 13:28 DC 05/25/21 10:45 Acetaminophen/ Hydrocodone Bitart (Anexsia, [place] 7.5mg/325mg) 1 tab Q4HP PRN PO MILD PAIN (PS 1-4) 05/19/21 11:50 05/20/21 16:11 DC 05/19/21 21:01 Acetaminophen/ Hydrocodone Bitart (Anexsia, [place] 7.5mg/325mg) 1 tab Q4HP PRN PO MILD PAIN (PS 1-4) 05/27/21 13:25 06/02/21 08:30 Albuterol/ Ipratropium (Combivent Respimat 100-20mcg) 1 puff RTID INH 05/26/21 20:00 06/01/21 07:52 Amlodipine Besylate (Norvasc) 10 mg DAILY NG 05/21/21 09:00 05/27/21 13:28 DC 05/27/21 08:44 Amlodipine Besylate (Norvasc) 10 mg DAILY PO 05/20/21 09:00 05/20/21 16:11 DC 05/20/21 08:00 Amlodipine Besylate (Norvasc) 10 mg DAILY PO 05/28/21 09:00 06/02/21 08:30 Cefdinir (Omnicef) 300 mg BID PO 05/28/21 11:30 06/01/21 22:00 DC 06/01/21 21:12 Cyanocobalamin (Vitamin B12) 1,000 mcg DAILY NG 05/21/21 09:00 05/27/21 13:28 DC 05/27/21 08:44 Cyanocobalamin (Vitamin B12) 1,000 mcg DAILY PO 05/20/21 09:00 05/20/21 16:11 DC 05/20/21 08:00 Cyanocobalamin (Vitamin B12) 1,000 mcg DAILY PO 05/28/21 09:00 06/02/21 08:30 Dextrose/Sodium Chloride 1,000 ml @ 60 mls/hr [id number] IV 05/20/21 10:55 05/24/21 13:39 DC 05/23/21 21:51 Docusate Sodium (Colace) 200 mg BID PO 05/19/21 21:00 05/27/21 13:30 DC 05/20/21 08:00 Docusate Sodium (Colace) 200 mg BID PO 05/27/21 21:00 05/29/21 11:07 DC 05/29/21 07:35 Duloxetine HCl (Cymbalta) 60 mg DAILY PO 05/20/21 09:00 05/27/21 13:31 DC 05/20/21 08:00 Duloxetine HCl (Cymbalta) 60 mg DAILY PO 05/27/21 13:30 06/02/21 08:29 Fentanyl (Duragesic) 75 mcg Q72H TOP 05/21/21 09:00 06/02/21 08:31 Guaifenesin (Robitussin Tab) 400 mg TID PO 05/26/21 16:00 06/02/21 08:28 Heparin Sodium (Heparin (Flush)) 200 units ASDIRECTED PRN IV SEE LABEL COMMENTS 05/19/21 22:30 05/28/21 16:28 DC 05/27/21 08:55 Heparin Sodium (Heparin (Flush)) 200 units ASDIRECTED PRN IV SEE LABEL COMMENTS 05/20/21 13:50 Cancel Heparin Sodium (Heparin (Flush)) 200 units PICC IV 05/20/21 06:00 05/28/21 16:28 DC 05/27/21 17:09 Heparin Sodium (Heparin (Flush)) 200 units PICC IV 05/20/21 18:00 Cancel Heparin Sodium (Porcine) (Heparin) 5,000 units Q12H SC 05/19/21 21:00 06/02/21 08:30 Home Med (Home Med List Complete!) ASDIRECTED XX 05/19/21 15:45 05/19/21 15:50 DC Levofloxacin (Levaquin) 250 mg DAILY@06 PO 05/26/21 12:05 05/26/21 19:03 DC 05/26/21 15:04 Levothyroxine Sodium (Synthroid) 37.5 mcg DAILY@06 NG 05/21/21 06:00 05/27/21 13:28 DC 05/27/21 05:31 Levothyroxine Sodium (Synthroid) 37.5 mcg DAILY@06 PO 05/20/21 06:00 05/20/21 16:11 DC 05/20/21 06:52 Levothyroxine Sodium (Synthroid) 37.5 mcg DAILY@06 PO 05/28/21 06:00 06/02/21 06:04 Lidocaine (Lidoderm Patch) 2 patch DAILY TD 05/27/21 09:00 06/02/21 08:31 Lisinopril (Prinivil) 10 mg DAILY NG 05/21/21 09:00 05/27/21 13:28 DC 05/27/21 08:44 Lisinopril (Prinivil) 10 mg DAILY PO 05/20/21 09:00 05/20/21 16:11 DC 05/20/21 08:00 Lisinopril (Prinivil) 10 mg DAILY PO 05/28/21 09:00 06/02/21 08:28 Mirtazapine (Remeron) 7.5 mg QHS NG 05/20/21 21:00 05/27/21 13:28 DC 05/26/21 21:42 Mirtazapine (Remeron) 7.5 mg QHS PO 05/19/21 21:00 05/20/21 16:11 DC 05/19/21 21:41 Mirtazapine (Remeron) 7.5 mg QHS PO 05/27/21 21:00 06/01/21 21:12 Naloxone HCl (Narcan) 0.1 mg Q5MP PRN IV RESP. RATE < 10 05/19/21 11:50 Nitroglycerin (Nitrostat (1/ 150)) 0.4 mg Q5MP PRN SL CHEST PAIN 05/19/21 11:50 Non-Formulary Medication ( See Comment Field Below ) REMOVE LIDODERM PATCH DAILY@21 XX 05/27/21 21:00 06/01/21 21:13 Non-Formulary Medication ( See Comment Field Below ) SEE COMMENTS SECTION ASDIRECTED XX 05/21/21 09:00 Nystatin (Mycostatin Powder, Nystop) abdominal folds and un... TID TOP 05/26/21 16:00 06/01/21 21:13 Ondansetron HCl (Zofran Odt) 4 mg Q6HP PRN PO NAUSEA OR VOMITING 05/19/21 16:00 05/20/21 09:46 DC 05/20/21 06:33 Ondansetron HCl (Zofran Odt) 4 mg Q6HP PRN SL NAUSEA OR VOMITING 05/20/21 10:00 Pantoprazole Sodium (Protonix) 40 mg DAILY IV 05/21/21 09:00 05/27/21 13:29 DC 05/27/21 08:43 Pantoprazole Sodium (Protonix) 40 mg DAILY PO 05/19/21 09:00 05/20/21 16:11 DC 05/20/21 08:00 Pantoprazole Sodium (Protonix) 40 mg DAILY PO 05/28/21 09:00 06/02/21 08:28 Phenol (Chloraseptic [place]) 2 SPRAYS QID MT 05/27/21 17:00 06/01/21 21:12 Piperacillin Sod/ Tazobactam Sod 3.375 gm/Dextrose 50 ml @ 50 mls/hr Q6H IV 05/26/21 20:00 05/28/21 11:33 DC 05/27/21 14:03 Pravastatin Sodium (Pravachol) 40 mg QHS NG 05/20/21 21:00 05/27/21 13:28 DC 05/26/21 21:42 Pravastatin Sodium (Pravachol) 40 mg QHS PO 05/19/21 21:00 05/20/21 16:11 DC 05/19/21 21:00 Pravastatin Sodium (Pravachol) 40 mg QHS PO 05/27/21 21:00 06/01/21 21:12 Senna (Senokot) 1 tab QHS PRN NG constipation 05/20/21 21:00 05/27/21 13:28 DC Senna (Senokot) 1 tab QHS PRN PO constipation 05/20/21 21:00 05/20/21 16:11 DC Senna (Senokot) 1 tab QHS PRN PO CONSTIPATION 05/27/21 13:25 Senna (Senokot) 2 tab BID PO 05/19/21 21:00 05/20/21 10:49 DC 05/20/21 07:59 Simethicone (Mylicon) 80 mg TID NG 05/20/21 16:00 05/27/21 13:28 DC 05/27/21 08:44 Simethicone (Mylicon) 80 mg TID PO 05/19/21 16:00 05/20/21 16:11 DC 05/20/21 07:59 Simethicone (Mylicon) 80 mg TID PO 05/27/21 16:00 06/02/21 08:30 Sodium Chloride (Saline Lock Flush) 10 ml ASDIRECTED PRN IV SEE LABEL COMMENTS 05/19/21 22:30 05/28/21 16:28 DC 05/27/21 08:55 Sodium Chloride (Saline Lock Flush) 10 ml ASDIRECTED PRN IV SEE LABEL COMMENTS 05/20/21 13:50 Cancel Sodium Chloride (Saline Lock Flush) 10 ml PICC IV 05/20/21 06:00 05/28/21 16:28 DC 05/27/21 17:09 Sodium Chloride (Saline Lock Flush) 10 ml PICC IV 05/20/21 18:00 Cancel SHARON RIVERA MD Jun 02, 2021 09:55
[2021-06-02] MEDS: FENTANYL REMOVAL DOCUMENTATION MISC XX SCH (11:46)
[2021-06-02] MEDS: COMBIVENT RESPIMAT 100-20MCG INHALER 4GM INH SCH ×2 (13:41→21:16)
[2021-06-02 14:00] VITALS: BP 130/60
[2021-06-02] MEDS: REMEDY PHYTOPLEX Z-GUARD PASTE 113GM TUBE (FROM STOREROOM PRODUCT) TOP SCH ×2 (17:17→20:43)
[2021-06-02] MEDS: NYSTATIN 100,000 UNITS/GM TOPICAL PWD 15 GM TOP SCH ×3 (17:18→20:25)
[2021-06-02] MEDS: MIRTAZAPINE 7.5MG PER 1/2 TABLET PO SCH (20:25)
[2021-06-02] MEDS: **NOTE PATIENT COMMENT** MISC XX SCH (20:25)
[2021-06-02] MEDS: PRAVASTATIN 20 MG TAB PO SCH (20:29)
[2021-06-02 22:00] VITALS: BP 104/57
[2021-06-03] MEDS: LEVOTHYROXINE 37.5MCG PER 1/2TAB (0.0375MG) PO SCH (05:40)
[2021-06-03 06:00] VITALS: BP 119/57
[2021-06-03] MEDS: COMBIVENT RESPIMAT 100-20MCG INHALER 4GM INH SCH ×3 (08:00→20:20)
[2021-06-03] MEDS: DULoxetine 30MG CAPSULE (CYMBALTA) PO SCH (08:42)
[2021-06-03] MEDS: HEPARIN SOD (PORCINE) 5000UNITS/ML 1ML VIAL/SYRINGE SC SCH ×2 (08:42→20:53)
[2021-06-03] MEDS: CYANOCOBALAMIN 500 MCG TAB PO SCH (08:42)
[2021-06-03] MEDS: SIMETHICONE 80MG CHEW TAB PO SCH ×3 (08:42→20:53)
[2021-06-03] MEDS: PANTOPRAZOLE 40MG TAB (PROTONIX) PO SCH (08:42)
[2021-06-03] MEDS: guaiFENesin 200 MG TAB PO SCH ×3 (08:43→20:53)
[2021-06-03] MEDS: CHLORASEPTIC SPRAY MT SCH ×4 (08:43→20:54)
[2021-06-03] MEDS: LIDOCAINE 5% (LIDODERM) PATCH TD SCH (08:43)
[2021-06-03] MEDS: NYSTATIN 100,000 UNITS/GM TOPICAL PWD 15 GM TOP SCH ×3 (08:43→20:54)
[2021-06-03] MEDS: REMEDY PHYTOPLEX Z-GUARD PASTE 113GM TUBE (FROM STOREROOM PRODUCT) TOP SCH ×3 (08:44→20:54)
--- NOTE | 2021-06-03 11:08 | IPNPDOC ---
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 Abdominal pain, improving. Tolerating full liquid diet and regular BM. Grief reaction over pending news she may not be able to return home with of 60 years. Subjective: This is an 86F with pmh DM with peripheral polyneuropathy, HLD, CKD, DVT s/p course of Coumadin, gout, polymyalgia rheumatic, spinal stenosis, GERD who presented to [facility] ED on 05-07-21 with nausea, vomiting, and diarrhea diagnosed with a large hiatal hernia with gastric volvulus for which she underwent an EGD decompression in the OR. Following this procedure she was continued on NPO with NGT , then transferred to the ICU for hypertensive urgency and fever on 05-11-21 following an Upper GI series. Infectious work-up was negative, her blood pressures improved, her diet was advanced gradually, and she was found to have significant deconditioning with mobility and ADL impairments, deemed medically appropriate for discharge to ARU on 05-19-21. Dr. Young felt continued slow progression of diet be trialed, with low threshold to return to using the NG tube and possible consideration of laparoscopic exploration should she appear to re- obstruct. 06.01.2021 Patient feels that she is making progress is having regular bowel movements. 06.02.2021 Patient seen with PT, working on AROM, challenged with swelling and pain left knee more than right, agreed to try wrapping up over knees and Vol von gel. Patient discussed later today in Team Conference, apparently despondent over possibility she is not regaining sufficent capacity to transfer and mobility to return home with her of 58 years. 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 06.03.2021 patient seen in room early in the morning doing well, asking for transfer assistance to bedside commode, minimal complaint of pain. Later in the morning, it was noted patient was not cooperating with physical therapy attempted interventions, expressing feelings of wanting to give up and despondent over recent revelation that she may not have regain sufficient function to return home instead have to go to a SNF. REVIEW OF SYSTEMS: The following is a completed review of systems and has been reviewed. Review of systems otherwise unremarkable. PAIN: Patient self reports abdominal pain EYES: No recent vision changes EARS, NOSE, & THROAT: No throat pain, or dysphagia, or rhinorrhea CARDIOVASCULAR: Denies chest pain or palpitations PULMONARY: Denies shortness of breath, denies cough GASTROINTESTINAL: denies nasuea/vomiting/diarrhea GENITOURINARY: denies dysuria MUSCULOSKELETAL: generalized weakness NEUROLOGICAL:+peripheral polyneuropathy HEMATOLOGICAL: denies easy bruising SKIN: denies rash PSYCHIATRIC: +depressed All other review of systems found to be negative. PHYSICAL EXAMINATION: VITAL SIGNS: Please see below. GENERAL: Pleasant and cooperative. No acute distress, flat affect, oriented to day of weak and Halloween approaching. HEENT: Extraocular movements intact. Clear conjunctiva. CARDIOVASCULAR: Regular rate and rhythm. II/ SM LUNGS: Clear to auscultation bilaterally. No wheezes. No rhonchi. Sternal protrusion noted. ABDOMEN: Soft, nontender, obese, no guarding, no rebound tenderness or masses. Positive bowel sounds. NEUROLOGICAL: Alert and oriented to self and place, Cranial nerves II through XII grossly intact. Sensation diminished to light touch bilat LE in stocking pattern EXTREMITIES: 4\\5 strength bilateral upper extremities. 3+\\5 strength right lower extremity. 3+/5 strength in left lower extremity. Unable to elevate upper extremities above 80 degrees. RUE +edema. Hypertrophic edematous bilateral lower extremities, bilat ankles pes valgus deformity Functional Status: PT notes becomes easily frustrated this session with attempts at mobility and therex. Continued to work on strengthening, endurance and unsupported sitting tolerance; able to tolerate 1-2 minute intervals in unsupported sitting position before requiring use of UEs for support; will benefit from continued work. Also perform transfer this session; limited tolerance continues to be prevalent; requires modA x2 for squat pivot with bed elevated to assist with stand. Observed Requires assist x 2 for transfer to [facility]. ASSESSMENT: Status post nonsurgical decompression of volvulus. Diabetes. Probable gastroparesis. Peripheral polyneuropathy. 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 Pneumonia. Right upper extremity swelling and superficial venous thrombosis. Depression. Hypothyroidism. UTI. 86-year-old F with past medical history of DM with peripheral polyneuropathy and large hiatal hernia who presents status post gastric volvulus s/p EGD decompression, tolerating progressive feeding to full liquids, having regular BM and minimal discomfort, able to participate in the therapy reconditioning program. PLAN: 1. Rehab- PT/OT advance mobility and ADLS, strengthen/stretch/maintain ROM all 4limbs- working on [id number] 2. Neuro- hx of diabetic peripheral polyneuropathy contributing to overall mobility impairments 3. GI- patient with large hiatal hernia with recent volvulus and EGD decompression on 05-07-21, not deemed to be surgical candidate- her diet was advanced, however on 05-20-21 exam she had recurrent emesis (FOBT negative) with KUB revealing large gastric bubble with no bowel obstruction- discussed case with Dr. Young who recommended trial of NGT which was clamped with patient tolerating full liquid diet- NGT d/c'd 05-27, patient comfortable and will progress as tolerated or go home on full liquid diet . Requested dietary reassess 1 choices a lot of her depressed mood to see if smoothies or varied so ups might perk her up. 4. Cardiac- cont BP meds, adjust as needed -HLD cont statin -medicine consulted to assist in overall management 5. Resp- monitor for infection- patient developing a cough with CT Chest on 05-26-21 showing, "New right lower lobe patchy opacities likely subsegmental atelectatic changes. Developing pneumonia cannot be ruled out" started on Iv Zosyn for possible aspiration PNA given recent emesis, cough resolved, last day of Cefdinir- symptoms resolved, clinically cleared -cont Combivent and guaifenesin, HOB >30 -recent Covid exposure, Resp panel negative 6. Pain- cont fentanyl and norco -lidoderm patch to left knee 7. Psych- cymbalta and Remeron for depression 8. DVT ppx- heparin -RUE swelling with US + for superficial thrombosis cont warm compress 9. Endo- hx of DM with peripheral polyneuropathy managed with diet alone -hypothyroidism cont Synthroid 10. - Ucx + for E. coli and proteus Mirabilis, PICC line leaking, cont oral cefdinir 11. Dispo- 06-03-21 to home with family and caregiver support DISPOSITION Now uncertain whether home with family who may not have capacity to care for her or to a facility with 24 hr nursing care and support. TIME SPENT: Chart Review, examination and documentation 35 minutes. Allergies Coded Allergies: TAPE (Verified Allergy, Intermediate, RASH, 05/21/10) meloxicam (Verified Adverse Reaction, Mild, "I think it made me sick", 03/19/19) pioglitazone (Verified Adverse Reaction, Mild, bruising, 03/19/19) pregabalin (Verified Adverse Reaction, Mild, affects vision, 03/19/19) Vital Signs Vital Signs Date Time Temp Pulse Resp B/P (MAP) Pulse Ox O2 Delivery O2 Flow Rate FiO2 06/03/21 08:42 119/57 06/03/21 08:42 53 06/03/21 06:00 98.0 18 94 06/02/21 22:00 Room Air Microbiology Microbiology 05/26/21 Urine Culture - Final, Complete Escherichia Coli Proteus Mirabilis Current Medications Current Medications Current Medications Medications (Trade) Dose Ordered Sig/Alice Route PRN Reason Start Time Stop Time Status Last Admin Dose Admin Acetaminophen/ Hydrocodone Bitart (Anexsia, [place] 7.5mg/325mg) 1 tab Q4HP PRN NG MILD PAIN (PS 1-4) 05/20/21 16:00 05/27/21 13:28 DC 05/25/21 10:45 Acetaminophen/ Hydrocodone Bitart (Anexsia, [place] 7.5mg/325mg) 1 tab Q4HP PRN PO MILD PAIN (PS 1-4) 05/19/21 11:50 05/20/21 16:11 DC 05/19/21 21:01 Acetaminophen/ Hydrocodone Bitart (Anexsia, [place] 7.5mg/325mg) 1 tab Q4HP PRN PO MILD PAIN (PS 1-4) 05/27/21 13:25 06/02/21 08:30 Albuterol/ Ipratropium (Combivent Respimat 100-20mcg) 1 puff RTID INH 05/26/21 20:00 06/02/21 21:16 Amlodipine Besylate (Norvasc) 10 mg DAILY NG 05/21/21 09:00 05/27/21 13:28 DC 05/27/21 08:44 Amlodipine Besylate (Norvasc) 10 mg DAILY PO 05/20/21 09:00 05/20/21 16:11 DC 05/20/21 08:00 Amlodipine Besylate (Norvasc) 10 mg DAILY PO 05/28/21 09:00 06/03/21 08:42 Cefdinir (Omnicef) 300 mg BID PO 05/28/21 11:30 06/01/21 22:00 DC 06/01/21 21:12 Cyanocobalamin (Vitamin B12) 1,000 mcg DAILY NG 05/21/21 09:00 05/27/21 13:28 DC 05/27/21 08:44 Cyanocobalamin (Vitamin B12) 1,000 mcg DAILY PO 05/20/21 09:00 05/20/21 16:11 DC 05/20/21 08:00 Cyanocobalamin (Vitamin B12) 1,000 mcg DAILY PO 05/28/21 09:00 06/03/21 08:42 Dextrose/Sodium Chloride 1,000 ml @ 60 mls/hr [id number] IV 05/20/21 10:55 05/24/21 13:39 DC 05/23/21 21:51 Docusate Sodium (Colace) 200 mg BID PO 05/19/21 21:00 05/27/21 13:30 DC 05/20/21 08:00 Docusate Sodium (Colace) 200 mg BID PO 05/27/21 21:00 05/29/21 11:07 DC 05/29/21 07:35 Duloxetine HCl (Cymbalta) 60 mg DAILY PO 05/20/21 09:00 05/27/21 13:31 DC 05/20/21 08:00 Duloxetine HCl (Cymbalta) 60 mg DAILY PO 05/27/21 13:30 06/03/21 08:42 Fentanyl (Duragesic) 75 mcg Q72H TOP 05/21/21 09:00 06/02/21 08:31 Guaifenesin (Robitussin Tab) 400 mg TID PO 05/26/21 16:00 06/03/21 08:43 Heparin Sodium (Heparin (Flush)) 200 units ASDIRECTED PRN IV SEE LABEL COMMENTS 05/19/21 22:30 05/28/21 16:28 DC 05/27/21 08:55 Heparin Sodium (Heparin (Flush)) 200 units ASDIRECTED PRN IV SEE LABEL COMMENTS 05/20/21 13:50 Cancel Heparin Sodium (Heparin (Flush)) 200 units PICC IV 05/20/21 06:00 05/28/21 16:28 DC 05/27/21 17:09 Heparin Sodium (Heparin (Flush)) 200 units PICC IV 05/20/21 18:00 Cancel Heparin Sodium (Porcine) (Heparin) 5,000 units Q12H SC 05/19/21 21:00 06/03/21 08:42 Home Med (Home Med List Complete!) ASDIRECTED XX 05/19/21 15:45 05/19/21 15:50 DC Levofloxacin (Levaquin) 250 mg DAILY@06 PO 05/26/21 12:05 05/26/21 19:03 DC 05/26/21 15:04 Levothyroxine Sodium (Synthroid) 37.5 mcg DAILY@06 NG 05/21/21 06:00 05/27/21 13:28 DC 05/27/21 05:31 Levothyroxine Sodium (Synthroid) 37.5 mcg DAILY@06 PO 05/20/21 06:00 05/20/21 16:11 DC 05/20/21 06:52 Levothyroxine Sodium (Synthroid) 37.5 mcg DAILY@06 PO 05/28/21 06:00 06/03/21 05:40 Lidocaine (Lidoderm Patch) 2 patch DAILY TD 05/27/21 09:00 06/03/21 08:43 Lisinopril (Prinivil) 10 mg DAILY NG 05/21/21 09:00 05/27/21 13:28 DC 05/27/21 08:44 Lisinopril (Prinivil) 10 mg DAILY PO 05/20/21 09:00 05/20/21 16:11 DC 05/20/21 08:00 Lisinopril (Prinivil) 10 mg DAILY PO 05/28/21 09:00 06/03/21 08:42 Mirtazapine (Remeron) 7.5 mg QHS NG 05/20/21 21:00 05/27/21 13:28 DC 05/26/21 21:42 Mirtazapine (Remeron) 7.5 mg QHS PO 05/19/21 21:00 05/20/21 16:11 DC 05/19/21 21:41 Mirtazapine (Remeron) 7.5 mg QHS PO 05/27/21 21:00 06/02/21 20:25 Naloxone HCl (Narcan) 0.1 mg Q5MP PRN IV RESP. RATE < 10 05/19/21 11:50 Nitroglycerin (Nitrostat (1/ 150)) 0.4 mg Q5MP PRN SL CHEST PAIN 05/19/21 11:50 Non-Formulary Medication ( See Comment Field Below ) REMOVE LIDODERM PATCH DAILY@21 XX 05/27/21 21:00 06/02/21 20:25 Non-Formulary Medication ( See Comment Field Below ) SEE COMMENTS SECTION ASDIRECTED XX 05/21/21 09:00 06/02/21 11:46 Nystatin (Mycostatin Powder, Nystop) abdominal folds and un... TID TOP 05/26/21 16:00 06/03/21 08:43 Ondansetron HCl (Zofran Odt) 4 mg Q6HP PRN PO NAUSEA OR VOMITING 05/19/21 16:00 05/20/21 09:46 DC 05/20/21 06:33 Ondansetron HCl (Zofran Odt) 4 mg Q6HP PRN SL NAUSEA OR VOMITING 05/20/21 10:00 Pantoprazole Sodium (Protonix) 40 mg DAILY IV 05/21/21 09:00 05/27/21 13:29 DC 05/27/21 08:43 Pantoprazole Sodium (Protonix) 40 mg DAILY PO 05/19/21 09:00 05/20/21 16:11 DC 05/20/21 08:00 Pantoprazole Sodium (Protonix) 40 mg DAILY PO 05/28/21 09:00 06/03/21 08:42 Phenol (Chloraseptic [place]) 2 SPRAYS QID MT 05/27/21 17:00 06/03/21 08:43 Piperacillin Sod/ Tazobactam Sod 3.375 gm/Dextrose 50 ml @ 50 mls/hr Q6H IV 05/26/21 20:00 05/28/21 11:33 DC 05/27/21 14:03 Pravastatin Sodium (Pravachol) 40 mg QHS NG 05/20/21 21:00 05/27/21 13:28 DC 05/26/21 21:42 Pravastatin Sodium (Pravachol) 40 mg QHS PO 05/19/21 21:00 05/20/21 16:11 DC 05/19/21 21:00 Pravastatin Sodium (Pravachol) 40 mg QHS PO 05/27/21 21:00 06/02/21 20:29 Senna (Senokot) 1 tab QHS PRN NG constipation 05/20/21 21:00 05/27/21 13:28 DC Senna (Senokot) 1 tab QHS PRN PO constipation 05/20/21 21:00 05/20/21 16:11 DC Senna (Senokot) 1 tab QHS PRN PO CONSTIPATION 05/27/21 13:25 06/02/21 20:26 Senna (Senokot) 2 tab BID PO 05/19/21 21:00 05/20/21 10:49 DC 05/20/21 07:59 Simethicone (Mylicon) 80 mg TID NG 05/20/21 16:00 05/27/21 13:28 DC 05/27/21 08:44 Simethicone (Mylicon) 80 mg TID PO 05/19/21 16:00 05/20/21 16:11 DC 05/20/21 07:59 Simethicone (Mylicon) 80 mg TID PO 05/27/21 16:00 06/03/21 08:42 Sodium Chloride (Saline Lock Flush) 10 ml ASDIRECTED PRN IV SEE LABEL COMMENTS 05/19/21 22:30 05/28/21 16:28 DC 05/27/21 08:55 Sodium Chloride (Saline Lock Flush) 10 ml ASDIRECTED PRN IV SEE LABEL COMMENTS 05/20/21 13:50 Cancel Sodium Chloride (Saline Lock Flush) 10 ml PICC IV 05/20/21 06:00 05/28/21 16:28 DC 05/27/21 17:09 Sodium Chloride (Saline Lock Flush) 10 ml PICC IV 05/20/21 18:00 SHARON Michel MD Jun 03, 2021 11:08
[2021-06-03 14:00] VITALS: BP 141/60
[2021-06-03] MEDS: ANEXSIA, NORCO 7.5MG/325MG TABLET(HYDROCODONE/APAP) PO PRN (18:38)
[2021-06-03 20:00] VITALS: BP 115/55
[2021-06-03] MEDS: MIRTAZAPINE 7.5MG PER 1/2 TABLET PO SCH (20:53)
[2021-06-03] MEDS: PRAVASTATIN 20 MG TAB PO SCH (20:53)
[2021-06-03] MEDS: **NOTE PATIENT COMMENT** MISC XX SCH (20:55)
[2021-06-04] MEDS: LEVOTHYROXINE 37.5MCG PER 1/2TAB (0.0375MG) PO SCH (05:46)
[2021-06-04 06:00] VITALS: BP 140/63
[2021-06-04] MEDS: COMBIVENT RESPIMAT 100-20MCG INHALER 4GM INH SCH ×3 (07:07→20:00)
[2021-06-04] MEDS: NEPHRO-VIT TAB (NEPHROCAPS) PO SCH (09:00)
--- NOTE | 2021-06-04 09:00 | IPNPDOC ---
PM&R Progress Note DATE OF SERVICE: Jun 04, 2021 [place] Progress Note DATE OF ADMISSION: May 19, 2021 at 14:30 INPATIENT REHAB DAY # 15 Chief Complaint: Generalized deconditioning and weakness. Grief reaction and frustration over inability to gain sufficient function for ability to transfer and perform self care and desire to be with her in her own home. Subjective: This is an 86F with pmh DM with peripheral polyneuropathy, HLD, CKD, DVT s/p course of Coumadin, gout, polymyalgia rheumatic, spinal stenosis, GERD who presented to [facility] ED on 05-07-21 with nausea, vomiting, and diarrhea diagnosed with a large hiatal hernia with gastric volvulus for which she underwent an EGD decompression in the OR. Following this procedure she was continued on NPO with NGT , then transferred to the ICU for hypertensive urgency and fever on 05-11-21 following an Upper GI series. Infectious work-up was negative, her blood pressures improved, her diet was advanced gradually, and she was found to have significant deconditioning with mobility and ADL impairments, deemed medically appropriate for discharge to ARU on 05-19-21. Dr. Young felt continued slow progression of diet be trialed, with low threshold to return to using the NG tube and possible consideration of laparoscopic exploration should she appear to re- obstruct. 06.01.2021 Patient feels that she is making progress is having regular bowel movements. 06.02.2021 Patient seen with PT, working on AROM, challenged with swelling and pain left knee more than right, agreed to try wrapping up over knees and Voltaren gel. Patient discussed later today in Team Conference, apparently despondent over possibility she is not regaining sufficent capacity to transfer and mobility to return home with her of 60 years. client services representative working on possible alternate placement options they may consider for their greatest safety if in home support cannot be sorted out. 06.03.2021 patient seen in room early in the morning doing well, asking for transfer assistance to bedside commode, minimal complaint of pain. Later in the morning, it was noted patient was not cooperating with physical therapy attempted interventions, expressing feelings of wanting to give up and despondent over recent revelation that she may not have regain sufficient function to return home instead have to go to a SNF. 06.04.2021 Long discussion with patient regarding her concerns, apparently she also speaks to her daughters daily or every other day that [place], [place] and is concerned about balance and needs of her husbands children. She has generalized frustra tion and some degree of confusion, is unable to articulate precisely what is needed for her to be able to do functionally for her to achieve her goal of returning home rather focus on her desire to be with her in her own home. She is tolerating full liquids and having regular bowel movements. Discussed situation with therapy and social service agency director, family conference will be coordinated with myself and social service agency director to better delineate options. Patient had no recollection today of discussions yesterday with myself with social service agency director. Adding Buspar and low dose Prednisone to help with anxiety and post infection/inflammatory component of worsened PMR/PN. REVIEW OF SYSTEMS: The following is a completed review of systems and has been reviewed. Review of systems otherwise unremarkable. PAIN: Patient self reports abdominal pain EYES: No recent vision changes EARS, NOSE, & THROAT: No throat pain, or dysphagia, or rhinorrhea CARDIOVASCULAR: Denies chest pain or palpitations PULMONARY: Denies shortness of breath, denies cough GASTROINTESTINAL: denies nasuea/vomiting/diarrhea GENITOURINARY: denies dysuria MUSCULOSKELETAL: generalized weakness NEUROLOGICAL:+peripheral polyneuropathy HEMATOLOGICAL: denies easy bruising SKIN: denies rash PSYCHIATRIC: +depressed All other review of systems found to be negative. PHYSICAL EXAMINATION: VITAL SIGNS: Please see below. GENERAL: Mild distress, tearful affect. HEENT: Extraocular movements intact. CARDIOVASCULAR: Regular rate and rhythm. II/ SM LUNGS: Clear to auscultation bilaterally. No wheezes. No rhonchi. Sternal protrusion noted. ABDOMEN: Soft, nontender, obese, no guarding, no rebound tenderness or masses. Positive bowel sounds. NEUROLOGICAL: Alert and oriented to self and place, Cranial nerves II through XII grossly intact. EXTREMITIES: 4\\5 strength bilateral upper extremities. 3+\\5 strength right lower extremity. 3+/5 strength in left lower extremity. Unable to elevate upper extremities above 80 degrees. RUE +edema. Hypertrophic edematous bilateral lower extremities, bilat ankles pes valgus deformity Functional Status: Limited tolerance continues to be prevalent; requires modA x2 for squat pivot with bed elevated to assist with stand. Observed Requires assist x 2 for transfer to [facility]. Discussed with therapy another trial of the sliding board transfers, not a candidate for Norbert lift transfers. ASSESSMENT: Status post nonsurgical decompression of volvulus. Diabetes. Probable gastroparesis. Peripheral polyneuropathy. 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 Pneumonia. Right upper extremity swelling and superficial venous thrombosis. Depression. Hypothyroidism. UTI. 86-year-old F with past medical history of DM with peripheral polyneuropathy and large hiatal hernia who presents status post gastric volvulus s/p EGD decompression, tolerating progressive feeding to full liquids, having regular BM and minimal discomfort, able to participate in the therapy reconditioning program. PLAN: 1. Rehab- PT/OT advance mobility and ADLS, strengthen/stretch/maintain ROM all 4limbs- working on [id number] 2. Neuro- hx of diabetic peripheral polyneuropathy and reported PMR contributing to overall mobility impairments, possibly dementia component vs worsening situational depression/anxiety- Will add Buspar and small dose prednisone with close monitoring GI tolerance, see if that helps boost motor function, mood and energy level. 3. GI- patient with large hiatal hernia with recent volvulus and EGD decompression on 05-07-21, not deemed to be surgical candidate- her diet was advanced, however on 05-20-21 exam she had recurrent emesis (FOBT negative) with KUB revealing large gastric bubble with no bowel obstruction- discussed case with Dr. Young who recommended trial of NGT which was clamped with patient to lerating full liquid diet- NGT d/c'd 05-27, patient comfortable and will progress as tolerated or go home on full liquid diet . Requested dietary reassess 1 choices a lot of her depressed mood to see if smoothies or varied soups might perk her up. Added MVI with B complex for nutritional support and neural repair. 4. Cardiac- cont BP meds, adjust as needed -HLD cont statin, may consider DC given age, signific dietary restrictions and slight risk of aggravation of motor function. -medicine consulted to assist in overall management 5. Resp- monitor for infection- patient developing a cough with CT Chest on 05-26-21 showing, "New right lower lobe patchy opacities likely subsegmental atelectatic changes. Developing pneumonia cannot be ruled out" started on Iv Zo syn for possible aspiration PNA given recent emesis, cough resolved, last day of Cefdinir- symptoms resolved, clinically cleared -cont Combivent and guaifenesin, HOB >30 -recent Covid exposure, Resp panel negative 6. Pain- cont fentanyl and norco -lidoderm patch to left knee 7. Psych- cymbalta and Remeron for depression, added Buspar for worsening anxiety, less respiratory effect than Benzo 8. DVT ppx- heparin -RUE swelling with US + for superficial thrombosis cont warm compress 9. Endo- hx of DM with peripheral polyneuropathy managed with diet alone -hypothyroidism cont Synthroid 10. - Ucx + for E. coli and proteus Mirabilis, completed abx course 11. DISPOSITION Now uncertain whether home with family who may not have capacity to care for her or to add am/pm female caregiver assistance, possibly hospice support vsmultiple pscyhologicay and physical risks with transfer to a facility with 24 hr nursing care and support. Family conference to be held later today with me, WARNER and involved family members. TIME SPENT: Chart Review, examination and documentation 45 minutes. Allergies Coded Allergies: TAPE (Verified Allergy, Intermediate, RASH, 05/21/10) meloxicam (Verified Adverse Reaction, Mild, "I think it made me sick", 03/19/19) pioglitazone (Verified Adverse Reaction, Mild, bruising, 03/19/19) pregabalin (Verified Adverse Reaction, Mild, affects vision, 03/19/19) Vital Signs Vital Signs Date Time Temp Pulse Resp B/P (MAP) Pulse Ox O2 Delivery O2 Flow Rate FiO2 06/04/21 06:00 97.7 56 18 140/63 (88) 94 Room Air Microbiology Microbiology 05/26/21 Urine Culture - Final, Complete Escherichia Coli Proteus Mirabilis Current Medications Current Medications Current Medications Medications (Trade) Dose Ordered Sig/Alice Route PRN Reason Start Time Stop Time Status Last Admin Dose Admin Acetaminophen (Tylenol Tab) 650 mg Q6HP PRN PO MILD PAIN or TEMP > 101 06/04/21 08:35 UNV Acetaminophen/ Hydrocodone Bitart (Anexsia, [place] 7.5mg/325mg) 1 tab Q4HP PRN NG MILD PAIN (PS 1-4) 05/20/21 16:00 05/27/21 13:28 DC 05/25/21 10:45 Acetaminophen/ Hydrocodone Bitart (Anexsia, [place] 7.5mg/325mg) 1 tab Q4HP PRN PO MILD PAIN (PS 1-4) 05/19/21 11:50 05/20/21 16:11 DC 05/19/21 21:01 Acetaminophen/ Hydrocodone Bitart (Anexsia, [place] 7.5mg/325mg) 1 tab Q4HP PRN PO MILD PAIN (PS 1-4) 05/27/21 13:25 06/04/21 08:39 DC 06/03/21 18:38 Acetaminophen/ Hydrocodone Bitart (Anexsia, [place] 7.5mg/325mg) 1 tab Q8HP PRN PO MILD PAIN (PS 1-4) 06/04/21 11:40 UNV Albuterol/ Ipratropium (Combivent Respimat 100-20mcg) 1 puff RTID INH 05/26/21 20:00 06/04/21 07:07 Amlodipine Besylate (Norvasc) 10 mg DAILY NG 05/21/21 09:00 05/27/21 13:28 DC 05/27/21 08:44 Amlodipine Besylate (Norvasc) 10 mg DAILY PO 05/20/21 09:00 05/20/21 16:11 DC 05/20/21 08:00 Amlodipine Besylate (Norvasc) 10 mg DAILY PO 05/28/21 09:00 06/03/21 08:42 Buspirone HCl (Buspar) 5 mg BID PO 06/04/21 09:00 UNV Cefdinir (Omnicef) 300 mg BID PO 05/28/21 11:30 06/01/21 22:00 DC 06/01/21 21:12 Cyanocobalamin (Vitamin B12) 1,000 mcg DAILY NG 05/21/21 09:00 05/27/21 13:28 DC 05/27/21 08:44 Cyanocobalamin (Vitamin B12) 1,000 mcg DAILY PO 05/20/21 09:00 05/20/21 16:11 DC 05/20/21 08:00 Cyanocobalamin (Vitamin B12) 1,000 mcg DAILY PO 05/28/21 09:00 06/03/21 08:42 Dextrose/Sodium Chloride 1,000 ml @ 60 mls/hr [id number] IV 05/20/21 10:55 05/24/21 13:39 DC 05/23/21 21:51 Docusate Sodium (Colace) 200 mg BID PO 05/19/21 21:00 05/27/21 13:30 DC 05/20/21 08:00 Docusate Sodium (Colace) 200 mg BID PO 05/27/21 21:00 05/29/21 11:07 DC 05/29/21 07:35 Duloxetine HCl (Cymbalta) 60 mg DAILY PO 05/20/21 09:00 05/27/21 13:31 DC 05/20/21 08:00 Duloxetine HCl (Cymbalta) 60 mg DAILY PO 05/27/21 13:30 06/03/21 08:42 Fentanyl (Duragesic) 75 mcg Q72H TOP 05/21/21 09:00 06/02/21 08:31 Guaifenesin (Robitussin Tab) 400 mg TID PO 05/26/21 16:00 06/03/21 20:53 Heparin Sodium (Heparin (Flush)) 200 units ASDIRECTED PRN IV SEE LABEL COMMENTS 05/19/21 22:30 05/28/21 16:28 DC 05/27/21 08:55 Heparin Sodium (Heparin (Flush)) 200 units ASDIRECTED PRN IV SEE LABEL COMMENTS 05/20/21 13:50 Cancel Heparin Sodium (Heparin (Flush)) 200 units PICC IV 05/20/21 06:00 05/28/21 16:28 DC 05/27/21 17:09 Heparin Sodium (Heparin (Flush)) 200 units PICC IV 05/20/21 18:00 Cancel Heparin Sodium (Porcine) (Heparin) 5,000 units Q12H SC 05/19/21 21:00 06/03/21 20:53 Home Med (Home Med List Complete!) ASDIRECTED XX 05/19/21 15:45 05/19/21 15:50 DC Levofloxacin (Levaquin) 250 mg DAILY@06 PO 05/26/21 12:05 05/26/21 19:03 DC 05/26/21 15:04 Levothyroxine Sodium (Synthroid) 37.5 mcg DAILY@06 NG 05/21/21 06:00 05/27/21 13:28 DC 05/27/21 05:31 Levothyroxine Sodium (Synthroid) 37.5 mcg DAILY@06 PO 05/20/21 06:00 05/20/21 16:11 DC 05/20/21 06:52 Levothyroxine Sodium (Synthroid) 37.5 mcg DAILY@06 PO 05/28/21 06:00 06/04/21 05:46 Lidocaine (Lidoderm Patch) 2 patch DAILY TD 05/27/21 09:00 06/03/21 08:43 Lisinopril (Prinivil) 10 mg DAILY NG 05/21/21 09:00 05/27/21 13:28 DC 05/27/21 08:44 Lisinopril (Prinivil) 10 mg DAILY PO 05/20/21 09:00 05/20/21 16:11 DC 05/20/21 08:00 Lisinopril (Prinivil) 10 mg DAILY PO 05/28/21 09:00 06/03/21 08:42 Mirtazapine (Remeron) 7.5 mg QHS NG 05/20/21 21:00 05/27/21 13:28 DC 05/26/21 21:42 Mirtazapine (Remeron) 7.5 mg QHS PO 05/19/21 21:00 05/20/21 16:11 DC 05/19/21 21:41 Mirtazapine (Remeron) 7.5 mg QHS PO 05/27/21 21:00 06/03/21 20:53 Naloxone HCl (Narcan) 0.1 mg Q5MP PRN IV RESP. RATE < 10 05/19/21 11:50 Nitroglycerin (Nitrostat (1/ 150)) 0.4 mg Q5MP PRN SL CHEST PAIN 05/19/21 11:50 Non-Formulary Medication ( See Comment Field Below ) REMOVE LIDODERM PATCH DAILY@21 XX 05/27/21 21:00 06/03/21 20:55 Non-Formulary Medication ( See Comment Field Below ) SEE COMMENTS SECTION ASDIRECTED XX 05/21/21 09:00 06/02/21 11:46 Nystatin (Mycostatin Powder, Nystop) abdominal folds and un... TID TOP 05/26/21 16:00 06/03/21 20:54 Ondansetron HCl (Zofran Odt) 4 mg Q6HP PRN PO NAUSEA OR VOMITING 05/19/21 16:00 05/20/21 09:46 DC 05/20/21 06:33 Ondansetron HCl (Zofran Odt) 4 mg Q6HP PRN SL NAUSEA OR VOMITING 05/20/21 10:00 Pantoprazole Sodium (Protonix) 40 mg DAILY IV 05/21/21 09:00 05/27/21 13:29 DC 05/27/21 08:43 Pantoprazole Sodium (Protonix) 40 mg DAILY PO 05/19/21 09:00 05/20/21 16:11 DC 05/20/21 08:00 Pantoprazole Sodium (Protonix) 40 mg DAILY PO 05/28/21 09:00 06/03/21 08:42 Phenol (Chloraseptic [place]) 2 SPRAYS QID MT 05/27/21 17:00 06/03/21 08:43 Piperacillin Sod/ Tazobactam Sod 3.375 gm/Dextrose 50 ml @ 50 mls/hr Q6H IV 05/26/21 20:00 05/28/21 11:33 DC 05/27/21 14:03 Pravastatin Sodium (Pravachol) 40 mg QHS NG 05/20/21 21:00 05/27/21 13:28 DC 05/26/21 21:42 Pravastatin Sodium (Pravachol) 40 mg QHS PO 05/19/21 21:00 05/20/21 16:11 DC 05/19/21 21:00 Pravastatin Sodium (Pravachol) 40 mg QHS PO 05/27/21 21:00 06/03/21 20:53 Prednisone (Deltasone) 10 mg DAILY PO 06/04/21 09:00 UNV Senna (Senokot) 1 tab QHS PRN NG constipation 05/20/21 21:00 05/27/21 13:28 DC Senna (Senokot) 1 tab QHS PRN PO constipation 05/20/21 21:00 05/20/21 16:11 DC Senna (Senokot) 1 tab QHS PRN PO CONSTIPATION 05/27/21 13:25 06/02/21 20:26 Senna (Senokot) 2 tab BID PO 05/19/21 21:00 05/20/21 10:49 DC 05/20/21 07:59 Simethicone (Mylicon) 80 mg TID NG 05/20/21 16:00 05/27/21 13:28 DC 05/27/21 08:44 Simethicone (Mylicon) 80 mg TID PO 05/19/21 16:00 05/20/21 16:11 DC 05/20/21 07:59 Simethicone (Mylicon) 80 mg TID PO 05/27/21 16:00 06/03/21 20:53 Sodium Chloride (Saline Lock Flush) 10 ml ASDIRECTED PRN IV SEE LABEL COMMENTS 05/19/21 22:30 05/28/21 16:28 DC 05/27/21 08:55 Sodium Chloride (Sal[place] Flush) 10 ml ASDIRECTED PRN IV SEE LABEL COMMENTS 05/20/21 13:50 Cancel Sodium Chloride (Sal[place] Lock Flush) 10 ml PICC IV 05/20/21 06:00 05/28/21 16:28 DC 05/27/21 17:09 Sodium Chloride (Saline Lock Flush) 10 ml PICC IV 05/20/21 18:00 Cancel Vitamin B Complex/ Vit C/Folic Acid (Nephro-Logan Rx) 1 tab DAILY PO 06/04/21 09:00 SHARON ZENDEJAS MD Jun 04, 2021 09:00
[2021-06-04] MEDS: DULoxetine 30MG CAPSULE (CYMBALTA) PO SCH (09:17)
[2021-06-04] MEDS: PANTOPRAZOLE 40MG TAB (PROTONIX) PO SCH (09:17)
[2021-06-04] MEDS: guaiFENesin 200 MG TAB PO SCH ×3 (09:17→20:14)
[2021-06-04] MEDS: SIMETHICONE 80MG CHEW TAB PO SCH ×3 (09:17→20:14)
[2021-06-04] MEDS: CYANOCOBALAMIN 500 MCG TAB PO SCH (09:17)
[2021-06-04] MEDS: LIDOCAINE 5% (LIDODERM) PATCH TD SCH (09:17)
[2021-06-04] MEDS: CHLORASEPTIC SPRAY MT SCH ×4 (09:18→20:14)
[2021-06-04] MEDS: REMEDY PHYTOPLEX Z-GUARD PASTE 113GM TUBE (FROM STOREROOM PRODUCT) TOP SCH ×3 (09:19→20:14)
[2021-06-04] MEDS: NYSTATIN 100,000 UNITS/GM TOPICAL PWD 15 GM TOP SCH ×3 (09:19→20:14)
[2021-06-04] MEDS: HEPARIN SOD (PORCINE) 5000UNITS/ML 1ML VIAL/SYRINGE SC SCH ×2 (09:19→20:14)
[2021-06-04] MEDS: predniSONE 10 MG TAB PO SCH (09:25)
[2021-06-04] MEDS: busPIRone 5 MG TAB PO SCH ×2 (09:25→20:13)
[2021-06-04 14:00] VITALS: BP 139/67
[2021-06-04] MEDS: **NOTE PATIENT COMMENT** MISC XX SCH (20:14)
[2021-06-04] MEDS: MIRTAZAPINE 7.5MG PER 1/2 TABLET PO SCH (20:14)
[2021-06-04 21:39] VITALS: BP 116/57
[2021-06-04] MEDS: ACETAMINOPHEN TAB 650MG DOSE (2X325MG) PO PRN (21:42)
[2021-06-05] MEDS: LEVOTHYROXINE 37.5MCG PER 1/2TAB (0.0375MG) PO SCH (05:23)
[2021-06-05 06:00] VITALS: BP 163/71
[2021-06-05] MEDS: COMBIVENT RESPIMAT 100-20MCG INHALER 4GM INH SCH ×3 (07:14→20:14)
[2021-06-05] MEDS: DULoxetine 30MG CAPSULE (CYMBALTA) PO SCH (09:42)
[2021-06-05] MEDS: PANTOPRAZOLE 40MG TAB (PROTONIX) PO SCH (09:42)
[2021-06-05] MEDS: predniSONE 10 MG TAB PO SCH (09:42)
[2021-06-05] MEDS: busPIRone 5 MG TAB PO SCH ×2 (09:43→21:19)
[2021-06-05] MEDS: LIDOCAINE 5% (LIDODERM) PATCH TD SCH (09:44)
[2021-06-05] MEDS: REMEDY PHYTOPLEX Z-GUARD PASTE 113GM TUBE (FROM STOREROOM PRODUCT) TOP SCH ×3 (09:45→21:21)
[2021-06-05] MEDS: fentaNYL 75 MCG/HR PATCH TOP SCH (09:45)
[2021-06-05] MEDS: NYSTATIN 100,000 UNITS/GM TOPICAL PWD 15 GM TOP SCH ×3 (09:45→21:20)
[2021-06-05] MEDS: NEPHRO-VIT TAB (NEPHROCAPS) PO SCH (10:18)
[2021-06-05] MEDS: CYANOCOBALAMIN 500 MCG TAB PO SCH (11:38)
[2021-06-05] MEDS: HEPARIN SOD (PORCINE) 5000UNITS/ML 1ML VIAL/SYRINGE SC SCH ×2 (11:39→21:19)
[2021-06-05] MEDS: guaiFENesin 200 MG TAB PO SCH ×3 (11:39→21:19)
[2021-06-05] MEDS: SIMETHICONE 80MG CHEW TAB PO SCH ×3 (11:40→21:19)
[2021-06-05] MEDS: CHLORASEPTIC SPRAY MT SCH ×4 (11:40→21:20)
[2021-06-05 14:00] VITALS: BP 124/58
--- NOTE | 2021-06-05 14:22 | IPNPDOC ---
PM&R Progress Note DATE OF SERVICE: Jun 05, 2021 Emergency Planner Progress Note DATE OF ADMISSION: May 19, 2021 at 14:30 INPATIENT REHABILITATION ADMISSION DAY: #[16] Chief Complaint: Generalized deconditioning and weakness. Grief reaction and frustration over inability to gain sufficient function for ability to transfer and perform self care and desire to be with her in her own home. Subjective: This is an 86F with pmh DM with peripheral polyneuropathy, HLD, CKD, DVT s/p course of Coumadin, gout, polymyalgia rheumatic, spinal stenosis, GERD who presented to [facility] ED on 05-07-21 with nausea, vomiting, and diarrhea diagnosed with a large hiatal hernia with gastric volvulus for which she underwent an EGD decompression in the OR. Following this procedure she was continued on NPO with NGT , then transferred to the ICU for hypertensive urgency and fever on 05-11-21 following an Upper GI series. Infectious work-up was negative, her blood pre ssures improved, her diet was advanced gradually, and she was found to have significant deconditioning with mobility and ADL impairments, deemed medically appropriate for discharge to ARU on 05-19-21. Dr. Young felt continued slow progression of diet be trialed, with low threshold to return to using the NG tube and possible consideration of laparoscopic exploration should she appear to re- obstruct. 06.01.2021 Patient feels that she is making progress is having regular bowel movements. 06.02.2021 Patient seen with PT, working on AROM, challenged with swelling and pain left knee more than right, agreed to try wrapping up over knees and Voltaren gel. Patient discussed later today in Team Conference, apparently despondent over possibility she is not regaining sufficent capacity to transfer and mobility to return home with her of 60 years. marketing services manager working on possible alternate placement options they may consider for their greatest safety if in home support cannot be sorted out. 06.03.2021 patient seen in room early in the morning doing well, asking for transfer assistance to bedside commode, minimal complaint of pain. Later in the morning, it was noted patient was not cooperating with physical therapy attempted interventions, expressing feelings of wanting to give up and despondent over recent revelation that she may not have regain sufficient function to return home instead have to go to a SNF. 06.04.2021 Long discussion with patient regarding her concerns, apparently she also speaks to her daughters daily or every other day that [place], [place] and is concerned about balance and needs of her husbands children. She has generalized frustration and some degree of confusion, is unable to articulate precisely what is needed for her to be able to do functionally for her to achieve her goal of returning home rather focus on her desire to be with her in her own home . She is tolerating full liquids and having regular bowel movements. Discussed situation with therapy and social services technician, family conference will be coordinated with myself and social services technician to better delineate options. Patient had no recollection today of discussions yesterday with myself with social services technician. Adding Buspar and low dose Prednisone to help with anxiety and post i nfection/inflammatory component of worsened PMR/PN. 06.05.2021 Patient was irritable in the morning. However, by mid day appeared to have improved mood after the impact of medications took greater effect and ongoing social service counseling and problem solving. She self initiated more participation, notes that her bed at home. is lower and the wheelchair here is too large. So we can get a smaller wheelchair that she get better support herself through the transfers. She is willing to continue to work on that. Wrapping of the knee seems to have helped the pain level is better controlled with the medication adjustments. REVIEW OF SYSTEMS: The following is a completed review of systems and has been reviewed. Review of systems otherwise unremarkable. PAIN: Patient self reports abdominal pain EYES: No recent vision changes EARS, NOSE, & THROAT: No throat pain, or dysphagia, or rhinorrhea CARDIOVASCULAR: Denies chest pain or palpitations PULMONARY: Denies shortness of breath, denies cough GASTROINTESTINAL: denies nasuea/vomiting/diarrhea GENITOURINARY: denies dysuria MUSCULOSKELETAL: generalized weakness NEUROLOGICAL:+peripheral polyneuropathy HEMATOLOGICAL: denies easy bruising SKIN: denies rash PSYCHIATRIC: +depressed All other review of systems found to be negative. PHYSICAL EXAMINATION: VITAL SIGNS: Please see below. GENERAL: Mild distress, tearful affect. HEENT: Extraocular movements intact. CARDIOVASCULAR: Regular rate and rhythm. II/ SM LUNGS: Clear to auscultation bilaterally. No wheezes. No rhonchi. Sternal protrusion noted. ABDOMEN: Soft, nontender, obese, no guarding, no rebound tenderness or masses. Positive bowel sounds. NEUROLOGICAL: Alert and oriented to self and place, Cranial nerves II through XII grossly intact. EXTREMITIES: 4\\5 strength bilateral upper extremities. 3+\\5 strength right lower extremity. 3+/5 strength in left lower extremity. Unable to elevate upper extremities above 80 degrees. RUE +edema. Hypertrophic edematous bilateral lower extremities, bilat ankles pes valgus deformity Functional Status: Limited tolerance continues to be prevalent; requires modA x2 for squat pivot with bed elevated to assist with stand Requires assist x 2 for transfer to [facility]. Discussed with therapy another trial of the sliding board transfers, not a candidate for Norbert lift transfers. ASSESSMENT: Status post nonsurgical decompression of volvulus. Diabetes. Probable gastroparesis. Peripheral polyneuropathy. 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 Pneumonia. Right upper extremity swelling and superficial venous thrombosis. Depression. Hypothyroidism. UTI. 86-year-old F with past medical history of DM with peripheral polyneuropathy and large hiatal hernia who presents status post gastric volvulus s/p EGD decompression, tolerating progressive feeding to full liquids, having regular BM and minimal discomfort, able to participate in the therapy reconditioning program. PLAN: 1. Rehab- PT/OT advance mobility and ADLS, strengthen/stretch/maintain ROM all 4limbs- working on [id number] 2. Neuro- hx of diabetic peripheral polyneuropathy and reported PMR contributing to overall mobility impairments, possibly dementia component vs worsening situational depression/anxiety- Added Buspar and small dose prednisone with close monitoring GI tolerance, see if that helps boost motor function, mood and energy level. 3. GI- patient with large hiatal hernia with recent volvulus and EGD decompression on 05-07-21, not deemed to be surgical candidate- her diet was advanced, however on 05-20-21 exam she had recurrent emesis (FOBT negative) with KUB revealing large gastric bubble with no bowel obstruction- discussed case with Dr. Young who recommended trial of NGT which was clamped with patient tolerating full liquid diet- NGT d/c'd 05-27, patient comfortable and will progress as tolerated or go home on full liquid diet . Requested dietary reassess 1 choices a lot of her depressed mood to see if smoothies or varied soups might perk her up. Added MVI with B complex for nutritional support and neural repair. 4. Cardiac- cont BP meds, adjust as needed -HLD cont statin, may consider DC given age, signific dietary restrictions and slight risk of aggravation of motor function. -medicine consulted to assist in overall management 5. Resp- monitor for infection- patient developing a cough with CT Chest on 05-26-21 showing, "New right lower lobe patchy opacities likely subsegmental atelectatic changes. Developing pneumonia cannot be ruled out" started on Iv Zosyn for possible aspiration PNA given recent emesis, cough resolved clinically cleared -cont Combivent and guaifenesin, HOB >30 -recent Covid exposure, Resp panel negative 6. Pain- cont fentanyl and norco -lidoderm patch to left knee 7. Psych- cymbalta and Remeron for depression, added Buspar for worsening anxiety, less respiratory effect than Benzo 8. DVT ppx- heparin -RUE swelling with US + for superficial thrombosis cont warm compress 9. Endo- hx of DM with peripheral polyneuropathy managed with diet alone -hypothyroidism cont Synthroid 10. - Ucx + for E. coli and proteus Mirabilis, completed abx course 11. DISPOSITION Now uncertain whether home with family who may not have capacity to care for her or to add am/pm female caregiver assistance, possibly hospice support vsmultiple pscyhologicay and physical risks with transfer to a facility with 24 hr nursing care and support. Family conference was held with WARNER and involved family members. TIME SPENT: Chart Review, examination and documentation 25 minutes. Allergies Coded Allergies: TAPE (Verified Allergy, Intermediate, RASH, 05/21/10) meloxicam (Verified Adverse Reaction, Mild, "I think it made me sick", 03/19/19) pioglitazone (Verified Adverse Reaction, Mild, bruising, 03/19/19) pregabalin (Verified Adverse Reaction, Mild, affects vision, 03/19/19) Vital Signs Vital Signs Date Time Temp Pulse Resp B/P (MAP) Pulse Ox O2 Delivery O2 Flow Rate FiO2 06/05/21 10:18 68 163/71 06/05/21 10:15 20 06/05/21 06:00 98.0 97 Room Air Microbiology Microbiology 05/26/21 Urine Culture - Final, Complete Escherichia Coli Proteus Mirabilis Current Medications Current Medications Current Medications Medications (Trade) Dose Ordered Sig/Alice Route PRN Reason Start Time Stop Time Status Last Admin Dose Admin Acetaminophen (Tylenol Tab) 650 mg Q6HP PRN PO MILD PAIN or TEMP > 101 06/04/21 08:35 06/04/21 21:42 Acetaminophen/ Hydrocodone Bitart (Anexsia, [place] 7.5mg/325mg) 1 tab Q4HP PRN NG MILD PAIN (PS 1-4) 05/20/21 16:00 05/27/21 13:28 DC 05/25/21 10:45 Acetaminophen/ Hydrocodone Bitart (Anexsia, [place] 7.5mg/325mg) 1 tab Q4HP PRN PO MILD PAIN (PS 1-4) 05/19/21 11:50 05/20/21 16:11 DC 05/19/21 21:01 Acetaminophen/ Hydrocodone Bitart (Anexsia, [place] 7.5mg/325mg) 1 tab Q4HP PRN PO MILD PAIN (PS 1-4) 05/27/21 13:25 06/04/21 08:39 DC 06/03/21 18:38 Acetaminophen/ Hydrocodone Bitart (Anexsia, [place] 7.5mg/325mg) 1 tab Q8HP PRN PO MILD PAIN (PS 1-4) 06/04/21 11:40 Albuterol/ Ipratropium (Combivent Respimat 100-20mcg) 1 puff RTID INH 05/26/21 20:00 06/05/21 13:00 Amlodipine Besylate (Norvasc) 10 mg DAILY NG 05/21/21 09:00 05/27/21 13:28 DC 05/27/21 08:44 Amlodipine Besylate (Norvasc) 10 mg DAILY PO 05/20/21 09:00 05/20/21 16:11 DC 05/20/21 08:00 Amlodipine Besylate (Norvasc) 10 mg DAILY PO 05/28/21 09:00 06/05/21 10:18 Buspirone HCl (Buspar) 5 mg BID PO 06/04/21 09:00 06/05/21 09:43 Cefdinir (Omnicef) 300 mg BID PO 05/28/21 11:30 06/01/21 22:00 DC 06/01/21 21:12 Cyanocobalamin (Vitamin B12) 1,000 mcg DAILY NG 05/21/21 09:00 05/27/21 13:28 DC 05/27/21 08:44 Cyanocobalamin (Vitamin B12) 1,000 mcg DAILY PO 05/20/21 09:00 05/20/21 16:11 DC 05/20/21 08:00 Cyanocobalamin (Vitamin B12) 1,000 mcg DAILY PO 05/28/21 09:00 06/05/21 11:38 Dextrose/Sodium Chloride 1,000 ml @ 60 mls/hr [id number] IV 05/20/21 10:55 05/24/21 13:39 DC 05/23/21 21:51 Docusate Sodium (Colace) 200 mg BID PO 05/19/21 21:00 05/27/21 13:30 DC 05/20/21 08:00 Docusate Sodium (Colace) 200 mg BID PO 05/27/21 21:00 05/29/21 11:07 DC 05/29/21 07:35 Duloxetine HCl (Cymbalta) 60 mg DAILY PO 05/20/21 09:00 05/27/21 13:31 DC 05/20/21 08:00 Duloxetine HCl (Cymbalta) 60 mg DAILY PO 05/27/21 13:30 06/05/21 09:42 Fentanyl (Duragesic) 75 mcg Q72H TOP 05/21/21 09:00 06/05/21 09:45 Guaifenesin (Robitussin Tab) 400 mg TID PO 05/26/21 16:00 06/05/21 11:39 Heparin Sodium (Heparin (Flush)) 200 units ASDIRECTED PRN IV SEE LABEL COMMENTS 05/19/21 22:30 05/28/21 16:28 DC 05/27/21 08:55 Heparin Sodium (Heparin (Flush)) 200 units ASDIRECTED PRN IV SEE LABEL COMMENTS 05/20/21 13:50 Cancel Heparin Sodium (Heparin (Flush)) 200 units PICC IV 05/20/21 06:00 05/28/21 16:28 DC 05/27/21 17:09 Heparin Sodium (Heparin (Flush)) 200 units PICC IV 05/20/21 18:00 Cancel Heparin Sodium (Porcine) (Heparin) 5,000 units Q12H SC 05/19/21 21:00 06/05/21 11:39 Home Med (Home Med List Complete!) ASDIRECTED XX 05/19/21 15:45 05/19/21 15:50 DC Levofloxacin (Levaquin) 250 mg DAILY@06 PO 05/26/21 12:05 05/26/21 19:03 DC 05/26/21 15:04 Levothyroxine Sodium (Synthroid) 37.5 mcg DAILY@06 NG 05/21/21 06:00 05/27/21 13:28 DC 05/27/21 05:31 Levothyroxine Sodium (Synthroid) 37.5 mcg DAILY@06 PO 05/20/21 06:00 05/20/21 16:11 DC 05/20/21 06:52 Levothyroxine Sodium (Synthroid) 37.5 mcg DAILY@06 PO 05/28/21 06:00 06/05/21 05:23 Lidocaine (Lidoderm Patch) 2 patch DAILY TD 05/27/21 09:00 06/05/21 09:44 Lisinopril (Prinivil) 10 mg DAILY NG 05/21/21 09:00 05/27/21 13:28 DC 05/27/21 08:44 Lisinopril (Prinivil) 10 mg DAILY PO 05/20/21 09:00 05/20/21 16:11 DC 05/20/21 08:00 Lisinopril (Prinivil) 10 mg DAILY PO 05/28/21 09:00 06/05/21 10:19 Mirtazapine (Remeron) 7.5 mg QHS NG 05/20/21 21:00 05/27/21 13:28 DC 05/26/21 21:42 Mirtazapine (Remeron) 7.5 mg QHS PO 05/19/21 21:00 05/20/21 16:11 DC 05/19/21 21:41 Mirtazapine (Remeron) 7.5 mg QHS PO 05/27/21 21:00 06/04/21 20:14 Naloxone HCl (Narcan) 0.1 mg Q5MP PRN IV RESP. RATE < 10 05/19/21 11:50 Nitroglycerin (Nitrostat (1/ 150)) 0.4 mg Q5MP PRN SL CHEST PAIN 05/19/21 11:50 Non-Formulary Medication ( See Comment Field Below ) REMOVE LIDODERM PATCH DAILY@21 XX 05/27/21 21:00 06/04/21 20:14 Non-Formulary Medication ( See Comment Field Below ) SEE COMMENTS SECTION ASDIRECTED XX 05/21/21 09:00 06/02/21 11:46 Nystatin (Mycostatin Powder, Nystop) abdominal folds and un... TID TOP 05/26/21 16:00 06/05/21 09:45 Ondansetron HCl (Zofran Odt) 4 mg Q6HP PRN PO NAUSEA OR VOMITING 05/19/21 16:00 05/20/21 09:46 DC 05/20/21 06:33 Ondansetron HCl (Zofran Odt) 4 mg Q6HP PRN SL NAUSEA OR VOMITING 05/20/21 10:00 Pantoprazole Sodium (Protonix) 40 mg DAILY IV 05/21/21 09:00 05/27/21 13:29 DC 05/27/21 08:43 Pantoprazole Sodium (Protonix) 40 mg DAILY PO 05/19/21 09:00 05/20/21 16:11 DC 05/20/21 08:00 Pantoprazole Sodium (Protonix) 40 mg DAILY PO 05/28/21 09:00 06/05/21 09:42 Phenol (Chloraseptic [place]) 2 SPRAYS QID MT 05/27/21 17:00 06/05/21 11:40 Piperacillin Sod/ Tazobactam Sod 3.375 gm/Dextrose 50 ml @ 50 mls/hr Q6H IV 05/26/21 20:00 05/28/21 11:33 DC 05/27/21 14:03 Pravastatin Sodium (Pravachol) 40 mg QHS NG 05/20/21 21:00 05/27/21 13:28 DC 05/26/21 21:42 Pravastatin Sodium (Pravachol) 40 mg QHS PO 05/19/21 21:00 05/20/21 16:11 DC 05/19/21 21:00 Pravastatin Sodium (Pravachol) 40 mg QHS PO 05/27/21 21:00 06/04/21 08:58 DC 06/03/21 20:53 Prednisone (Deltasone) 10 mg DAILY PO 06/04/21 09:00 06/05/21 09:42 Senna (Senokot) 1 tab QHS PRN NG constipation 05/20/21 21:00 05/27/21 13:28 DC Senna (Senokot) 1 tab QHS PRN PO constipation 05/20/21 21:00 05/20/21 16:11 DC Senna (Senokot) 1 tab QHS PRN PO CONSTIPATION 05/27/21 13:25 06/02/21 20:26 Senna (Senokot) 2 tab BID PO 05/19/21 21:00 05/20/21 10:49 DC 05/20/21 07:59 Simethicone (Mylicon) 80 mg TID NG 05/20/21 16:00 05/27/21 13:28 DC 05/27/21 08:44 Simethicone (Mylicon) 80 mg TID PO 05/19/21 16:00 05/20/21 16:11 DC 05/20/21 07:59 Simethicone (Mylicon) 80 mg TID PO 05/27/21 16:00 06/05/21 11:40 Sodium Chloride (Saline Lock Flush) 10 ml ASDIRECTED PRN IV SEE LABEL COMMENTS 05/19/21 22:30 05/28/21 16:28 DC 05/27/21 08:55 Sodium Chloride (Saline Lock Flush) 10 ml ASDIRECTED PRN IV SEE LABEL COMMENTS 05/20/21 13:50 Cancel Sodium Chloride (Saline Lock Flush) 10 ml PICC IV 05/20/21 06:00 05/28/21 16:28 DC 05/27/21 17:09 Sodium Chloride (Saline Lock Flush) 10 ml PICC IV 05/20/21 18:00 Cancel Vitamin B Complex/ Vit C/Folic Acid (Nephro-Logan Rx) 1 tab DAILY PO 06/04/21 09:00 06/05/21 10:18 SHARON RIVERA MD Jun 05, 2021 14:22
[2021-06-05 20:00] VITALS: BP 155/67
[2021-06-05] MEDS: MIRTAZAPINE 7.5MG PER 1/2 TABLET PO SCH (21:19)
[2021-06-05] MEDS: **NOTE PATIENT COMMENT** MISC XX SCH (21:21)
[2021-06-06 06:00] VITALS: BP 166/77
[2021-06-06] MEDS: LEVOTHYROXINE 37.5MCG PER 1/2TAB (0.0375MG) PO SCH (06:06)
[2021-06-06] MEDS: COMBIVENT RESPIMAT 100-20MCG INHALER 4GM INH SCH ×3 (07:27→20:00)
[2021-06-06] MEDS: HEPARIN SOD (PORCINE) 5000UNITS/ML 1ML VIAL/SYRINGE SC SCH ×2 (09:20→21:50)
[2021-06-06] MEDS: LIDOCAINE 5% (LIDODERM) PATCH TD SCH (09:20)
[2021-06-06] MEDS: PANTOPRAZOLE 40MG TAB (PROTONIX) PO SCH (09:21)
[2021-06-06] MEDS: busPIRone 5 MG TAB PO SCH ×2 (09:21→21:50)
[2021-06-06] MEDS: guaiFENesin 200 MG TAB PO SCH ×3 (09:21→21:50)
[2021-06-06] MEDS: NEPHRO-VIT TAB (NEPHROCAPS) PO SCH (09:21)
[2021-06-06] MEDS: CYANOCOBALAMIN 500 MCG TAB PO SCH (09:21)
[2021-06-06] MEDS: DULoxetine 30MG CAPSULE (CYMBALTA) PO SCH (09:21)
[2021-06-06] MEDS: SIMETHICONE 80MG CHEW TAB PO SCH ×3 (09:21→21:50)
[2021-06-06] MEDS: predniSONE 10 MG TAB PO SCH (09:21)
[2021-06-06] MEDS: CHLORASEPTIC SPRAY MT SCH ×4 (09:22→21:51)
[2021-06-06] MEDS: NYSTATIN 100,000 UNITS/GM TOPICAL PWD 15 GM TOP SCH ×3 (09:25→21:51)
[2021-06-06] MEDS: REMEDY PHYTOPLEX Z-GUARD PASTE 113GM TUBE (FROM STOREROOM PRODUCT) TOP SCH ×3 (09:25→21:51)
--- NOTE | 2021-06-06 13:39 | IPN ---
PROGRESS NOTE DATE: 06/06/2021 HISTORY: Patient is an 86-year-old woman who was initially admitted for a gastric volvulus associated with a very large hiatal hernia containing essentially all of her stomach. She responded to nasogastric (NG) decompression. She was not felt to be a good candidate for reparative surgery, and so we took a nonoperative course and gradually advanced her diet. She initially tolerated her clear liquids and full liquids and was transferred to the acute rehabilitation unit for strengthening. Unfortunately, she had a recurrence of symptoms with abdominal pain and distention, and the nasogastric tube was replaced in about mid May. She was started on clear liquids with her NG tube clamped, and after tolerating these for a short time the NG tube was again removed. She has now been advanced back to a full liquid diet with some Ensure. She appears to be tolerating this well. Vital signs show that she has been afebrile over the past 24 hours. Her pulse is in the 50s and 60s. Blood pressure is good, and her room air oxygen saturation is in the low 90s. Intake and output show that yesterday she had 1800 mL recorded in orally with several voids and some bowel movements. PHYSICAL EXAMINATION: Patient is sitting propped up in bed eating some ice cream when I came to see her. She seems very comfortable and is alert and oriented. She denies any pain. She reports that she is hoping for discharge to home sometime in the next few days. IMPRESSION: Patient appears to be making progress now. She does appear somewhat more bright and alert and comfortable. RECOMMENDATIONS: At this point I would leave her on her full liquids diet. She can probably add pureed foods in small quantities moving forward. It would probably be best for her to remain on small feeds more frequently rather than having three larger meals in the day. Unless she develops evidence of recurrent obstruction at her gastric outlet, I would not recommend any further consideration of surgery for her hiatal hernia. PABLO
[2021-06-06 13:56] VITALS: BP 110/54
[2021-06-06 20:00] VITALS: BP 130/60
[2021-06-06] MEDS: **NOTE PATIENT COMMENT** MISC XX SCH (21:00)
[2021-06-06] MEDS: MIRTAZAPINE 7.5MG PER 1/2 TABLET PO SCH (21:50)
[2021-06-07] MEDS: LEVOTHYROXINE 37.5MCG PER 1/2TAB (0.0375MG) PO SCH (05:30)
[2021-06-07 06:00] VITALS: BP 160/78
[2021-06-07] MEDS: COMBIVENT RESPIMAT 100-20MCG INHALER 4GM INH SCH ×2 (07:19→14:16)
[2021-06-07] MEDS: LIDOCAINE 5% (LIDODERM) PATCH TD SCH (08:26)
[2021-06-07] MEDS: CHLORASEPTIC SPRAY MT SCH ×4 (08:27→20:17)
[2021-06-07] MEDS: predniSONE 5 MG TAB PO SCH (08:27)
[2021-06-07] MEDS: NEPHRO-VIT TAB (NEPHROCAPS) PO SCH (08:27)
[2021-06-07] MEDS: SIMETHICONE 80MG CHEW TAB PO SCH ×3 (08:28→20:17)
[2021-06-07] MEDS: PANTOPRAZOLE 40MG TAB (PROTONIX) PO SCH (08:28)
[2021-06-07] MEDS: DULoxetine 30MG CAPSULE (CYMBALTA) PO SCH (08:28)
[2021-06-07] MEDS: CYANOCOBALAMIN 500 MCG TAB PO SCH (08:28)
[2021-06-07] MEDS: busPIRone 5 MG TAB PO SCH ×2 (08:28→20:17)
[2021-06-07] MEDS: HEPARIN SOD (PORCINE) 5000UNITS/ML 1ML VIAL/SYRINGE SC SCH ×2 (08:29→20:18)
[2021-06-07] MEDS: guaiFENesin 200 MG TAB PO SCH ×3 (08:29→20:17)
[2021-06-07] MEDS: REMEDY PHYTOPLEX Z-GUARD PASTE 113GM TUBE (FROM STOREROOM PRODUCT) TOP SCH ×3 (08:30→20:19)
[2021-06-07] MEDS: NYSTATIN 100,000 UNITS/GM TOPICAL PWD 15 GM TOP SCH ×3 (08:35→20:18)
[2021-06-07 14:08] VITALS: BP 152/67
[2021-06-07 19:37] VITALS: BP 142/62
[2021-06-07] MEDS: MIRTAZAPINE 7.5MG PER 1/2 TABLET PO SCH (20:17)
[2021-06-07] MEDS: DICLOFENAC EPOLAMINE 1.3 % PATCH TOP SCH (20:18)
[2021-06-07] MEDS: **NOTE PATIENT COMMENT** MISC XX SCH (20:19)
[2021-06-08] MEDS: LEVOTHYROXINE 37.5MCG PER 1/2TAB (0.0375MG) PO SCH (05:06)
[2021-06-08 06:00] VITALS: BP 151/67
[2021-06-08] MEDS: CYANOCOBALAMIN 500 MCG TAB PO SCH (08:42)
[2021-06-08] MEDS: busPIRone 5 MG TAB PO SCH ×2 (08:42→20:33)
[2021-06-08] MEDS: ACETAMINOPHEN TAB 650MG DOSE (2X325MG) PO PRN ×2 (08:44→15:15)
[2021-06-08] MEDS: fentaNYL 75 MCG/HR PATCH TOP SCH (08:49)
[2021-06-08] MEDS: guaiFENesin 200 MG TAB PO SCH ×3 (08:50→20:33)
[2021-06-08] MEDS: ANEXSIA, NORCO 7.5MG/325MG TABLET(HYDROCODONE/APAP) PO PRN ×2 (08:52→15:15)
[2021-06-08] MEDS: DULoxetine 30MG CAPSULE (CYMBALTA) PO SCH (08:52)
[2021-06-08] MEDS: PANTOPRAZOLE 40MG TAB (PROTONIX) PO SCH (08:52)
[2021-06-08] MEDS: NEPHRO-VIT TAB (NEPHROCAPS) PO SCH (08:53)
[2021-06-08] MEDS: SIMETHICONE 80MG CHEW TAB PO SCH ×3 (08:53→20:33)
[2021-06-08] MEDS: predniSONE 5 MG TAB PO SCH (08:53)
[2021-06-08] MEDS: **NOTE PATIENT COMMENT** MISC XX SCH ×2 (08:54→20:35)
[2021-06-08] MEDS: HEPARIN SOD (PORCINE) 5000UNITS/ML 1ML VIAL/SYRINGE SC SCH ×2 (08:54→20:34)
[2021-06-08] MEDS: LIDOCAINE 5% (LIDODERM) PATCH TD SCH (08:54)
[2021-06-08] MEDS: NYSTATIN 100,000 UNITS/GM TOPICAL PWD 15 GM TOP SCH ×3 (08:55→20:35)
[2021-06-08] MEDS: REMEDY PHYTOPLEX Z-GUARD PASTE 113GM TUBE (FROM STOREROOM PRODUCT) TOP SCH ×3 (08:55→20:35)
[2021-06-08] MEDS: CHLORASEPTIC SPRAY MT SCH ×4 (08:56→20:34)
[2021-06-08] MEDS: FENTANYL REMOVAL DOCUMENTATION MISC XX SCH (09:44)
[2021-06-08] MEDS: COMBIVENT RESPIMAT 100-20MCG INHALER 4GM INH SCH ×3 (10:00→20:11)
[2021-06-08 14:00] VITALS: BP 112/59
--- NOTE | 2021-06-08 15:27 | IPNPDOC ---
PM&R Progress Note DATE OF SERVICE: Jun 08, 2021 Direct Casting Operator Progress Note DATE OF ADMISSION: May 19, 2021 at 14:30 DATE OF ADMISSION: May 19, 2021 at 14:30 INPATIENT REHABILITATION ADMISSION DAY: #20 Chief Complaint: Generalized deconditioning and weakness. Grief reaction and frustration over inability to regain sufficient function including ability to transfer and perform self care contrasted with desire to be with her in her own home. Grief reaction and frustration over inability to gain sufficient function for ability to transfer and perform self care and desire to be with her in her own home. Subjective: This is an 86F with pmh DM with peripheral polyneuropathy, HLD, CKD, DVT s/p course of Coumadin, gout, polymyalgia rheumatic, spinal stenosis, GERD who presented to [facility] ED on 05-07-21 with nausea, vomiting, and diarrhea diagnosed with a large hiatal hernia with gastric volvulus for which she underwent an EGD decompression in the OR. Following this procedure she was continued on NPO with NGT , then transferred to the ICU for hypertensive urgency and fever on 05-11-21 following an Upper GI series. Infectious work-up was negative, her blood pressures improved, her diet was advanced gradually, and she was found to have significant deconditioning with mobility and ADL impairments, deemed medically appropriate for discharge to ARU on 05-19-21. Dr. Young felt continued slow progression of diet be trialed, with low threshold to return to using the NG tube and possible consideration of laparoscopic exploration should she appear to re- obstruct. 06.01.2021 Patient feels that she is making progress is having regular bowel movements. 06.02.2021 Patient seen with PT, working on AROM, challenged with swelling and pain left knee more than right, agreed to try wrapping up over knees and Voltaren gel. Patient discussed later today in Team Conference, apparently despondent over possibility she is not regaining sufficent capacity to transfer and mobility to return home with her of 60 years. senior administrative services officer working on possible alternate placement options they may consider for their greatest safety if in home support cannot be sorted out. 06.03.2021 patient seen in room early in the morning doing well, asking for transfer assistance to bedside commode, minimal complaint of pain. Later in the morning, it was noted patient was not cooperating with physical therapy attempted interventions, expressing feelings of wanting to give up and despondent over recent revelation that she may not have regain sufficient function to return home instead have to go to a SNF. 06.04.2021 Long discussion with patient regarding her concerns, apparently she also speaks to her daughters daily or every other day [facility] and is concerned about balance and needs of her husbands children. She has generalized frustr ation and some degree of confusion, is unable to articulate precisely what is needed for her to be able to do functionally for her to achieve her goal of returning home rather focus on her desire to be with her in her own home. She is tolerating full liquids and having regular bowel movements. Discussed situation with therapy and geriatric social worker, family conference will be coordinated with myself and geriatric social worker to better delineate options. Patient had no recollection today of discussions yesterday with myself with geriatric social worker. Adding Buspar and low dose Prednisone to help with anxiety and post infection/inflammatory component of worsened PMR/PN. 06.05.2021 Patient was irritable in the morning. However, by mid day appeared to have improved mood after the impact of medications took greater effect and ongoing social service counseling and problem solving. She self initiated more participation, notes that her bed at home. is lower and the wheelchair here is too large. So we can get a smaller wheelchair that she get better support herself through the transfers. She is willing to continue to work on that. Wrapping of the knee seems to have helped the pain level is better controlled with the medication adjustments. 06.08.2021 Definite improvement seen over the weekend, patient afebrile provider, more willing to participate in transfer and rehabilitation activities. Pain seems better managed with the addition of the steroids, flexor patch, alternating with Lidoderm patch. We appreciate surgerys input and encouragement of occasional small feeds including soft items may improve her quality of life. She shas had regular BMs and good urine output and is resting comfortably at night. REVIEW OF SYSTEMS: The following is a completed review of systems and has been reviewed. Review of systems otherwise unremarkable. PAIN: Patient self reports abdominal pain EYES: No recent vision changes EARS, NOSE, & THROAT: No throat pain, or dysphagia, or rhinorrhea CARDIOVASCULAR: Denies chest pain or palpitations PULMONARY: Denies shortness of breath, denies cough GASTROINTESTINAL: denies nasuea/vomiting/diarrhea GENITOURINARY: denies dysuria MUSCULOSKELETAL: generalized weakness NEUROLOGICAL:+peripheral polyneuropathy HEMATOLOGICAL: denies easy bruising SKIN: denies rash PSYCHIATRIC: +depressed All other review of systems found to be negative. PHYSICAL EXAMINATION: VITAL SIGNS: Please see below. GENERAL: Mild distress, tearful affect. HEENT: Extraocular movements intact. CARDIOVASCULAR: Regular rate and rhythm. II/ SM LUNGS: Clear to auscultation bilaterally. No wheezes. No rhonchi. Sternal protrusion noted. ABDOMEN: Soft, nontender, obese, no guarding, no rebound tenderness or masses. Positive bowel sounds. NEUROLOGICAL: Alert and oriented to self and place, Cranial nerves II through XII grossly intact. EXTREMITIES: 4\\5 strength bilateral upper extremities. 3+\\5 strength right lower extremity. 3+/5 strength in left lower extremity. Unable to elevate upper extremities above 80 degrees. RUE +edema. Hypertrophic edematous bilateral lower extremities, bilat ankles pes valgus deformity Functional Status: Limited tolerance continues to be prevalent; requires modA x2 for squat pivot with bed elevated to assist with stand Requires assist x 2 for transfer to [facility]. Discussed with therapy another trial of the sliding board transfers, not a candidate for Norbert lift transfers. ASSESSMENT: Status post nonsurgical decompression of volvulus. Diabetes. Probable gastroparesis. Peripheral polyneuropathy. 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 Pneumonia. Right upper extremity swelling and superficial venous thrombosis. Depression. Hypothyroidism. UTI. 86-year-old F with past medical history of DM with peripheral polyneuropathy and large hiatal hernia who presents status post gastric volvulus s/p EGD decompression, tolerating progressive feeding to full liquids, having regular BM and minimal discomfort, able to participate in the therapy reconditioning program. PLAN: 1. Rehab- PT/OT advance mobility and ADLS, strengthen/stretch/maintain ROM all 4limbs- working on [id number] 2. Neuro- hx of diabetic peripheral polyneuropathy and reported PMR contributing to overall mobility impairments, possibly dementia component vs worsening situational depression/anxiety- Added Buspar and small dose prednisone with close monitoring GI tolerance, see if that helps boost motor function, mood and energy level. 3. GI- patient with large hiatal hernia with recent volvulus and EGD decompression on 05-07-21, not deemed to be surgical candidate- her diet was advanced, however on 05-20-21 exam she had recurrent emesis (FOBT negative) with KUB revealing large gastric bubble with no bowel obstruction- discussed case with Dr. Young who recommended trial of NGT which was clamped with patient tolerating full liquid diet- NGT d/c'd 05-27, patient comfortable and will progress as tolerated or go home on full liquid diet . patient comfortable and will progress as tolerated or go home on full liquid diet . Requested dietary reassess and seems to have improved choices .Added MVI with B complex for nutritional support and neural repair. 4. Cardiac- cont BP meds, adjust as needed -HLD cont statin, may consider DC given age, signific dietary restrictions and slight risk of aggravation of motor function. -medicine consulted to assist in overall management 5. Resp- monitor for infection- patient developing a cough with CT Chest on 05-26-21 showing, "New right lower lobe patchy opacities likely subsegmental atelectatic changes. Developing pneumonia cannot be ruled out" started on Iv Zosyn for possible aspiration PNA given recent emesis, cough resolved clinically cleared -cont Combivent and guaifenesin, HOB >30 -recent Covid exposure, Resp panel negative 6. Pain- cont fentanyl and norco -lidoderm patch to left knee 7. Psych- cymbalta and Remeron for depression, added Buspar for worsening anxiety, less respiratory effect than Benzo 8. DVT ppx- heparin -RUE swelling with US + for superficial thrombosis cont warm compress 9. Endo- hx of DM with peripheral polyneuropathy managed with diet alone -hypothyroidism cont Synthroid 10. - Ucx + for E. coli and proteus Mirabilis, completed abx course 11. DISPOSITION home with family is again the goal with close counselling from and involved family members. TIME SPENT: Chart Review, examination and documentation 25 minutes. Allergies Coded Allergies: TAPE (Verified Allergy, Intermediate, RASH, 05/21/10) meloxicam (Verified Adverse Reaction, Mild, "I think it made me sick", 03/19/19) pioglitazone (Verified Adverse Reaction, Mild, bruising, 03/19/19) pregabalin (Verified Adverse Reaction, Mild, affects vision, 03/19/19) Vital Signs Vital Signs Date Time Temp Pulse Resp B/P (MAP) Pulse Ox O2 Delivery O2 Flow Rate FiO2 06/08/21 15:15 20 Room Air 06/08/21 14:00 98.0 63 112/59 (76) 96 Current Medications Current Medications Current Medications Medications (Trade) Dose Ordered Sig/Alice Route PRN Reason Start Time Stop Time Status Last Admin Dose Admin Acetaminophen (Tylenol Tab) 650 mg Q6HP PRN PO MILD PAIN or TEMP > 101 06/04/21 08:35 06/08/21 15:15 Acetaminophen/ Hydrocodone Bitart (Anexsia, [place] 7.5mg/325mg) 1 tab Q4HP PRN NG MILD PAIN (PS 1-4) 05/20/21 16:00 05/27/21 13:28 DC 05/25/21 10:45 Acetaminophen/ Hydrocodone Bitart (Anexsia, [place] 7.5mg/325mg) 1 tab Q4HP PRN PO MILD PAIN (PS 1-4) 05/19/21 11:50 05/20/21 16:11 DC 05/19/21 21:01 Acetaminophen/ Hydrocodone Bitart (Anexsia, [place] 7.5mg/325mg) 1 tab Q4HP PRN PO MILD PAIN (PS 1-4) 05/27/21 13:25 06/04/21 08:39 DC 06/03/21 18:38 Acetaminophen/ Hydrocodone Bitart (Anexsia, [place] 7.5mg/325mg) 1 tab Q8HP PRN PO MILD PAIN (PS 1-4) 06/04/21 11:40 06/08/21 15:15 Albuterol/ Ipratropium (Combivent Respimat 100-20mcg) 1 puff RTID INH 05/26/21 20:00 06/07/21 14:16 Amlodipine Besylate (Norvasc) 10 mg DAILY NG 05/21/21 09:00 05/27/21 13:28 DC 05/27/21 08:44 Amlodipine Besylate (Norvasc) 10 mg DAILY PO 05/20/21 09:00 05/20/21 16:11 DC 05/20/21 08:00 Amlodipine Besylate (Norvasc) 10 mg DAILY PO 05/28/21 09:00 06/08/21 08:52 Buspirone HCl (Buspar) 5 mg BID PO 06/04/21 09:00 06/08/21 08:42 Cefdinir (Omnicef) 300 mg BID PO 05/28/21 11:30 06/01/21 22:00 DC 06/01/21 21:12 Cyanocobalamin (Vitamin B12) 1,000 mcg DAILY NG 05/21/21 09:00 05/27/21 13:28 DC 05/27/21 08:44 Cyanocobalamin (Vitamin B12) 1,000 mcg DAILY PO 05/20/21 09:00 05/20/21 16:11 DC 05/20/21 08:00 Cyanocobalamin (Vitamin B12) 1,000 mcg DAILY PO 05/28/21 09:00 06/08/21 08:42 Dextrose/Sodium Chloride 1,000 ml @ 60 mls/hr [id number] IV 05/20/21 10:55 05/24/21 13:39 DC 05/23/21 21:51 Diclofenac Epolamine (Flector 1.3%) 1 patch DAILY@2100 TOP 06/07/21 21:00 06/07/21 20:18 Docusate Sodium (Colace) 200 mg BID PO 05/19/21 21:00 05/27/21 13:30 DC 05/20/21 08:00 Docusate Sodium (Colace) 200 mg BID PO 05/27/21 21:00 05/29/21 11:07 DC 05/29/21 07:35 Duloxetine HCl (Cymbalta) 60 mg DAILY PO 05/20/21 09:00 05/27/21 13:31 DC 05/20/21 08:00 Duloxetine HCl (Cymbalta) 60 mg DAILY PO 05/27/21 13:30 06/08/21 08:52 Fentanyl (Duragesic) 75 mcg Q72H TOP 05/21/21 09:00 06/08/21 08:49 Guaifenesin (Robitussin Tab) 400 mg TID PO 05/26/21 16:00 06/08/21 15:14 Heparin Sodium (Heparin (Flush)) 200 units ASDIRECTED PRN IV SEE LABEL COMMENTS 05/19/21 22:30 05/28/21 16:28 DC 05/27/21 08:55 Heparin Sodium (Heparin (Flush)) 200 units ASDIRECTED PRN IV SEE LABEL COMMENTS 05/20/21 13:50 Cancel Heparin Sodium (Heparin (Flush)) 200 units PICC IV 05/20/21 06:00 05/28/21 16:28 DC 05/27/21 17:09 Heparin Sodium (Heparin (Flush)) 200 units PICC IV 05/20/21 18:00 Cancel Heparin Sodium (Porcine) (Heparin) 5,000 units Q12H SC 05/19/21 21:00 06/08/21 08:54 Home Med (Home Med List Complete!) ASDIRECTED XX 05/19/21 15:45 05/19/21 15:50 DC Levofloxacin (Levaquin) 250 mg DAILY@06 PO 05/26/21 12:05 05/26/21 19:03 DC 05/26/21 15:04 Levothyroxine Sodium (Synthroid) 37.5 mcg DAILY@06 NG 05/21/21 06:00 05/27/21 13:28 DC 05/27/21 05:31 Levothyroxine Sodium (Synthroid) 37.5 mcg DAILY@06 PO 05/20/21 06:00 05/20/21 16:11 DC 05/20/21 06:52 Levothyroxine Sodium (Synthroid) 37.5 mcg DAILY@06 PO 05/28/21 06:00 06/08/21 05:06 Lidocaine (Lidoderm Patch) 2 patch DAILY TD 05/27/21 09:00 06/08/21 08:54 Lisinopril (Prinivil) 10 mg DAILY NG 05/21/21 09:00 05/27/21 13:28 DC 05/27/21 08:44 Lisinopril (Prinivil) 10 mg DAILY PO 05/20/21 09:00 05/20/21 16:11 DC 05/20/21 08:00 Lisinopril (Prinivil) 10 mg DAILY PO 05/28/21 09:00 06/08/21 08:42 Mirtazapine (Remeron) 7.5 mg QHS NG 05/20/21 21:00 05/27/21 13:28 DC 05/26/21 21:42 Mirtazapine (Remeron) 7.5 mg QHS PO 05/19/21 21:00 05/20/21 16:11 DC 05/19/21 21:41 Mirtazapine (Remeron) 7.5 mg QHS PO 05/27/21 21:00 06/07/21 20:17 Naloxone HCl (Narcan) 0.1 mg Q5MP PRN IV RESP. RATE < 10 05/19/21 11:50 Nitroglycerin (Nitrostat (1/ 150)) 0.4 mg Q5MP PRN SL CHEST PAIN 05/19/21 11:50 Non-Formulary Medication ( See Comment Field Below ) REMOVE DICLOFENAC PATCH ... DAILY XX 06/08/21 09:00 06/08/21 08:54 Non-Formulary Medication ( See Comment Field Below ) REMOVE LIDODERM PATCH DAILY@21 XX 05/27/21 21:00 06/07/21 20:19 Non-Formulary Medication ( See Comment Field Below ) SEE COMMENTS SECTION ASDIRECTED XX 05/21/21 09:00 06/08/21 09:44 Nystatin (Mycostatin Powder, Nystop) abdominal folds and un... TID TOP 05/26/21 16:00 06/08/21 15:17 Ondansetron HCl (Zofran Odt) 4 mg Q6HP PRN PO NAUSEA OR VOMITING 05/19/21 16:00 05/20/21 09:46 DC 05/20/21 06:33 Ondansetron HCl (Zofran Odt) 4 mg Q6HP PRN SL NAUSEA OR VOMITING 05/20/21 10:00 Pantoprazole Sodium (Protonix) 40 mg DAILY IV 05/21/21 09:00 05/27/21 13:29 DC 05/27/21 08:43 Pantoprazole Sodium (Protonix) 40 mg DAILY PO 05/19/21 09:00 05/20/21 16:11 DC 05/20/21 08:00 Pantoprazole Sodium (Protonix) 40 mg DAILY PO 05/28/21 09:00 06/08/21 08:52 Phenol (Chloraseptic [place]) 2 SPRAYS QID MT 05/27/21 17:00 06/08/21 15:17 Piperacillin Sod/ Tazobactam Sod 3.375 gm/Dextrose 50 ml @ 50 mls/hr Q6H IV 05/26/21 20:00 05/28/21 11:33 DC 05/27/21 14:03 Pravastatin Sodium (Pravachol) 40 mg QHS NG 05/20/21 21:00 05/27/21 13:28 DC 05/26/21 21:42 Pravastatin Sodium (Pravachol) 40 mg QHS PO 05/19/21 21:00 05/20/21 16:11 DC 05/19/21 21:00 Pravastatin Sodium (Pravachol) 40 mg QHS PO 05/27/21 21:00 06/04/21 08:58 DC 06/03/21 20:53 Prednisone (Deltasone) 5 mg DAILY PO 06/09/21 09:00 Prednisone (Deltasone) 7.5 mg DAILY PO 06/07/21 09:00 06/08/21 09:01 DC 06/08/21 08:53 Prednisone (Deltasone) 10 mg DAILY PO 06/04/21 09:00 06/07/21 08:59 DC 06/06/21 09:21 Senna (Senokot) 1 tab QHS PRN NG constipation 05/20/21 21:00 05/27/21 13:28 DC Senna (Senokot) 1 tab QHS PRN PO constipation 05/20/21 21:00 05/20/21 16:11 DC Senna (Senokot) 1 tab QHS PRN PO CONSTIPATION 05/27/21 13:25 06/02/21 20:26 Senna (Senokot) 2 tab BID PO 05/19/21 21:00 05/20/21 10:49 DC 05/20/21 07:59 Simethicone (Mylicon) 80 mg TID NG 05/20/21 16:00 05/27/21 13:28 DC 05/27/21 08:44 Simethicone (Mylicon) 80 mg TID PO 05/19/21 16:00 05/20/21 16:11 DC 05/20/21 07:59 Simethicone (Mylicon) 80 mg TID PO 05/27/21 16:00 06/08/21 15:14 Sodium Chloride (Saline Lock Flush) 10 ml ASDIRECTED PRN IV SEE LABEL COMMENTS 05/19/21 22:30 10/21/21 16:28 DC 05/27/21 08:55 Sodium Chloride (Sal[place] Lock Flush) 10 ml ASDIRECTED PRN IV SEE LABEL COMMENTS 05/20/21 13:50 Cancel Sodium Chloride (Saline Lock Flush) 10 ml PICC IV 05/20/21 06:00 05/28/21 16:28 DC 05/27/21 17:09 Sodium Chloride (Saline Lock Flush) 10 ml PICC IV 05/20/21 18:00 Cancel Vitamin B Complex/ Vit C/Folic Acid (Nephro-Logan Rx) 1 tab DAILY PO 06/04/21 09:00 06/08/21 08:53 SHARON RIVERA MD Jun 08, 2021 15:27
[2021-06-08 20:00] VITALS: BP 116/55
[2021-06-08] MEDS: MIRTAZAPINE 7.5MG PER 1/2 TABLET PO SCH (20:33)
[2021-06-08] MEDS: DICLOFENAC EPOLAMINE 1.3 % PATCH TOP SCH (20:34)
[2021-06-09] MEDS: LEVOTHYROXINE 37.5MCG PER 1/2TAB (0.0375MG) PO SCH (05:41)
[2021-06-09 06:00] VITALS: BP 136/66
[2021-06-09] MEDS: COMBIVENT RESPIMAT 100-20MCG INHALER 4GM INH SCH ×3 (07:45→20:48)
[2021-06-09] MEDS: CHLORASEPTIC SPRAY MT SCH ×2 (08:51→13:00)
[2021-06-09] MEDS: LIDOCAINE 5% (LIDODERM) PATCH TD SCH (08:52)
[2021-06-09] MEDS: NEPHRO-VIT TAB (NEPHROCAPS) PO SCH (08:56)
[2021-06-09] MEDS: HEPARIN SOD (PORCINE) 5000UNITS/ML 1ML VIAL/SYRINGE SC SCH ×2 (08:56→20:11)
[2021-06-09] MEDS: predniSONE 5 MG TAB PO SCH (08:56)
[2021-06-09] MEDS: guaiFENesin 200 MG TAB PO SCH ×3 (08:56→20:09)
[2021-06-09] MEDS: SIMETHICONE 80MG CHEW TAB PO SCH ×3 (08:56→20:09)
[2021-06-09] MEDS: CYANOCOBALAMIN 500 MCG TAB PO SCH (08:57)
[2021-06-09] MEDS: DULoxetine 30MG CAPSULE (CYMBALTA) PO SCH (08:57)
[2021-06-09] MEDS: PANTOPRAZOLE 40MG TAB (PROTONIX) PO SCH (08:57)
[2021-06-09] MEDS: ANEXSIA, NORCO 7.5MG/325MG TABLET(HYDROCODONE/APAP) PO PRN ×2 (08:57→20:09)
[2021-06-09] MEDS: NYSTATIN 100,000 UNITS/GM TOPICAL PWD 15 GM TOP SCH ×3 (08:58→20:11)
[2021-06-09] MEDS: busPIRone 5 MG TAB PO SCH ×2 (08:58→20:10)
[2021-06-09] MEDS: **NOTE PATIENT COMMENT** MISC XX SCH ×2 (08:59→20:13)
[2021-06-09] MEDS: REMEDY PHYTOPLEX Z-GUARD PASTE 113GM TUBE (FROM STOREROOM PRODUCT) TOP SCH ×3 (08:59→20:12)
--- NOTE | 2021-06-09 09:28 | IPNPDOC ---
PM&R Progress Note DATE OF SERVICE: Jun 09, 2021 Clinical Informatics Specialist Progress Note DATE OF ADMISSION: May 19, 2021 at 14:30 INPATIENT REHABILITATION ADMISSION DAY: #21 Chief Complaint: Generalized deconditioning and weakness. Grief reaction and frustration over inability to regain sufficient function including ability to transfer and perform self care contrasted with desire to be with her in her own home improving with progress in function. Subjective: This is an 86F with pmh DM with peripheral polyneuropathy, HLD, CKD, DVT s/p course of Coumadin, gout, polymyalgia rheumatic, spinal stenosis, GERD who presented to [facility] ED on 05-07-21 with nausea, vomiting, and diarrhea diagnosed with a large hiatal hernia with gastric volvulus for which she underwent an EGD decompression in the OR. Following this procedure she was continued on NPO with NGT , then transferred to the ICU for hypertensive urgency and fever on 05-11-21 following an Upper GI series. Infectious work-up was negative, her blood pressures improved, her diet was advanced gradually, and she was found to have significant deconditioning with mobility and ADL impairments, deemed medically appropriate for discharge to ARU on 05-19-21. Dr. Young felt continued slow progression of diet be trialed, with low threshold to return to using the NG tube and possible consideration of laparoscopic exploration should she appear to re- obstruct. 06.01.2021 Patient feels that she is making progress is having regular bowel movements. 06.02.2021 Patient seen with PT, working on AROM, challenged with swelling and pain left knee more than right, agreed to try wrapping up over knees and Voltaren gel. Patient discussed later today in Team Conference, apparently despondent over possibility she is not regaining sufficent capacity to transfer and mobility to return home with her of 60 years. 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 06.03.2021 patient seen in room early in the morning doing well, asking for transfer assistance to bedside commode, minimal complaint of pain. Later in the morning, it was noted patient was not cooperating with physical therapy attempted interventions, expressing feelings of wanting to give up and despondent over recent revelation that she may not have regain sufficient function to return home instead have to go to a SNF. 06.04.2021 Long discussion with patient regarding her concerns, apparently she also speaks to her daughters daily or every other day that [place], [place] and is concerned about balance and needs of her husbands children. She has generalized frustration and some degree of confusion, is unable to articulate precisely what is needed for her to be able to do functionally for her to achieve her goal of returning home rather focus on her desire to be with her in her own home. She is tolerating full liquids and having regular bowel movements. Disc ussed situation with therapy and geriatric social worker, family conference will be coordinated with myself and geriatric social worker to better delineate options. Patient had no recollection today of discussions yesterday with myself with geriatric social worker. Adding Buspar and low dose Prednisone to help with anxiety and post infection/inflammatory component of worsened PMR/PN. 06.05.2021 Patient was irritable in the morning. However, by mid day appeared to have improved mood after the impact of medications took greater effect and ongoing social service counseling and problem solving. She self initiated more participation, notes that her bed at home. is lower and the wheelchair here is too large. So we can get a smaller wheelchair that she get better support herself through the transfers. She is willing to continue to work on that. Wrapping of the knee seems to have helped the pain level is better controlled with the medication adjustments. 06.08.2021 Definite improvement seen over the weekend, patient afebrile provider, more willing to participate in transfer and rehabilitation activities. Pain seems better managed with the addition of the steroids, flexor patch, alternating with Lidoderm patch. We appreciate surgerys input and encouragement of occasional small feeds including soft items may improve her quality of life. She shas had regular BMs and good urine output and is resting comfortably at night. 06.09.2021 Brighter affect, participating, feeling less pain and BP lower requiring down adjustment in meds. Moved Lisinopril to . Will discuss in team conference plan for probable DC later this week. REVIEW OF SYSTEMS: The following is a completed review of systems and has been reviewed. Review of systems otherwise unremarkable. PAIN: Patient self reports abdominal pain EYES: No recent vision changes EARS, NOSE, & THROAT: No throat pain, or dysphagia, or rhinorrhea CARDIOVASCULAR: Denies chest pain or palpitations PULMONARY: Denies shortness of breath, denies cough GASTROINTESTINAL: denies nasuea/vomiting/diarrhea GENITOURINARY: denies dysuria MUSCULOSKELETAL: generalized weakness NEUROLOGICAL:+peripheral polyneuropathy HEMATOLOGICAL: denies easy bruising SKIN: denies rash PSYCHIATRIC: +depressed All other review of systems found to be negative. PHYSICAL EXAMINATION: VITAL SIGNS: Please see below. GENERALbrighter affect alert/oriented x 3. HEENT: Extraocular movements intact. CARDIOVASCULAR: Regular rate and rhythm. II/ SM LUNGS: Clear to auscultation bilaterally. No wheezes. No rhonchi. Sternal protrusion noted. ABDOMEN: Soft, nontender, obese, no guarding, no rebound tenderness or masses. Positive bowel sounds. NEUROLOGICAL: Alert and oriented to self and place, Cranial nerves II through XII grossly intact. EXTREMITIES: 4\\5 strength bilateral upper extremities. 3+\\5 strength right lower extremity. 3+/5 strength in left lower extremity. Unable to elevate upper extremities above 80 degrees. RUE much less edema. Hypertrophic edematous bilateral lower extremities, bilat ankles pes valgus deformity Functional Status: Case to be discussed in TEAM Rounds, med adjustments helping facilitate needed push for sufficient transfer capability for dc home as desired. Sit to Stand Contact Guard Assist Stand to Sit Contact Guard Assist Bed to Chair Contact Guard Assist Chair to Bed Contact Guard Assist Toilet/Commode Contact Guard Assist Transfer Training Notes CGA-SBA for transfer board transfers. Therapist assist for board placement and removal and VC's for encouragement. Pt given pericare bottle to trial while sitting on commode. Pt educated on use and demonstrate use, however did require some assist from therapist for improved access to [place] region. Pt stood to from [facility] to sherly/alberto springer and required intermittent seated rest breaks to allow pt to complete task without additional assist from therapist. Assist provided for standing balance, CGA-Min A from therapist ASSESSMENT: Status post nonsurgical decompression of volvulus. Diabetes. Probable gastroparesis. Peripheral polyneuropathy. 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 Pneumonia. Right upper extremity swelling and superficial venous thrombosis. Depression Anxiety. Hypothyroidism. UTI. 86-year-old F with past medical history of DM with peripheral polyneuropathy and large hiatal hernia who presents status post gastric volvulus s/p EGD decompression, tolerating progressive feeding to full liquids, having regular BM and minimal discomfort, able to participate in the therapy reconditioning program. PLAN: 1. Rehab- PT/OT advance mobility and ADLS, strengthen/stretch/maintain ROM all 4limbs- working on [id number] 2. Neuro- hx of diabetic peripheral polyneuropathy and reported PMR contributing to overall mobility impairments, possibly dementia component vs worsening situational depression/anxiety- Added Buspar and small dose prednisone with close monitoring GI tolerance, definitely appears to help boost motor function, mood and energy level. 3. GI- patient with large hiatal hernia with recent volvulus and EGD decompression on 05-07-21, not deemed to be surgical candidate- her diet was advanced, however on 05-20-21 exam she had recurrent emesis (FOBT negative) with KUB revealing large gastric bubble with no bowel obstruction- discussed case with Dr. Young who recommended trial of NGT which was clamped with patient tolerating full liquid diet- NGT d/c'd 05-27, patient comfortable and will progress as tolerated or go home on full liquid diet . patient comfortable and will progress as tolerated or go home on full liquid diet . Requested dietary reassess and seems to have improved choices .Added MVI with B complex for nutritional support and neural repair. Appreciate Dr. Young/surgery acknowledgement of improvement, tolerating current dietary intake. 4. Cardiac- cont BP meds, adjust as needed, BP lower, possibly related to improved pain management and decreased anxiety. Appreciate IM input on further dose adjustments. Will attempt to measure orthostatics supine/sitting. -HLD cont statin, may consider DC given age, signific dietary restrictions and slight risk of aggravation of motor function. -medicine consulted to assist in overall management 5. Resp- monitor for infection- patient developing a cough with CT Chest on 05-26-21 showing, "New right lower lobe patchy opacities likely subsegmental atelectatic changes. Developing pneumonia cannot be ruled out" received course of IV Zosyn for possible aspiration PNA given recent emesis, cough resolved clinically cleared -cont Combivent and guaifenesin, HOB >30 -recent Covid exposure, Resp panel negative 6. Pain- cont fentanyl and norco -lidoderm patch to left knee alt Flector patch 7. Psych- cymbalta and Remeron for depression, added Buspar for worsening anxiety, less respiratory effect than Benzo 8. DVT ppx- heparin -RUE swelling with US + for superficial thrombosis cont warm compress 9. Endo- hx of DM with peripheral polyneuropathy managed with diet alone -hypothyroidism cont Synthroid 10. - Ucx + for E. coli and proteus Mirabilis, completed abx course 11. DISPOSITION home with family is again the goal with close counselling from SW and involved family members. TIME SPENT: Chart Review, examination and documentation 25 minutes. Allergies Coded Allergies: TAPE (Verified Allergy, Intermediate, RASH, 05/21/10) meloxicam (Verified Adverse Reaction, Mild, "I think it made me sick", 03/19/19) pioglitazone (Verified Adverse Reaction, Mild, bruising, 03/19/19) pregabalin (Verified Adverse Reaction, Mild, affects vision, 03/19/19) Vital Signs Vital Signs Date Time Temp Pulse Resp B/P (MAP) Pulse Ox O2 Delivery O2 Flow Rate FiO2 06/09/21 09:00 110/58 06/09/21 09:00 70 06/09/21 08:57 20 06/09/21 06:00 97.5 94 Room Air Current Medications Current Medications Current Medications Medications (Trade) Dose Ordered Sig/Alice Route PRN Reason Start Time Stop Time Status Last Admin Dose Admin Acetaminophen (Tylenol Tab) 650 mg Q6HP PRN PO MILD PAIN or TEMP > 101 06/04/21 08:35 06/08/21 15:15 Acetaminophen/ Hydrocodone Bitart ([place] 7.5mg/325mg) 1 tab Q4HP PRN NG MILD PAIN (PS 1-4) 05/20/21 16:00 05/27/21 13:28 DC 05/25/21 10:45 Acetaminophen/ Hydrocodone Bitart ([place], [place] 7.5mg/325mg) 1 tab Q4HP PRN PO MILD PAIN (PS 1-4) 05/19/21 11:50 05/20/21 16:11 DC 05/19/21 21:01 Acetaminophen/ Hydrocodone Bitart ([place], [place] 7.5mg/325mg) 1 tab Q4HP PRN PO MILD PAIN (PS 1-4) 05/27/21 13:25 06/04/21 08:39 DC 06/03/21 18:38 Acetaminophen/ Hydrocodone Bitart ([place], [place] 7.5mg/325mg) 1 tab Q8HP PRN PO MILD PAIN (PS 1-4) 06/04/21 11:40 06/09/21 08:57 Albuterol/ Ipratropium (Combivent Respimat 100-20mcg) 1 puff RTID INH 05/26/21 20:00 06/09/21 07:45 Amlodipine Besylate (Norvasc) 10 mg DAILY NG 05/21/21 09:00 05/27/21 13:28 DC 05/27/21 08:44 Amlodipine Besylate (Norvasc) 10 mg DAILY PO 05/20/21 09:00 05/20/21 16:11 DC 05/20/21 08:00 Amlodipine Besylate (Norvasc) 10 mg DAILY PO 05/28/21 09:00 Hold 06/08/21 08:52 Buspirone HCl (Buspar) 5 mg BID PO 06/04/21 09:00 06/09/21 08:58 Cefdinir (Omnicef) 300 mg BID PO 05/28/21 11:30 06/01/21 22:00 DC 06/01/21 21:12 Cyanocobalamin (Vitamin B12) 1,000 mcg DAILY NG 05/21/21 09:00 05/27/21 13:28 DC 05/27/21 08:44 Cyanocobalamin (Vitamin B12) 1,000 mcg DAILY PO 05/20/21 09:00 05/20/21 16:11 DC 05/20/21 08:00 Cyanocobalamin (Vitamin B12) 1,000 mcg DAILY PO 05/28/21 09:00 06/09/21 08:57 Dextrose/Sodium Chloride 1,000 ml @ 60 mls/hr [id number] IV 05/20/21 10:55 05/24/21 13:39 DC 05/23/21 21:51 Diclofenac Epolamine (Flector 1.3%) 1 patch DAILY@2100 TOP 06/07/21 21:00 06/08/21 20:34 Docusate Sodium (Colace) 200 mg BID PO 05/19/21 21:00 05/27/21 13:30 DC 05/20/21 08:00 Docusate Sodium (Colace) 200 mg BID PO 05/27/21 21:00 05/29/21 11:07 DC 05/29/21 07:35 Duloxetine HCl (Cymbalta) 60 mg DAILY PO 05/20/21 09:00 05/27/21 13:31 DC 05/20/21 08:00 Duloxetine HCl (Cymbalta) 60 mg DAILY PO 05/27/21 13:30 06/09/21 08:57 Fentanyl (Duragesic) 75 mcg Q72H TOP 05/21/21 09:00 06/08/21 08:49 Guaifenesin (Robitussin Tab) 400 mg TID PO 05/26/21 16:00 06/09/21 08:56 Heparin Sodium (Heparin (Flush)) 200 units ASDIRECTED PRN IV SEE LABEL COMMENTS 05/19/21 22:30 05/28/21 16:28 DC 05/27/21 08:55 Heparin Sodium (Heparin (Flush)) 200 units ASDIRECTED PRN IV SEE LABEL COMMENTS 05/20/21 13:50 Cancel Heparin Sodium (Heparin (Flush)) 200 units PICC IV 05/20/21 06:00 05/28/21 16:28 DC 05/27/21 17:09 Heparin Sodium (Heparin (Flush)) 200 units PICC IV 05/20/21 18:00 Cancel Heparin Sodium (Porcine) (Heparin) 5,000 units Q12H SC 05/19/21 21:00 06/09/21 08:56 Home Med (Home Med List Complete!) ASDIRECTED XX 05/19/21 15:45 05/19/21 15:50 DC Levofloxacin (Levaquin) 250 mg DAILY@06 PO 05/26/21 12:05 05/26/21 19:03 DC 05/26/21 15:04 Levothyroxine Sodium (Synthroid) 37.5 mcg DAILY@06 NG 05/21/21 06:00 05/27/21 13:28 DC 05/27/21 05:31 Levothyroxine Sodium (Synthroid) 37.5 mcg DAILY@06 PO 05/20/21 06:00 05/20/21 16:11 DC 05/20/21 06:52 Levothyroxine Sodium (Synthroid) 37.5 mcg DAILY@06 PO 05/28/21 06:00 06/09/21 05:41 Lidocaine (Lidoderm Patch) 2 patch DAILY TD 05/27/21 09:00 06/09/21 08:52 Lisinopril (Prinivil) 10 mg DAILY NG 05/21/21 09:00 05/27/21 13:28 DC 05/27/21 08:44 Lisinopril (Prinivil) 10 mg DAILY PO 05/20/21 09:00 05/20/21 16:11 DC 05/20/21 08:00 Lisinopril (Prinivil) 10 mg DAILY PO 05/28/21 09:00 06/09/21 09:05 DC 06/08/21 08:42 Lisinopril (Prinivil) 10 mg QHS PO 06/09/21 21:00 Mirtazapine (Remeron) 7.5 mg QHS NG 05/20/21 21:00 05/27/21 13:28 DC 05/26/21 21:42 Mirtazapine (Remeron) 7.5 mg QHS PO 05/19/21 21:00 05/20/21 16:11 DC 05/19/21 21:41 Mirtazapine (Remeron) 7.5 mg QHS PO 05/27/21 21:00 06/08/21 20:33 Naloxone HCl (Narcan) 0.1 mg Q5MP PRN IV RESP. RATE < 10 05/19/21 11:50 Nitroglycerin (Nitrostat (1/ 150)) 0.4 mg Q5MP PRN SL CHEST PAIN 05/19/21 11:50 Non-Formulary Medication ( See Comment Field Below ) REMOVE DICLOFENAC PATCH ... DAILY XX 06/08/21 09:00 06/09/21 08:59 Non-Formulary Medication ( See Comment Field Below ) REMOVE LIDODERM PATCH DAILY@21 XX 05/27/21 21:00 06/08/21 20:35 Non-Formulary Medication ( See Comment Field Below ) SEE COMMENTS SECTION ASDIRECTED XX 05/21/21 09:00 06/08/21 09:44 Nystatin (Mycostatin Powder, Nystop) abdominal folds and un... TID TOP 05/26/21 16:00 06/09/21 08:58 Ondansetron HCl (Zofran Odt) 4 mg Q6HP PRN PO NAUSEA OR VOMITING 05/19/21 16:00 05/20/21 09:46 DC 05/20/21 06:33 Ondansetron HCl (Zofran Odt) 4 mg Q6HP PRN SL NAUSEA OR VOMITING 05/20/21 10:00 Pantoprazole Sodium (Protonix) 40 mg DAILY IV 05/21/21 09:00 05/27/21 13:29 DC 05/27/21 08:43 Pantoprazole Sodium (Protonix) 40 mg DAILY PO 05/19/21 09:00 05/20/21 16:11 DC 05/20/21 08:00 Pantoprazole Sodium (Protonix) 40 mg DAILY PO 05/28/21 09:00 06/09/21 08:57 Phenol (Chloraseptic [place]) 2 SPRAYS QID MT 05/27/21 17:00 06/09/21 08:51 Piperacillin Sod/ Tazobactam Sod 3.375 gm/Dextrose 50 ml @ 50 mls/hr Q6H IV 05/26/21 20:00 05/28/21 11:33 DC 05/27/21 14:03 Pravastatin Sodium (Pravachol) 40 mg QHS NG 05/20/21 21:00 05/27/21 13:28 DC 05/26/21 21:42 Pravastatin Sodium (Pravachol) 40 mg QHS PO 05/19/21 21:00 05/20/21 16:11 DC 05/19/21 21:00 Pravastatin Sodium (Pravachol) 40 mg QHS PO 05/27/21 21:00 06/04/21 08:58 DC 06/03/21 20:53 Prednisone (Deltasone) 5 mg DAILY PO 06/09/21 09:00 06/09/21 08:56 Prednisone (Deltasone) 7.5 mg DAILY PO 06/07/21 09:00 06/08/21 09:01 DC 06/08/21 08:53 Prednisone (Deltasone) 10 mg DAILY PO 06/04/21 09:00 06/07/21 08:59 DC 06/06/21 09:21 Senna (Senokot) 1 tab QHS PRN NG constipation 05/20/21 21:00 05/27/21 13:28 DC Senna (Senokot) 1 tab QHS PRN PO constipation 10/13/21 21:00 05/20/21 16:11 DC Senna (Senokot) 1 tab QHS PRN PO CONSTIPATION 05/27/21 13:25 06/02/21 20:26 Senna (Senokot) 2 tab BID PO 05/19/21 21:00 05/20/21 10:49 DC 05/20/21 07:59 Simethicone (Mylicon) 80 mg TID NG 05/20/21 16:00 05/27/21 13:28 DC 05/27/21 08:44 Simethicone (Mylicon) 80 mg TID PO 05/19/21 16:00 05/20/21 16:11 DC 05/20/21 07:59 Simethicone (Mylicon) 80 mg TID PO 05/27/21 16:00 06/09/21 08:56 Sodium Chloride (Saline [place] Flush) 10 ml ASDIRECTED PRN IV SEE LABEL COMMENTS 05/19/21 22:30 05/28/21 16:28 DC 05/27/21 08:55 Sodium Chloride (Sal[place] Lock Flush) 10 ml ASDIRECTED PRN IV SEE LABEL COMMENTS 05/20/21 13:50 Cancel Sodium Chloride (Saline Lock Flush) 10 ml PICC IV 05/20/21 06:00 05/28/21 16:28 DC 05/27/21 17:09 Sodium Chloride (Saline Lock Flush) 10 ml PICC IV 05/20/21 18:00 Cancel Vitamin B Complex/ Vit C/Folic Acid (Nephro-Logan Rx) 1 tab DAILY PO 06/04/21 09:00 06/09/21 08:56 SHARON RIVERA MD Jun 09, 2021 09:28
[2021-06-09 14:00] VITALS: BP 104/58
[2021-06-09 20:00] VITALS: BP 132/58
[2021-06-09] MEDS: DICLOFENAC EPOLAMINE 1.3 % PATCH TOP SCH (20:08)
[2021-06-09] MEDS: MIRTAZAPINE 7.5MG PER 1/2 TABLET PO SCH (20:09)
[2021-06-10] MEDS: LEVOTHYROXINE 37.5MCG PER 1/2TAB (0.0375MG) PO SCH (05:23)
[2021-06-10 06:00] VITALS: BP 152/80
[2021-06-10] MEDS: COMBIVENT RESPIMAT 100-20MCG INHALER 4GM INH SCH ×4 (07:37→19:58)
[2021-06-10] MEDS: LIDOCAINE 5% (LIDODERM) PATCH TD SCH (08:22)
[2021-06-10] MEDS: HEPARIN SOD (PORCINE) 5000UNITS/ML 1ML VIAL/SYRINGE SC SCH ×2 (08:23→20:30)
[2021-06-10] MEDS: guaiFENesin 200 MG TAB PO SCH ×3 (08:24→20:30)
[2021-06-10] MEDS: NEPHRO-VIT TAB (NEPHROCAPS) PO SCH (08:24)
[2021-06-10] MEDS: SIMETHICONE 80MG CHEW TAB PO SCH ×3 (08:24→20:30)
[2021-06-10] MEDS: CYANOCOBALAMIN 500 MCG TAB PO SCH (08:24)
[2021-06-10] MEDS: DULoxetine 30MG CAPSULE (CYMBALTA) PO SCH (08:30)
[2021-06-10] MEDS: busPIRone 5 MG TAB PO SCH ×2 (08:30→20:30)
[2021-06-10] MEDS: PANTOPRAZOLE 40MG TAB (PROTONIX) PO SCH (08:30)
[2021-06-10] MEDS: predniSONE 5 MG TAB PO SCH (08:30)
[2021-06-10] MEDS: REMEDY PHYTOPLEX Z-GUARD PASTE 113GM TUBE (FROM STOREROOM PRODUCT) TOP SCH ×3 (08:31→20:29)
[2021-06-10] MEDS: NYSTATIN 100,000 UNITS/GM TOPICAL PWD 15 GM TOP SCH ×3 (08:31→20:29)
[2021-06-10] MEDS: **NOTE PATIENT COMMENT** MISC XX SCH ×2 (08:32→21:25)
--- NOTE | 2021-06-10 08:42 | IPNPDOC ---
PM&R Progress Note DATE OF SERVICE: Jun 10, 2021 Bridge Expert Progress Note DATE OF ADMISSION: May 19, 2021 at 14:30 INPATIENT REHABILITATION ADMISSION DAY: #22 Chief Complaint: Generalized deconditioning and weakness. Grief reaction and frustration over inability to regain sufficient function including ability to transfer and perform self care contrasted with desire to be with her in her own home improving with progress in function and better control of her pain. Subjective: This is an 86F with pmh DM with peripheral polyneuropathy, HLD, CKD, DVT s/p course of Coumadin, gout, polymyalgia rheumatic, spinal stenosis, GERD who presented to [facility] ED on 05-07-21 with nausea, vomiting, and diarrhea diagnosed with a large hiatal hernia with gastric volvulus for which she underwent an EGD decompression in the OR. Following this procedure she was continued on NPO with NGT , then transferred to the ICU for hypertensive urgency and fever on 05-11-21 following an Upper GI series. Infectious work-up was negative, her blood pressures improved, her diet was advanced gradually, and she was found to have significant deconditioning with mobility and ADL impairments, deemed medically appropriate for discharge to ARU on 05-19-21. Dr. Young felt continued slow progression of diet be trialed, with low threshold to return to using the NG tube and possible consideration of laparoscopic exploration should she appear to re- obstruct. 06.01.2021 Patient feels that she is making progress is having regular bowel movements. 06.02.2021 Patient seen with PT, working on AROM, challenged with swelling and pain left knee more than right, agreed to try wrapping up over knees and Voltaren gel. Patient discussed later today in Team Conference, apparently despondent over possibility she is not regaining sufficent capacity to transfer and mobility to return home with her of 60 years. guest services attendant working on possible alternate placement options they may consider for their greatest safety if in home support cannot be sorted out. 06.03.2021 patient seen in room early in the morning doing well, asking for transfer assistance to bedside commode, minimal complaint of pain. Later in the morning, it was noted patient was not cooperating with physical therapy attempted interventions, expressing feelings of wanting to give up and despondent over recent revelation that she may not have regain sufficient function to return home instead have to go to a SNF. 06.04.2021 Long discussion with patient regarding her concerns, apparently she also speaks to her daughters daily or every other day that [place] and is concerned about balance and needs of her husbands children. She has generalized frustration and some degree of confusion, is unable to articulate precisely what is needed for her to be able to do functionally for her to achieve her goal of returning home rather focus on her desire to be with her in her own home. She is tolerating full liquids and having regular bowel movements. Discussed situation with therapy and social insurance specialist, family conference will be coordinated with myself and social insurance specialist to better delineate options. Patient had no recollection today of discussions yesterday with myself with social insurance specialist. Adding Buspar and low dose Prednisone to help with anxiety and post infection/inflammatory component of worsened PMR/PN. 06.05.2021 Patient was irritable in the morning. However, by mid day appeared to have improved mood after the impact of medications took greater effect and ongoing social service counseling and problem solving. She self initiated more participation, notes that her bed at home. is lower and the wheelchair here is too large. So we can get a smaller wheelchair that she get better support herself through the transfers. She is willing to continue to work on that. Wrapping of the knee seems to have helped the pain level is better controlled with the medication adjustments. 06.08.2021 Definite improvement seen over the weekend, patient afebrile provider, more willing to participate in transfer and rehabilitation activities. Pain seems better managed with the addition of the steroids, flexor patch, alternating with Lidoderm patch. We appreciate surgerys input and encouragement of occasional small feeds including soft items may improve her quality of life. She shas had regular BMs and good urine output and is resting comfortably at night. 06.09.2021 Brighter affect, participating, feeling less pain and BP lower requiring down adjustment in meds. Moved Lisinopril to . Will discuss in team conference plan for probable DC later this week. 06.10.2021 Patient with much brighter affect, consuming all of her offerings on her tray, attempted and completed a stand pivot transfer yesterday. Notes significant reduction in pain, greater confidence in the use of the left knee with the wrapping and bracing. Extensive family training provided yesterday and to continue today with a home visit to fully assess optimizing safety and accessibility in her home environment. Blood pressure medications were reduced, blood pressure up a little bit this morning, however, that is preferable to being too low and risking hypotensive episodes and falls. REVIEW OF SYSTEMS: The following is a completed review of systems and has been reviewed. Review of systems otherwise unremarkable. PAIN: Patient self reports abdominal pain EYES: No recent vision changes EARS, NOSE, & THROAT: No throat pain, or dysphagia, or rhinorrhea CARDIOVASCULAR: Denies chest pain or palpitations PULMONARY: Denies shortness of breath, denies cough GASTROINTESTINAL: denies nasuea/vomiting/diarrhea GENITOURINARY: denies dysuria MUSCULOSKELETAL: generalized weakness NEUROLOGICAL:+peripheral polyneuropathy HEMATOLOGICAL: denies easy bruising SKIN: denies rash PSYCHIATRIC: +depressed All other review of systems found to be negative. PHYSICAL EXAMINATION: VITAL SIGNS: Please see below. GENERALbrighter affect alert/oriented x 3. HEENT: Extraocular movements intact. CARDIOVASCULAR: Regular rate and rhythm. II/ SM LUNGS: Clear to auscultation bilaterally. No wheezes. No rhonchi. Sternal protrusion noted. ABDOMEN: Soft, nontender, obese, no guarding, no rebound tenderness or masses. Positive bowel sounds. NEUROLOGICAL: Alert and oriented to self and place, Cranial nerves II through XII grossly intact. EXTREMITIES: Unable to elevate upper extremities above 80 degrees. RUE much less edema, less red. Hypertrophic edematous bilateral lower extremities, bilat ankles pes valgus deformity Functional Status: Case was discussed in TEAM Rounds, med adjustments helping facilitate needed push for sufficient transfer capability for [place] home as desired. Sit to Stand Contact Guard Assist Stand to Sit Contact Guard Assist Bed to Chair Contact Guard Assist Chair to Bed Contact Guard Assist Toilet/Commode Contact Guard Assist Transfer Training Notes CGA-SBA for transfer board transfers. Therapist assist for board placement and removal and VC's for encouragement. Working on use of pericare bottle for self care. ASSESSMENT: Status post nonsurgical decompression of volvulus. Diabetes. Probable gastroparesis. Peripheral polyneuropathy. 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 Pneumonia. Right upper extremity swelling and superficial venous thrombosis. Depression Anxiety. Hypothyroidism. UTI. 86-year-old F with past medical history of DM with peripheral polyneuropathy and large hiatal hernia who presents status post gastric volvulus s/p EGD decompr ession, tolerating progressive feeding to full liquids, having regular BM and minimal discomfort, able to participate in the therapy reconditioning program. PLAN: 1. Rehab- PT/OT advance mobility and ADLS, strengthen/stretch/maintain ROM all 4limbs- working on [id number] 2. Neuro- hx of diabetic peripheral polyneuropathy and reported PMR contributing to overall mobility impairments, possibly dementia component vs worsening situational depression/anxiety- Added Buspar and small dose prednisone with clos e monitoring GI tolerance, definitely appears to help boost motor function, mood and energy level, better control of pain. 3. GI- patient with large hiatal hernia with recent volvulus and EGD decompression on 05-07-21, not deemed to be surgical candidate- her diet was advanced, however on 05-20-21 exam she had recurrent emesis (FOBT negative) with KUB revealing large gastric bubble with no bowel obstruction- discussed case with Dr. Young who recommended trial of NGT which was clamped with patient tolerating full liquid diet- NGT d/c'd 05-27, patient comfortable and will home on full liquid diet . Requested dietary reassess and seems to have improved choices .Added MVI with B complex for nutritional support and neural repair. Appreciate Dr. Young/surgery acknowledgement of improvement, tolerating current dietary intake anticipated to stay at this level indefinitely for optimal safety and prevention of further complications. 4. Cardiac- cont BP meds, adjust as needed, BP lower, possibly related to improv ed pain management and decreased anxiety. Appreciate IM input on further dose adjustments. Will attempt to measure orthostatics supine/sitting. -HLD cont statin, may consider DC given age, signific dietary restrictions and slight risk of aggravation of motor function. -medicine consulted to assist in overall management 5. Resp- monitor for infection- patient developing a cough with CT Chest on 05-26-21 showing, "New right lower lobe patchy opacities likely subsegmental atelectatic changes. Developing pneumonia cannot be ruled out" received course of IV Zosyn for possible aspiration PNA given recent emesis, cough resolved clinically cleared -cont Combivent and guaifenesin, HOB >30 -recent Covid exposure, Resp panel negative 6. Pain- cont fentanyl and norco -lidoderm patch to left knee alt Flector patch 7. Psych- cymbalta and Remeron for depression, added Buspar for worsening anxi ety, less respiratory effect than Benzo 8. DVT ppx- heparin -RUE swelling with US + for superficial thrombosis cont warm compress PRN, much improved 9. Endo- hx of DM with peripheral polyneuropathy managed with diet alone -hypothyroidism cont Synthroid 10. - Ucx + for E. coli and proteus Mirabilis, completed abx course 11. DISPOSITION home with family is again the goal with close counselling from SW and involved family members. TIME SPENT: Chart Review, examination and documentation 25 minutes. Allergies Coded Allergies: TAPE (Verified Allergy, Intermediate, RASH, 05/21/10) meloxicam (Verified Adverse Reaction, Mild, "I think it made me sick", 03/19/19) pioglitazone (Verified Adverse Reaction, Mild, bruising, 03/19/19) pregabalin (Verified Adverse Reaction, Mild, affects vision, 03/19/19) Vital Signs Vital Signs Date Time Temp Pulse Resp B/P (MAP) Pulse Ox O2 Delivery O2 Flow Rate FiO2 06/10/21 06:00 98.4 58 18 152/80 (104) 94 Room Air Current Medications Current Medications Current Medications Medications (Trade) Dose Ordered Sig/Alice Route PRN Reason Start Time Stop Time Status Last Admin Dose Admin Acetaminophen (Tylenol Tab) 650 mg Q6HP PRN PO MILD PAIN or TEMP > 101 06/04/21 08:35 06/08/21 15:15 Acetaminophen/ Hydrocodone Bitart (Anexsia, [place] 7.5mg/325mg) 1 tab Q4HP PRN NG MILD PAIN (PS 1-4) 05/20/21 16:00 05/27/21 13:28 DC 05/25/21 10:45 Acetaminophen/ Hydrocodone Bitart (Anexsia, [place] 7.5mg/325mg) 1 tab Q4HP PRN PO MILD PAIN (PS 1-4) 05/19/21 11:50 05/20/21 16:11 DC 05/19/21 21:01 Acetaminophen/ Hydrocodone Bitart (Anexsia, [place] 7.5mg/325mg) 1 tab Q4HP PRN PO MILD PAIN (PS 1-4) 05/27/21 13:25 06/04/21 08:39 DC 06/03/21 18:38 Acetaminophen/ Hydrocodone Bitart (Anexsia, [place] 7.5mg/325mg) 1 tab Q8HP PRN PO MILD PAIN (PS 1-4) 06/04/21 11:40 06/09/21 20:09 Albuterol/ Ipratropium (Combivent Respimat 100-20mcg) 1 puff RTID INH 05/26/21 20:00 06/10/21 07:37 Amlodipine Besylate (Norvasc) 10 mg DAILY NG 05/21/21 09:00 05/27/21 13:28 DC 05/27/21 08:44 Amlodipine Besylate (Norvasc) 10 mg DAILY PO 05/20/21 09:00 05/20/21 16:11 DC 05/20/21 08:00 Amlodipine Besylate (Norvasc) 10 mg DAILY PO 05/28/21 09:00 Hold 06/08/21 08:52 Buspirone HCl (Buspar) 5 mg BID PO 06/04/21 09:00 06/10/21 08:30 Cefdinir (Omnicef) 300 mg BID PO 05/28/21 11:30 06/01/21 22:00 DC 06/01/21 21:12 Cyanocobalamin (Vitamin B12) 1,000 mcg DAILY NG 05/21/21 09:00 05/27/21 13:28 DC 05/27/21 08:44 Cyanocobalamin (Vitamin B12) 1,000 mcg DAILY PO 05/20/21 09:00 05/20/21 16:11 DC 05/20/21 08:00 Cyanocobalamin (Vitamin B12) 1,000 mcg DAILY PO 05/28/21 09:00 06/10/21 08:24 Dextrose/Sodium Chloride 1,000 ml @ 60 mls/hr [id number] IV 05/20/21 10:55 05/24/21 13:39 DC 05/23/21 21:51 Diclofenac Epolamine (Flector 1.3%) 1 patch DAILY@2100 TOP 06/07/21 21:00 06/09/21 20:08 Docusate Sodium (Colace) 200 mg BID PO 05/19/21 21:00 05/27/21 13:30 DC 05/20/21 08:00 Docusate Sodium (Colace) 200 mg BID PO 05/27/21 21:00 05/29/21 11:07 DC 05/29/21 07:35 Duloxetine HCl (Cymbalta) 60 mg DAILY PO 05/20/21 09:00 05/27/21 13:31 DC 05/20/21 08:00 Duloxetine HCl (Cymbalta) 60 mg DAILY PO 05/27/21 13:30 06/10/21 08:30 Fentanyl (Duragesic) 75 mcg Q72H TOP 05/21/21 09:00 06/08/21 08:49 Guaifenesin (Robitussin Tab) 400 mg TID PO 05/26/21 16:00 06/10/21 08:24 Heparin Sodium (Heparin (Flush)) 200 units ASDIRECTED PRN IV SEE LABEL COMMENTS 05/19/21 22:30 05/28/21 16:28 DC 05/27/21 08:55 Heparin Sodium (Heparin (Flush)) 200 units ASDIRECTED PRN IV SEE LABEL COMMENTS 05/20/21 13:50 Cancel Heparin Sodium (Heparin (Flush)) 200 units PICC IV 05/20/21 06:00 05/28/21 16:28 DC 05/27/21 17:09 Heparin Sodium (Heparin (Flush)) 200 units PICC IV 05/20/21 18:00 Cancel Heparin Sodium (Porcine) (Heparin) 5,000 units Q12H SC 05/19/21 21:00 06/10/21 08:23 Home Med (Home Med List Complete!) ASDIRECTED XX 05/19/21 15:45 05/19/21 15:50 DC Levofloxacin (Levaquin) 250 mg DAILY@06 PO 05/26/21 12:05 05/26/21 19:03 DC 05/26/21 15:04 Levothyroxine Sodium (Synthroid) 37.5 mcg DAILY@06 NG 05/21/21 06:00 05/27/21 13:28 DC 05/27/21 05:31 Levothyroxine Sodium (Synthroid) 37.5 mcg DAILY@06 PO 05/20/21 06:00 05/20/21 16:11 DC 05/20/21 06:52 Levothyroxine Sodium (Synthroid) 37.5 mcg DAILY@06 PO 05/28/21 06:00 06/10/21 05:23 Lidocaine (Lidoderm Patch) 2 patch DAILY TD 05/27/21 09:00 06/10/21 08:22 Lisinopril (Prinivil) 10 mg DAILY NG 05/21/21 09:00 05/27/21 13:28 DC 05/27/21 08:44 Lisinopril (Prinivil) 10 mg DAILY PO 05/20/21 09:00 05/20/21 16:11 DC 05/20/21 08:00 Lisinopril (Prinivil) 10 mg DAILY PO 05/28/21 09:00 06/09/21 09:05 DC 06/08/21 08:42 Lisinopril (Prinivil) 10 mg QHS PO 06/09/21 21:00 06/09/21 20:10 Mirtazapine (Remeron) 7.5 mg QHS NG 05/20/21 21:00 05/27/21 13:28 DC 05/26/21 21:42 Mirtazapine (Remeron) 7.5 mg QHS PO 05/19/21 21:00 05/20/21 16:11 DC 05/19/21 21:41 Mirtazapine (Remeron) 7.5 mg QHS PO 05/27/21 21:00 06/09/21 20:09 Naloxone HCl (Narcan) 0.1 mg Q5MP PRN IV RESP. RATE < 10 05/19/21 11:50 Nitroglycerin (Nitrostat (1/ 150)) 0.4 mg Q5MP PRN SL CHEST PAIN 05/19/21 11:50 Non-Formulary Medication ( See Comment Field Below ) REMOVE DICLOFENAC PATCH ... DAILY XX 06/08/21 09:00 06/10/21 08:32 Non-Formulary Medication ( See Comment Field Below ) REMOVE LIDODERM PATCH DAILY@21 XX 05/27/21 21:00 06/09/21 20:13 Non-Formulary Medication ( See Comment Field Below ) SEE COMMENTS SECTION ASDIRECTED XX 05/21/21 09:00 06/08/21 09:44 Nystatin (Mycostatin Powder, Nystop) abdominal folds and un... TID TOP 10/19/21 16:00 06/10/21 08:31 Ondansetron HCl (Zofran Odt) 4 mg Q6HP PRN PO NAUSEA OR VOMITING 05/19/21 16:00 05/20/21 09:46 DC 05/20/21 06:33 Ondansetron HCl (Zofran Odt) 4 mg Q6HP PRN SL NAUSEA OR VOMITING 05/20/21 10:00 Pantoprazole Sodium (Protonix) 40 mg DAILY IV 05/21/21 09:00 05/27/21 13:29 DC 05/27/21 08:43 Pantoprazole Sodium (Protonix) 40 mg DAILY PO 05/19/21 09:00 05/20/21 16:11 DC 05/20/21 08:00 Pantoprazole Sodium (Protonix) 40 mg DAILY PO 05/28/21 09:00 06/10/21 08:30 Phenol (Chloraseptic Stewart) 2 SPRAYS QID MT 05/27/21 17:00 06/09/21 14:55 DC 06/09/21 08:51 Piperacillin Sod/ Tazobactam Sod 3.375 gm/Dextrose 50 ml @ 50 mls/hr Q6H IV 05/26/21 20:00 05/28/21 11:33 DC 05/27/21 14:03 Pravastatin Sodium (Pravachol) 40 mg QHS NG 05/20/21 21:00 05/27/21 13:28 DC 05/26/21 21:42 Pravastatin Sodium (Pravachol) 40 mg QHS PO 05/19/21 21:00 05/20/21 16:11 DC 05/19/21 21:00 Pravastatin Sodium (Pravachol) 40 mg QHS PO 05/27/21 21:00 06/04/21 08:58 DC 06/03/21 20:53 Prednisone (Deltasone) 5 mg DAILY PO 06/09/21 09:00 06/10/21 08:30 Prednisone (Deltasone) 7.5 mg DAILY PO 06/07/21 09:00 06/08/21 09:01 DC 06/08/21 08:53 Prednisone (Deltasone) 10 mg DAILY PO 06/04/21 09:00 06/07/21 08:59 DC 06/06/21 09:21 Senna (Senokot) 1 tab QHS PRN NG constipation 05/20/21 21:00 05/27/21 13:28 DC Senna (Senokot) 1 tab QHS PRN PO constipation 05/20/21 21:00 05/20/21 16:11 DC Senna (Senokot) 1 tab QHS PRN PO CONSTIPATION 05/27/21 13:25 06/02/21 20:26 Senna (Senokot) 2 tab BID PO 05/19/21 21:00 05/20/21 10:49 DC 05/20/21 07:59 Simethicone (Mylicon) 80 mg TID NG 05/20/21 16:00 05/27/21 13:28 DC 05/27/21 08:44 Simethicone (Mylicon) 80 mg TID PO 05/19/21 16:00 05/20/21 16:11 DC 05/20/21 07:59 Simethicone (Mylicon) 80 mg TID PO 05/27/21 16:00 06/10/21 08:24 Sodium Chloride (Saline Lock Flush) 10 ml ASDIRECTED PRN IV SEE LABEL COMMENTS 05/19/21 22:30 05/28/21 16:28 DC 05/27/21 08:55 Sodium Chloride (Saline Lock Flush) 10 ml ASDIRECTED PRN IV SEE LABEL COMMENTS 05/20/21 13:50 Cancel Sodium Chloride (Saline Lock Flush) 10 ml PICC IV 05/20/21 06:00 05/28/21 16:28 DC 05/27/21 17:09 Sodium Chloride (Saline Lock Flush) 10 ml PICC IV 05/20/21 18:00 Cancel Vitamin B Complex/ Vit C/Folic Acid (Nephro-Logan Rx) 1 tab DAILY PO 06/04/21 09:00 06/10/21 08:24 SHARON RIVERA MD Jun 10, 2021 08:42
[2021-06-10 13:53] VITALS: BP 142/62
[2021-06-10 20:00] VITALS: BP 136/64
[2021-06-10] MEDS: MIRTAZAPINE 7.5MG PER 1/2 TABLET PO SCH (20:30)
[2021-06-10] MEDS: DICLOFENAC EPOLAMINE 1.3 % PATCH TOP SCH (20:31)
[2021-06-11] MEDS: LEVOTHYROXINE 37.5MCG PER 1/2TAB (0.0375MG) PO SCH (05:07)
[2021-06-11 06:00] VITALS: BP 139/63
[2021-06-11] MEDS: COMBIVENT RESPIMAT 100-20MCG INHALER 4GM INH SCH ×3 (07:23→20:48)
[2021-06-11] MEDS: fentaNYL 75 MCG/HR PATCH TOP SCH (08:46)
[2021-06-11] MEDS: HEPARIN SOD (PORCINE) 5000UNITS/ML 1ML VIAL/SYRINGE SC SCH ×2 (08:47→20:54)
[2021-06-11] MEDS: SIMETHICONE 80MG CHEW TAB PO SCH ×3 (08:47→20:54)
[2021-06-11] MEDS: CYANOCOBALAMIN 500 MCG TAB PO SCH (08:47)
[2021-06-11] MEDS: PANTOPRAZOLE 40MG TAB (PROTONIX) PO SCH (08:47)
[2021-06-11] MEDS: LIDOCAINE 5% (LIDODERM) PATCH TD SCH (08:48)
[2021-06-11] MEDS: NEPHRO-VIT TAB (NEPHROCAPS) PO SCH (08:48)
[2021-06-11] MEDS: guaiFENesin 200 MG TAB PO SCH ×3 (08:48→20:53)
[2021-06-11] MEDS: busPIRone 5 MG TAB PO SCH ×2 (08:48→20:54)
[2021-06-11] MEDS: predniSONE 5 MG TAB PO SCH (08:48)
[2021-06-11] MEDS: DULoxetine 30MG CAPSULE (CYMBALTA) PO SCH (08:48)
[2021-06-11] MEDS: NYSTATIN 100,000 UNITS/GM TOPICAL PWD 15 GM TOP SCH ×3 (08:49→20:56)
[2021-06-11] MEDS: REMEDY PHYTOPLEX Z-GUARD PASTE 113GM TUBE (FROM STOREROOM PRODUCT) TOP SCH ×3 (08:49→20:55)
[2021-06-11] MEDS: **NOTE PATIENT COMMENT** MISC XX SCH ×2 (08:49→20:57)
--- NOTE | 2021-06-11 10:19 | IPNPDOC ---
PM&R Progress Note DATE OF SERVICE: Jun 11, 2021 Chopper Operator Progress Note DATE OF ADMISSION: May 19, 2021 at 14:30 INPATIENT REHABILITATION ADMISSION DAY: #23 Chief Complaint: Generalized deconditioning and weakness. Grief reaction and frustration over inability to regain sufficient function including ability to transfer and perform self care contrasted with desire to be with her in her own home improving with progress in function and better control of her pain. Subjective: This is an 86F with pmh DM with peripheral polyneuropathy, HLD, CKD, DVT s/p course of Coumadin, gout, polymyalgia rheumatic, spinal stenosis, GERD who presented to [facility] ED on 05-07-21 with nausea, vomiting, and diarrhea diagnosed with a large hiatal hernia with gastric volvulus for which she underwent an EGD decompression in the OR. Following this procedure she was continued on NPO with NGT , then transferred to the ICU for hypertensive urgency and fever on 05-11-21 following an Upper GI series. Infectious work-up was negative, her blood pressures improved, her diet was advanced gradually, and she was found to have significant deconditioning with mobility and ADL impairments, deemed medically appropriate for discharge to ARU on 05-19-21. Dr. Young felt continued slow progression of diet be trialed, with low threshold to return to using the NG tube and possible consideration of laparoscopic exploration should she appear to re- obstruct. 06.01.2021 Patient feels that she is making progress is having regular bowel movements. 06.02.2021 Patient seen with PT, working on AROM, challenged with swelling and pain left knee more than right, agreed to try wrapping up over knees and Voltaren gel. Patient discussed later today in Team Conference, apparently despondent over possibility she is not regaining sufficent capacity to transfer and mobility to return home with her of 60 years. branch services manager working on possible alternate placement options they may consider for their greatest safety if in home support cannot be sorted out. 06.03.2021 patient seen in room early in the morning doing well, asking for transfer assistance to bedside commode, minimal complaint of pain. Later in the morning, it was noted patient was not cooperating with physical therapy attempted interventions, expressing feelings of wanting to give up and despondent over recent revelation that she may not have regain sufficient function to return home instead have to go to a SNF. 06.04.2021 Long discussion with patient regarding her concerns, apparently she also speaks to her daughters daily or every other day that [place] and is concerned about balance and needs of her husbands children. She has generalized frustration and some degree of confusion, is unable to articulate precisely what is needed for her to be able to do functionally for her to achieve her goal of returning home rather focus on her desire to be with her in her own home. She is tolerating full liquids and having regular bowel movements. Discussed situation with therapy and social media assistant, family conference will be coordinated with myself and social media assistant to better delineate options. Patient had no recollection today of discussions yesterday with myself with social media assistant. Adding Buspar and low dose Prednisone to help with anxiety and post infection/inflammatory component of worsened PMR/PN. 06.05.2021 Patient was irritable in the morning. However, by mid day appeared to have improved mood after the impact of medications took greater effect and ongoing social service counseling and problem solving. She self initiated more participation, notes that her bed at home. is lower and the wheelchair here is too large. So we can get a smaller wheelchair that she get better support herself through the transfers. She is willing to continue to work on that. Wrapping of the knee seems to have helped the pain level is better controlled with the medication adjustments. 06.08.2021 Definite improvement seen over the weekend, patient afebrile provider, more willing to participate in transfer and rehabilitation activities. Pain seems better managed with the addition of the steroids, flexor patch, alternating with Lidoderm patch. We appreciate surgerys input and encouragement of occasional small feeds including soft items may improve her quality of life. She shas had regular BMs and good urine output and is resting comfortably at night. 06.09.2021 Brighter affect, participating, feeling less pain and BP lower requiring down adjustment in meds. Moved Lisinopril to . Will discuss in team conference plan for probable DC later this week. 06.10.2021 Patient with much brighter affect, consuming all of her offerings on her tray, attempted and completed a stand pivot transfer yesterday. Notes significant reduction in pain, greater confidence in the use of the left knee with the wrapping and bracing. Extensive family training provided yesterday and to continue today with a home visit to fully assess optimizing safety and accessibility in her home environment. Blood pressure medications were reduced, blood pressure up a little bit this morning, however, that is preferable to being too low and risking hypotensive episodes and falls. 06.11.2021 Home evaluation conducted yesterday revealed inaccessible situation with her twin bed, in hospital bed in living room, barely negotiable via his wheelchair. She previously transferred to foot of bed and scooted up into the bed or transferred off side of bed to bedside commode. Since she is unable to do similar transfers yet, despite admitted slow gains in strength and reduction in pain, the team is requesting additional time to work on simulating the home environment for the safest discharge plan. She is in full agreement and eager to proceed, deep contrast to last week this time when she was unrealistically, but adamantly demanding DC to home. She is tolerating full liquid/soft diet, regular BM and much less pain in the left knee with patches, bracing and Fentanyl/opiates. REVIEW OF SYSTEMS: The following is a completed review of systems and has been reviewed. Review of systems otherwise unremarkable. PAIN: Patient self reports abdominal pain EYES: No recent vision changes EARS, NOSE, & THROAT: No throat pain, or dysphagia, or rhinorrhea CARDIOVASCULAR: Denies chest pain or palpitations PULMONARY: Denies shortness of breath, denies cough GASTROINTESTINAL: denies nasuea/vomiting/diarrhea GENITOURINARY: denies dysuria MUSCULOSKELETAL: generalized weakness NEUROLOGICAL:+peripheral polyneuropathy HEMATOLOGICAL: denies easy bruising SKIN: denies rash PSYCHIATRIC: +depressed/anxious, improving All other review of systems found to be negative. PHYSICAL EXAMINATION: VITAL SIGNS: Please see below. GENERAL brighter affect alert/oriented x 3. Appropriate in discussion home situation and action plan, eager to proceed to best of her ability. HEENT: Extraocular movements intact. CARDIOVASCULAR: Regular rate and rhythm. II/ SM LUNGS: Clear to auscultation bilaterally. No wheezes. No rhonchi. Sternal protr usion noted. ABDOMEN: Soft, nontender, obese, no guarding, no rebound tenderness or masses. Positive bowel sounds. NEUROLOGICAL: Alert and oriented to self and place, Cranial nerves II through XII grossly intact. EXTREMITIES: Unable to elevate upper extremities above 80 degrees. RUE much less edema no redness or tenderness. Hypertrophic edematous bilateral lower extremities, knees, healed old LTKR scar,bilat ankles pes valgus deformity Functional Status: Worked on transfers and w/c mobility; improved ability to negotiate transfer into w/c with arm rest in place; completes in intervals. Noting increased difficulty when transferring to her left back to bed; requires 2A to prevent LOB at this time; recommending continued work to improve independence and reduce caregiver burden. Bed Mobility Notes Difficulty attempting to get LEs into bed without assist Sit to Stand Contact Guard Assist Stand to Sit Contact Guard Assist Bed to Chair Contact Guard Assist Chair to Bed Moderate Assist Toilet/Commode Standby Assist Transfer Training Notes modA x 2 required for squat pivot to her left back into bed this session ASSESSMENT: Status post nonsurgical decompression of volvulus. Diabetes. Probable gastroparesis. Peripheral polyneuropathy. 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 Pneumonia. Right upper extremity swelling and superficial venous thrombosis. Depression Anxiety. Hypothyroidism. UTI. 86-year-old F with past medical history of DM with peripheral polyneuropathy and large hiatal hernia who presents status post gastric volvulus s/p EGD decompression, tolerating progressive feeding to full liquids, having regular BM and minimal discomfort, able to participate in the therapy reconditioning jay sandoval. PLAN: 1. Rehab- PT/OT advance mobility and ADLS, strengthen/stretch/maintain ROM all 4limbs- working on [id number], safe squat transfers to commode, bed, wheelchair. 2. Neuro- hx of diabetic peripheral polyneuropathy and reported PMR contributing to overall mobility impairments, possibly dementia component vs worsening situational depression/anxiety- Added Buspar and small dose prednisone with close monitoring GI tolerance, definitely appears to help boost motor function, mood and energy level, better control of pain. 3. GI- patient with large hiatal hernia with recent volvulus and EGD decompression on 05-07-21, not deemed to be surgical candidate- her diet was advanced, however on 05-20-21 exam she had recurrent emesis (FOBT negative) with KUB revealing large gastric bubble with no bowel obstruction- discussed case with Dr. Young who recommended trial of NGT which was clamped with patient tolerating full liquid diet- NGT d/c'd 05-27, patient comfortable and will home on full liquid diet . Requested dietary reassess and seems to have improved choices .Added MVI with B complex for nutritional support and neural repair. Ap preciate Dr. Young/surgery acknowledgement of improvement, tolerating current dietary intake anticipated to stay at this level indefinitely for optimal safety and prevention of further complications. Dietary to assist with family instruction. 4. Cardiac- cont BP meds, adjust as needed, BP lower, possibly related to improved pain management and decreased anxiety. Appreciate IM input on further dose adjustments. Will attempt to measure orthostatics supine/sitting. -HLD cont statinwill consider DC given age, signific dietary restrictions and slight risk of aggravation of motor function. -medicine consulted to assist in overall management 5. Resp- monitor for infection- patient developing a cough with CT Chest on 05-26-21 showing, "New right lower lobe patchy opacities likely subsegmental atelectatic changes. Developing pneumonia cannot be ruled out" received course of IV Zosyn for possible aspiration PNA given recent emesis, cough resolved clinically cleared -cont Combivent and guaifenesin, HOB >30 -recent Covid exposure, Resp panel negative 6. Pain- cont fentanyl and norco, added lidoderm patch to left knee alt Flector patch and bracing, working well 7. Psych- cymbalta and Remeron for depression, added Buspar for worsening anxiety, less respiratory effect than Benzo 8. DVT ppx- heparin -RUE swelling with US + for superficial thrombosis cont warm compress PRN, much improved 9. Endo- hx of DM with peripheral polyneuropathy managed with diet alone -hypothyroidism cont Synthroid 10. - Ucx + for E. coli and proteus Mirabilis, completed abx course 11. DISPOSITION home with family is again the goal with close counselling from and involved family members. TIME SPENT: Chart Review, examination and documentation 25 minutes. Allergies Coded Allergies: TAPE (Verified Allergy, Intermediate, RASH, 05/21/10) meloxicam (Verified Adverse Reaction, Mild, "I think it made me sick", 03/19/19) pioglitazone (Verified Adverse Reaction, Mild, bruising, 03/19/19) pregabalin (Verified Adverse Reaction, Mild, affects vision, 03/19/19) Vital Signs Vital Signs Date Time Temp Pulse Resp B/P (MAP) Pulse Ox O2 Delivery O2 Flow Rate FiO2 06/11/21 09:20 18 06/11/21 08:48 71 129/78 06/11/21 06:00 97.7 94 Room Air Current Medications Current Medications Current Medications Medications (Trade) Dose Ordered Sig/Alice Route PRN Reason Start Time Stop Time Status Last Admin Dose Admin Acetaminophen (Tylenol Tab) 650 mg Q6HP PRN PO MILD PAIN or TEMP > 101 06/04/21 08:35 06/08/21 15:15 Acetaminophen/ Hydrocodone Bitart (Anexsia, [place] 7.5mg/325mg) 1 tab Q4HP PRN NG MILD PAIN (PS 1-4) 05/20/21 16:00 05/27/21 13:28 DC 05/25/21 10:45 Acetaminophen/ Hydrocodone Bitart (Anexsia, [place] 7.5mg/325mg) 1 tab Q4HP PRN PO MILD PAIN (PS 1-4) 05/19/21 11:50 05/20/21 16:11 DC 05/19/21 21:01 Acetaminophen/ Hydrocodone Bitart (Anexsia, [place] 7.5mg/325mg) 1 tab Q4HP PRN PO MILD PAIN (PS 1-4) 05/27/21 13:25 06/04/21 08:39 DC 06/03/21 18:38 Acetaminophen/ Hydrocodone Bitart (Anexsia, [place] 7.5mg/325mg) 1 tab Q8HP PRN PO MILD PAIN (PS 1-4) 06/04/21 11:40 06/09/21 20:09 Albuterol/ Ipratropium (Combivent Respimat 100-20mcg) 1 puff RTID INH 05/26/21 20:00 06/11/21 07:23 Amlodipine Besylate (Norvasc) 10 mg DAILY NG 05/21/21 09:00 05/27/21 13:28 DC 05/27/21 08:44 Amlodipine Besylate (Norvasc) 10 mg DAILY PO 05/20/21 09:00 05/20/21 16:11 DC 05/20/21 08:00 Amlodipine Besylate (Norvasc) 10 mg DAILY PO 05/28/21 09:00 06/11/21 08:48 Buspirone HCl (Buspar) 5 mg BID PO 06/04/21 09:00 06/11/21 08:48 Cefdinir (Omnicef) 300 mg BID PO 05/28/21 11:30 06/01/21 22:00 DC 06/01/21 21:12 Cyanocobalamin (Vitamin B12) 1,000 mcg DAILY NG 05/21/21 09:00 05/27/21 13:28 DC 05/27/21 08:44 Cyanocobalamin (Vitamin B12) 1,000 mcg DAILY PO 05/20/21 09:00 05/20/21 16:11 DC 05/20/21 08:00 Cyanocobalamin (Vitamin B12) 1,000 mcg DAILY PO 05/28/21 09:00 06/11/21 08:47 Dextrose/Sodium Chloride 1,000 ml @ 60 mls/hr [id number] IV 05/20/21 10:55 05/24/21 13:39 DC 05/23/21 21:51 Diclofenac Epolamine (Flector 1.3%) 1 patch DAILY@2100 TOP 06/07/21 21:00 06/10/21 20:31 Docusate Sodium (Colace) 200 mg BID PO 05/19/21 21:00 05/27/21 13:30 DC 05/20/21 08:00 Docusate Sodium (Colace) 200 mg BID PO 05/27/21 21:00 05/29/21 11:07 DC 05/29/21 07:35 Duloxetine HCl (Cymbalta) 60 mg DAILY PO 05/20/21 09:00 05/27/21 13:31 DC 05/20/21 08:00 Duloxetine HCl (Cymbalta) 60 mg DAILY PO 05/27/21 13:30 06/11/21 08:48 Fentanyl (Duragesic) 75 mcg Q72H TOP 05/21/21 09:00 06/11/21 08:46 Guaifenesin (Robitussin Tab) 400 mg TID PO 05/26/21 16:00 06/11/21 08:48 Heparin Sodium (Heparin (Flush)) 200 units ASDIRECTED PRN IV SEE LABEL COMMENTS 05/19/21 22:30 05/28/21 16:28 DC 05/27/21 08:55 Heparin Sodium (Heparin (Flush)) 200 units ASDIRECTED PRN IV SEE LABEL COMMENTS 05/20/21 13:50 Cancel Heparin Sodium (Heparin (Flush)) 200 units PICC IV 05/20/21 06:00 05/28/21 16:28 DC 05/27/21 17:09 Heparin Sodium (Heparin (Flush)) 200 units PICC IV 05/20/21 18:00 Cancel Heparin Sodium (Porcine) (Heparin) 5,000 units Q12H SC 05/19/21 21:00 06/11/21 08:47 Home Med (Home Med List Complete!) ASDIRECTED XX 05/19/21 15:45 05/19/21 15:50 DC Levofloxacin (Levaquin) 250 mg DAILY@06 PO 05/26/21 12:05 05/26/21 19:03 DC 05/26/21 15:04 Levothyroxine Sodium (Synthroid) 37.5 mcg DAILY@06 NG 05/21/21 06:00 05/27/21 13:28 DC 05/27/21 05:31 Levothyroxine Sodium (Synthroid) 37.5 mcg DAILY@06 PO 05/20/21 06:00 05/20/21 16:11 DC 05/20/21 06:52 Levothyroxine Sodium (Synthroid) 37.5 mcg DAILY@06 PO 05/28/21 06:00 06/11/21 05:07 Lidocaine (Lidoderm Patch) 2 patch DAILY TD 05/27/21 09:00 06/11/21 08:48 Lisinopril (Prinivil) 10 mg DAILY NG 05/21/21 09:00 05/27/21 13:28 DC 05/27/21 08:44 Lisinopril (Prinivil) 10 mg DAILY PO 05/20/21 09:00 05/20/21 16:11 DC 05/20/21 08:00 Lisinopril (Prinivil) 10 mg DAILY PO 05/28/21 09:00 06/09/21 09:05 DC 06/08/21 08:42 Lisinopril (Prinivil) 10 mg QHS PO 06/09/21 21:00 06/10/21 20:30 Mirtazapine (Remeron) 7.5 mg QHS NG 05/20/21 21:00 05/27/21 13:28 DC 05/26/21 21:42 Mirtazapine (Remeron) 7.5 mg QHS PO 05/19/21 21:00 05/20/21 16:11 DC 05/19/21 21:41 Mirtazapine (Remeron) 7.5 mg QHS PO 05/27/21 21:00 06/10/21 20:30 Miscellaneous (Unresolved Clarification Entry) SEE LABEL COMMENTS DAILY XX 06/10/21 09:00 06/10/21 13:57 DC Naloxone HCl (Narcan) 0.1 mg Q5MP PRN IV RESP. RATE < 10 05/19/21 11:50 Nitroglycerin (Nitrostat (1/ 150)) 0.4 mg Q5MP PRN SL CHEST PAIN 05/19/21 11:50 Non-Formulary Medication ( See Comment Field Below ) REMOVE DICLOFENAC PATCH ... DAILY XX 06/08/21 09:00 06/11/21 08:49 Non-Formulary Medication ( See Comment Field Below ) REMOVE LIDODERM PATCH DAILY@21 XX 05/27/21 21:00 06/10/21 21:25 Non-Formulary Medication ( See Comment Field Below ) SEE COMMENTS SECTION ASDIRECTED XX 05/21/21 09:00 06/08/21 09:44 Nystatin (Mycostatin Powder, Nystop) abdominal folds and un... TID TOP 05/26/21 16:00 06/11/21 08:49 Ondansetron HCl (Zofran Odt) 4 mg Q6HP PRN PO NAUSEA OR VOMITING 05/19/21 16:00 05/20/21 09:46 DC 05/20/21 06:33 Ondansetron HCl (Zofran Odt) 4 mg Q6HP PRN SL NAUSEA OR VOMITING 05/20/21 10:00 Pantoprazole Sodium (Protonix) 40 mg DAILY IV 05/21/21 09:00 05/27/21 13:29 DC 05/27/21 08:43 Pantoprazole Sodium (Protonix) 40 mg DAILY PO 05/19/21 09:00 05/20/21 16:11 DC 05/20/21 08:00 Pantoprazole Sodium (Protonix) 40 mg DAILY PO 05/28/21 09:00 06/11/21 08:47 Phenol (Chloraseptic [place]) 2 SPRAYS QID MT 05/27/21 17:00 06/09/21 14:55 DC 06/09/21 08:51 Piperacillin Sod/ Tazobactam Sod 3.375 gm/Dextrose 50 ml @ 50 mls/hr Q6H IV 05/26/21 20:00 05/28/21 11:33 DC 05/27/21 14:03 Pravastatin Sodium (Pravachol) 40 mg QHS NG 05/20/21 21:00 05/27/21 13:28 DC 05/26/21 21:42 Pravastatin Sodium (Pravachol) 40 mg QHS PO 05/19/21 21:00 05/20/21 16:11 DC 05/19/21 21:00 Pravastatin Sodium (Pravachol) 40 mg QHS PO 05/27/21 21:00 06/04/21 08:58 DC 06/03/21 20:53 Prednisone (Deltasone) 5 mg DAILY PO 06/09/21 09:00 06/11/21 08:48 Prednisone (Deltasone) 7.5 mg DAILY PO 06/07/21 09:00 06/08/21 09:01 DC 06/08/21 08:53 Prednisone (Deltasone) 10 mg DAILY PO 06/04/21 09:00 06/07/21 08:59 DC 06/06/21 09:21 Senna (Senokot) 1 tab QHS PRN NG constipation 05/20/21 21:00 05/27/21 13:28 DC Senna (Senokot) 1 tab QHS PRN PO constipation 05/20/21 21:00 05/20/21 16:11 DC Senna (Senokot) 1 tab QHS PRN PO CONSTIPATION 05/27/21 13:25 06/02/21 20:26 Senna (Senokot) 2 tab BID PO 05/19/21 21:00 05/20/21 10:49 DC 05/20/21 07:59 Simethicone (Mylicon) 80 mg TID NG 05/20/21 16:00 05/27/21 13:28 DC 05/27/21 08:44 Simethicone (Mylicon) 80 mg TID PO 05/19/21 16:00 05/20/21 16:11 DC 05/20/21 07:59 Simethicone (Mylicon) 80 mg TID PO 05/27/21 16:00 06/11/21 08:47 Sodium Chloride ([place] Flush) 10 ml ASDIRECTED PRN IV SEE LABEL COMMENTS 05/19/21 22:30 05/28/21 16:28 DC 05/27/21 08:55 Sodium Chloride (Sal[place] Flush) 10 ml ASDIRECTED PRN IV SEE LABEL COMMENTS 05/20/21 13:50 Cancel Sodium Chloride (Sal[place] Flush) 10 ml PICC IV 05/20/21 06:00 05/28/21 16:28 DC 05/27/21 17:09 Sodium Chloride (Sal[place] Flush) 10 ml PICC IV 05/20/21 18:00 Cancel Vitamin B Complex/ Vit C/Folic Acid (Nephro-Logan Rx) 1 tab DAILY PO 06/04/21 09:00 06/11/21 08:48 SHARON RIVERA MD Jun 11, 2021 10:19
[2021-06-11 14:22] VITALS: BP 101/55
[2021-06-11 20:00] VITALS: BP 126/60
[2021-06-11] MEDS: MIRTAZAPINE 7.5MG PER 1/2 TABLET PO SCH (20:54)
[2021-06-11] MEDS: DICLOFENAC EPOLAMINE 1.3 % PATCH TOP SCH (20:54)
[2021-06-12] MEDS: LEVOTHYROXINE 37.5MCG PER 1/2TAB (0.0375MG) PO SCH (05:23)
[2021-06-12 06:00] VITALS: BP 116/68
[2021-06-12] MEDS: COMBIVENT RESPIMAT 100-20MCG INHALER 4GM INH SCH ×3 (07:07→19:12)
--- NOTE | 2021-06-12 08:57 | IPNPDOC ---
PM&R Progress Note DATE OF SERVICE: Jun 12, 2021 Divider Operator Progress Note DATE OF ADMISSION: May 19, 2021 at 14:30 INPATIENT REHABILITATION ADMISSION DAY: #24 Chief Complaint: Generalized deconditioning and weakness. Adjustment reaction to declining function Subjective: This is an 86 year old F with pmh DM with peripheral polyneuropathy, HLD, CKD, DVT s/p course of Coumadin, gout, polymyalgia rheumatica, spinal stenosis, GERD who presented to [facility] ED on 05-07-21 with nausea, vomiting, and diarrhea diagnosed with a large hiatal hernia with gastric volvulus for which she underwent an EGD decompression in the OR. Following this procedure she was continued on NPO with NGT , then transferred to the ICU for hypertensive urgency and fever on 05-11-21 following an Upper GI series. Infectious work-up was negative, her blood pressures improved, her diet was advanced gradually, and she was found to have significant deconditioning with mobility and ADL impairments, deemed medically appropriate for discharge to ARU on 05-19-21. Dr. Young felt continued slow progression of diet be trialed, with low threshold to return to using the NG tube and possible consideration of laparoscopic exploration should she appear to re- obstruct. 06.01.2021 Patient feels that she is making progress is having regular bowel movements. 06.02.2021 Patient seen with PT, working on AROM, challenged with swelling and pain left knee more than right, agreed to try wrapping up over knees and Voltaren gel. Patient discussed later today in Team Conference, apparently despondent over possibility she is not regaining sufficent capacity to transfer and mobility to return home with her of 60 years. online services manager working on possible alternate placement options they may consider for their greatest safety if in home support cannot be sorted out. 06.03.2021 patient seen in room early in the morning doing well, asking for transfer assistance to bedside commode, minimal complaint of pain. Later in the morning, it was noted patient was not cooperating with physical therapy attempted interventions, expressing feelings of wanting to give up and despondent over recent revelation that she may not have regain sufficient function to return home instead have to go to a SNF. 06.04.2021 Long discussion with patient regarding her concerns, apparently she also speaks to her daughters daily or every other day that [place] and is concerned about balance and needs of her husbands children. She has generalized frustration and some degree of confusion, is unable to articulate precisely what is needed for her to be able to do functionally for her to achieve her goal of returning home rather focus on her desire to be with her in her own home. She is tolerating full liquids and having regular bowel movements. Discussed situation with therapy and social services director, family conference will be coordinated with myself and social services director to better delineate options. Patient had no recollection today of discussions yesterday with myself with social services director. Adding Buspar and low dose Prednisone to help with anxiety and post infection/inflammatory component of worsened PMR/PN. 06.05.2021 Patient was irritable in the morning. However, by mid day appeared to have improved mood after the impact of medications took greater effect and ongoing social service counseling and problem solving. She self initiated more participation, notes that her bed at home. is lower and the wheelchair here is too large. So we can get a smaller wheelchair that she get better support herself through the transfers. She is willing to continue to work on that. Wrapping of the knee seems to have helped the pain level is better controlled with the medication adjustments. 06.08.2021 Definite improvement seen over the weekend, patient afebrile provider, more willing to participate in transfer and rehabilitation activities. Pain seems better managed with the addition of the steroids, flexor patch, alternating with Lidoderm patch. We appreciate surgerys input and encouragement of occasional small feeds including soft items may improve her quality of life. She shas had regular BMs and good urine output and is resting comfortably at night. 06.09.2021 Brighter affect, participating, feeling less pain and BP lower requiring down adjustment in meds. Moved Lisinopril to . Will discuss in team conference plan for probable DC later this week. 06.10.2021 Patient with much brighter affect, consuming all of her offerings on her tray, attempted and completed a stand pivot transfer yesterday. Notes significant reduction in pain, greater confidence in the use of the left knee with the wrapping and bracing. Extensive family training provided yesterday and to continue today with a home visit to fully assess optimizing safety and accessibility in her home environment. Blood pressure medications were reduced, blood pressure up a little bit this morning, however, that is preferable to being too low and risking hypotensive episodes and falls. 06.11.2021 Home evaluation conducted yesterday revealed inaccessible situation with her twin bed, in hospital bed in living room, barely negotiable via his wheelchair. She previously transferred to foot of bed and scooted up into the bed or transferred off side of bed to bedside commode. Since she is unable to do similar transfers yet, despite admitted slow gains in strength and reduction in pain, the team is requesting additional time to work on simulating the home environment for the safest discharge plan. She is in full agreement and eager to proceed, deep contrast to last week this time when she was unrealistically, but adamantly demanding DC to home. She is tolerating full liquid/soft diet, regular BM and much less pain in the left knee with patches, bracing and Fentanyl/opiates. 06.12.2021 Continued brighter, more hopeful , mood, now practicing transfers to the bedside commode on the right side of bed simulating the home environment REVIEW OF SYSTEMS: The following is a completed review of systems and has been reviewed. Review of systems otherwise unremarkable. PAIN: Patient self reports abdominal pain EYES: No recent vision changes EARS, NOSE, & THROAT: No throat pain, or dysphagia, or rhinorrhea CARDIOVASCULAR: Denies chest pain or palpitations PULMONARY: Denies shortness of breath, denies cough GASTROINTESTINAL: denies nasuea/vomiting/diarrhea GENITOURINARY: denies dysuria MUSCULOSKELETAL: generalized weakness NEUROLOGICAL:+peripheral polyneuropathy HEMATOLOGICAL: denies easy bruising SKIN: denies rash PSYCHIATRIC: +depressed/anxious, improving All other review of systems found to be negative. PHYSICAL EXAMINATION: VITAL SIGNS: Please see below. GENERAL brighter affect alert/oriented x 3. Appropriate in discussion home situation and action plan, eager to proceed to best of her ability. HEENT: Extraocular movements intact. CARDIOVASCULAR: Regular rate and rhythm. II/ SM LUNGS: Clear to auscultation bilaterally. No wheezes. No rhonchi. Sternal protrusion noted. ABDOMEN: Soft, nontender, obese, no guarding, no rebound tenderness or masses. Positive bowel sounds. NEUROLOGICAL: Alert and oriented to self and place, Cranial nerves II through XII grossly intact. EXTREMITIES: Unable to elevate upper extremities above 80 degrees. RUE much less edema no redness or tenderness. Hypertrophic edematous bilateral lower extremities, knees, healed old LTKR scar, bilat ankles pes valgus deformity Functional Status: Worked on transfers and w/c mobility; improved ability to negotiate transfer into w/c with arm rest in place; completes in intervals. Noting increased difficulty when transferring to her left back to bed; requires 2A to prevent LOB at this time; recommending continued work to improve independence and reduce caregiver burden. Bed Mobility Notes simulated getting on to end of mat and scooting up, encouraged trial of purple sheets to help with gliding activities. Sit to Stand Contact Guard Assist Stand to Sit Contact Guard Assist Bed to Chair Contact Guard Assist Chair to Bed Moderate Assist Toilet/Commode Standby Assist Transfer Training Notes modA x 2 required for squat pivot to her left back into bed this session ASSESSMENT: Status post nonsurgical decompression of volvulus. Diabetes. Probable gastroparesis. Peripheral polyneuropathy. 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 Pneumonia. Right upper extremity swelling and superficial venous thrombosis. Depression Anxiety. Hypothyroidism. UTI. 86-year-old F with past medical history of DM with peripheral polyneuropathy and large hiatal hernia who presents status post gastric volvulus s/p EGD decompression, tolerating progressive feeding to full liquids, having regular BM and minimal discomfort, able to participate in the therapy reconditioning program. PLAN: 1. Rehab- PT/OT advance mobility and ADLS, strengthen/stretch/maintain ROM all 4limbs- working on [id number], safe squat transfers to commode, bed, wheelchair. 2. Neuro- hx of diabetic peripheral polyneuropathy and reported PMR contributing to overall mobility impairments, possibly dementia component vs worsening situational depression/anxiety- Added Buspar and small dose prednisone with close monitoring GI tolerance, definitely appears to help boost motor function, mood and energy level, better control of pain. 3. GI- patient with large hiatal hernia with recent volvulus and EGD decompression on 05-07-21, not deemed to be surgical candidate- her diet was advanced, however on 05-20-21 exam she had recurrent emesis (FOBT negative) with KUB revealing large gastric bubble with no bowel obstruction- discussed case with Dr. Young who recommended trial of NGT which was clamped with patient tolerating full liquid diet- NGT d/c'd 05-27, patient comfortable and will home on full liquid diet . Requested dietary reassess and seems to have improved choices .Added MVI with B complex for nutritional support and neural repair. Appreciate Dr. Young/surgery acknowledgement of improvement, tolerating current dietary intake anticipated to stay at this level indefinitely for optimal safety and prevention of further complications. Dietary to assist with family instruction. 4. Cardiac- cont BP meds, adjust as needed, BP lower, possibly related to improved pain management and decreased anxiety. Appreciate IM input on further dose adjustments. Will attempt to measure orthostatics supine/sitting. -HLD cont statinwill consider DC given age, signific dietary restrictions and slight risk of aggravation of motor function. -medicine consulted to assist in overall management 5. Resp- monitor for infection- patient developing a cough with CT Chest on 05-26-21 showing, "New right lower lobe patchy opacities likely subsegmental atelectatic changes. Developing pneumonia cannot be ruled out" received course of IV Zosyn for possible aspiration PNA given recent emesis, cough resolved clinically cleared -cont Combivent and guaifenesin, HOB >30 -recent Covid exposure, Resp panel negative 6. Pain- cont fentanyl and norco, added lidoderm patch to left knee alt Flector patch and bracing, working well 7. Psych- cymbalta and Remeron for depression, added Buspar for worsening anxiety, less respiratory effect than Benzo, helping 8. DVT ppx- heparin -RUE swelling with US + for superficial thrombosis cont warm compress PRN, much improved 9. Endo- hx of DM with peripheral polyneuropathy managed with diet alone -hypothyroidism cont Synthroid. Not closely watching FBS, were fine previously, may have bumped up with prednisone, but on v ltd dietary intake and exerting more than ever. 10. - Ucx + for E. coli and proteus Mirabilis, completed abx course 11. DISPOSITION home with family is again the goal with close counselling from and involved family members. TIME SPENT: Chart Review, examination and documentation 25 minutes. Allergies Coded Allergies: TAPE (Verified Allergy, Intermediate, RASH, 05/21/10) meloxicam (Verified Adverse Reaction, Mild, "I think it made me sick", 03/19/19) pioglitazone (Verified Adverse Reaction, Mild, bruising, 03/19/19) pregabalin (Verified Adverse Reaction, Mild, affects vision, 03/19/19) Vital Signs Vital Signs Date Time Temp Pulse Resp B/P (MAP) Pulse Ox O2 Delivery O2 Flow Rate FiO2 06/12/21 06:00 97.0 54 19 116/68 (84) 94 Room Air Current Medications Current Medications Current Medications Medications (Trade) Dose Ordered Sig/Alice Route PRN Reason Start Time Stop Time Status Last Admin Dose Admin Acetaminophen (Tylenol Tab) 650 mg Q6HP PRN PO MILD PAIN or TEMP > 101 06/04/21 08:35 06/08/21 15:15 Acetaminophen/ Hydrocodone Bitart (Anexsia, [place] 7.5mg/325mg) 1 tab Q4HP PRN NG MILD PAIN (PS 1-4) 05/20/21 16:00 05/27/21 13:28 DC 05/25/21 10:45 Acetaminophen/ Hydrocodone Bitart (Anexsia, [place] 7.5mg/325mg) 1 tab Q4HP PRN PO MILD PAIN (PS 1-4) 05/19/21 11:50 05/20/21 16:11 DC 05/19/21 21:01 Acetaminophen/ Hydrocodone Bitart (Anexsia, [place] 7.5mg/325mg) 1 tab Q4HP PRN PO MILD PAIN (PS 1-4) 05/27/21 13:25 06/04/21 08:39 DC 06/03/21 18:38 Acetaminophen/ Hydrocodone Bitart (Anexsia, [place] 7.5mg/325mg) 1 tab Q8HP PRN PO MILD PAIN (PS 1-4) 06/04/21 11:40 06/09/21 20:09 Albuterol/ Ipratropium (Combivent Respimat 100-20mcg) 1 puff RTID INH 05/26/21 20:00 06/12/21 07:07 Amlodipine Besylate (Norvasc) 10 mg DAILY NG 05/21/21 09:00 05/27/21 13:28 DC 05/27/21 08:44 Amlodipine Besylate (Norvasc) 10 mg DAILY PO 05/20/21 09:00 05/20/21 16:11 DC 05/20/21 08:00 Amlodipine Besylate (Norvasc) 10 mg DAILY PO 05/28/21 09:00 06/11/21 08:48 Buspirone HCl (Buspar) 5 mg BID PO 06/04/21 09:00 06/11/21 20:54 Cefdinir (Omnicef) 300 mg BID PO 05/28/21 11:30 06/01/21 22:00 DC 06/01/21 21:12 Cyanocobalamin (Vitamin B12) 1,000 mcg DAILY NG 05/21/21 09:00 05/27/21 13:28 DC 05/27/21 08:44 Cyanocobalamin (Vitamin B12) 1,000 mcg DAILY PO 05/20/21 09:00 05/20/21 16:11 DC 05/20/21 08:00 Cyanocobalamin (Vitamin B12) 1,000 mcg DAILY PO 05/28/21 09:00 06/11/21 08:47 Dextrose/Sodium Chloride 1,000 ml @ 60 mls/hr [id number] IV 05/20/21 10:55 05/24/21 13:39 DC 05/23/21 21:51 Diclofenac Epolamine (Flector 1.3%) 1 patch DAILY@2100 TOP 06/07/21 21:00 06/11/21 20:54 Docusate Sodium (Colace) 200 mg BID PO 05/19/21 21:00 05/27/21 13:30 DC 05/20/21 08:00 Docusate Sodium (Colace) 200 mg BID PO 05/27/21 21:00 05/29/21 11:07 DC 05/29/21 07:35 Duloxetine HCl (Cymbalta) 60 mg DAILY PO 05/20/21 09:00 05/27/21 13:31 DC 05/20/21 08:00 Duloxetine HCl (Cymbalta) 60 mg DAILY PO 05/27/21 13:30 06/11/21 08:48 Fentanyl (Duragesic) 75 mcg Q72H TOP 05/21/21 09:00 06/11/21 08:46 Guaifenesin (Robitussin Tab) 400 mg TID PO 05/26/21 16:00 06/11/21 20:53 Heparin Sodium (Heparin (Flush)) 200 units ASDIRECTED PRN IV SEE LABEL COMMENTS 05/19/21 22:30 05/28/21 16:28 DC 05/27/21 08:55 Heparin Sodium (Heparin (Flush)) 200 units ASDIRECTED PRN IV SEE LABEL COMMENTS 05/20/21 13:50 Cancel Heparin Sodium (Heparin (Flush)) 200 units PICC IV 05/20/21 06:00 05/28/21 16:28 DC 05/27/21 17:09 Heparin Sodium (Heparin (Flush)) 200 units PICC IV 05/20/21 18:00 Cancel Heparin Sodium (Porcine) (Heparin) 5,000 units Q12H SC 05/19/21 21:00 06/11/21 20:54 Home Med (Home Med List Complete!) ASDIRECTED XX 05/19/21 15:45 05/19/21 15:50 DC Levofloxacin (Levaquin) 250 mg DAILY@06 PO 05/26/21 12:05 05/26/21 19:03 DC 05/26/21 15:04 Levothyroxine Sodium (Synthroid) 37.5 mcg DAILY@06 NG 05/21/21 06:00 05/27/21 13:28 DC 05/27/21 05:31 Levothyroxine Sodium (Synthroid) 37.5 mcg DAILY@06 PO 05/20/21 06:00 05/20/21 16:11 DC 05/20/21 06:52 Levothyroxine Sodium (Synthroid) 37.5 mcg DAILY@06 PO 05/28/21 06:00 06/12/21 05:23 Lidocaine (Lidoderm Patch) 2 patch DAILY TD 05/27/21 09:00 06/11/21 08:48 Lisinopril (Prinivil) 10 mg DAILY NG 05/21/21 09:00 05/27/21 13:28 DC 05/27/21 08:44 Lisinopril (Prinivil) 10 mg DAILY PO 05/20/21 09:00 05/20/21 16:11 DC 05/20/21 08:00 Lisinopril (Prinivil) 10 mg DAILY PO 05/28/21 09:00 06/09/21 09:05 DC 06/08/21 08:42 Lisinopril (Prinivil) 10 mg QHS PO 06/09/21 21:00 06/11/21 20:55 Mirtazapine (Remeron) 7.5 mg QHS NG 05/20/21 21:00 05/27/21 13:28 DC 05/26/21 21:42 Mirtazapine (Remeron) 7.5 mg QHS PO 05/19/21 21:00 05/20/21 16:11 DC 05/19/21 21:41 Mirtazapine (Remeron) 7.5 mg QHS PO 05/27/21 21:00 06/11/21 20:54 Miscellaneous (Unresolved Clarification Entry) SEE LABEL COMMENTS DAILY XX 06/10/21 09:00 06/10/21 13:57 DC Naloxone HCl (Narcan) 0.1 mg Q5MP PRN IV RESP. RATE < 10 05/19/21 11:50 Nitroglycerin (Nitrostat (1/ 150)) 0.4 mg Q5MP PRN SL CHEST PAIN 05/19/21 11:50 Non-Formulary Medication ( See Comment Field Below ) REMOVE DICLOFENAC PATCH ... DAILY XX 06/08/21 09:00 06/11/21 08:49 Non-Formulary Medication ( See Comment Field Below ) REMOVE LIDODERM PATCH DAILY@21 XX 05/27/21 21:00 06/11/21 20:57 Non-Formulary Medication ( See Comment Field Below ) SEE COMMENTS SECTION ASDIRECTED XX 05/21/21 09:00 06/08/21 09:44 Nystatin (Mycostatin Powder, Nystop) abdominal folds and un... TID TOP 05/26/21 16:00 06/11/21 20:56 Ondansetron HCl (Zofran Odt) 4 mg Q6HP PRN PO NAUSEA OR VOMITING 05/19/21 16:00 05/20/21 09:46 DC 05/20/21 06:33 Ondansetron HCl (Zofran Odt) 4 mg Q6HP PRN SL NAUSEA OR VOMITING 05/20/21 10:00 Pantoprazole Sodium (Protonix) 40 mg DAILY IV 05/21/21 09:00 05/27/21 13:29 DC 05/27/21 08:43 Pantoprazole Sodium (Protonix) 40 mg DAILY PO 05/19/21 09:00 05/20/21 16:11 DC 05/20/21 08:00 Pantoprazole Sodium (Protonix) 40 mg DAILY PO 05/28/21 09:00 06/11/21 08:47 Phenol (Chloraseptic Merom) 2 SPRAYS QID MT 05/27/21 17:00 06/09/21 14:55 DC 06/09/21 08:51 Piperacillin Sod/ Tazobactam Sod 3.375 gm/Dextrose 50 ml @ 50 mls/hr Q6H IV 05/26/21 20:00 05/28/21 11:33 DC 05/27/21 14:03 Pravastatin Sodium (Pravachol) 40 mg QHS NG 05/20/21 21:00 05/27/21 13:28 DC 05/26/21 21:42 Pravastatin Sodium (Pravachol) 40 mg QHS PO 05/19/21 21:00 05/20/21 16:11 DC 05/19/21 21:00 Pravastatin Sodium (Pravachol) 40 mg QHS PO 05/27/21 21:00 06/04/21 08:58 DC 06/03/21 20:53 Prednisone (Deltasone) 5 mg DAILY PO 06/09/21 09:00 06/11/21 08:48 Prednisone (Deltasone) 7.5 mg DAILY PO 06/07/21 09:00 06/08/21 09:01 DC 06/08/21 08:53 Prednisone (Deltasone) 10 mg DAILY PO 06/04/21 09:00 06/07/21 08:59 DC 06/06/21 09:21 Senna (Senokot) 1 tab QHS PRN NG constipation 05/20/21 21:00 05/27/21 13:28 DC Senna (Senokot) 1 tab QHS PRN PO constipation 05/20/21 21:00 05/20/21 16:11 DC Senna (Senokot) 1 tab QHS PRN PO CONSTIPATION 05/27/21 13:25 06/02/21 20:26 Senna (Senokot) 2 tab BID PO 05/19/21 21:00 05/20/21 10:49 DC 05/20/21 07:59 Simethicone (Mylicon) 80 mg TID NG 05/20/21 16:00 05/27/21 13:28 DC 05/27/21 08:44 Simethicone (Mylicon) 80 mg TID PO 05/19/21 16:00 05/20/21 16:11 DC 05/20/21 07:59 Simethicone (Mylicon) 80 mg TID PO 05/27/21 16:00 06/11/21 20:54 Sodium Chloride (Saline Lock Flush) 10 ml ASDIRECTED PRN IV SEE LABEL COMMENTS 05/19/21 22:30 05/28/21 16:28 DC 05/27/21 08:55 Sodium Chloride (Saline Lock Flush) 10 ml ASDIRECTED PRN IV SEE LABEL COMMENTS 05/20/21 13:50 Cancel Sodium Chloride (Saline Lock Flush) 10 ml PICC IV 05/20/21 06:00 05/28/21 16:28 DC 05/27/21 17:09 Sodium Chloride (Saline Lock Flush) 10 ml PICC IV 05/20/21 18:00 Cancel Vitamin B Complex/ Vit C/Folic Acid (Nephro-Logan Rx) 1 tab DAILY PO 06/04/21 09:00 06/11/21 08:48 SHARON RIVERA MD Jun 12, 2021 08:57
[2021-06-12] MEDS: DULoxetine 30MG CAPSULE (CYMBALTA) PO SCH (09:08)
[2021-06-12] MEDS: HEPARIN SOD (PORCINE) 5000UNITS/ML 1ML VIAL/SYRINGE SC SCH ×2 (09:08→21:10)
[2021-06-12] MEDS: ANEXSIA, NORCO 7.5MG/325MG TABLET(HYDROCODONE/APAP) PO PRN (09:09)
[2021-06-12] MEDS: PANTOPRAZOLE 40MG TAB (PROTONIX) PO SCH (09:10)
[2021-06-12] MEDS: NEPHRO-VIT TAB (NEPHROCAPS) PO SCH (09:10)
[2021-06-12] MEDS: predniSONE 5 MG TAB PO SCH (09:10)
[2021-06-12] MEDS: busPIRone 5 MG TAB PO SCH ×2 (09:10→21:09)
[2021-06-12] MEDS: CYANOCOBALAMIN 500 MCG TAB PO SCH (09:10)
[2021-06-12] MEDS: SIMETHICONE 80MG CHEW TAB PO SCH ×3 (09:10→21:09)
[2021-06-12] MEDS: guaiFENesin 200 MG TAB PO SCH ×3 (09:10→21:09)
[2021-06-12] MEDS: LIDOCAINE 5% (LIDODERM) PATCH TD SCH (09:11)
[2021-06-12] MEDS: REMEDY PHYTOPLEX Z-GUARD PASTE 113GM TUBE (FROM STOREROOM PRODUCT) TOP SCH ×3 (09:12→21:11)
[2021-06-12] MEDS: **NOTE PATIENT COMMENT** MISC XX SCH ×2 (09:12→21:11)
[2021-06-12] MEDS: NYSTATIN 100,000 UNITS/GM TOPICAL PWD 15 GM TOP SCH ×3 (09:12→21:10)
[2021-06-12 14:00] VITALS: BP 122/69
[2021-06-12 20:00] VITALS: BP 119/56
[2021-06-12] MEDS: DICLOFENAC EPOLAMINE 1.3 % PATCH TOP SCH (21:09)
[2021-06-12] MEDS: MIRTAZAPINE 7.5MG PER 1/2 TABLET PO SCH (21:09)
[2021-06-13] MEDS: LEVOTHYROXINE 37.5MCG PER 1/2TAB (0.0375MG) PO SCH (05:09)
[2021-06-13 06:00] VITALS: BP 159/84
[2021-06-13] MEDS: COMBIVENT RESPIMAT 100-20MCG INHALER 4GM INH SCH ×3 (07:25→20:01)
[2021-06-13] MEDS: LIDOCAINE 5% (LIDODERM) PATCH TD SCH (08:57)
[2021-06-13] MEDS: predniSONE 5 MG TAB PO SCH (08:58)
[2021-06-13] MEDS: NEPHRO-VIT TAB (NEPHROCAPS) PO SCH (08:58)
[2021-06-13] MEDS: CYANOCOBALAMIN 500 MCG TAB PO SCH (08:58)
[2021-06-13] MEDS: busPIRone 5 MG TAB PO SCH ×2 (08:58→21:14)
[2021-06-13] MEDS: guaiFENesin 200 MG TAB PO SCH ×3 (08:58→21:13)
[2021-06-13] MEDS: PANTOPRAZOLE 40MG TAB (PROTONIX) PO SCH (08:58)
[2021-06-13] MEDS: DULoxetine 30MG CAPSULE (CYMBALTA) PO SCH (08:58)
[2021-06-13] MEDS: HEPARIN SOD (PORCINE) 5000UNITS/ML 1ML VIAL/SYRINGE SC SCH ×2 (08:58→21:14)
[2021-06-13] MEDS: NYSTATIN 100,000 UNITS/GM TOPICAL PWD 15 GM TOP SCH ×3 (08:59→21:14)
[2021-06-13] MEDS: REMEDY PHYTOPLEX Z-GUARD PASTE 113GM TUBE (FROM STOREROOM PRODUCT) TOP SCH ×3 (08:59→21:15)
[2021-06-13] MEDS: **NOTE PATIENT COMMENT** MISC XX SCH ×2 (08:59→21:15)
[2021-06-13] MEDS: SIMETHICONE 80MG CHEW TAB PO SCH ×3 (09:39→21:13)
[2021-06-13 14:00] VITALS: BP 107/51
[2021-06-13 20:00] VITALS: BP 129/59
[2021-06-13] MEDS: MIRTAZAPINE 7.5MG PER 1/2 TABLET PO SCH (21:13)
[2021-06-13] MEDS: DICLOFENAC EPOLAMINE 1.3 % PATCH TOP SCH (21:14)
[2021-06-14] MEDS: LEVOTHYROXINE 37.5MCG PER 1/2TAB (0.0375MG) PO SCH (05:44)
[2021-06-14 06:00] VITALS: BP 142/65
[2021-06-14] MEDS: COMBIVENT RESPIMAT 100-20MCG INHALER 4GM INH SCH ×3 (07:21→20:23)
[2021-06-14] MEDS: HEPARIN SOD (PORCINE) 5000UNITS/ML 1ML VIAL/SYRINGE SC SCH ×2 (07:45→21:22)
[2021-06-14] MEDS: fentaNYL 75 MCG/HR PATCH TOP SCH (07:46)
[2021-06-14] MEDS: LIDOCAINE 5% (LIDODERM) PATCH TD SCH (07:46)
[2021-06-14] MEDS: busPIRone 5 MG TAB PO SCH ×2 (07:47→21:24)
[2021-06-14] MEDS: guaiFENesin 200 MG TAB PO SCH ×3 (07:47→21:21)
[2021-06-14] MEDS: PANTOPRAZOLE 40MG TAB (PROTONIX) PO SCH (07:47)
[2021-06-14] MEDS: DULoxetine 30MG CAPSULE (CYMBALTA) PO SCH (07:47)
[2021-06-14] MEDS: predniSONE 5 MG TAB PO SCH (07:47)
[2021-06-14] MEDS: CYANOCOBALAMIN 500 MCG TAB PO SCH (07:47)
[2021-06-14] MEDS: SIMETHICONE 80MG CHEW TAB PO SCH ×3 (07:47→21:21)
[2021-06-14] MEDS: NEPHRO-VIT TAB (NEPHROCAPS) PO SCH (07:47)
[2021-06-14] MEDS: NYSTATIN 100,000 UNITS/GM TOPICAL PWD 15 GM TOP SCH ×3 (07:48→21:23)
[2021-06-14] MEDS: **NOTE PATIENT COMMENT** MISC XX SCH ×2 (07:48→21:23)
[2021-06-14] MEDS: REMEDY PHYTOPLEX Z-GUARD PASTE 113GM TUBE (FROM STOREROOM PRODUCT) TOP SCH ×3 (07:48→21:23)
[2021-06-14 14:00] VITALS: BP 135/63
[2021-06-14 20:00] VITALS: BP 106/55
[2021-06-14] MEDS: MIRTAZAPINE 7.5MG PER 1/2 TABLET PO SCH (21:21)
[2021-06-14] MEDS: DICLOFENAC EPOLAMINE 1.3 % PATCH TOP SCH (21:22)
[2021-06-15] MEDS: LEVOTHYROXINE 37.5MCG PER 1/2TAB (0.0375MG) PO SCH (05:33)
[2021-06-15 06:00] VITALS: BP 136/63
[2021-06-15] MEDS: COMBIVENT RESPIMAT 100-20MCG INHALER 4GM INH SCH ×3 (07:23→20:43)
[2021-06-15] MEDS: DULoxetine 30MG CAPSULE (CYMBALTA) PO SCH (08:46)
[2021-06-15] MEDS: ACETAMINOPHEN TAB 650MG DOSE (2X325MG) PO PRN (08:48)
[2021-06-15] MEDS: HEPARIN SOD (PORCINE) 5000UNITS/ML 1ML VIAL/SYRINGE SC SCH ×2 (08:50→21:45)
[2021-06-15] MEDS: NEPHRO-VIT TAB (NEPHROCAPS) PO SCH (08:52)
[2021-06-15] MEDS: PANTOPRAZOLE 40MG TAB (PROTONIX) PO SCH (08:53)
[2021-06-15] MEDS: SIMETHICONE 80MG CHEW TAB PO SCH ×3 (08:54→21:45)
[2021-06-15] MEDS: ANEXSIA, NORCO 7.5MG/325MG TABLET(HYDROCODONE/APAP) PO PRN (08:54)
[2021-06-15] MEDS: busPIRone 5 MG TAB PO SCH ×2 (08:54→21:45)
[2021-06-15] MEDS: predniSONE 5 MG TAB PO SCH (08:54)
[2021-06-15] MEDS: CYANOCOBALAMIN 500 MCG TAB PO SCH (08:54)
[2021-06-15] MEDS: LIDOCAINE 5% (LIDODERM) PATCH TD SCH (08:55)
[2021-06-15] MEDS: guaiFENesin 200 MG TAB PO SCH ×3 (08:55→21:44)
[2021-06-15] MEDS: REMEDY PHYTOPLEX Z-GUARD PASTE 113GM TUBE (FROM STOREROOM PRODUCT) TOP SCH ×3 (08:57→21:46)
[2021-06-15] MEDS: NYSTATIN 100,000 UNITS/GM TOPICAL PWD 15 GM TOP SCH ×3 (08:58→21:47)
[2021-06-15] MEDS: **NOTE PATIENT COMMENT** MISC XX SCH ×2 (08:58→21:46)
[2021-06-15 14:00] VITALS: BP 135/62
[2021-06-15 21:00] VITALS: BP 136/64
[2021-06-15] MEDS ORDERED: AMLO1TAB25 PO (21:15)
[2021-06-15] MEDS ORDERED: MI-A80CH PO (21:15)
[2021-06-15] MEDS ORDERED: DULO1CAP6 PO (21:15)
[2021-06-15] MEDS ORDERED: PANT40TA29 PO (21:15)
[2021-06-15] MEDS ORDERED: LISI10TA22 PO (21:15)
[2021-06-15] MEDS ORDERED: LEVO25TA5 PO (21:15)
[2021-06-15] MEDS ORDERED: PRAV40TA2 PO (21:15)
[2021-06-15] MEDS ORDERED: PRED5TA PO (21:15)
[2021-06-15] MEDS ORDERED: VITA100018 PO (21:15)
[2021-06-15] MEDS ORDERED: BUSP5TA PO (21:15)
[2021-06-15] MEDS ORDERED: MIRT1TAB PO (21:15)
[2021-06-15] MEDS: MIRTAZAPINE 7.5MG PER 1/2 TABLET PO SCH (21:44)
[2021-06-15] MEDS: DICLOFENAC EPOLAMINE 1.3 % PATCH TOP SCH (21:46)
[2021-06-16] MEDS: LEVOTHYROXINE 37.5MCG PER 1/2TAB (0.0375MG) PO SCH (05:52)
[2021-06-16 06:00] VITALS: BP 144/66
[2021-06-16] MEDS: COMBIVENT RESPIMAT 100-20MCG INHALER 4GM INH SCH (07:34)
[2021-06-16] MEDS: NEPHRO-VIT TAB (NEPHROCAPS) PO SCH (08:54)
[2021-06-16] MEDS: CYANOCOBALAMIN 500 MCG TAB PO SCH (08:54)
[2021-06-16] MEDS: busPIRone 5 MG TAB PO SCH (08:54)
[2021-06-16] MEDS: SIMETHICONE 80MG CHEW TAB PO SCH (08:54)
[2021-06-16] MEDS: DULoxetine 30MG CAPSULE (CYMBALTA) PO SCH (08:54)
[2021-06-16] MEDS: PANTOPRAZOLE 40MG TAB (PROTONIX) PO SCH (08:54)
[2021-06-16] MEDS: HEPARIN SOD (PORCINE) 5000UNITS/ML 1ML VIAL/SYRINGE SC SCH (08:54)
[2021-06-16] MEDS: predniSONE 5 MG TAB PO SCH (08:54)
[2021-06-16] MEDS: ANEXSIA, NORCO 7.5MG/325MG TABLET(HYDROCODONE/APAP) PO PRN (08:55)
[2021-06-16 08:56] VITALS: BP 102/58
[2021-06-16] MEDS: guaiFENesin 200 MG TAB PO SCH (08:56)
[2021-06-16] MEDS: **NOTE PATIENT COMMENT** MISC XX SCH (08:57)
[2021-06-16] MEDS: REMEDY PHYTOPLEX Z-GUARD PASTE 113GM TUBE (FROM STOREROOM PRODUCT) TOP SCH (08:57)
[2021-06-16] MEDS: NYSTATIN 100,000 UNITS/GM TOPICAL PWD 15 GM TOP SCH (08:57)
[2021-06-16] MEDS: LIDOCAINE 5% (LIDODERM) PATCH TD SCH (09:02)
[2021-06-16 09:29] LABS: BASO # 0.1 10^3/uL (0.0-0.2); BASO % 0.8 % (0.0-1.0); EOS # 0.2 10^3/uL (0.0-0.5); EOS % 2.7 % (0.0-3.0); HEMATOCRIT 32.3 % (36.0-47.0); HEMOGLOBIN 10.5 g/dl (12.0-15.5); LYMPH # 2.5 10^3/uL (1.5-5.0); LYMPH % 33.7 % (24.0-44.0); MEAN CORPUSCULAR HEMOGLOBIN 32.1 pg (27.0-33.0); MEAN CORPUSCULAR HGB CONC 32.5 g/dl (32.0-36.5); MEAN CORPUSCULAR VOLUME 98.8 fl (80.0-96.0); MONO # 0.7 10^3/uL (0.0-0.8); MONO % 9.5 % (2.0-8.0); NEUTROPHILS # 3.8 10^3/uL (1.5-8.5); NEUTROPHILS % 52.3 % (36.0-66.0); PLATELET COUNT, AUTOMATED 268 10^3/uL (150-450); RED BLOOD COUNT 3.27 10^6/uL (4.00-5.40); WHITE BLOOD COUNT 7.4 10^3/uL (4.0-10.0)
[2021-06-16 09:42] LABS: BLOOD UREA NITROGEN 28 MG/DL (7-18); CALCIUM LEVEL 9.7 MG/DL (8.8-10.2); CARBON DIOXIDE LEVEL 29 MEQ/L (21-32); CHLORIDE LEVEL 103 MEQ/L (98-107); CREATININE FOR GFR 0.82 MG/DL (0.55-1.30); GLOMERULAR FILTRATION RATE > 60.0 (>32); GLUCOSE, FASTING 114 MG/DL (70-100); POTASSIUM SERUM 4.5 MEQ/L (3.5-5.1); SODIUM LEVEL 137 MEQ/L (136-145)
--- NOTE | 2021-06-16 15:38 | PMRDS ---
NAME: SHIRA ABEL [facility] WT ID#: [id number] JOB: [id number] DULCE MARIA: 05/19/2021 ACCT: [id number] DOCTOR: OLGA BARRIENTOS MD PMR DISCHARGE SUMMARY DATE OF ADMISSION: 05/19/2021 DATE OF DISCHARGE: 06/16/2021 CHIEF COMPLAINT/DISCHARGE DIAGNOSIS: Weakness in the setting of recent gastric volvulus with decompression. HISTORY OF PRESENT ILLNESS: This is an 86-year-old female with a past medical history of peripheral polyneuropathy, hyperlipidemia, CKD, DVT status post course of Coumadin, gout, polymyalgia rheumatica, spinal stenosis, GERD, who presented to [facility] ED on 05/07/2021 with nausea, vomiting and diarrhea. She was diagnosed with a large hiatal hernia with gastric volvulus for which underwent an EGD decompression in the OR. Following this procedure, she was continued on NPO with NGT in place, then transferred to the ICU for hypertensive urgency and a fever on 05/11/21 following an upper GI series. Infectious workup was negative. Her blood pressures improved. Her diet was advanced gradually and she was found to have significant deconditioning with mobility and ADL impairments, deemed medically appropriate for discharge to ARU on 05/19/2021. On initial evaluation, the patient was noted to be vomiting up brown liquid and complaining of abdominal pain. She reports she is having flatus and bowel movements. PAST MEDICAL HISTORY: As per HPI. HOSPITAL COURSE: Patient was admitted and enrolled in a comprehensive PT/OT program. She received 24 hour nursing supervision and weekly team meetings were held to discuss her hospital stay. On admission, the patient had an NG-tube placed for her emesis in the setting of a large gastric bubble. Gastric fluid was sampled for blood and this was negative. Patient's NG-tube was clamped and then removed on 05/27 and the patient was comfortable on a full liquid diet. There was some discussion of possibility of surgery doing a robot-assisted laparoscopic repair of her hiatal hernia, however, ultimately patient was deemed too medically complex for this intervention. The patient had ongoing mobility impairments mostly due to her peripheral polyneuropathy and mood disorder for which she was started on BuSpar in addition to her other antidepressants. She was also thought to have some impairments due to her history of polymyalgia rheumatica and started on Prednisone with improvements in her overall participation and mobility function. She was treated for a urinary tract infection in addition to a possible aspiration pneumonia. She was medically stable for the remainder of her hospital course, was deemed medically and functionally stable to return home with family. DISCHARGE MEDICATIONS: As per instructions. FUNCTIONAL HISTORY: On discharge, patient was modified independent from a wheelchair level for mobility and standby to modified independent for ADLs. Thank you for this referral.
== END 2021-06-16 12:15 | disposition home health service (06) | DRG 73 ==
LOC: M PM&R 14:30
PROVIDERS: ADMIT Physical Medicine & Rehabilitation; ATTEND Physical Medicine & Rehabilitation
DX: E11.42 Type 2 diabetes mellitus with diabetic polyneuropathy (principal); J69.0 Pneumonitis due to inhalation of food and vomit; N39.0 Urinary tract infection, site not specified; I82.611 Acute embolism and thrombosis of superficial veins of right upper extremity; J90 Pleural effusion, not elsewhere classified; E78.5 Hyperlipidemia, unspecified; N18.30 Chronic kidney disease, stage 3 unspecified; E11.22 Type 2 diabetes mellitus with diabetic chronic kidney disease; M10.9 Gout, unspecified; M35.3 Polymyalgia rheumatica; K21.9 Gastro-esophageal reflux disease without esophagitis; M48.00 Spinal stenosis, site unspecified; E11.51 Type 2 diabetes mellitus with diabetic peripheral angiopathy without gangrene; K44.9 Diaphragmatic hernia without obstruction or gangrene; E03.9 Hypothyroidism, unspecified; Z74.09 Other reduced mobility; Z74.1 Need for assistance with personal care; K31.84 Gastroparesis; R53.1 Weakness; B96.20 Unspecified Escherichia coli [E. coli] as the cause of diseases classified elsewhere; B96.4 Proteus (mirabilis) (morganii) as the cause of diseases classified elsewhere; E11.43 Type 2 diabetes mellitus with diabetic autonomic (poly)neuropathy; R11.2 Nausea with vomiting, unspecified; F32.A Depression, unspecified; Z90.49 Acquired absence of other specified parts of digestive tract; Q66.6 Other congenital valgus deformities of feet; Z95.5 Presence of coronary angioplasty implant and graft; Z96.653 Presence of artificial knee joint, bilateral; Z87.81 Personal history of (healed) traumatic fracture; Z79.899 Other long term (current) drug therapy; Z86.718 Personal history of other venous thrombosis and embolism; Z88.8 Allergy status to other drugs, medicaments and biological substances; Z88.5 Allergy status to narcotic agent; Z91.048 Other nonmedicinal substance allergy status; Z20.822 Contact with and (suspected) exposure to COVID-19

== ENCOUNTER → 2021-06-25 | Outpatient (REF) | payer MEDICARE, OTHER ==
[~2021-06-25] MED LIST changes: +BUSP5TA PO; +MI-A80CH PO; +PANT40TA29 PO; +PRED5TA PO
== END ==
LOC: M LAB REF 16:24
PROVIDERS: ATTEND Internal Medicine
DX: M15.9 Polyosteoarthritis, unspecified (principal)

== ENCOUNTER → 2021-10-21 | Outpatient (REF) | payer MEDICARE, OTHER ==
[~2021-10-21] MED LIST changes: +FENT75DI29 TD; -FENT75DI5 TD
== END ==
LOC: M LAB REF 16:07
PROVIDERS: ATTEND Internal Medicine
DX: M15.9 Polyosteoarthritis, unspecified (principal)

== ENCOUNTER 2022-08-08 23:32 | Inpatient (IN) | payer MEDICARE, OTHER ==
[~2022-08-08] VITALS: Ht 152.4 cm; Wt 80.9 kg
[2022-08-09 00:10] LABS: INR 0.96
[2022-08-09 00:11] LABS: PARTIAL THROMBOPLASTIN TIME 29.5 SECONDS (24.8-34.2)
[2022-08-09 00:18] LABS: BASO # 0.1 10^3/uL (0.0-0.2); BASO % 0.4 % (0.0-1.0); EOS % 0.1 % (0.0-3.0); HEMATOCRIT 44.5 % (36.0-47.0); HEMOGLOBIN 14.3 g/dl (12.0-15.5); LYMPH # 1.3 10^3/uL (1.5-5.0); LYMPH % 9.5 % (24.0-44.0); MEAN CORPUSCULAR HEMOGLOBIN 32.6 pg (27.0-33.0); MEAN CORPUSCULAR HGB CONC 32.1 g/dl (32.0-36.5); MEAN CORPUSCULAR VOLUME 101.4 fl (80.0-96.0); MONO # 0.6 10^3/uL (0.0-0.8); MONO % 4.2 % (2.0-8.0); NEUTROPHILS # 11.4 10^3/uL (1.5-8.5); NEUTROPHILS % 84.8 % (36.0-66.0); PLATELET COUNT, AUTOMATED 279 10^3/uL (150-450); RED BLOOD COUNT 4.39 10^6/uL (4.00-5.40); WHITE BLOOD COUNT 13.4 10^3/uL (4.0-10.0)
[2022-08-09 00:26] LABS: CALCIUM LEVEL 9.7 MG/DL (8.3-10.6); CK-MB VALUE MASS 1.7 NG/ML (<3.6); CREATININE FOR GFR 1.07 MG/DL (0.55-1.30); GLOMERULAR FILTRATION RATE 51.4 (>32); POTASSIUM SERUM 3.8 MMOL/L (3.5-5.1)
[2022-08-09 00:30] LABS: MB/CK RELATIVE INDEX 2.74 (< OR =4)
[2022-08-09] MEDS ORDERED: ISOVUE-370 76% 100ML VIAL As Ordered ONE (00:52)
[2022-08-09 01:44] LABS: CK-MB VALUE MASS 1.6 NG/ML (<3.6); MB/CK RELATIVE INDEX 1.45 (< OR =4)
[2022-08-09] MEDS ORDERED: APIXABAN 2.5 MG TAB (ELIQUIS) PO ONE (04:10)
[2022-08-09] MEDS ORDERED: GLUCAGON INJ 1MG VIAL SC PRN (04:35)
[2022-08-09] MEDS ORDERED: GLUCOSE 4GM CHEW TABLET PO PRN (04:35)
[2022-08-09] MEDS ORDERED: DEXTROSE 50% 50ML SYRINGE IV PRN (04:35)
[2022-08-09] MEDS ORDERED: ENOXAPARIN 100MG/1ML SYRINGE (J1650 PER 10MG) SC ONE (05:00)
[2022-08-09 05:09] LABS: RSV AMPLIFICATION NEGATIVE (NEGATIVE)
[2022-08-09] MEDS ORDERED: LORazepam 2 MG TAB PO PRN (06:00)
[2022-08-09 06:19] LABS: BASO % 0.5 % (0.0-1.0); EOS % 0.2 % (0.0-3.0); HEMATOCRIT 36.5 % (36.0-47.0); HEMOGLOBIN 11.6 g/dl (12.0-15.5); LYMPH % 12.1 % (24.0-44.0); MEAN CORPUSCULAR HEMOGLOBIN 32.4 pg (27.0-33.0); MEAN CORPUSCULAR HGB CONC 31.8 g/dl (32.0-36.5); MONO # 0.6 10^3/uL (0.0-0.8); MONO % 7.6 % (2.0-8.0); NEUTROPHILS # 6.6 10^3/uL (1.5-8.5); NEUTROPHILS % 79.1 % (36.0-66.0); PLATELET COUNT, AUTOMATED 247 10^3/uL (150-450); RED BLOOD COUNT 3.58 10^6/uL (4.00-5.40); WHITE BLOOD COUNT 8.3 10^3/uL (4.0-10.0)
[2022-08-09 06:52] LABS: CALCIUM LEVEL 8.7 MG/DL (8.3-10.6); CREATININE FOR GFR 1.03 MG/DL (0.55-1.30); GLOMERULAR FILTRATION RATE 53.7 (>32); POTASSIUM SERUM 4.8 MMOL/L (3.5-5.1)
[2022-08-09] MEDS: INSULIN LISPRO (NovoLOG) PER UNIT SC SCH ×3 (07:30→18:25)
[2022-08-09 08:40] VITALS: BP 113/66
[2022-08-09] MEDS ORDERED: LISI10TA22 PO (09:04)
[2022-08-09] MEDS ORDERED: DULO1CAP6 PO (09:04)
[2022-08-09] MEDS ORDERED: DULO60CA35 PO (09:04)
[2022-08-09] MEDS ORDERED: PRAV40TA2 PO (09:04)
[2022-08-09] MEDS ORDERED: AMLO1TAB25 PO (09:04)
[2022-08-09] MEDS ORDERED: MM S100C PO (09:04)
[2022-08-09] MEDS ORDERED: PRED5TA PO (09:04)
[2022-08-09] MEDS ORDERED: BUSP5TA PO (09:04)
[2022-08-09] MEDS ORDERED: PANT40TA29 PO (09:04)
[2022-08-09] MEDS ORDERED: CYAN100050 PO (09:04)
[2022-08-09] MEDS ORDERED: MIRT1TAB PO (09:04)
[2022-08-09] MEDS ORDERED: SIME80CH5 PO (09:04)
[2022-08-09] MEDS ORDERED: LEVO25TA5 PO (09:04)
[2022-08-09 09:14] LABS: HEMOGLOBIN A1c 5.3 % (4.0-6.0)
[2022-08-09] MEDS: MULTIVITAMINS/MINERALS THERAP 1 TAB PO SCH (09:54)
[2022-08-09] MEDS: THIAMINE 100 MG TAB PO SCH ×2 (09:55→20:47)
[2022-08-09] MEDS: FOLIC ACID 1MG TAB PO SCH (10:02)
[2022-08-09] MEDS ORDERED: MED REC COMMENT (10:36)
[2022-08-09] MEDS ORDERED: TORS20TA2 PO (10:36)
[2022-08-09] MEDS ORDERED: HOME MED LIST COMPLETE! XX SCH (10:40)
[2022-08-09 11:18] LABS: CK-MB VALUE MASS 3.9 NG/ML (<3.6)
[2022-08-09 11:25] LABS: MB/CK RELATIVE INDEX 2.88 (< OR =4)
[2022-08-09 12:15] VITALS: BP 114/51
[2022-08-09] MEDS: PANTOPRAZOLE 40MG TAB (PROTONIX) PO SCH (12:56)
[2022-08-09 16:00] VITALS: BP 137/60
[2022-08-09 16:23] VITALS: PULSE 54
[2022-08-09] MEDS: NYSTATIN 100,000 UNITS/GM TOPICAL PWD 15GM TOP SCH ×2 (16:30→20:49)
[2022-08-09] MEDS: ACETAMINOPHEN TAB 650MG DOSE (2X325MG) PO PRN (16:35)
[2022-08-09 16:41] LABS: CK-MB VALUE MASS 3.3 NG/ML (<3.6)
[2022-08-09 16:42] LABS: MB/CK RELATIVE INDEX 2.29 (< OR =4)
[2022-08-09 19:46] LABS: CK-MB VALUE MASS 2.7 NG/ML (<3.6)
[2022-08-09 19:47] LABS: MB/CK RELATIVE INDEX 1.84 (< OR =4)
[2022-08-09 20:22] VITALS: BP 116/55
[2022-08-09] MEDS: ENOXAPARIN 100MG/1ML SYRINGE (J1650 PER 10MG) SC SCH (20:47)
[2022-08-09] MEDS ORDERED: INSULIN LISPRO (NovoLOG) PER UNIT SC SCH (21:00)
[2022-08-10] VITALS (9 sets, daily range): BP systolic 117–139; BP diastolic 56–61; PULSE 56–59
[2022-08-10 07:16] LABS: BASO # 0.1 10^3/uL (0.0-0.2); BASO % 1.1 % (0.0-1.0); EOS # 0.1 10^3/uL (0.0-0.5); EOS % 1.5 % (0.0-3.0); HEMATOCRIT 34.6 % (36.0-47.0); HEMOGLOBIN 11.1 g/dl (12.0-15.5); LYMPH # 1.7 10^3/uL (1.5-5.0); LYMPH % 35.3 % (24.0-44.0); MEAN CORPUSCULAR HEMOGLOBIN 32.8 pg (27.0-33.0); MEAN CORPUSCULAR HGB CONC 32.1 g/dl (32.0-36.5); MEAN CORPUSCULAR VOLUME 102.4 fl (80.0-96.0); MONO # 0.4 10^3/uL (0.0-0.8); MONO % 8.5 % (2.0-8.0); NEUTROPHILS # 2.5 10^3/uL (1.5-8.5); NEUTROPHILS % 53.2 % (36.0-66.0); PLATELET COUNT, AUTOMATED 219 10^3/uL (150-450); RED BLOOD COUNT 3.38 10^6/uL (4.00-5.40); WHITE BLOOD COUNT 4.7 10^3/uL (4.0-10.0)
[2022-08-10] MEDS: INSULIN LISPRO (NovoLOG) PER UNIT SC SCH ×2 (07:30→13:08)
[2022-08-10 07:36] LABS: CK-MB VALUE MASS 2.1 NG/ML (<3.6)
[2022-08-10 07:37] LABS: MAGNESIUM LEVEL 1.9 MG/DL (1.8-2.4)
[2022-08-10 07:39] LABS: BLOOD UREA NITROGEN 26 MG/DL (9-23); CALCIUM LEVEL 8.6 MG/DL (8.3-10.6); CARBON DIOXIDE LEVEL 25 MMOL/L (20-31); CHLORIDE LEVEL 107 MMOL/L (98-107); CPK CREATINE PHOSPHOKINASE 83 U/L (34-145); CREATININE FOR GFR 0.82 MG/DL (0.55-1.30); GLOMERULAR FILTRATION RATE > 60.0 (>32); GLUCOSE, FASTING 93 MG/DL (74-106); MB/CK RELATIVE INDEX 2.53 (< OR =4); POTASSIUM SERUM 4.4 MMOL/L (3.5-5.1); SODIUM LEVEL 142 MMOL/L (136-145)
[2022-08-10] MEDS: ENOXAPARIN 100MG/1ML SYRINGE (J1650 PER 10MG) SC SCH (08:27)
[2022-08-10] MEDS: THIAMINE 100 MG TAB PO SCH ×2 (08:27→21:12)
[2022-08-10] MEDS: FOLIC ACID 1MG TAB PO SCH (08:27)
[2022-08-10] MEDS: MULTIVITAMINS/MINERALS THERAP 1 TAB PO SCH (08:27)
[2022-08-10] MEDS: PANTOPRAZOLE 40MG TAB (PROTONIX) PO SCH (08:27)
[2022-08-10] MEDS: NYSTATIN 100,000 UNITS/GM TOPICAL PWD 15GM TOP SCH ×2 (08:28→21:12)
[2022-08-10] MEDS ORDERED: ELIQ5TAB PO (10:47)
[2022-08-10] MEDS: ACETAMINOPHEN TAB 650MG DOSE (2X325MG) PO PRN ×3 (12:05→21:12)
[2022-08-10] MEDS: APIXABAN 5 MG TAB (ELIQUIS) PO SCH (21:12)
[2022-08-11] VITALS (9 sets, daily range): BP systolic 105–156; BP diastolic 61–76; PULSE 58
[2022-08-11 05:43] LABS: HEMATOCRIT 31.9 % (36.0-47.0); HEMOGLOBIN 10.2 g/dl (12.0-15.5); MEAN CORPUSCULAR HEMOGLOBIN 32.7 pg (27.0-33.0); MEAN CORPUSCULAR VOLUME 102.2 fl (80.0-96.0); PLATELET COUNT, AUTOMATED 217 10^3/uL (150-450); RED BLOOD COUNT 3.12 10^6/uL (4.00-5.40); WHITE BLOOD COUNT 4.3 10^3/uL (4.0-10.0)
[2022-08-11 06:01] LABS: MAGNESIUM LEVEL 1.8 MG/DL (1.8-2.4)
[2022-08-11 06:03] LABS: BLOOD UREA NITROGEN 23 MG/DL (9-23); CALCIUM LEVEL 8.6 MG/DL (8.3-10.6); CARBON DIOXIDE LEVEL 28 MMOL/L (20-31); CHLORIDE LEVEL 105 MMOL/L (98-107); CREATININE FOR GFR 0.87 MG/DL (0.55-1.30); GLOMERULAR FILTRATION RATE > 60.0 (>32); GLUCOSE, FASTING 105 MG/DL (74-106); SODIUM LEVEL 140 MMOL/L (136-145)
[2022-08-11] MEDS: FOLIC ACID 1MG TAB PO SCH (09:31)
[2022-08-11] MEDS: APIXABAN 5 MG TAB (ELIQUIS) PO SCH ×2 (09:32→20:32)
[2022-08-11] MEDS: ACETAMINOPHEN TAB 650MG DOSE (2X325MG) PO PRN ×2 (09:32→15:06)
[2022-08-11] MEDS: MULTIVITAMINS/MINERALS THERAP 1 TAB PO SCH (09:32)
[2022-08-11] MEDS: PANTOPRAZOLE 40MG TAB (PROTONIX) PO SCH (09:32)
[2022-08-11] MEDS: THIAMINE 100 MG TAB PO SCH ×2 (09:32→21:13)
[2022-08-11] MEDS: NYSTATIN 100,000 UNITS/GM TOPICAL PWD 15GM TOP SCH ×2 (09:33→21:08)
[2022-08-11 13:53] LABS: FREE T4 0.94 NG/DL (0.89-1.76); THYROID STIMULATING HORMONE 5.728 uIU/ML (0.55-4.78)
[2022-08-11] MEDS ORDERED: LIDOCAINE 5% (LIDODERM) PATCH TD ONE (17:15)
[2022-08-11] MEDS ORDERED: MORPHINE 2 MG/ML 1ML VIAL IV ONE ×2 (17:20→20:20)
[2022-08-11] MEDS ORDERED: GI COCKTAIL 50ML BTL(HYOSCYAMINE/MAALOX/LIDOCAINE VISCOUS)(1:3:1) PO ONE (17:25)
[2022-08-11] MEDS: PANTOPRAZOLE 40MG VIAL IV SCH (18:27)
[2022-08-12] VITALS: BP_SYST 118; BP_SYST 135; BP_DIAS 63; BP_DIAS 69; PULSE 58
[2022-08-12 04:15] LABS: HEMATOCRIT 33.7 % (36.0-47.0); HEMOGLOBIN 10.7 g/dl (12.0-15.5); MEAN CORPUSCULAR HEMOGLOBIN 32.1 pg (27.0-33.0); MEAN CORPUSCULAR HGB CONC 31.8 g/dl (32.0-36.5); MEAN CORPUSCULAR VOLUME 101.2 fl (80.0-96.0); PLATELET COUNT, AUTOMATED 252 10^3/uL (150-450); RED BLOOD COUNT 3.33 10^6/uL (4.00-5.40); WHITE BLOOD COUNT 4.6 10^3/uL (4.0-10.0)
[2022-08-12 04:34] LABS: MAGNESIUM LEVEL 1.7 MG/DL (1.8-2.4)
[2022-08-12 04:35] LABS: BLOOD UREA NITROGEN 19 MG/DL (9-23); CALCIUM LEVEL 8.9 MG/DL (8.3-10.6); CARBON DIOXIDE LEVEL 28 MMOL/L (20-31); CHLORIDE LEVEL 106 MMOL/L (98-107); CREATININE FOR GFR 0.79 MG/DL (0.55-1.30); GLOMERULAR FILTRATION RATE > 60.0 (>32); GLUCOSE, FASTING 91 MG/DL (74-106); POTASSIUM SERUM 4.3 MMOL/L (3.5-5.1); SODIUM LEVEL 141 MMOL/L (136-145)
[2022-08-12 06:00] VITALS: BP 132/65
[2022-08-12 08:00] VITALS: BP_SYST 112; BP_SYST 137; BP_DIAS 58; BP_DIAS 63; PULSE 52
[2022-08-12] MEDS ORDERED: LIDOCAINE 5% (LIDODERM) PATCH TD SCH ×2 (08:30→09:00)
[2022-08-12] MEDS: MULTIVITAMINS/MINERALS THERAP 1 TAB PO SCH (08:55)
[2022-08-12] MEDS: MAG SULF 1GM/100ML (MAG RUN) 1 GM in IV 1 EA IV SCH ×2 (08:55→10:08)
[2022-08-12] MEDS: APIXABAN 5 MG TAB (ELIQUIS) PO SCH ×2 (08:55→19:51)
[2022-08-12] MEDS: FOLIC ACID 1MG TAB PO SCH (08:56)
[2022-08-12] MEDS: PANTOPRAZOLE 40MG VIAL IV SCH (08:56)
[2022-08-12] MEDS: NYSTATIN 100,000 UNITS/GM TOPICAL PWD 15GM TOP SCH ×2 (08:57→19:52)
[2022-08-12] MEDS ORDERED: CALCIUM CARBONATE 500 MG CHEW U/D PO ONE (09:00)
[2022-08-12] MEDS: ACETAMINOPHEN TAB 650MG DOSE (2X325MG) PO PRN ×3 (09:07→20:16)
[2022-08-12] MEDS ORDERED: KETOROLAC 30 MG/ML 1ML VIAL IV ONE (10:30)
[2022-08-12 12:00] VITALS: BP_SYST 112; BP_SYST 135; BP_DIAS 58; PULSE 60
[2022-08-12 16:00] VITALS: BP 131/60; PULSE 64
[2022-08-12] MEDS: DICLOFENAC EPOLAMINE 1.3% PATCH TOP SCH (18:00)
[2022-08-12 20:00] VITALS: BP 155/66
[2022-08-13 04:00] VITALS: BP 135/63
[2022-08-13] MEDS: DICLOFENAC EPOLAMINE 1.3% PATCH TOP SCH ×2 (04:38→16:56)
[2022-08-13 05:19] LABS: HEMATOCRIT 35.6 % (36.0-47.0); HEMOGLOBIN 11.3 g/dl (12.0-15.5); MEAN CORPUSCULAR HEMOGLOBIN 32.4 pg (27.0-33.0); MEAN CORPUSCULAR HGB CONC 31.7 g/dl (32.0-36.5); PLATELET COUNT, AUTOMATED 252 10^3/uL (150-450); RED BLOOD COUNT 3.49 10^6/uL (4.00-5.40); WHITE BLOOD COUNT 4.6 10^3/uL (4.0-10.0)
[2022-08-13 05:37] LABS: MAGNESIUM LEVEL 2.2 MG/DL (1.8-2.4)
[2022-08-13 05:39] LABS: CALCIUM LEVEL 9.1 MG/DL (8.3-10.6); CREATININE FOR GFR 1.04 MG/DL (0.55-1.30); GLOMERULAR FILTRATION RATE 53.1 (>32); POTASSIUM SERUM 4.6 MMOL/L (3.5-5.1)
[2022-08-13 08:00] VITALS: BP 150/60
[2022-08-13] MEDS: PANTOPRAZOLE 40MG VIAL IV SCH (09:04)
[2022-08-13] MEDS: APIXABAN 5 MG TAB (ELIQUIS) PO SCH ×2 (09:04→20:28)
[2022-08-13] MEDS: FOLIC ACID 1MG TAB PO SCH (09:05)
[2022-08-13] MEDS: NYSTATIN 100,000 UNITS/GM TOPICAL PWD 15GM TOP SCH ×2 (09:05→20:29)
[2022-08-13] MEDS: MULTIVITAMINS/MINERALS THERAP 1 TAB PO SCH (09:05)
[2022-08-13] MEDS: amLODIPine 5 MG TAB PO SCH (11:42)
[2022-08-13 12:00] VITALS: BP 133/62
[2022-08-13] MEDS: ACETAMINOPHEN TAB 650MG DOSE (2X325MG) PO PRN ×2 (13:38→20:28)
[2022-08-13] MEDS ORDERED: NS 500 ML IV ONE (18:20)
[2022-08-13 20:00] VITALS: BP 121/59
[2022-08-13] MEDS: PANTOPRAZOLE 40MG TAB (PROTONIX) PO SCH (20:28)
[2022-08-13] MEDS ORDERED: MORPHINE 2 MG/ML 1ML VIAL IV ONE (22:15)
[2022-08-14] MEDS: DICLOFENAC EPOLAMINE 1.3% PATCH TOP SCH (05:14)
[2022-08-14 05:49] LABS: BLOOD UREA NITROGEN 28 MG/DL (9-23); CALCIUM LEVEL 8.9 MG/DL (8.3-10.6); CARBON DIOXIDE LEVEL 26 MMOL/L (20-31); CHLORIDE LEVEL 105 MMOL/L (98-107); CREATININE FOR GFR 0.89 MG/DL (0.55-1.30); GLOMERULAR FILTRATION RATE > 60.0 (>32); GLUCOSE, FASTING 104 MG/DL (74-106); POTASSIUM SERUM 4.4 MMOL/L (3.5-5.1); SODIUM LEVEL 139 MMOL/L (136-145)
[2022-08-14] MEDS: ACETAMINOPHEN TAB 650MG DOSE (2X325MG) PO PRN ×3 (08:19→20:06)
[2022-08-14] MEDS: MULTIVITAMINS/MINERALS THERAP 1 TAB PO SCH (08:53)
[2022-08-14] MEDS: NYSTATIN 100,000 UNITS/GM TOPICAL PWD 15GM TOP SCH ×2 (08:55→20:07)
[2022-08-14] MEDS: FOLIC ACID 1MG TAB PO SCH (08:55)
[2022-08-14] MEDS: APIXABAN 5 MG TAB (ELIQUIS) PO SCH ×2 (08:56→20:06)
[2022-08-14] MEDS: amLODIPine 5 MG TAB PO SCH (09:00)
[2022-08-14 12:35] VITALS: BP 103/50
[2022-08-14] MEDS: IBUPROFEN 400MG TAB PO PRN (15:58)
[2022-08-14] MEDS: LIDOCAINE 5% (LIDODERM) PATCH TD SCH (15:59)
[2022-08-14 20:00] VITALS: BP 142/60
[2022-08-14] MEDS: PANTOPRAZOLE 40MG TAB (PROTONIX) PO SCH (20:06)
[2022-08-15 08:00] VITALS: BP 131/89
[2022-08-15] MEDS: MULTIVITAMINS/MINERALS THERAP 1 TAB PO SCH (09:07)
[2022-08-15] MEDS: NYSTATIN 100,000 UNITS/GM TOPICAL PWD 15GM TOP SCH ×2 (09:07→20:06)
[2022-08-15] MEDS: amLODIPine 5 MG TAB PO SCH (09:08)
[2022-08-15] MEDS: FOLIC ACID 1MG TAB PO SCH (09:08)
[2022-08-15] MEDS: IBUPROFEN 400MG TAB PO PRN ×2 (09:08→18:40)
[2022-08-15] MEDS: APIXABAN 5 MG TAB (ELIQUIS) PO SCH ×2 (09:08→20:05)
[2022-08-15] MEDS: LIDOCAINE 5% (LIDODERM) PATCH TD SCH (09:08)
[2022-08-15] MEDS: ACETAMINOPHEN TAB 650MG DOSE (2X325MG) PO PRN ×2 (11:42→20:07)
[2022-08-15] MEDS: PANTOPRAZOLE 40MG TAB (PROTONIX) PO SCH (20:05)
[2022-08-16 04:00] VITALS: BP 130/59
[2022-08-16 07:47] LABS: BASO # 0.1 10^3/uL (0.0-0.2); BASO % 1.2 % (0.0-1.0); EOS # 0.1 10^3/uL (0.0-0.5); HEMATOCRIT 35.1 % (36.0-47.0); HEMOGLOBIN 11.2 g/dl (12.0-15.5); LYMPH # 1.6 10^3/uL (1.5-5.0); LYMPH % 31.5 % (24.0-44.0); MEAN CORPUSCULAR HEMOGLOBIN 32.1 pg (27.0-33.0); MEAN CORPUSCULAR HGB CONC 31.9 g/dl (32.0-36.5); MEAN CORPUSCULAR VOLUME 100.6 fl (80.0-96.0); MONO # 0.4 10^3/uL (0.0-0.8); MONO % 8.1 % (2.0-8.0); NEUTROPHILS # 2.8 10^3/uL (1.5-8.5); NEUTROPHILS % 56.8 % (36.0-66.0); PLATELET COUNT, AUTOMATED 281 10^3/uL (150-450); RED BLOOD COUNT 3.49 10^6/uL (4.00-5.40)
[2022-08-16] MEDS: FOLIC ACID 1MG TAB PO SCH (08:56)
[2022-08-16] MEDS: APIXABAN 5 MG TAB (ELIQUIS) PO SCH ×2 (08:56→20:49)
[2022-08-16] MEDS: amLODIPine 5 MG TAB PO SCH (08:56)
[2022-08-16] MEDS: MULTIVITAMINS/MINERALS THERAP 1 TAB PO SCH (08:56)
[2022-08-16] MEDS: LIDOCAINE 5% (LIDODERM) PATCH TD SCH (08:56)
[2022-08-16] MEDS: NYSTATIN 100,000 UNITS/GM TOPICAL PWD 15GM TOP SCH ×2 (08:57→20:51)
[2022-08-16] MEDS: ACETAMINOPHEN TAB 650MG DOSE (2X325MG) PO PRN ×3 (08:58→18:02)
[2022-08-16] MEDS: IBUPROFEN 400MG TAB PO PRN ×2 (11:15→20:50)
[2022-08-16] MEDS ORDERED: LACTULOSE 20GM/30ML SYRUP UDC PO ONE (19:25)
[2022-08-16] MEDS: PANTOPRAZOLE 40MG TAB (PROTONIX) PO SCH (20:49)
[2022-08-17] MEDS: ACETAMINOPHEN TAB 650MG DOSE (2X325MG) PO PRN ×2 (06:25→14:47)
[2022-08-17 08:00] VITALS: BP 160/68
[2022-08-17] MEDS: MULTIVITAMINS/MINERALS THERAP 1 TAB PO SCH (09:00)
[2022-08-17] MEDS: amLODIPine 5 MG TAB PO SCH (09:01)
[2022-08-17] MEDS: APIXABAN 5 MG TAB (ELIQUIS) PO SCH ×2 (09:01→22:08)
[2022-08-17] MEDS: FOLIC ACID 1MG TAB PO SCH (09:01)
[2022-08-17] MEDS: IBUPROFEN 400MG TAB PO PRN ×2 (09:01→22:15)
[2022-08-17] MEDS: NYSTATIN 100,000 UNITS/GM TOPICAL PWD 15GM TOP SCH ×2 (09:02→22:10)
[2022-08-17] MEDS: LIDOCAINE 5% (LIDODERM) PATCH TD SCH ×2 (09:02→22:10)
[2022-08-17 19:36] VITALS: BP 125/60
[2022-08-17] MEDS: PANTOPRAZOLE 40MG TAB (PROTONIX) PO SCH (22:08)
[2022-08-18] MEDS: MULTIVITAMINS/MINERALS THERAP 1 TAB PO SCH (09:25)
[2022-08-18] MEDS: APIXABAN 5 MG TAB (ELIQUIS) PO SCH ×2 (09:26→20:01)
[2022-08-18] MEDS: FOLIC ACID 1MG TAB PO SCH (09:26)
[2022-08-18] MEDS: NYSTATIN 100,000 UNITS/GM TOPICAL PWD 15GM TOP SCH ×2 (09:26→21:00)
[2022-08-18] MEDS: amLODIPine 5 MG TAB PO SCH (09:27)
[2022-08-18] MEDS: IBUPROFEN 400MG TAB PO PRN ×2 (09:28→20:02)
[2022-08-18 09:37] VITALS: BP 138/61
[2022-08-18] MEDS: PANTOPRAZOLE 40MG TAB (PROTONIX) PO SCH (20:01)
[2022-08-19 00:22] VITALS: BP 137/61
[2022-08-19] MEDS ORDERED: SENOKOT S TAB PO PRN (01:25)
[2022-08-19] MEDS: ACETAMINOPHEN TAB 650MG DOSE (2X325MG) PO PRN ×2 (01:33→11:51)
[2022-08-19 06:00] VITALS: BP 123/52
[2022-08-19] MEDS: LIDOCAINE 5% (LIDODERM) PATCH TD SCH (08:39)
[2022-08-19] MEDS: FOLIC ACID 1MG TAB PO SCH (08:39)
[2022-08-19] MEDS: DOCUSATE SODIUM 100MG CAPSULE PO SCH ×2 (08:39→20:48)
[2022-08-19] MEDS: MULTIVITAMINS/MINERALS THERAP 1 TAB PO SCH (08:39)
[2022-08-19] MEDS: NYSTATIN 100,000 UNITS/GM TOPICAL PWD 15GM TOP SCH ×2 (08:39→20:49)
[2022-08-19] MEDS: APIXABAN 5 MG TAB (ELIQUIS) PO SCH ×2 (08:39→20:48)
[2022-08-19] MEDS: DIMETHICONE 2% OINTMENT(VANICREAM) 70GM TUBE TOP SCH ×2 (08:42→20:48)
[2022-08-19] MEDS: amLODIPine 5 MG TAB PO SCH (08:45)
[2022-08-19] MEDS: IBUPROFEN 400MG TAB PO PRN (14:05)
[2022-08-19] MEDS: PANTOPRAZOLE 40MG TAB (PROTONIX) PO SCH (20:48)
[2022-08-19] MEDS ORDERED: carisoprodoL 350 MG TAB PO PRN (21:35)
[2022-08-20] MEDS: IBUPROFEN 400MG TAB PO PRN ×2 (05:27→21:58)
[2022-08-20 05:30] VITALS: BP 159/62
[2022-08-20] MEDS: LIDOCAINE 5% (LIDODERM) PATCH TD SCH (08:49)
[2022-08-20] MEDS: APIXABAN 5 MG TAB (ELIQUIS) PO SCH ×2 (08:49→21:56)
[2022-08-20] MEDS: FOLIC ACID 1MG TAB PO SCH (08:49)
[2022-08-20] MEDS: amLODIPine 5 MG TAB PO SCH (08:49)
[2022-08-20] MEDS: MULTIVITAMINS/MINERALS THERAP 1 TAB PO SCH (08:49)
[2022-08-20] MEDS: DOCUSATE SODIUM 100MG CAPSULE PO SCH ×2 (08:49→21:56)
[2022-08-20] MEDS: NYSTATIN 100,000 UNITS/GM TOPICAL PWD 15GM TOP SCH ×2 (08:50→21:57)
[2022-08-20] MEDS: DIMETHICONE 2% OINTMENT(VANICREAM) 70GM TUBE TOP SCH ×2 (08:50→21:57)
[2022-08-20] MEDS: ACETAMINOPHEN TAB 650MG DOSE (2X325MG) PO PRN (10:59)
[2022-08-20] MEDS ORDERED: GI COCKTAIL 50ML BTL(HYOSCYAMINE/MAALOX/LIDOCAINE VISCOUS)(1:3:1) PO ONE (18:00)
[2022-08-20] MEDS: PANTOPRAZOLE 40MG TAB (PROTONIX) PO SCH (21:56)
[2022-08-21 06:00] VITALS: BP 127/59
[2022-08-21 07:50] VITALS: BP 122/68
[2022-08-21] MEDS: FOLIC ACID 1MG TAB PO SCH (09:27)
[2022-08-21] MEDS: MULTIVITAMINS/MINERALS THERAP 1 TAB PO SCH (09:28)
[2022-08-21] MEDS: APIXABAN 5 MG TAB (ELIQUIS) PO SCH ×2 (09:29→20:39)
[2022-08-21] MEDS: amLODIPine 5 MG TAB PO SCH (09:29)
[2022-08-21] MEDS: DOCUSATE SODIUM 100MG CAPSULE PO SCH ×2 (09:30→20:40)
[2022-08-21] MEDS: NYSTATIN 100,000 UNITS/GM TOPICAL PWD 15GM TOP SCH ×2 (09:30→20:40)
[2022-08-21] MEDS: DIMETHICONE 2% OINTMENT(VANICREAM) 70GM TUBE TOP SCH ×2 (09:31→20:40)
[2022-08-21] MEDS: LIDOCAINE 5% (LIDODERM) PATCH TD SCH (09:32)
[2022-08-21] MEDS: IBUPROFEN 400MG TAB PO PRN (10:27)
[2022-08-21 13:51] VITALS: BP 118/53
[2022-08-21] MEDS: DULoxetine 30MG CAPSULE (CYMBALTA) PO SCH (18:03)
[2022-08-21] MEDS: busPIRone 5 MG TAB PO SCH (20:39)
[2022-08-21] MEDS: PANTOPRAZOLE 40MG TAB (PROTONIX) PO SCH (20:40)
[2022-08-21] MEDS: ACETAMINOPHEN TAB 650MG DOSE (2X325MG) PO PRN (20:41)
[2022-08-22 06:00] VITALS: BP 126/54
[2022-08-22] MEDS: amLODIPine 5 MG TAB PO SCH (09:12)
[2022-08-22] MEDS: FOLIC ACID 1MG TAB PO SCH (09:12)
[2022-08-22] MEDS: APIXABAN 5 MG TAB (ELIQUIS) PO SCH ×2 (09:13→21:17)
[2022-08-22] MEDS: LIDOCAINE 5% (LIDODERM) PATCH TD SCH (09:13)
[2022-08-22] MEDS: busPIRone 5 MG TAB PO SCH ×2 (09:13→21:17)
[2022-08-22] MEDS: DOCUSATE SODIUM 100MG CAPSULE PO SCH ×2 (09:13→21:17)
[2022-08-22] MEDS: NYSTATIN 100,000 UNITS/GM TOPICAL PWD 15GM TOP SCH ×2 (09:13→21:17)
[2022-08-22] MEDS: MULTIVITAMINS/MINERALS THERAP 1 TAB PO SCH (09:13)
[2022-08-22] MEDS: DULoxetine 30MG CAPSULE (CYMBALTA) PO SCH (09:13)
[2022-08-22] MEDS: DIMETHICONE 2% OINTMENT(VANICREAM) 70GM TUBE TOP SCH ×2 (09:13→21:17)
[2022-08-22] MEDS: IBUPROFEN 400MG TAB PO PRN (09:16)
[2022-08-22] MEDS: ACETAMINOPHEN TAB 650MG DOSE (2X325MG) PO PRN ×2 (17:09→21:20)
[2022-08-22] MEDS: PANTOPRAZOLE 40MG TAB (PROTONIX) PO SCH (21:17)
[2022-08-22] MEDS ORDERED: diphenhydrAMINE 25MG CAP PO PRN (23:55)
[2022-08-23 06:00] VITALS: BP 142/59
[2022-08-23] MEDS: NYSTATIN 100,000 UNITS/GM TOPICAL PWD 15GM TOP SCH (09:36)
[2022-08-23] MEDS: DIMETHICONE 2% OINTMENT(VANICREAM) 70GM TUBE TOP SCH (09:36)
[2022-08-23] MEDS: MULTIVITAMINS/MINERALS THERAP 1 TAB PO SCH (09:37)
[2022-08-23] MEDS: LIDOCAINE 5% (LIDODERM) PATCH TD SCH (09:37)
[2022-08-23] MEDS: DULoxetine 30MG CAPSULE (CYMBALTA) PO SCH (09:37)
[2022-08-23 09:38] VITALS: BP 142/59
[2022-08-23] MEDS: FOLIC ACID 1MG TAB PO SCH (09:38)
[2022-08-23] MEDS: APIXABAN 5 MG TAB (ELIQUIS) PO SCH (09:38)
[2022-08-23] MEDS: amLODIPine 5 MG TAB PO SCH (09:38)
[2022-08-23] MEDS: DOCUSATE SODIUM 100MG CAPSULE PO SCH (09:38)
[2022-08-23] MEDS: busPIRone 5 MG TAB PO SCH (09:39)
[2022-08-23] MEDS: ACETAMINOPHEN TAB 650MG DOSE (2X325MG) PO PRN (10:28)
[2022-08-23] MEDS ORDERED: VITMTA PO (11:04)
[2022-08-23] MEDS ORDERED: ELIQ5TAB PO (11:04)
[2022-08-23] MEDS ORDERED: FOLI1TAB11 PO (11:04)
[2022-08-23] MEDS ORDERED: AMLO1TAB24 PO (11:04)
[2022-08-23] MEDS ORDERED: BUSP5TA PO (11:04)
[2022-08-23] MEDS ORDERED: DULO1CAP6 PO (11:04)
== END 2022-08-23 12:06 | DRG 176 ==
LOC: M ED 23:32 → EDBD 23:32 → M ED INP 08-09 04:32 → ENRESERV 08-09 06:36 → M MSPAV 08-09 08:37 → M PCU 08-09 12:13 → M MSPAV 08-19 00:21
PROVIDERS: ADMIT Internal Medicine; ATTEND Family Medicine
PROC: B246ZZZ Ultrasonography of Right and Left Heart (ICD-10-PCS; principal; 2022-08-09)
DX: I26.99 Other pulmonary embolism without acute cor pulmonale (principal); I82.413 Acute embolism and thrombosis of femoral vein, bilateral; I82.433 Acute embolism and thrombosis of popliteal vein, bilateral; T84.028A Dislocation of other internal joint prosthesis, initial encounter; E11.42 Type 2 diabetes mellitus with diabetic polyneuropathy; E78.5 Hyperlipidemia, unspecified; N18.31 Chronic kidney disease, stage 3a; E11.22 Type 2 diabetes mellitus with diabetic chronic kidney disease; M10.9 Gout, unspecified; M35.3 Polymyalgia rheumatica; M48.00 Spinal stenosis, site unspecified; E03.9 Hypothyroidism, unspecified; K21.9 Gastro-esophageal reflux disease without esophagitis; E11.51 Type 2 diabetes mellitus with diabetic peripheral angiopathy without gangrene; I25.10 Atherosclerotic heart disease of native coronary artery without angina pectoris; I25.2 Old myocardial infarction; D63.8 Anemia in other chronic diseases classified elsewhere; I27.82 Chronic pulmonary embolism; R53.81 Other malaise; L30.4 Erythema intertrigo; R07.89 Other chest pain; F32.A Depression, unspecified; G89.29 Other chronic pain; F10.20 Alcohol dependence, uncomplicated; M25.462 Effusion, left knee; F41.9 Anxiety disorder, unspecified; Z99.3 Dependence on wheelchair; Z79.890 Hormone replacement therapy; Z79.52 Long term (current) use of systemic steroids; Z98.49 Cataract extraction status, unspecified eye; Z88.8 Allergy status to other drugs, medicaments and biological substances; Z88.6 Allergy status to analgesic agent; Z91.048 Other nonmedicinal substance allergy status; Z96.653 Presence of artificial knee joint, bilateral; Z95.5 Presence of coronary angioplasty implant and graft; Z86.718 Personal history of other venous thrombosis and embolism; Z90.49 Acquired absence of other specified parts of digestive tract; Z79.899 Other long term (current) drug therapy; Y83.1 Surgical operation with implant of artificial internal device as the cause of abnormal reaction of the patient, or of later complication, without mention of misadventure at the time of the procedure

== ENCOUNTER → 2022-08-25 | Outpatient (REF) ==
[~2022-08-25] MED LIST changes: +AMLO1TAB24 PO; +CYAN100050 PO; +DULO60CA35 PO; +ELIQ5TAB PO; +FOLI1TAB11 PO; +MED REC COMMENT; +MM S100C PO; +SIME80CH5 PO; +TORS20TA2 PO; +VITMTA PO
[2022-08-25 10:56] LABS: HEMATOCRIT 38.9 % (36.0-47.0); HEMOGLOBIN 12.4 g/dl (12.0-15.5); MEAN CORPUSCULAR HEMOGLOBIN 32.4 pg (27.0-33.0); MEAN CORPUSCULAR HGB CONC 31.9 g/dl (32.0-36.5); MEAN CORPUSCULAR VOLUME 101.6 fl (80.0-96.0); PLATELET COUNT, AUTOMATED 392 10^3/uL (150-450); RED BLOOD COUNT 3.83 10^6/uL (4.00-5.40); WHITE BLOOD COUNT 7.6 10^3/uL (4.0-10.0)
[2022-08-25 11:27] LABS: BLOOD UREA NITROGEN 14 MG/DL (9-23); CALCIUM LEVEL 9.6 MG/DL (8.3-10.6); CARBON DIOXIDE LEVEL 28 MMOL/L (20-31); CHLORIDE LEVEL 102 MMOL/L (98-107); CREATININE FOR GFR 0.71 MG/DL (0.55-1.30); GLOMERULAR FILTRATION RATE > 60.0 (>32); GLUCOSE, FASTING 119 MG/DL (74-106); POTASSIUM SERUM 3.6 MMOL/L (3.5-5.1); SODIUM LEVEL 137 MMOL/L (136-145)
== END ==
PROVIDERS: ATTEND Physician Assistant
DX: I10 Essential (primary) hypertension (principal)

== ENCOUNTER → 2022-09-01 | Outpatient (REF) ==
[2022-09-01 09:50] LABS: HEMATOCRIT 33.6 % (36.0-47.0); HEMOGLOBIN 10.7 g/dl (12.0-15.5); MEAN CORPUSCULAR HEMOGLOBIN 31.8 pg (27.0-33.0); MEAN CORPUSCULAR HGB CONC 31.8 g/dl (32.0-36.5); PLATELET COUNT, AUTOMATED 377 10^3/uL (150-450); RED BLOOD COUNT 3.36 10^6/uL (4.00-5.40); WHITE BLOOD COUNT 5.2 10^3/uL (4.0-10.0)
[2022-09-01 10:22] LABS: BLOOD UREA NITROGEN 14 MG/DL (9-23); CALCIUM LEVEL 8.9 MG/DL (8.3-10.6); CARBON DIOXIDE LEVEL 28 MMOL/L (20-31); CHLORIDE LEVEL 106 MMOL/L (98-107); GLOMERULAR FILTRATION RATE > 60.0 (>32); GLUCOSE, FASTING 108 MG/DL (74-106); POTASSIUM SERUM 3.8 MMOL/L (3.5-5.1); SODIUM LEVEL 139 MMOL/L (136-145)
== END ==
PROVIDERS: ATTEND Physician Assistant
DX: I10 Essential (primary) hypertension (principal)

== ENCOUNTER → 2022-09-08 | Outpatient (REF) ==
[2022-09-08 11:28] LABS: HEMATOCRIT 33.5 % (36.0-47.0); HEMOGLOBIN 10.6 g/dl (12.0-15.5); MEAN CORPUSCULAR HEMOGLOBIN 31.5 pg (27.0-33.0); MEAN CORPUSCULAR HGB CONC 31.6 g/dl (32.0-36.5); MEAN CORPUSCULAR VOLUME 99.7 fl (80.0-96.0); PLATELET COUNT, AUTOMATED 371 10^3/uL (150-450); RED BLOOD COUNT 3.36 10^6/uL (4.00-5.40); WHITE BLOOD COUNT 5.5 10^3/uL (4.0-10.0)
[2022-09-08 12:09] LABS: BLOOD UREA NITROGEN 18 MG/DL (9-23); CALCIUM LEVEL 8.7 MG/DL (8.3-10.6); CARBON DIOXIDE LEVEL 28 MMOL/L (20-31); CHLORIDE LEVEL 105 MMOL/L (98-107); CREATININE FOR GFR 0.74 MG/DL (0.55-1.30); GLOMERULAR FILTRATION RATE > 60.0 (>32); GLUCOSE, FASTING 112 MG/DL (74-106); POTASSIUM SERUM 3.9 MMOL/L (3.5-5.1); SODIUM LEVEL 139 MMOL/L (136-145)
== END ==
PROVIDERS: ATTEND Physician Assistant
DX: I10 Essential (primary) hypertension (principal)

== ENCOUNTER → 2022-10-06 | Outpatient (REF) ==
[~2022-10-06] MED LIST changes: -ENAL-36 PO; +ENAL1TAB50 PO
[2022-10-06 12:37] LABS: HEMATOCRIT 32.2 % (36.0-47.0); HEMOGLOBIN 10.1 g/dl (12.0-15.5); MEAN CORPUSCULAR HEMOGLOBIN 29.9 pg (27.0-33.0); MEAN CORPUSCULAR HGB CONC 31.4 g/dl (32.0-36.5); MEAN CORPUSCULAR VOLUME 95.3 fl (80.0-96.0); PLATELET COUNT, AUTOMATED 514 10^3/uL (150-450); RED BLOOD COUNT 3.38 10^6/uL (4.00-5.40); WHITE BLOOD COUNT 8.5 10^3/uL (4.0-10.0)
[2022-10-06 13:48] LABS: BLOOD UREA NITROGEN 12 MG/DL (9-23); CALCIUM LEVEL 8.8 MG/DL (8.3-10.6); CARBON DIOXIDE LEVEL 26 MMOL/L (20-31); CHLORIDE LEVEL 102 MMOL/L (98-107); CREATININE FOR GFR 0.63 MG/DL (0.55-1.30); GLOMERULAR FILTRATION RATE > 60.0 (>32); GLUCOSE, FASTING 118 MG/DL (74-106); POTASSIUM SERUM 4.1 MMOL/L (3.5-5.1); SODIUM LEVEL 138 MMOL/L (136-145); THYROID STIMULATING HORMONE 2.502 uIU/ML (0.55-4.78)
== END ==
PROVIDERS: ATTEND Physician Assistant
DX: I10 Essential (primary) hypertension (principal)

== ENCOUNTER → 2022-11-10 | Outpatient (REF) | payer MEDICARE, OTHER | PROVIDERS: ATTEND Internal Medicine | DX: I10 Essential (primary) hypertension (principal) ==

== ENCOUNTER → 2022-12-06 | Outpatient (REF) | payer MEDICARE, OTHER ==
[~2022-12-06] MED LIST changes: -HEPA100I9 IV; +HEPAINJ4 IV
== END ==
PROVIDERS: ATTEND Internal Medicine
DX: E03.9 Hypothyroidism, unspecified (principal)

== ENCOUNTER → 2022-12-13 | Outpatient (REF) | payer MEDICARE, OTHER ==
[2022-12-13 11:50] LABS: FOLATE > 24.00 NG/ML (>5.4); VITAMIN B12 LEVEL 1343 PG/ML (211-911)
== END ==
PROVIDERS: ATTEND Nurse Practitioner Family
DX: R41.81 Age-related cognitive decline (principal)